=== PATIENT | female | born 1945 | race Caucasian/White ===

== ENCOUNTER → 2017-11-11 13:45 | Outpatient (CLI) | payer MEDICARE, BC, SELFPAY | PROVIDERS: PCP Emergency Medicine; Visit Provider Student in an Organized Health Care Education/Training Program | DX: M17.11 Unilateral primary osteoarthritis, right knee (principal); M06.861 Other specified rheumatoid arthritis, right knee | CPT/HCPCS: 99213 ==

== ENCOUNTER → 2017-12-16 09:42 | Outpatient (BNVA) | payer MEDICARE, BC, SELFPAY | PROVIDERS: PCP Emergency Medicine; Referring Provider Emergency Medicine; Visit Provider Student in an Organized Health Care Education/Training Program | DX: M17.11 Unilateral primary osteoarthritis, right knee (principal); M25.561 Pain in right knee | CPT/HCPCS: 20610; 99213; 99214; J1040 ==

== ENCOUNTER → 2018-06-23 08:56 | Outpatient (BNVA) | payer MEDICARE, BC, SELFPAY | PROVIDERS: PCP Emergency Medicine; Referring Provider Emergency Medicine; Visit Provider Student in an Organized Health Care Education/Training Program | DX: M17.11 Unilateral primary osteoarthritis, right knee (principal); M70.61 Trochanteric bursitis, right hip; M76.891 Other specified enthesopathies of right lower limb, excluding foot | CPT/HCPCS: 99213 ==

== ENCOUNTER 2018-07-28 09:49 | Outpatient (CLI) | payer MEDICARE, BC, SELFPAY ==
[2018-07-28 10:33] LABS: Abs Immature Grans 0.01 k/cumm (0.0-0.09); Absolute Basophil Count 0.05 k/cumm (0.0-0.2); Absolute Eosinophil Count 0.07 k/cumm (0.0-0.7); Absolute Lymphocyte Count 1.03 k/cumm (1.2-3.4); Absolute Monocyte Count 0.42 k/cumm (0.11-0.7); Absolute Neutrophil Count 4.66 k/cumm (1.2-6.7); Basophils % 0.8; Eosinophils % 1.1; HCT 39.4 % (36.0-46.0); HGB 13.1 g/dL (12.0-15.5); Immature Grans % 0.2; Lymphocytes % 16.5; Mean Corp. HGB Concentration 33.2 g/dL (32.0-36.0); Mean Corpuscular Hemoglobin 31.3 pg (27.0-33.0); Mean Platelet Volume 10.9 fL (8.0-11.0); Monocytes % 6.7; Neutrophils % 74.7; Platelet Count 191 x1000/uL (130-400); RBC 4.19 m/cumm (4.00-5.20); RBC Distribution Width 12.7 % (11.7-14.6); White Blood Cell Count 6.24 k/cumm (4.4-10.8)
[2018-07-28 11:10] LABS: ALT 22 U/L (12-78); AST 27 U/L (15-37); Albumin 3.9 g/dL (3.4-5.0); Alkaline Phosphatase 90 U/L (46-116); Anion Gap 9.8 mmol/L (3-11); BUN 17 mg/dL (7-18); Bilirubin, Total 0.4 mg/dL (0.2-1.0); C-Reactive Protein 0.12 mg/dL (0.0-0.3); CO2 27.2 mmol/L (21.0-32.0); CREATININE 0.67 mg/dL (0.55-1.02); Calcium 8.9 mg/dL (8.5-10.1); Chloride 101 mmol/L (98-107); Glucose 94 mg/dL (70-100); Potassium 4.1 mmol/L (3.5-5.1); Sodium 138 mmol/L (136-145); Total Protein 6.6 g/dL (6.4-8.2)
== END 2018-07-28 10:09 ==
PROVIDERS: PCP Emergency Medicine; Visit Provider Internal Medicine Rheumatology
DX: M06.4 Inflammatory polyarthropathy (principal)
CPT/HCPCS: 36415; 80053; 85025; 86140

== ENCOUNTER → 2019-01-21 08:49 | Outpatient (BNVA) | payer MEDICARE, BC, SELFPAY | PROVIDERS: PCP Emergency Medicine; Referring Provider Emergency Medicine; Visit Provider Orthopaedic Surgery | DX: M70.61 Trochanteric bursitis, right hip (principal) | CPT/HCPCS: 99213 ==

== ENCOUNTER → 2019-02-19 08:25 | Outpatient (BNVA) | payer MEDICARE, BC, SELFPAY | PROVIDERS: PCP Emergency Medicine; Referring Provider Emergency Medicine; Visit Provider Student in an Organized Health Care Education/Training Program | DX: M76.891 Other specified enthesopathies of right lower limb, excluding foot (principal); M70.61 Trochanteric bursitis, right hip | CPT/HCPCS: 99213 ==

== ENCOUNTER 2019-02-26 07:01 | Outpatient (CLI) | payer MEDICARE, BC, SELFPAY ==
--- NOTE | 2019-02-26 14:10 | DI.MRI_ITS ---
EXAM: MR LOWER JOINT RT WO CLINICAL HISTORY: R troch bursitis, ?abductor tendon tear M70.61 TROCHANTERIC BURSITIS, RT HI. TECHNIQUE: Multiplanar multisequence MRI was performed. COMPARISON: RT HIP COMPLETE AP PELVIS from 10/07/2015 FINDINGS: There is edema around the greater trochanters, right greater than left, consistent with trochanteri c bursitis. There is a small amount of fluid in the right hip joint. No abductor tendon tear is see n. The marrow signal appears normal. Diverticulosis is incidentally noted in the sigmoid colon. IMPRESSION: Bilateral trochanteric bursitis, right greater than left.
== END 2019-02-26 07:21 ==
PROVIDERS: PCP Emergency Medicine; Visit Provider Student in an Organized Health Care Education/Training Program
DX: M70.61 Trochanteric bursitis, right hip (principal); R60.0 Localized edema; M25.451 Effusion, right hip
CPT/HCPCS: 73721

== ENCOUNTER 2019-03-05 10:08 | Outpatient (CLI) | payer MEDICARE, BC, SELFPAY ==
--- NOTE | 2019-03-05 10:23 | DI.RAD_ITS ---
EXAM: XR CERVICAL SPINE COMP 4-5V CLINICAL HISTORY: eval L arm weakness TECHNIQUE: The study was performed according to the usual protocol. COMPARISON: CERV SP.WITH OBL OR FLEX/EXT from 06/08/2008 FINDINGS: Five views were obtained. There are very prominent hypertrophic changes of the vertebral endplates m ost marked at C4-5 and C5-6. Marked facet hypertrophic degenerative changes noted as well particular ly in the mid cervical spine. Neural foramina appear fairly well maintained as visualized. No fract ure identified. No gross erosive or destructive process seen. Multilevel disc space narrowing is seen consistent with disc degeneration. IMPRESSION: Severe degenerative changes of the cervical spine as described above.
--- NOTE | 2019-03-05 10:29 | DI.RAD_ITS ---
EXAM: XR LUMBAR SPINE AP, LAT CLINICAL HISTORY: RLE numbness and weakness TECHNIQUE: The study was performed according to the usual protocol. COMPARISON: No exams were available for comparison FINDINGS: Three views were obtained. There is a moderate right convex lumbar scoliosis. There is narrowing of intervertebral disc spaces throughout the lumbar region. No gross fracture identified. Severe hype rtrophic degenerative changes of the vertebral endplates and facet joints noted throughout. IMPRESSION: Severe DJD of the lumbar spine.
== END 2019-03-05 10:28 ==
PROVIDERS: PCP Emergency Medicine; Referring Provider Emergency Medicine; Visit Provider Student in an Organized Health Care Education/Training Program
DX: R29.898 Other symptoms and signs involving the musculoskeletal system (principal); R20.0 Anesthesia of skin; M50.321 Other cervical disc degeneration at C4-C5 level; M50.322 Other cervical disc degeneration at C5-C6 level; M51.36 Other intervertebral disc degeneration, lumbar region; M47.816 Spondylosis without myelopathy or radiculopathy, lumbar region; M70.61 Trochanteric bursitis, right hip; M54.16 Radiculopathy, lumbar region; M76.891 Other specified enthesopathies of right lower limb, excluding foot
CPT/HCPCS: 20610; 99214; 72050; 72100; J1040

== ENCOUNTER 2019-03-19 02:00 | Outpatient (CLI) | payer MEDICARE, BC, SELFPAY ==
--- NOTE | 2019-03-19 11:30 | DI.MRI_ITS ---
EXAM: MR LUMBAR SPINE WO CLINICAL HISTORY: PAIN M54.16 RADICULOPATHY, LUMBAR REGION. TECHNIQUE: Multiplanar multisequence MRI was performed. COMPARISON: No exams were available for comparison FINDINGS: MR examination lumbosacral spine was performed according to the usual protocol. There are peridiscal vertebral signal changes at L4-5 consistent with disc degeneration. There is marked loss disc heigh t throughout the lower thoracic and lumbar region sparing L5-S1. There is endplate hypertrophy throu ghout the lumbar region. Facet hypertrophic degenerative changes also noted throughout the lumbosacr al spine. At T11 there is mild bilateral neural foraminal cysts stenosis and there is a moderate disc bulge. N o focal disc herniation seen. The conus medullaris appears intact. At T12-L1 there are moderate hypertrophic facet changes and moderate disc bulge. No focal disc herni ation or central canal spinal stenosis. Neural foramina slightly narrowed bilaterally. At L1-2 there is a moderate disc bulge without disc herniation. There is narrowing of the lateral re cesses bilaterally secondary to facet and endplate hypertrophy. The neural foramina are grossly well maintained. At L2-3 there is mild bilateral facet hypertrophy and a slight disc bulge. No disc herniation. Slig ht bilateral neural foraminal narrowing. At L3-4 the neural foramina are fairly well maintained. There is a moderate size disc herniation whi ch is broad-based and appears to cause narrowing of the lateral recesses bilaterally. There is borde rline central canal spinal stenosis. At L4-5 there is severe disc degeneration and there are prominent hypertrophic changes of the facet j oints and vertebral endplate causing moderate central canal spinal stenosis. There is bilateral neur al foraminal stenosis right greater than left. There is a prominent disc bulge without significant f ocal disc herniation. At L5-S1 there is minimal hypertrophic change of the facet joints. The intervertebral disc appears i ntact and the neural foramina are well maintained. IMPRESSION: Multilevel findings as described above. The most prominent findings are moderate central canal spin al stenosis associated with facet hypertrophy, endplate hypertrophic changes and disc bulge at L4-5, and moderate sized broad-based disc herniation at L3-4.
== END 2019-03-19 02:20 ==
PROVIDERS: PCP Emergency Medicine; Visit Provider Student in an Organized Health Care Education/Training Program
DX: M54.16 Radiculopathy, lumbar region (principal); M54.5 Low back pain; M48.061 Spinal stenosis, lumbar region without neurogenic claudication; M47.26 Other spondylosis with radiculopathy, lumbar region; M51.16 Intervertebral disc disorders with radiculopathy, lumbar region
CPT/HCPCS: 72148

== ENCOUNTER → 2019-04-16 10:37 | Outpatient (BNVA) | payer MEDICARE, BC, SELFPAY | PROVIDERS: PCP Emergency Medicine; Referring Provider Emergency Medicine; Visit Provider Student in an Organized Health Care Education/Training Program | DX: M54.16 Radiculopathy, lumbar region (principal) | CPT/HCPCS: 99213 ==

== ENCOUNTER → 2019-04-21 09:09 | Outpatient (BNVA) | payer MEDICARE, BC, SELFPAY | PROVIDERS: PCP Emergency Medicine; Referring Provider Student in an Organized Health Care Education/Training Program; Visit Provider Psychiatry & Neurology Neurology | DX: G25.0 Essential tremor (principal); G20 Parkinson's disease; M54.16 Radiculopathy, lumbar region; M48.061 Spinal stenosis, lumbar region without neurogenic claudication | CPT/HCPCS: 99205; 99215 ==

== ENCOUNTER 2019-05-27 16:22 | Outpatient (CLI) | payer MEDICARE, BC, SELFPAY ==
[2019-05-27 16:56] LABS: Abs Immature Grans 0.01 k/cumm (0.0-0.09); Absolute Basophil Count 0.05 k/cumm (0.0-0.2); Absolute Eosinophil Count 0.15 k/cumm (0.0-0.7); Absolute Lymphocyte Count 1.42 k/cumm (1.2-3.4); Absolute Monocyte Count 0.59 k/cumm (0.11-0.7); Absolute Neutrophil Count 2.92 k/cumm (1.2-6.7); Eosinophils % 2.9; HCT 39.9 % (36.0-46.0); HGB 13.6 g/dL (12.0-15.5); Immature Grans % 0.2 %; Lymphocytes % 27.6; Mean Corp. HGB Concentration 34.1 g/dL (32.0-36.0); Mean Corpuscular Volume 93.9 fL (80-95); Mean Platelet Volume 10.3 fL (8.0-11.0); Monocytes % 11.5; Neutrophils % 56.8; Platelet Count 245 x1000/uL (130-400); RBC 4.25 m/cumm (4.00-5.20); RBC Distribution Width 12.7 % (11.7-14.6); White Blood Cell Count 5.14 k/cumm (4.4-10.8)
[2019-05-27 18:27] LABS: ALT 20 U/L (14-59); AST 26 U/L (15-37); Albumin 4.1 g/dL (3.4-5.0); Alkaline Phosphatase 95 U/L (46-116); Anion Gap 8.3 mmol/L (3-11); BUN 18 mg/dL (7-18); Bilirubin, Total 0.4 mg/dL (0.2-1.0); CO2 28.7 mmol/L (21.0-32.0); Calcium 8.8 mg/dL (8.5-10.1); Chloride 102 mmol/L (98-107); Glucose 85 mg/dL (74-106); Potassium 4.2 mmol/L (3.5-5.1); Sodium 139 mmol/L (136-145)
== END 2019-05-27 16:42 ==
PROVIDERS: PCP Emergency Medicine; Visit Provider Nurse Practitioner Family
DX: M48.061 Spinal stenosis, lumbar region without neurogenic claudication; M54.16 Radiculopathy, lumbar region; Z01.818 Encounter for other preprocedural examination
CPT/HCPCS: 36415; 80053; 85025

== ENCOUNTER → 2019-07-07 07:33 | Outpatient (BNVA) | payer MEDICARE, BC, SELFPAY | PROVIDERS: PCP Emergency Medicine; Referring Provider Emergency Medicine; Visit Provider Psychiatry & Neurology Neurology | DX: R69 Illness, unspecified (principal) ==

== ENCOUNTER 2019-08-24 09:13 | Outpatient (CLI) | payer MEDICARE, BC, SELFPAY ==
--- NOTE | 2019-08-24 08:45 | DI.RAD_ITS ---
EXAM: XR STANDING ALIGNMENT CLINICAL HISTORY: right knee DJD. TECHNIQUE: 2D digital imaging was performed. COMPARISON: CR RIGHT KNEE LIMITED 1 OR 2 VIEW from 09/21/2016 FINDINGS: In the right knee there is moderate narrowing of the femoral tibial joint. Periarticular spurring is seen involving all 3 joint compartments. In the left knee, there is chondrocalcinosis and periartic ular spurring present in the femoral tibial joint. Moderately severe degenerative changes are seen in the lower lumbosacral spine. The right lower extremity measures 83.5 cm. The left lower extremity measures 84.6 cm. IMPRESSION: Osteoarthritis of the knees bilaterally right greater than left. DATA REPOSITORY: RADIATION DOSE DELIVERED:
== END 2019-08-24 09:33 ==
PROVIDERS: PCP Emergency Medicine; Referring Provider Emergency Medicine; Visit Provider Student in an Organized Health Care Education/Training Program
DX: M17.0 Bilateral primary osteoarthritis of knee (principal); M25.562 Pain in left knee; M21.70 Unequal limb length (acquired), unspecified site; M17.11 Unilateral primary osteoarthritis, right knee
CPT/HCPCS: 99213; 73560; 77073

== ENCOUNTER → 2019-08-31 07:55 | Outpatient (BNVA) | payer MEDICARE, BC, SELFPAY | PROVIDERS: PCP Emergency Medicine; Referring Provider Emergency Medicine; Visit Provider Psychiatry & Neurology Neurology | DX: G25.0 Essential tremor (principal); G20 Parkinson's disease; M54.16 Radiculopathy, lumbar region | CPT/HCPCS: 99213; 99442 ==

== ENCOUNTER → 2019-09-07 10:41 | Outpatient (BNVA) | payer MEDICARE, BC, SELFPAY | PROVIDERS: PCP Emergency Medicine; Referring Provider Emergency Medicine; Visit Provider Student in an Organized Health Care Education/Training Program | DX: M25.551 Pain in right hip (principal); M76.891 Other specified enthesopathies of right lower limb, excluding foot; G20 Parkinson's disease | CPT/HCPCS: 20610; 99212; 99213; J1040 ==

== ENCOUNTER → 2019-10-15 14:26 | Outpatient (BNVA) | payer MEDICARE, BC, SELFPAY | PROVIDERS: PCP Emergency Medicine; Referring Provider Emergency Medicine; Visit Provider Student in an Organized Health Care Education/Training Program | DX: M25.562 Pain in left knee (principal); G20 Parkinson's disease | CPT/HCPCS: 20610; 99214; J1040 ==

== ENCOUNTER 2019-11-11 01:12 | Outpatient (CLI) | payer MEDICARE, BC, SELFPAY ==
--- NOTE | 2019-11-11 08:45 | DI.MRI_ITS ---
EXAM: MR CERVICAL SPINE WO CLINICAL HISTORY: weak left arm with neck pain,R29.898. TECHNIQUE: Multiplanar multisequence MRI was performed. COMPARISON: No exams were available for comparison FINDINGS: MR examination cervical spine was according to usual protocol. No significant bony signal abnormalit y seen. There is loss of height the intervertebral disc spaces C4-5 C5-6 and C6-7. Images obtained through the posterior fossa are unremarkable. Spinal cord shows normal signal throug hout. Spinal cord is of normal diameter. At C2-3 and C3-4, there is no evidence disc herniation, central canal spinal stenosis, or neural fora jeff stenosis. At C4-5, there is bilateral neural foraminal stenosis. There is prominence of the disc osteophyte co mplex most prominent right lateral, and there is question of a small superimposed central disc hernia tion at this level with minimal anterior cord deformity present. No central canal spinal stenosis. At C5-6, there is moderate prominence of the disc osteophyte complex with minimal anterior deformity of the spinal cord. No central canal spinal stenosis. Bilateral neural foraminal stenosis noted. At C6-7, there is prominence of the disc osteophyte complex left paracentral, no evidence of disc her niation, neural impingement, or neural foraminal or central canal stenosis. No significant findings at C7-T1. IMPRESSION: Multilevel prominence of disc osteophyte complex as described above. Bilateral neural foraminal narrowing at C4-5 and C5-6. Question minimal anterior cord impingement by disc osteophyte complex centrally at C4-5 and C5-6. Po ssible small central disc herniation superimposed on DOC prominence at C4-5. DATA REPOSITORY:
== END 2019-11-11 01:32 ==
PROVIDERS: PCP Emergency Medicine; Visit Provider Emergency Medicine
DX: M48.02 Spinal stenosis, cervical region (principal); M25.78 Osteophyte, vertebrae; R29.898 Other symptoms and signs involving the musculoskeletal system; M54.2 Cervicalgia
CPT/HCPCS: 72141

== ENCOUNTER 2019-11-13 03:20 | Outpatient (CLI) | payer MEDICARE, BC, SELFPAY ==
[2019-11-13 10:08] LABS: HCT 39.3 % (36.0-46.0); HGB 13.2 g/dL (11.2-15.7); MCH 31.8 pg (27.0-33.0); MCHC 33.6 % (32.0-36.0); MCV 94.7 fL (80-95); Platelet Count 230 10^3/uL (130-400); RBC 4.15 10^6/uL (3.93-5.22); RDW 12.5 % (11.7-14.6); RDW-SD 43.6 fL; WBC 5.27 10^3/uL (4.4-10.8)
[2019-11-13 11:06] LABS: Anion Gap 7.8 mmol/L (3-11); BUN 17 mg/dL (7-18); CO2 29.2 mmol/L (21.0-32.0); CREATININE 0.69 mg/dL (0.55-1.02); Calcium 8.8 mg/dL (8.5-10.1); Chloride 102 mmol/L (98-107); Glucose 89 mg/dL (74-106); Potassium 4.1 mmol/L (3.5-5.1); Sodium 139 mmol/L (136-145)
[2019-11-14 12:28] LABS: COVID-19 RT-PCR Result NEGATIVE (Negative)
== END 2019-11-13 03:40 ==
PROVIDERS: PCP Emergency Medicine; Visit Provider Student in an Organized Health Care Education/Training Program
DX: M25.561 Pain in right knee (principal); M17.11 Unilateral primary osteoarthritis, right knee; Z11.59 Encounter for screening for other viral diseases; Z01.818 Encounter for other preprocedural examination; Z01.812 Encounter for preprocedural laboratory examination
CPT/HCPCS: 36415; 80048; 85027; U0003

== ENCOUNTER 2019-11-17 08:53 | Observation (INO) | payer MEDICARE, BC, SELFPAY ==
[2019-11-17 09:03] VITALS: BP 141/91; PULSE 74; RESP 14; TEMP 36.1; O2SAT 100
[2019-11-17] MEDS: Acetaminophen 500 MG TAB 1000 MG PO ×2 (09:30→15:30)
[2019-11-17] MEDS: Celecoxib 200 MG CAP 400 MG PO (09:30)
[2019-11-17] MEDS: Gabapentin 300 MG CAP PO (09:31)
[2019-11-17] MEDS: Lactated Ringers 1,000 ML 80 ML IV ×2 (09:33→15:30)
[2019-11-17] MEDS: ceFAZolin 2 GM/50 ML BAG IVPB (12:40)
[2019-11-17] MEDS: Bupivacaine 0.25% Pres-Free 30 ML VIAL (13:38)
[2019-11-17] MEDS: Ketorolac 30 MG/ML VIAL (13:40)
[2019-11-17] MEDS: Normal Saline 20 ML VIAL (13:42)
[2019-11-17 14:19] VITALS: BP 92/51; PULSE 71; RESP 15; TEMP 36.4; O2SAT 98
[2019-11-17 14:24] VITALS: BP 98/55; PULSE 59; RESP 13; TEMP 36.4; O2SAT 98
[2019-11-17 14:29] VITALS: BP 92/62; PULSE 69; RESP 12; TEMP 36.4; O2SAT 98
[2019-11-17 14:44] VITALS: BP 102/65; PULSE 66; RESP 15; TEMP 36.4; O2SAT 96
--- NOTE | 2019-11-17 15:02 | DSE_ITS ---
Date of service: 11/17/19 Time of Service: 17:20 DS: Diagnosis Discharge Diagnosis (1) Arthritis of right knee: Status: Chronic Discharge Plan Disposition Patient Disposition: HOME Condition: Good Discharge Details Reason For Visit: R KNEE TOTAL Admit Date/Time: 11/17/19 08:53 Admit Provider: Samm Cash Attending Provider: Samm Cash Primary Care Provider: Fabricio Long Hospital Course Hospital Course: Patient was admitted to the medical/surgical floor following the procedure. The surgery was tolerated well without any notable medical, surgical, or anesthetic complications. Mobilization began postoperatively. She was voiding spontaneously. Vitals were stable. Physical therapy worked with the patient and was cleared for discharge home. No acute medical issues. Pain was controlled on oral regimen. Home Meds and New Rx's Prescriptions: New aspirin 81 mg tablet,delayed release (DR/EC) 81 mg PO BID Qty: 60 RF: 0 acetaminophen 500 mg tablet 1,000 mg PO Q8H PRN (Reason: pain) Qty: 90 RF: 3 pantoprazole 40 mg tablet,delayed release (DR/EC) 40 mg PO DAILY Qty: 30 RF: 0 docusate sodium [Colace] 100 mg capsule 100 mg PO BID PRNQty: 10 RF: 0 gabapentin 300 mg capsule 300 mg PO QHS Qty: 7 RF: 0 oxycodone 5 mg tablet 5 mg PO Q4H Qty: 18 RF: 0 Continued metoclopramide HCl 10 mg tablet 10 mg PO DAILY PRNRF: 0 amlodipine 5 mg tablet 5 mg PO DAILY Qty: 90 RF: 3 ascorbic acid (vitamin C) 500 MG tablet 2 tab PO daily prn RF: 0 cholecalciferol (vitamin D3) 1,000 UNIT capsule 2 cap PO daily prn RF: 0 propranolol 10 mg tablet 20 mg PO BID Qty: 120 RF: 5 hydroxychloroquine [Plaquenil] 200 mg tablet 400 mg PO DAILY RF: 0 Changed celecoxib 200 mg capsule 200 mg PO BID Qty: 60 RF: 3 Discharge Instructions Additional Instructions: Dr. Cash?s Total Knee Discharge Instructions Activity: The most important activity is to walk. You should try to take short walks a few times a day. It is important that when resting you work on keeping the knee straight. Avoid putting a pillow behind the knee as this will encourage flexion. Work on range of motion exercises as provided by Physical Therapy and the preoperative booklet. - Start outpatient physical therapy within 2 weeks. - You should wear the SOUTH hose on both legs for 2 weeks. Dressing: Keep the surgical dressing (Mepilex) in place for at least one week. If you went home on the surgical day, you should remove the CHIDI wrap on the second day and then apply the SOUTH hose. The dressing may get wet after 3 days but avoid soaking the dressing. If it gets wet, just lightly pat dry. Most patient prefer to cover with ClingWrap or Saran Wrap to keep the dressing dry. After the first week, the dressing may be removed and replaced with light gauze and tape or nothing. Medications: - You should take Tylenol and anti-inflammatory Celebrex as your primary pain control medications - You have been prescribed a stronger pain medication Oxycodone for breakthrough pain, take as needed as prescribed. - You have also been prescribed a stomach acid reduction agent Pantoprozole to help reduce stomach acid and reflux. - You will be taking Aspirin 81mg twice a day for DVT prevention unless instructed otherwise. - You have also been prescribed Gabapentin to take at night for nerve pain and restlessness. - If you have constipation you should take Colace or Miralax (both [id number]). It takes most people 3-4 days to have a bowel movement. Follow-up: 2 weeks. You should also call physical therapy to work on scheduling outpatient therapy sessions which can begin at 2 weeks. If you have any acute concerns or questions, please do not hesitate to contact the office at [phone]. You may contact Dr. Cash with any questions after hours through the hospital at [phone] or on his cell phone at [phone]. Referrals: Samm Cash MD [ [facility] STAFF PHYSICIAN] - Activity:: Activity as Tolerated Equipment/Supplies:: No Equipment Needed Diet:: As Tolerated Discharge Orders Discharge Orders: Discharge Order (Routine); Ordered 11/17/19 Ordered By: Samm Cash DS: Summary Status at Discharge Functional status at discharge: uses cane/walker Overall status at discharge: patient is progressing back to baseline Mental Status: mental status grossly normal Speech and Movement: speech and movement normal Mood: congruent mood Affect: normal affect Exam Psych Mental Status: mental status grossly normal Speech and Movement: speech and movement normal Mood: congruent mood Affect: normal affect DS: Data Vitals/I&O Vitals and I&O: Vital Signs Temperature 36.4 C L 11/17/19 14:44 Pulse 66 11/17/19 14:44 Pulse Rhythm Regular 11/17/19 09:03 Respiratory Rate 15 11/17/19 14:44 Respiratory Effort Non-Labored 11/17/19 09:03 Respiratory Depth Normal 11/17/19 09:03 Respiratory Pattern Normal 11/17/19 09:03 Blood Pressure 102/65 11/17/19 14:44 Pulse Oximetry 96 11/17/19 14:44 Respiratory End-tidal CO2 30 11/17/19 14:44 Oxygen Delivery Method Room Air 11/17/19 14:44 Oxygen Flow Rate 0 11/17/19 14:44 Pain Level 0 11/17/19 14:44 Intake & Output 11/16/19 11/17/19 11/17/19 23:59 11:59 23:59 Intake Total 890 / 890 Output Total 100 / 100 Balance 790 / 790 Weight 62.9 kg Intake: IV 840 / 840 Oral 50 / 50 Output: Estimated Blood Loss 100 / 100 Other: Urine Appearance Clear Emesis Description None [facility] Medical History Arthritis of right knee (Chronic) Basal cell carcinoma in situ of skin (Resolved) Face Diverticulosis (Chronic) Essential tremor (Chronic) Inflammatory polyarthritis (Chronic) [place] [facility] [facility] Left arm weakness (Acute) Left knee pain (Acute) Migraine (Chronic) Parkinson disease (Chronic) Right lumbar radiculopathy (Chronic) Surgical History History of back surgery (Acute) History of carpal tunnel surgery of right wrist (Acute) S/P cholecystectomy (Acute 11/02/14) S/P colonoscopy (Acute 10/22/11) S/P oophorectomy (Acute) S/P tonsillectomy and adenoidectomy (Acute) Family History Mother Diabetes Essential hypertension Heart disease Father Essential hypertension Heart disease Stroke Prostate cancer Sister Diabetes Essential hypertension Heart disease 3 Stents Myocardial infarction Brother Essential hypertension Maternal Grandfather Heart disease Maternal Grandmother Heart disease Paternal Grandfather No problems noted. Paternal Grandmother Diabetes Heart disease Essential hypertension Son No problems noted. Daughter No problems noted. Social History Smoking/Tobacco Use Status: Never Alcohol Intake: current Alcohol Intake frequency: holidays/special occasions only Alcohol type: wine Drug use: Never current occupation: Retired Current gender identity: female Duration: 45-60 minutes/day Frequency: 5-6 times per week Seatbelt use: always
[2019-11-17 15:21] VITALS: BP 106/65; PULSE 64; RESP 16; TEMP 36.5; O2SAT 95
--- NOTE | 2019-11-17 15:47 | PT.INIE ---
Date of service: 11/17/19 Time of Service: 15:47 PT Notes Visit Reasons: R KNEE TOTAL Physical Therapy Inpatient Initial Evaluation Date: 11/17/2019 Referring Doctor: Samm Cash MD PT Orders: PT CONSULT: Status post Ortho surgery Precautions: Fall. Standard. WBAT on right LE. Patient Profile/Admitting Diagnosis: Allie is a 74-year-old female with past medical history significant for Parkinson's Disease and inflammatory polyarthritis status post right total knee arthroplasty on postoperative day 0. PMHX: Medical History (Updated 11/04/19 @ 13:14 by Fabricio Long DO) Arthritis of right knee (Chronic) Basal cell carcinoma in situ of skin (Resolved) Face Diverticulosis (Chronic) Essential tremor (Chronic) Inflammatory polyarthritis (Chronic) [place] [facility] [place] Left arm weakness (Acute) Left knee pain (Acute) Migraine (Chronic) Parkinson disease (Chronic) Right lumbar radiculopathy (Chronic) Surgical History History of carpal tunnel surgery of right wrist (Acute) S/P cholecystectomy (Acute 11/02/14) S/P colonoscopy (Acute 10/22/11) S/P oophorectomy (Acute) S/P tonsillectomy and adenoidectomy (Acute) Social History/Home Situation: Lives with in a private home with 7 steps to enter and a rail on the right side going up. Has used bilateral axillary crutches lately for level surfaces due to persistent knee pain. Equipment Owned/DME: Bilateral axillary crutches Subjective: Keshia reports being a little foggy and required moderate verbal cueing for safe strategies for level surface ambulation and stair negotiation. She reported increased pain in the right knee with weight bearing to 4/10 that subsided with rest. Objective: General Observation: IV in the right UE. Cryo/Cuff in the right knee. Aristides wraps to right knee. TEDS on the left leg. Mental Status: Alert and oriented but required moderate verbal cueing for safe walking and standing association strategies Pain: 4/10 in the right knee with weightbearing ROM: Right Upper Extremity: Shoulder Flexion WFL. Shoulder abduction WFL. Elbow flexion WFL. Wrist flexion WFL. Opening and closing of hand WFL. Left Upper Extremity: Shoulder Flexion WFL. Shoulder abduction WFL. Elbow flexion WFL. Wrist flexion WFL. Opening and closing of hand WFL. Right Lower Extremity: Hip flexion WFL. Hip abduction WFL. Knee flexion 30 degrees to 110 degrees. Knee extension -30 degrees. Ankle dorsiflexion WFL. Ankle plantarflexion WFL. Left Lower Extremity: Hip flexion WFL. Hip abduction WFL. Knee flexion WFL. Ankle dorsiflexion WFL. Ankle plantarflexion WFL. Strength: Right Upper Extremity: Shoulder flexors 5/5. Shoulder abductors 5/5. Elbow flexors 5/5. Elbow extensors 5/5. Bearing Maker strong. Left Upper Extremity: Shoulder flexors 5/5. Shoulder abductors 5/5. Elbow flexors 5/5. Elbow extensors 5/5. Bearing Maker strong. Right Lower Extremity: Hip flexors 4/5. Hip abductors 4/5. Knee flexors 3-/5. Knee extensors 3-/5. Ankle dorsiflexors 5/5. Ankle plantarflexors 5/5. Left Lower Extremity:Hip flexors 5/5. Hip abductors 5/5. Knee flexors 5/5. Knee extensors 5/5. Ankle dorsiflexors 5/5. Ankle plantarflexors 5/5. Sensation: Intact as to pain and pressure on bilateral lower extremities. Bed Mobility/Transfers: Supine to sit standby assist Sit to supine standby assist Sit to stand contact-guard assist, requires use of front wheeled walker Stand to sit contact-guard assist, requires use of front wheeled walker Bed to chair contact-guard assist, requires use of front wheeled walker Chair to bed contact-guard assist, requires use of front wheeled walker Gait: 75 feet with front wheeled walker with contact-guard assist. Required moderate verbal cueing for correct technique and safe gait pattern. Right quad activation inadequate with decreased knee extension during mid stance in R with knee buckling x 3 but no LOB. Tolerated six 4-inch steps and four 6-inch steps holding onto bilateral rails with contact-guard assist and moderate verbal cueing for correct technique. Reported increase in pain to 4/10 in the right knee after activity. Balance: Static Sitting: Normal Dynamic Sitting: Normal Static Standing: Fair Dynamic Standing: Fair Special Tests: Mobility Limitations Standardized Measure [facility] 6 clicks Basic Mobility Inpatient Short Form: Raw Score: 18 CMS Score: 47% deficit Informed Consent/Education: Patient instructed in purpose of PT consult and plan of care. Assessment: Allie demonstrates functional mobility decline requiring minimal physical assistance and the use of front wheeled walker for all mobility ADL performance, weakness in right quadriceps, difficulty with walking, and increased risk for falling due to postoperative status. Allie is a 74-year-old female with past medical history significant for Parkinson's disease and inflammatory polyarthritis status post right total knee arthroplasty on postoperative day 0. Patient presents with clinical signs and symptoms consistent with current/admitting diagnoses that have resulted to mobility limitations, gait instability, generalized weakness, and impairment of motor control as demonstrated by the following impairment level findings: 1. Decreased strength to right knee major muscle groups 2. Impaired standing balance 3. Impaired activity tolerance 4. Limitation of joint range of motion in right knee Impairments are contributing to the following functional limitations: 1. Inability to safely ambulate without assistive device and physical assistance 2. Increase completion time for mobility ADL performance 3. Increased fall risk 4. Inability to negotiate steps alone safely Patient is assessed as a in 7162 moderate complexity based on the following: History: 74-year-old female with impairment level findings, functional limitations, and past medical history as indicated above Examination: Demonstrable impairment in strength, balance, and mobility level with underlying impairments and functional limitations as documented above Presentation:Evolving Decision Makin moderate complexity Goals: Goals X 2 more tretament sessions 1. Supine-Sit independent 2. Sit-Supine independent 3. Sit-Stand supervision 4. Stand-Sit supervision 5. Bed-Chair supervision 6. Chair-Bed supervision 7. Supervision gait on level surface with use of least restrictive device for at least 300 feet without report of pain nor dyspnea 8. Supervision stair negotiation while holding onto bilateral rails for at least 10 steps without report of pain nor dyspnea 9. Supervision with home exercise program 10. Good static and dynamic standing balance/tolerance Plan of Care/Treatment Plan: 1-2x/day, 1 more day. Plan of care has been reviewed with the [employer] providing the service under Physical Therapy direction. Initiate Physical Therapy intervention for strengthening, bed mobility, transfers, gait, stairs, balance training, use of assistive device. DISCHARGE RECOMMENDATIONS: Home when medically cleared by orthopedic surgeon. Outpatient PT services in order to achieve highest functional mobility level with the least restrictive device. TREATMENT CODE/TIME: 13042 x 25 minutes, 81331 x 30 minutes beginning at 15:47 PM. Thank you for the opportunity to participate in the care of this patient. Laura Garza PT, DPT, CLT [facility] [place], [place]
[2019-11-17] MEDS: ceFAZolin 1 GM/50 ML BAG IVPB (17:12)
[2019-11-17] MEDS: oxyCODONE 5 MG TAB PO (17:12)
--- NOTE | 2019-11-17 20:37 | W.PM.OP ---
Date of service: 11/17/19 Time of Service: 13:37 Operative Note Operative Note DATE OF PROCEDURE: 11/17/19 PRE-OP DIAGNOSIS: Right Knee Osteoarthritis POST-OP DIAGNOSIS: same PROCEDURE: Right Total Knee Replacement SURGEON: Samm Cash SUPERVISOR DISPLAY FABRICATION: Kassandra Francis ANESTHESIA: regional and spinal ESTIMATED BLOOD LOSS: 100 PATHOLOGY: none sent TOURNIQUET TIME: 26 COMPLICATIONS: None Patient was transported to: PACU Patient's condition: stable Implants: 1. Depuy Attune Cruciate Retaining Femoral Component, Size 6 narrow 2. Depuy Attune Rotating Platform Tibial Component, Size 4 3. Depuy Attune 6 x 8 mm CR,RP Poly 4. Depuy Attune Patellar Component, Size 35 mm Indications: I have seen Allie in clinic for symptoms of knee arthritis, confirmed with radiographic findings. She has exhausted nonoperative methods and was having significant limitations in daily function and desired better function and less pain. I discussed the technical details of a knee replacement. I explained the risks of the procedure to include, but not limited to, bleeding, infection, pain, stiffness, fracture, damage to nerves and vessels, damage to muscles and tendons, loosening, need for repeat procedure, blood clot and cardiopulmonary demise. Despite these risks, Allie elected to proceed. Findings: There was significant signs of arthritis throughout the knee involving all 3 compartments. Procedure Description: Allie was greeted in the preoperative holding area where the correct side was identified and marked. The consent was reviewed with the patient and signed. The history and physical was updated. All questions were answered. Preoperative mediacations were administered: Acetaminophen 1000mg, Celebrex 400mg, and Gabapentin 300mg. An adductor canal block was then administered by the anesthesia team in the PACU. She was taken back to the operating room. A spinal anesthestic was then administered. The patient was placed into the supine position on the operating room table. A nonsterile tourniquet was placed high onto the leg but only used for cementing. Posts were placed for positioning during the procedure. All bony prominences were well padded. Prophylactic antibiotics in the form of cefazolin were administered. 1g of Tranxemic Acid was given intravenously within 30 minutes of incision. The right leg was then prepped with Chloraprep and draped in a standard fashion with impervious stockinette and extremity drape. A second prep with Chloraprep was performed prior to placing Ioband. A timeout to confirm correct identity, side and site, procedure, allergies, anesthesia, and medical concerns was performed. With the knee in some flexion, a midline incision was made overlying the knee. Full thickness skin flaps were raised once the extensor mechanism was encountered. These were raised medially and laterally. Any bleeding was controlled with electrocautery. Once the extensor mechanism was fully exposed, a medial parapatellar arthrotomy was performed in a flexed position. All bleeding from the arthrotomy and the geniculate arteries was coagulated. A medial subperiosteal peel was performed with electrocautery to the midcoronal plane. The fat pad was removed while keeping the patellar tendon protected. The anterior distal femur synovium was removed for later visualization. The ACL and PCL were resected and the anterior horn of the lateral meniscus was transected. The knee was then flexed with the patella everted. Large osteophytes from the tibia were removed. Using a step drill, and based on preoperative templating, the femoral canal was entered. This was done with a step drill without any difficulty. The intramedullary distal femoral cut guide was inserted, set to a 5 degree valgus cut and 9mm cut thickness. There was some hypoplasia of the lateral femoral condyle and any remnant cartilage of the medial femoral condyle was removed for appropriate thickness. The distal femoral cut guide was then held in position and pinned. With the soft tissues protected, the distal cut was performed. This was passed over a few times to ensure a planar cut. I then turned attention to the tibia. The extramedullary guide was placed onto the leg. The distal aspect was slid medial to adjust for position of center of ankle and stay in line with shaft of the tibia. Approximately 3-5 degrees of posterior slope was kept in the proximal cutting guide. The center of the guide was aligned with the PCL. The stylus was used to assess cut thickness. The cut was set for 6 mm from the lateral side which corresponded to about 8 mm medially, based on preoperative templating. This was then held in position and pinned into place with 2 additional pins and a cross pin for stability. The medial and lateral collateral ligaments were protected and the cut was performed. With this completed, it was assessed and noted to be of appropriate dimensions. The guide was removed. A spacer block was inserted and the knee was brought into extension. The 8 mm spacer block provided full extension, without hyperextension and with stability of both the medial and lateral collateral ligaments was assessed. The pins from the femur and the tibia were then removed. The distal femur was then sized. The anterior stylus was placed onto the lateral ridge of the anterior femur. This indicated a size 6 narrow femur. The external rotation of the guide was adjusted to 3 degrees to match the epicondylar axis, perpendicular to Mohave?s line. The 4-in-1 cutting guide was the placed. The posterior medial femur cut was evaluated and appeared of good thickness. The spacer block was inserted underneath the cutting guide and stability was confirmed in 90 degrees of flexion. An nena wing was used to confirm appropriate position of the anterior cut to avoid notching. This cutting guide was ensured to be flush on the cut surface and then pinned into place with headed pins. While protecting the soft tissues, quad tendon, and collateral ligaments, the anterior and posterior cuts were performed with a saw. The central two pins were removed and the posterior and anterior chamfers were cut next. The notch-cutting guide was placed. This was pinned to lateralize the femoral component as much as possible while keeping it flush on the cut surface. This was then pinned into position. A reciprocating saw was used to make the small notch cut. A trial CR femoral component was then inserted, impacted down to the cut surfaces, and the lug holes were drilled. A provisional trial tibial component was placed and the knee was brought through range of motion. There was noted to be excellent extension and flexion. There was no significant instability. The patella was tracking without thumbs. The tibial cut surface was fully exposed. The medial and lateral menisci were removed. The tibia was then sized as a 4. The tibia had been previously marked during trialing to correspond to the center of the tibial component to help with rotation. The trial was aligned to this kassandra, approximately rotated to the medial 1/3rd of the tibial tubercle. The trial was pinned into place. The tibia was prepared with a reamer and a keel punch. The knee was then brought into extension and the patella was measured as 25 mm. Using the patellar clamp and cut guide, this was resected to a flat surface with at least 13mm of thickness remaining. The size 35 patella fit the best. This was oriented and then clamped into position. The lugs were drilled. The trial components were removed. The final components, except for the polyethylene were opened on the back table. The periosteal and capsular tissues, especially posteriorly, around the knee were then systematically injected with a periarticular cocktail consisting of 50cc 0.25% Marcaine, 30mg Ketorolac, 20cc of Exparal and 50cc of injectable saline. The tourniquet was then inflated to 275mmHg. The knee was thoroughly irrigated with a pulse lavage and dried. On the back table, with the implants opened, the cement was mixed. 2 batches of antibiotic laden cement were prepared with vacuum assistance. After the cement was ready it was placed on to the back side of the tibial component. A small amount was placed onto the posterior flange of the femur. Cement was manual pressurized and impregnated into the cut surface of the tibia. The tibial component was then inserted into the cut surface and impacted into position. Excess cement was removed and the component was reimpacted. Again, excess cement was removed and our attention was then turned to the femur. The femoral cut surface was once again dried and cement was manually impacted into the cut surface. The femoral component was lined with the lug holes and impacted. Excess cement was removed. It was ensured to be down against the cut surface. The trial polyethylene was then inserted and the leg was brought out into full extension for the duration of the cement curing process, approximately 15min. Cement was lastly manually impacted into the cut surface of the patella and the patellar button was clamped into position and held. During this process attention was turned to the gutters of the knee and for all interfaces for any excess cement. While the cement was hardening, the knee was irrigated with Irrisept chlorhexadine solution. It was allowed to sit in the knee for 3 minutes. After the cement had finally cured, approximately 15min, the clamp was removed from the patella and the knee was taken through range of motion. A size 8 mm polyethylene component provided the best range of motion and stability with less than 2mm gapping with medial and lateral stress and full extension without significant hyperextension. The patella was tracking with a no-thumbs technique. The trial poly was removed and once again the knee was checked for any loose, excess, or errant cement. The poly component was then inserted into position after cleaning and drying the tibial tray. The capsule was then reapproximated with a No. 1 Vicryl at multiple locations. The capsule was finally closed with a No. 2 Stratafix, barbed suture. The tourniquet was then released and the arthrotomy appeared watertight without significant bleeding. The second dosing of 1g TXA was started. Deep tissues were then reapproximated with 0 Vicryl and 2-0 Vicryl. The skin was closed with a running 3-0 Monocryl in a subcuticular fashion. This was reinforced with skin glue. A Mepilex silver dressing was applied along with a joag-ct-pdiry CHIDI wrap. A CryoCuff was applied. Allie was transferred to the hospital bed without difficulty an suffering no apparent complication. Allie has a good prognosis. Physical therapy will start today and without restrictions, weight-bearing as tolerated. Aspirin 81mg BID will be used for DVT prophylaxis.
--- NOTE | 2019-11-20 18:50 | PT.INDS ---
Date of service: 11/17/19 PT Notes Visit Reasons: R KNEE TOTAL Inpatient Physical Therapy Discharge Summary Dates: 11/20/2019 Dates of Service: 11/17/2019 only This is a clinical summary of care provided on the duration of dates listed above. No charge was made in the completion of this documentation. Referring Doctor: Samm Cash MD PT Orders: PT CONSULT: Status post Ortho surgery Precautions: Fall. Standard. WBAT on right LE. Patient Profile/Admitting Diagnosis: Allie is a 74-year-old female with past medical history significant for Parkinson's Disease and inflammatory polyarthritis status post right total knee arthroplasty on postoperative day 0. PMHX: Medical History (Updated 11/04/19 @ 13:14 by Fabricio Long DO) Arthritis of right knee (Chronic) Basal cell carcinoma in situ of skin (Resolved) Face Diverticulosis (Chronic) Essential tremor (Chronic) Inflammatory polyarthritis (Chronic) Followed by [facility] Rheumatology Left arm weakness (Acute) Left knee pain (Acute) Migraine (Chronic) Parkinson disease (Chronic) Right lumbar radiculopathy (Chronic) Surgical History History of carpal tunnel surgery of right wrist (Acute) S/P cholecystectomy (Acute 11/02/14) S/P colonoscopy (Acute 10/22/11) S/P oophorectomy (Acute) S/P tonsillectomy and adenoidectomy (Acute) Social History/Home Situation: Lives with in a private home with 7 steps to enter and a rail on the right side going up. Has used bilateral axillary crutches lately for level surfaces due to persistent knee pain. Equipment Owned/DME: Bilateral axillary crutches Subjective: Keshia reports being a little foggy and required moderate verbal cueing for safe strategies for level surface ambulation and stair negotiation. She reported increased pain in the right knee with weight bearing to 4/10 that subsided with rest. Objective: General Observation: IV in the right UE. Cryo/Cuff in the right knee. Aristides wraps to right knee. TEDS on the left leg. Mental Status: Alert and oriented but required moderate verbal cueing for safe walking and standing association strategies Pain: 4/10 in the right knee with weightbearing ROM: Right Upper Extremity: Shoulder Flexion WFL. Shoulder abduction WFL. Elbow flexion WFL. Wrist flexion WFL. Opening and closing of hand WFL. Left Upper Extremity: Shoulder Flexion WFL. Shoulder abduction WFL. Elbow flexion WFL. Wrist flexion WFL. Opening and closing of hand WFL. Right Lower Extremity: Hip flexion WFL. Hip abduction WFL. Knee flexion 30 degrees to 110 degrees. Knee extension -30 degrees. Ankle dorsiflexion WFL. Ankle plantarflexion WFL. Left Lower Extremity: Hip flexion WFL. Hip abduction WFL. Knee flexion WFL. Ankle dorsiflexion WFL. Ankle plantarflexion WFL. Strength: Right Upper Extremity: Shoulder flexors 5/5. Shoulder abductors 5/5. Elbow flexors 5/5. Elbow extensors 5/5. Powdered Sugar Pulverizer Operator strong. Left Upper Extremity: Shoulder flexors 5/5. Shoulder abductors 5/5. Elbow flexors 5/5. Elbow extensors 5/5. Powdered Sugar Pulverizer Operator strong. Right Lower Extremity: Hip flexors 4/5. Hip abductors 4/5. Knee flexors 3-/5. Knee extensors 3-/5. Ankle dorsiflexors 5/5. Ankle plantarflexors 5/5. Left Lower Extremity:Hip flexors 5/5. Hip abductors 5/5. Knee flexors 5/5. Knee extensors 5/5. Ankle dorsiflexors 5/5. Ankle plantarflexors 5/5. Sensation: Intact as to pain and pressure on bilateral lower extremities. Bed Mobility/Transfers: Supine to sit standby assist Sit to supine standby assist Sit to stand contact-guard assist, requires use of front wheeled walker Stand to sit contact-guard assist, requires use of front wheeled walker Bed to chair contact-guard assist, requires use of front wheeled walker Chair to bed contact-guard assist, requires use of front wheeled walker Gait: 75 feet with front wheeled walker with contact-guard assist. Required moderate verbal cueing for correct technique and safe gait pattern. Right quad activation inadequate with decreased knee extension during mid stance in R with knee buckling x 3 but no LOB. Tolerated six 4-inch steps and four 6-inch steps holding onto bilateral rails with contact-guard assist and moderate verbal cueing for correct technique. Reported increase in pain to 4/10 in the right knee after activity. Balance: Static Sitting: Normal Dynamic Sitting: Normal Static Standing: Fair Dynamic Standing: Fair Assessment: Allie demonstrates functional mobility decline requiring minimal physical assistance and the use of front wheeled walker for all mobility ADL performance, weakness in right quadriceps, difficulty with walking, and increased risk for falling due to postoperative status. Allie is a 74-year-old female with past medical history significant for Parkinson's disease and inflammatory polyarthritis status post right total knee arthroplasty on postoperative day 0. She hopes to go home today as soon as she is medically cleared. Patient presents with clinical signs and symptoms consistent with current/admitting diagnoses that have resulted to mobility limitations, gait instability, generalized weakness, and impairment of motor control as demonstrated by the following impairment level findings: 1. Decreased strength to right knee major muscle groups 2. Impaired standing balance 3. Impaired activity tolerance 4. Limitation of joint range of motion in right knee Impairments are contributing to the following functional limitations: 1. Inability to safely ambulate without assistive device and physical assistance 2. Increase completion time for mobility ADL performance 3. Increased fall risk 4. Inability to negotiate steps alone safely Goals: Goals X 2 more tretament sessions 1. Supine-Sit independent NOT MET 2. Sit-Supine independent NOT MET 3. Sit-Stand supervision NOT MET 4. Stand-Sit supervision NOT MET 5. Bed-Chair supervision NOT MET 6. Chair-Bed supervision NOT MET 7. Supervision gait on level surface with use of least restrictive device for at least 300 feet without report of pain nor dyspnea NOT MET 8. Supervision stair negotiation while holding onto bilateral rails for at least 10 steps without report of pain nor dyspnea NOT MET 9. Supervision with home exercise program NOT MET 10. Good static and dynamic standing balance/tolerance NOT MET DISCHARGE RECOMMENDATIONS: Home when medically cleared by orthopedic surgeon. Outpatient PT services in order to achieve highest functional mobility level with the least restrictive device. TREATMENT CODE/TIME: NC. Thank you for the opportunity to participate in the care of this patient. Laura Garza PT, DPT, CLT [facility] [place], [place]
== END 2019-11-17 18:50 | disposition home or self-care (01) ==
LOC: PDS 14:31 → MS 14:31
PROVIDERS: Admitting Provider Student in an Organized Health Care Education/Training Program; PCP Emergency Medicine; Visit Provider Student in an Organized Health Care Education/Training Program
PROC: 0SRC0J9 Replacement of Right Knee Joint with Synthetic Substitute, Cemented, Open Approach (ICD-10-PCS; CPT 27447; principal; 2019-11-17 13:00)
DX: M17.11 Unilateral primary osteoarthritis, right knee (principal); M25.561 Pain in right knee; Z96.641 Presence of right artificial hip joint; G20 Parkinson's disease
CPT/HCPCS: 27447; C1776; 76942; 97162; 97530; NC; G0378; J0690; J1885; J2250; J2405

== ENCOUNTER → 2019-12-03 09:24 | Outpatient (BNVA) | payer MEDICARE, BC, SELFPAY | PROVIDERS: PCP Emergency Medicine; Referring Provider Emergency Medicine; Visit Provider Psychiatry & Neurology Neurology | DX: G25.0 Essential tremor (principal); G20 Parkinson's disease; M79.602 Pain in left arm | CPT/HCPCS: 99214 ==

== ENCOUNTER 2019-12-04 11:51 | Outpatient (CLI) | payer MEDICARE, BC, SELFPAY ==
--- NOTE | 2019-12-04 11:30 | DI.RAD_ITS ---
EXAM: XR STANDING ALIGNMENT CLINICAL HISTORY: 1ST POST OP TECHNIQUE: COMPARISON: CR XR STANDING ALIGNMENT from 08/24/2019 CR XR KNEE RT 1V from 12/04/2019 FINDINGS: AP standing alignment views and lateral view of the right knee were obtained. There are mild degener ative changes both hips. There is a total knee joint replacement in position on the right. Components appear well seated. Mild degenerative changes joints of the left knee noted. IMPRESSION: DJD left knee, TKR right knee. RADIATION DOSE DELIVERED: Total DLP
== END 2019-12-04 12:11 ==
PROVIDERS: PCP Emergency Medicine; Referring Provider Emergency Medicine; Visit Provider Student in an Organized Health Care Education/Training Program
DX: Z96.651 Presence of right artificial knee joint (principal); M17.12 Unilateral primary osteoarthritis, left knee
CPT/HCPCS: 73560; 77073

== ENCOUNTER → 2019-12-09 13:53 | Outpatient (BNVA) | payer MEDICARE, BC, SELFPAY | PROVIDERS: PCP Emergency Medicine; Referring Provider Emergency Medicine; Visit Provider Student in an Organized Health Care Education/Training Program | DX: Z47.1 Aftercare following joint replacement surgery (principal); Z96.651 Presence of right artificial knee joint; M25.561 Pain in right knee ==

== ENCOUNTER → 2020-01-01 11:40 | Outpatient (BNVA) | payer MEDICARE, BC, SELFPAY | PROVIDERS: PCP Emergency Medicine; Referring Provider Emergency Medicine; Visit Provider Student in an Organized Health Care Education/Training Program | DX: Z96.651 Presence of right artificial knee joint (principal); Z47.1 Aftercare following joint replacement surgery ==

== ENCOUNTER 2020-01-20 01:19 | Outpatient (CLI) | payer MEDICARE, BC, SELFPAY ==
--- NOTE | 2020-01-20 | DI.MRI_ITS ---
EXAM: MR BRAIN WO CLINICAL HISTORY: DYSMETRIA,DISDIADOKINESIS ON EXAM,R27.8 TECHNIQUE: Multiplanar multisequence MRI of the brain was performed. COMPARISON: No exams were available for comparison FINDINGS: VENTRICLES AND EXTRA AXIAL SPACES: Normal in size and morphology for the patient's age. MIDLINE SHIFT: None. CEREBRAL PARENCHYMA: No focus of restricted diffusion to suggest acute infarct. No space-occupying le harley identified. There are several areas of hyperintense signal in the white matter on the T2 and FLA IR images most consistent with chronic microvascular ischemic change. HEMORRHAGE: None. BRAINSTEM/CEREBELLUM: Normal. CALVARIUM: Normal. VISUALIZED PARANASAL SINUSES/MASTOIDS:Clear. IONE OF HORNE: There is a question of a 0.5 cm aneurysm arising from the distal right internal car otid artery. PITUITARY GLAND: Unremarkable. OTHER FINDINGS: None. IMPRESSION: 1. Question of a right-sided 0.5 cm aneurysm arising from the distal right internal carotid artery. MRA of the [id number] should be considered for further evaluation. 2. No acute intracranial hemorrhage or infarct. 3. Age-appropriate cerebral atrophy and small vessel ischemic disease. DATA REPOSITORY:
== END 2020-01-20 01:39 ==
PROVIDERS: PCP Emergency Medicine; Visit Provider Neurological Surgery
DX: R27.8 Other lack of coordination (principal)
CPT/HCPCS: 70551

== ENCOUNTER 2020-02-04 02:55 | Outpatient (CLI) | payer MEDICARE, BC, SELFPAY ==
[2020-02-07 14:14] LABS: Patient Race White; SARS-CoV-2 RNA Undetected (Undetected); SARS-CoV-2 Specimen Source Nasal
== END 2020-02-04 03:15 ==
PROVIDERS: PCP Emergency Medicine; Visit Provider Emergency Medicine
DX: Z11.59 Encounter for screening for other viral diseases (principal)
CPT/HCPCS: U0003

== ENCOUNTER → 2020-02-15 10:24 | Outpatient (BNVA) | payer MEDICARE, BC, SELFPAY | PROVIDERS: PCP Emergency Medicine; Visit Provider Student in an Organized Health Care Education/Training Program | DX: Z96.651 Presence of right artificial knee joint (principal); Z47.1 Aftercare following joint replacement surgery ==

== ENCOUNTER 2020-02-17 01:26 | Outpatient (CLI) | payer MEDICARE, BC, SELFPAY ==
[2020-02-17 11:10] LABS: Abs Immature Grans 0.02 10^3/uL (0.0-0.06); Absolute Basophil Count 0.08 10^3/uL (0.0-0.2); Absolute Eosinophil Count 0.16 10^3/uL (0.0-0.7); Absolute Lymphocyte Count 1.49 10^3/uL (1.2-3.4); Absolute Monocyte Count 0.57 10^3/uL (0.1-0.8); Basophils % 1.2; Eosinophils % 2.5; HCT 39.5 % (36.0-46.0); Immature Grans % 0.3; Lymphocytes % 23.2; MCH 31.6 pg (27.0-33.0); MCHC 32.9 % (32.0-36.0); MCV 96.1 fL (80-95); MPV 10.3 fL (8.0-11.0); Monocytes % 8.9; Neutrophils % 63.9; Nucleated RBC 0 %; Platelet Count 215 10^3/uL (130-400); RBC 4.11 10^6/uL (3.93-5.22); RDW 12.1 % (11.7-14.6); RDW-SD 42.4 fL; WBC 6.42 10^3/uL (4.4-10.8)
[2020-02-17 11:21] LABS: ALT 16 U/L (14-59); AST 20 U/L (15-37); Alkaline Phosphatase 101 U/L (46-116); Anion Gap 5.1 mmol/L (3-11); BUN 26 mg/dL (7-18); Bilirubin, Total 0.3 mg/dL (0.2-1.0); C-Reactive Protein 0.05 mg/dL (0.0-0.3); CO2 28.9 mmol/L (21.0-32.0); CREATININE 0.66 mg/dL (0.55-1.02); Calcium 8.6 mg/dL (8.5-10.1); Chloride 105 mmol/L (98-107); Glucose 90 mg/dL (74-106); Potassium 4.1 mmol/L (3.5-5.1); Sodium 139 mmol/L (136-145); Total Protein 7.1 g/dL (6.4-8.2)
[2020-02-17] MEDS: Omnipaque 350 MG/ML 100 ML BTL IJ (11:35)
[2020-02-17] MEDS: Normal Saline - Diluent 50 ML VIAL IV (11:36)
--- NOTE | 2020-02-17 11:46 | DI.CT_ITS ---
EXAM: CT BRAIN CTA CLINICAL HISTORY: LIMB WEAKNESS,R29.898,F/U BRAIN MRI,? ANEURYSM TECHNIQUE: COMPARISON: No exams were available for comparison FINDINGS: CT angiography of the brain was performed with intravenous infusion of 85 cc of Omnipaque 350. Pre contrast scan shows unremarkable appearance of the ventricular system, there is no evidence of in tracranial hemorrhage, mass effect, or midline shift. There is mild generalized cerebral atrophy. The orbital and temporal bone structures appear intact. Pituitary is unremarkable in appearance. Following injection of contrast material, the intracranial circulation is well visualized. Vertebral arteries are unremarkable in appearance bilaterally with no evidence of stenosis, dissectio n, or aneurysm. Basilar artery appears intact. The posterior cerebral arteries and major branches appear intact with no evidence of aneurysm, stenos is, or dissection. Note is made that the left posterior cerebral artery is supplied mainly across th e posterior communicating artery. The cavernous internal carotid arteries appear normal bilaterally. At the proximal aspect of the sup raclinoid internal carotid artery on the right, there is a 5 millimeter in diameter saccular aneurysm projecting medially. No additional aneurysm identified involving the internal carotid arteries. No stenosis or dissection. Middle and anterior cerebral arteries are unremarkable in appearance bilaterally as are their major b ranches. No aneurysm, stenosis, or dissection. 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 No other significant findings. RADIATION DOSE DELIVERED: 926.75mGy.cm Total DLP
== END 2020-02-17 01:46 ==
PROVIDERS: PCP Emergency Medicine; Visit Provider Physician Assistant Medical
DX: I67.1 Cerebral aneurysm, nonruptured (principal); M06.4 Inflammatory polyarthropathy
CPT/HCPCS: 36415; 70496; 80053; 85025; 86140; J3490

== ENCOUNTER 2020-05-26 03:38 | Outpatient (CLI) | payer MEDICARE, BC, SELFPAY ==
[2020-05-26 11:19] LABS: HCT 36.2 % (36.0-46.0); HGB 12.7 g/dL (11.2-15.7); MCH 32.1 pg (27.0-33.0); MCHC 35.1 % (32.0-36.0); MCV 91.4 fL (80-95); MPV 9.6 fL (8.0-11.0); Platelet Count 255 10^3/uL (130-400); RBC 3.96 10^6/uL (3.93-5.22); WBC 4.88 10^3/uL (4.4-10.8)
[2020-05-26 11:33] LABS: Prothrombin Time 10.5 sec (9.3-11.0)
[2020-05-26 12:13] LABS: ALT 22 U/L (14-59); AST 22 U/L (15-37); Albumin 3.9 g/dL (3.4-5.0); Alkaline Phosphatase 100 U/L (46-116); Anion Gap 7.5 mmol/L (3-11); BUN 16 mg/dL (7-18); Bilirubin, Total 0.5 mg/dL (0.2-1.0); CO2 29.5 mmol/L (21.0-32.0); CREATININE 0.7 mg/dL (0.55-1.02); Calcium 8.8 mg/dL (8.5-10.1); Chloride 94 mmol/L (98-107); Glucose 94 mg/dL (74-106); Potassium 4.2 mmol/L (3.5-5.1); Sodium 131 mmol/L (136-145); Total Protein 6.9 g/dL (6.4-8.2)
== END 2020-05-26 03:39 | disposition home or self-care (01) ==
LOC: LBO 03:38
PROVIDERS: PCP Emergency Medicine; Visit Provider Emergency Medicine
DX: Z79.01 Long term (current) use of anticoagulants (principal); Z79.02 Long term (current) use of antithrombotics/antiplatelets; Z01.818 Encounter for other preprocedural examination; I67.1 Cerebral aneurysm, nonruptured
CPT/HCPCS: 36415; 80053; 85027; 85610

== ENCOUNTER → 2020-06-02 09:16 | Outpatient (BNVA) | payer MEDICARE, BC, SELFPAY | PROVIDERS: PCP Emergency Medicine; Referring Provider Emergency Medicine; Visit Provider Psychiatry & Neurology Neurology | DX: G25.0 Essential tremor (principal); G20 Parkinson's disease; I67.1 Cerebral aneurysm, nonruptured; Z79.899 Other long term (current) drug therapy | CPT/HCPCS: 99215 ==

== ENCOUNTER 2020-06-08 02:43 | Outpatient (CLI) | payer MEDICARE, BC, SELFPAY ==
--- NOTE | 2020-06-08 15:15 | DI.MAMMO_ITS ---
EXAM: MG MAMMO SCREENING CLINICAL HISTORY: screening,Z12.39. TECHNIQUE: Bilateral full field digital CC and MLO mammographic images were obtained with 3D tomosyn thesis and utilizing computer aided detection (CAD). COMPARISON: Prior mammograms dating back to 2010, the most recent being March 2016.. FINDINGS: The fibroglandular tissue is moderately dense, this decreasing the sensitivity mammogram for finding hidden underlying lesions. There are no new obvious spiculated masses nor malignant appearing microcalcification groups. There is no significant architectural distortion nor skin thickening-retraction. IMPRESSION: Dense bilateral fibroglandular tissue. No obvious radiographic evidence of malignancy nor significan t change compared to previous studies listed above. BI-RADS Category 1 - Negative Breast Density - Category C - Heterogeneously dense Breast density Category C or D implies that the patient has dense breast tissue. Dense breast tissue can make it harder to find cancer on a mammogram. Dense breast tissue is also associated with an incr eased risk of breast cancer. This information about the result of the mammogram report was provided to the patient to raise their awareness. Use this report when you speak with the patient about their risks for breast cancer, which includes their family history. At that time, you may recommend additional screening tests (Ultrasoun d or MRI) as these tests may add significant information. A negative radiographic report should not delay biopsy if a dominant or clinically suspicious mass is present. Up to ten percent of cancers are not identified on mammography. A negative report may reinforce clinical impression. Adenosis and dense breasts may obscure an underlying neoplasm. False positive reports average 6 to 10%. Patient will receive a letter notifying them of these results.
== END 2020-06-08 03:03 ==
PROVIDERS: PCP Emergency Medicine; Visit Provider Emergency Medicine
DX: Z12.31 Encounter for screening mammogram for malignant neoplasm of breast (principal)
CPT/HCPCS: 77063; 77067

== ENCOUNTER 2020-07-17 09:56 | Emergency (ER) | payer MEDICARE, BC, SELFPAY ==
[2020-07-17] VITALS (24 sets, daily range): BP systolic 111–133; BP diastolic 52–89; PULSE 75–86; RESP 12–25; TEMP 36.7; O2SAT 88–100
--- NOTE | 2020-07-17 10:00 | RT.EKG_ITS ---
APPROVED REPORT Exam: Resting ECG Patient Location: E HR:85 bpm ECG Measurements Heart Rate 85 AXIS NJ 161 P 56 QRSd 99 QRS -11 QT 368 T 35 QTc 439 Conclusion Sinus rhythm...normal P axis, V-rate 60- 99
--- NOTE | 2020-07-17 10:01 | ED.GENADUL_ITS ---
Discharge Plan Disposition Patient Disposition: HOME Condition: Stable Discharge Details Clinical Impression: Breath shortness Primary Care Provider: Fabricio Long ED Provider: Noni Rubin Home Meds and New Rx's Prescriptions: Continued metoclopramide HCl 10 mg tablet 10 mg PO DAILY PRNRF: 0 propranolol 20 mg tablet 20 mg PO BID Qty: 180 RF: 3 carbidopa-levodopa [Sinemet] 25-100 mg tablet 1 tab PO TID Qty: 90 RF: 5 amlodipine 10 mg tablet 10 mg PO DAILY Qty: 90 RF: 3 ascorbic acid (vitamin C) 500 MG tablet 2 tab PO daily prn RF: 0 cholecalciferol (vitamin D3) 1,000 UNIT capsule 2 cap PO daily prn RF: 0 hydroxychloroquine [Plaquenil] 200 mg tablet 400 mg PO DAILY RF: 0 hydrochlorothiazide 25 mg tablet 25 mg PO QAM Qty: 90 RF: 3 acetaminophen 500 mg tablet 1,000 mg PO Q8H PRN (Reason: pain) Qty: 90 RF: 3 celecoxib 200 mg capsule 200 mg PO BID Qty: 60 RF: 3 senna 8.6 mg Capsule 17.2 mg PO .QHS RF: 0 ticagrelor 90 mg Tablet 90 mg PO BID RF: 0 Discharge Instructions Instructions: Dyspnea (ED) Additional Instructions: Your labs and imaging are reassuring here today. Your potassium slightly low a nd has been replenished orally. Your shortness of breath may be associated with you needing further recovery from her surgery. Alternatively, this could be associated medications. However, I would like for you to try and rest today and discuss any persistent symptoms tomorrow with your surgeon tomorrow. Please keep taking your medications as you were recently prescribed. If you develop chest pain, fevers, or other new/worsening symptoms please seek care urgently once again. Otherwise, please keep your upcoming follow-up appointments. Referrals: Fabricio Long, [Primary Care Provider] - Discharge Data Discharge Date/Time-TO BE ENTERED AT DEPARTURE: 07/17/20 12:28 Medical Decision Making Patient is a pleasant 75-year-old female presenting today with chief complaint of exertional shortness of breath that began yesterday. Patient postop day 2 after cerebral aneurysm repair which was completed at [facility]. Patient reports she is otherwise feeling well. No change in vision, headache, vomiting. Denies any pain. No medications to the patient include acetaminophen, aspirin, docusate, hydrochlorothiazide, oxycodone, Prilosec, senna, ticagrelor, amlodipine. States that she is been taking his medications as prescribed has not had any missed doses. On exam, patient appears nontoxic. She is comfortable. Neurologically intact. No cardiac abnormalities noted on exam. Heart rate 86. Patient I did discuss with this is normal. However, she reports that her heart rate is now in the 70s and consistent quite distressing for her. EKG was reviewed by Dr. Nance. No acute ischemic changes noted. Patient is in a normal sinus rhythm with a rate of 85 Differential at this time include ACS, PE, medication related symptoms, pneumonia versus other. Patient I discussed my concerns at length. Given her recent surgery, relative tachycardia and exertional shortness of breath, plan to move forward with CT for PE protocol. Discussed this plan with patient who is in agreement. Labs reviewed. No leukocytosis. Stable H&H. Potassium slightly low at 3.3, will replenish orally. No other significant abnormalities. Troponin within normal limits. Patient how long symptoms have been going on, I do not feel that repeat troponin is warranted. FINDINGS: Pulmonary arteries: Normal. No pulmonary emboli. Aorta: There is calcification of the aorta. There is no evidence of aneurysm or obvious dissection. Lungs: There is subsegmental atelectasis in the lung bases. No pneumonia is seen. Pleural spaces: Unremarkable. No pneumothorax. No pleural effusion. Heart: Unremarkable. No cardiomegaly. No pericardial effusion. Lymph nodes: Unremarkable. No enlarged lymph nodes. Gallbladder and bile ducts: Cholecystectomy. Bones/joints: Chronic degenerative changes are present in the spine with joint space narrowing sclerosis and osteophytes. Soft tissues: Unremarkable. IMPRESSION: 1. No evidence of pulmonary embolus or aortic aneurysm/dissection. 2. Chronic degenerative changes in the spine. 3. No acute abnormalities are seen in the chest. Discussed the findings with the patient. She does CIEs with the work-up being normal here. When she is at rest, her heart rate did drop into the 70s to her baseline. I did advise that based on her recent surgery as well as the an esthetic use during the surgery, I would not expect her to be back to 100%. This did seem to reassure the patient. I encouraged her to continue with her medications as currently prescribed. She has an appointment in the next few days. Strict return precautions were discussed. All of her questions and concerns were addressed and she is agreement this plan. I also advised that she may contact her surgeon anytime to discuss this further. HPI General Mode of arrival: ambulatory . Date/Time Provider Initiated Documentation: 07/17/20 10:00 . Limitations to Documentation: no limitations . Information obtained by: patient and RN notes reviewed . HPI Narrative: Patient pleasant 75-year-old female presents today with chief complaint shortness of breath. Patient underwent cerebral aneurysm repair on Saturday. States that she has been returning to her typical activities and is concerned that her heart rates been elevated in the 80s to 90s. She states that typically she is in the 70s. Also describes some exertional shortness of breath is unusual for her. She denies any palpitations, chest pain. She denies any headache. She has been taking her medications as prescribed Related Data Home Medications Medication Instructions Recorded Confirmed ascorbic acid (vitamin C) 2 tab PO daily prn 08/12/12 07/17/20 cholecalciferol (vitamin D3) 2 cap PO daily prn 08/12/12 07/17/20 metoclopramide HCl 10 mg tablet 10 mg PO DAILY PRN tab-cap 11/26/18 07/17/20 hydroxychloroquine 200 mg tablet 400 mg PO DAILY tab 10/02/19 07/17/20 acetaminophen 1,000 mg PO Q8H PRN #90 tab 11/17/19 07/17/20 celecoxib 200 mg PO BID #60 cap 11/17/19 07/17/20 propranolol 20 mg tablet 20 mg PO BID #180 tab 12/03/19 07/17/20 amlodipine 10 mg tablet 10 mg PO DAILY #90 tab 03/02/20 07/17/20 carbidopa 25 mg-levodopa 100 mg 1 tab PO TID #90 tab 06/02/20 07/17/20 tablet hydrochlorothiazide 25 mg tablet 25 mg PO QAM #90 tab 06/17/20 07/17/20 senna 17.2 mg PO .QHS 07/17/20 07/17/20 ticagrelor 90 mg PO BID 07/17/20 07/17/20 Previous Rx's Medication Instructions Recorded acetaminophen 1,000 mg PO Q8H PRN #90 tab 11/17/19 celecoxib 200 mg PO BID #60 cap 11/17/19 propranolol 20 mg tablet 20 mg PO BID #180 tab 12/03/19 amlodipine 10 mg tablet 10 mg PO DAILY #90 tab 03/02/20 carbidopa 25 mg-levodopa 100 mg 1 tab PO TID #90 tab 06/02/20 tablet hydrochlorothiazide 25 mg tablet 25 mg PO QAM #90 tab 06/17/20 Allergies Allergy/AdvReac Type Severity Reaction Status Date / Time tramadol AdvReac Mild Nausea Unverified 07/17/20 10:07 Review of Systems Constitutional Constitutional: Reports as per HPI, Denies chills, Denies fever(s), Denies headache(s), Denies lethargy and Denies poor appetite Eyes Eyes: Denies change in vision ENT Ears, Nose, Mouth, and Throat: Denies dizziness and Denies headache(s) Cardiovascular Cardiovascular: Reports as per HPI, Denies chest pain at rest, Denies chest pain with activity, Reports rapid heart rate (compared to baseline), Denies irregular heart rhythm, Denies leg edema, Denies radiating jaw, neck or arm pain, Denies palpitations, Denies dyspnea and Reports dyspnea on exertion Respiratory Respiratory: Reports as per HPI, Denies chest congestion, Denies cough, Denies pain on inspiration, Denies pain with cough, Denies dyspnea, Reports dyspnea on exertion and Denies wheezing Gastrointestinal Gastrointestinal: Reports as per HPI, Denies abdominal pain, Denies diarrhea, Denies nausea and Denies vomiting Musculoskeletal Musculoskeletal: Reports as per HPI and Denies back pain Integumentary/Breasts Skin/Breast: Reports as per HPI and Denies rash Neurologic Neurologic: Reports as per HPI, Denies dizziness and Denies headache(s) Endocrine Endocrine: Denies palpitations Allergic/Immunologic Allergic/Immunologic: Denies wheezing [facility] Medical History (Updated 07/17/20 @ 12:26 by ROSENDA Monroe) Arthritis of right knee 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 Paternal Grandmother Diabetes Heart disease Essential hypertension Son No problems noted. Daughter No problems noted. Social History Smoking/Tobacco Use Status: Never Smoking risk assessment performed?: Yes Alcohol Intake: current Alcohol Intake frequency: holidays/special occasions only Alcohol type: wine Drug use: Never Caregiver/Support person: No Household members: spouse Housing: house Communication Needs: None and Corrective Lenses current occupation: Retired Pets and animals: No Sexually active: Yes Do you think of yourself as: straight/heterosexual Current gender identity: female What is your relationship status?: How often do you talk on the phone with friends or family?: once per week How often do you attend methodist or bahai services?: 4 or more times per year Do you belong to any clubs or organized social groups?: yes Panel score (0-1 are the most socially isolated patients): 3 What type of physical activity do you participate in: walking and swimming Duration: 15-30 minutes/day Frequency: 5-6 times per week Heaven/L[employer]-Day: Lutheran Seatbelt use: always Drive intox 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 Do you feel safe at home: No Do you feel safe in your relationship?: No Exam Const General: cooperative, healthy appearing, comfortable, no acute distress and well developed Nutritional Appearance: average body habitus and well nourished Orientation: alert, awake and oriented x3 HENMT Head: normal to inspection Ears: hearing grossly normal bilaterally Mouth: moist mucous membranes Eyes General: appearance normal, both eyes and all related structures Chest Chest: normal inspection of the chest, normal palpation of entire chest wall and no crepitus Resp Effort & Inspection: normal respiratory effort, able to speak in complete sentences and no respiratory distress Auscultation: clear to auscultation bilaterally, no rales, no rhonchi and no wheezes Cardio Rate: regular rate Rhythm: regular rhythm Heart Sounds: S1 normal and S2 normal GI Inspection: normal to inspection, no edema and non-distended Palpation: soft, no hepatosplenomegaly, not firm, no guarding, not rigid and nontender Auscultation: normal bowel sounds Skin General skin exam: no rashes or lesions noted Trauma: no lacerations or abrasions Neuro General: patient alert, patient awake and patient oriented x3 Cognition: normal cognition Speech: speech normal Gait: normal gait Extrem General: normal to inspection, capillary refill normal, no pedal edema, no calf tenderness and normal gait Psych Appearance: grossly normal and well kempt Mental Status: mental status grossly normal Speech and Movement: speech and movement normal
--- NOTE | 2020-07-17 10:30 | DI.CT_ITS ---
Exam(s) CT CHEST PE CTA EXAM: CT CHEST PE CTA CLINICAL HISTORY: exertional SOB POD 2. TECHNIQUE: Imaging Protocol: Axial CT angiography was performed with multi-slice acquisition and mu lti-planar and/or 3D reconstructions. CONTRAST MATERIAL: Intravenous: Omnipaque 350 Contrast volume:100 mL COMPARISON: CT ABD PELVIS WITH CONTRAST from 11/02/[address] BRAIN CTA from 02/17/2020 FINDINGS: Tracheobronchial tree: Patent where visualized. Pulmonary parenchyma: No consolidation or dominant measurable mass. No architectural distortion. Mild dependent atelectasis bilaterally. Pulmonary Arteries: No evidence of filling defect to suggest pulmonary emboli. Mediastinum and Nia: No dominant adenopathy or fluid collection. Visualized thyroid gland: Unremarkable. Pleura: No effusion or pneumothorax. Heart: The heart is not dilated. No coronary artery calcifications are seen. No pericardial effusion. Aorta: Thoracic aorta non-dilated. Atherosclerosis. No evidence of dissection. Upper abdomen: Status post cholecystectomy. Soft tissues: Unremarkable. Bones: Within normal limits for the patient's age. IMPRESSION: No evidence of pulmonary embolism, thoracic aortic dissection or aneurysm. RADIATION DOSE DELIVERED: 303.14mGy.cm Total DLP DATA REPOSITORY: All CT scans at this facility are submitted to the National Radiology Data Registry (NRDR) Dose Index Registry (DIR) with the [employer] (ACR). RADIATION OPTIMIZATION: All CT scans at this facility use at least one of these dose optimization te chniques: automated exposure control; mA and/or kV adjustment per patient size (includes targeted exa ms where dose is matched to clinical indication); or iterative reconstruction.
[2020-07-17 10:33] LABS: Abs Immature Grans 0.02 10^3/uL (0.0-0.06); Absolute Basophil Count 0.05 10^3/uL (0.0-0.2); Absolute Eosinophil Count 0.03 10^3/uL (0.0-0.7); Absolute Lymphocyte Count 0.66 10^3/uL (1.2-3.4); Absolute Monocyte Count 0.76 10^3/uL (0.1-0.8); Absolute Neutrophil Count 6.64 10^3/uL (1.2-6.7); Basophils % 0.6; Eosinophils % 0.4; HCT 35.5 % (36.0-46.0); HGB 12.1 g/dL (11.2-15.7); Immature Grans % 0.2; Lymphocytes % 8.1; MCH 32.4 pg (27.0-33.0); MCHC 34.1 % (32.0-36.0); MCV 94.9 fL (80-95); MPV 9.6 fL (8.0-11.0); Monocytes % 9.3; Neutrophils % 81.4; Nucleated RBC 0 %; Platelet Count 245 10^3/uL (130-400); RBC 3.74 10^6/uL (3.93-5.22); RDW 12.5 % (11.7-14.6); RDW-SD 43.7 fL; WBC 8.16 10^3/uL (4.4-10.8)
[2020-07-17] MEDS: Lactated Ringers 1,000 ML 500 ML IV (10:42)
[2020-07-17 10:46] LABS: ALT 23 U/L (14-59); AST 27 U/L (15-37); Albumin 4.3 g/dL (3.4-5.0); Alkaline Phosphatase 91 U/L (46-116); Anion Gap 10.9 mmol/L (3-11); BUN 10 mg/dL (7-18); Bilirubin, Total 0.5 mg/dL (0.2-1.0); CO2 29.1 mmol/L (21.0-32.0); CREATININE 0.7 mg/dL (0.55-1.02); Calcium 9.1 mg/dL (8.5-10.1); Chloride 102 mmol/L (98-107); Glucose 93 mg/dL (74-106); PTT Activated 22.5 sec (21.0-27.5); Potassium 3.3 mmol/L (3.5-5.1); Prothrombin Time 9.9 sec (9.3-11.0); Sodium 142 mmol/L (136-145); Total Protein 7.7 g/dL (6.4-8.2)
[2020-07-17 10:47] LABS: Troponin I < 0.05 ng/mL (<0.06)
[2020-07-17] MEDS: Omnipaque 350 MG/ML 100 ML BTL IJ (11:20)
[2020-07-17] MEDS: Normal Saline - Diluent 50 ML VIAL IV (11:20)
--- NOTE | 2020-07-17 11:54 | DI.VRAD_ITS ---
PROCEDURE INFORMATION: Exam: CTA Chest With Contrast Exam date and time: 07/17/2020 10:31 AM Age: 75 years old Clinical indication: Shortness of breath TECHNIQUE: Imaging protocol: Computed tomographic angiography of the chest with contrast. 3D rendering (Not supervised by radiologist): MIP and/or 3D reconstructed images were created by the technologist. Contrast material: OMNIPAQUE 350; Contrast volume: 100 ml; Contrast route: IV; COMPARISON: CR XR CHEST 2V PA LATERAL 09/23/2019 3:15 PM FINDINGS: Pulmonary arteries: Normal. No pulmonary emboli. Aorta: There is calcification of the aorta. There is no evidence of aneurysm or obvious dissection. Lungs: There is subsegmental atelectasis in the lung bases. No pneumonia is seen. Pleural spaces: Unremarkable. No pneumothorax. No pleural effusion. Heart: Unremarkable. No cardiomegaly. No pericardial effusion. Lymph nodes: Unremarkable. No enlarged lymph nodes. Gallbladder and bile ducts: Cholecystectomy. Bones/joints: Chronic degenerative changes are present in the spine with joint space narrowing sclerosis and osteophytes. Soft tissues: Unremarkable. IMPRESSION: 1. No evidence of pulmonary embolus or aortic aneurysm/dissection. 2. Chronic degenerative changes in the spine. 3. No acute abnormalities are seen in the chest. Dictated and Authenticated by: Aleksander Duncan MD. Ordering:SHANICE Cheney MD
== END 2020-07-17 12:28 | disposition home or self-care (01) ==
PROVIDERS: Emergency Provider Physician Assistant; PCP Emergency Medicine
DX: R06.02 Shortness of breath (principal); E87.6 Hypokalemia; Z98.890 Other specified postprocedural states
CPT/HCPCS: 71275; 80053; 93005; 99285; 83735; 84484; 85025; 85610; 85730; 93010; 99283; J3490

== ENCOUNTER → 2020-11-10 09:47 | Outpatient (BNVA) | payer MEDICARE, BC, SELFPAY | PROVIDERS: PCP Emergency Medicine; Referring Provider Emergency Medicine; Visit Provider Psychiatry & Neurology Neurology | DX: G20 Parkinson's disease (principal); I67.1 Cerebral aneurysm, nonruptured | CPT/HCPCS: 99214 ==

== ENCOUNTER 2020-11-24 10:52 | Outpatient (CLI) | payer MEDICARE, BC, SELFPAY ==
--- NOTE | 2020-11-24 10:00 | DI.RAD_ITS ---
Exam(s) XR KNEE RT 2V AP,LAT EXAM: XR KNEE RT 2V AP,LAT CLINICAL HISTORY: annual f/u R TKA. TECHNIQUE: 2D digital imaging was performed. COMPARISON: CR XR STANDING ALIGNMENT from 12/04/2019 CR XR STANDING ALIGNMENT from 12/04/2019 CR XR KNEE RT 1V from 12/04/2019 CR XR KNEE RT 1V from 12/04/2019 FINDINGS: AP and lateral views reveal stable position alignment of the components of the knee prosthesis. No f ractures evident. However, there is some linear lucency subjacent to the tibial component at the lev el of the medial tibial plateau. Correlation with any clinical signs of loosening recommended. IMPRESSION: DATA REPOSITORY: RADIATION DOSE DELIVERED:
== END 2020-11-24 10:53 | disposition home or self-care (01) ==
LOC: DIORS 10:52
PROVIDERS: PCP Emergency Medicine; Referring Provider Emergency Medicine; Visit Provider Student in an Organized Health Care Education/Training Program
DX: Z47.1 Aftercare following joint replacement surgery (principal); Z96.651 Presence of right artificial knee joint
CPT/HCPCS: 99212; 73560

== ENCOUNTER 2021-01-18 03:32 | Outpatient (CLI) | payer MEDICARE, BC, SELFPAY ==
[2021-01-18 09:01] LABS: Abs Immature Grans 0.03 10^3/uL (0.0-0.06); Absolute Basophil Count 0.06 10^3/uL (0.0-0.2); Absolute Eosinophil Count 0.24 10^3/uL (0.0-0.7); Absolute Lymphocyte Count 1.18 10^3/uL (1.2-3.4); Absolute Monocyte Count 0.75 10^3/uL (0.1-0.8); Absolute Neutrophil Count 3.44 10^3/uL (1.2-6.7); Basophils % 1.1; Eosinophils % 4.2; HCT 37.4 % (36.0-46.0); HGB 12.7 g/dL (11.2-15.7); Immature Grans % 0.5; Lymphocytes % 20.7; MCH 31.1 pg (27.0-33.0); MCV 91.7 fL (80-95); MPV 9.9 fL (8.0-11.0); Monocytes % 13.2; Neutrophils % 60.3; Nucleated RBC 0 %; Platelet Count 217 10^3/uL (130-400); RBC 4.08 10^6/uL (3.93-5.22); RDW 12.8 % (11.7-14.6)
[2021-01-18 10:09] LABS: ALT 12 U/L (14-59); AST 19 U/L (15-37); Albumin 3.9 g/dL (3.4-5.0); Alkaline Phosphatase 113 U/L (46-116); Anion Gap 5.4 mmol/L (3-11); BUN 13 mg/dL (7-18); Bilirubin, Total 0.3 mg/dL (0.2-1.0); C-Reactive Protein 1.06 mg/dL (0.0-0.3); CO2 31.6 mmol/L (21.0-32.0); CREATININE 0.7 mg/dL (0.55-1.02); Chloride 99 mmol/L (98-107); Glucose 71 mg/dL (74-106); Potassium 3.7 mmol/L (3.5-5.1); Sodium 136 mmol/L (136-145); Total Protein 6.8 g/dL (6.4-8.2)
== END 2021-01-18 03:33 | disposition home or self-care (01) ==
LOC: LBO 03:32
PROVIDERS: PCP Emergency Medicine; Visit Provider Internal Medicine Rheumatology
DX: M06.00 Rheumatoid arthritis without rheumatoid factor, unspecified site (principal)
CPT/HCPCS: 36415; 80053; 85025; 86140

== ENCOUNTER → 2021-05-17 08:28 | Outpatient (BNVA) | payer MEDICARE, BC, SELFPAY | PROVIDERS: PCP Family Medicine; Referring Provider Family Medicine; Visit Provider Psychiatry & Neurology Neurology | DX: I67.1 Cerebral aneurysm, nonruptured (principal); G20 Parkinson's disease; G25.0 Essential tremor | CPT/HCPCS: 99214 ==

== ENCOUNTER 2021-06-15 04:16 | Outpatient (CLI) | payer MEDICARE, BC, SELFPAY ==
[2021-06-15 14:06] LABS: HCT 38.2 % (36.0-46.0); HGB 12.8 g/dL (11.2-15.7); MCH 30.9 pg (27.0-33.0); MCHC 33.5 % (32.0-36.0); MCV 92.3 fL (80-95); Platelet Count 219 10^3/uL (130-400); RBC 4.14 10^6/uL (3.93-5.22); RDW 12.8 % (11.7-14.6); RDW-SD 43.6 fL; WBC 5.54 10^3/uL (4.4-10.8)
[2021-06-15 14:59] LABS: Prothrombin Time 10.4 sec (9.3-11.0)
[2021-06-15 15:17] LABS: BUN 14 mg/dL (7-18); CO2 29.6 mmol/L (21.0-32.0); CREATININE 0.8 mg/dL (0.55-1.02); Chloride 98 mmol/L (98-107); Glucose 96 mg/dL (74-106); Sodium 135 mmol/L (136-145)
== END 2021-06-15 04:17 | disposition home or self-care (01) ==
LOC: LBO 04:17
PROVIDERS: PCP Family Medicine
DX: Z79.02 Long term (current) use of antithrombotics/antiplatelets (principal); Z01.818 Encounter for other preprocedural examination; Z79.01 Long term (current) use of anticoagulants; I67.1 Cerebral aneurysm, nonruptured
CPT/HCPCS: 36415; 82947; 84520; 85027; 82374; 82435; 82565; 84132; 84295; 85610

== ENCOUNTER 2021-07-11 04:29 | Outpatient (CLI) | payer MEDICARE, BC, SELFPAY ==
--- NOTE | 2021-07-11 07:30 | DI.MAMMO_ITS ---
Exam(s) MAMMO SCREENING EXAM: MAMMO SCREENING CLINICAL HISTORY: screening,z12.39 TECHNIQUE: Bilateral full field digital CC and MLO mammographic images were obtained with 3D tomosyn thesis and utilizing computer aided detection (CAD). COMPARISON: Available for comparison. FINDINGS: Masses/Architectural Distortion: None seen. Microcalcifications: No suspicious pleomorphic-type are seen. Skin Thickening/Nipple Retraction: None. IMPRESSION: 1. No significant interval change with no specific features of malignancy noted. 2. Unless there is more urgent need, screening mammography is recommended, as per [employer] guidelines. BI-RADS Category 1 - Negative Breast Density - Category C - Heterogeneously dense Breast density category C or D implies that the patient has dense breast tissue. Dense breast tissue is very common and is not abnormal but dense breast tissue can make it harder to find cancer on a ma mmogram. Also, dense breast tissue may increase their breast cancer risk. This information about the result of the mammogram report was provided to the patient to raise their awareness. Use this report when you speak with the patient about their risks for breast cancer, which includes their family hist ory. At that time, you may recommend for more screening tests (Ultrasound or MRI) as they might be us eful based on their risk. A negative radiographic report should not delay biopsy if a dominant or clinically suspicious mass is present. Up to ten percent of cancers are not identified on mammography. A negative report may reinforce clinical impression. Adenosis and dense breasts may obscure an underlying neoplasm. False positive reports average 6 to 10%. Patient will receive a letter notifying them of these results.
== END 2021-07-11 04:49 ==
PROVIDERS: PCP Family Medicine; Visit Provider Family Medicine
DX: Z12.31 Encounter for screening mammogram for malignant neoplasm of breast (principal)
CPT/HCPCS: 77063; 77067

== ENCOUNTER → 2021-07-19 14:40 | Outpatient (BNVA) | payer MEDICARE, BC, SELFPAY | PROVIDERS: PCP Family Medicine; Visit Provider Psychiatry & Neurology Neurology | DX: I67.1 Cerebral aneurysm, nonruptured (principal); G20 Parkinson's disease; G25.0 Essential tremor | CPT/HCPCS: 99214 ==

== ENCOUNTER → 2021-12-20 01:49 | Outpatient (CLI) | payer MEDICARE, BC, SELFPAY ==
--- NOTE | 2021-12-20 07:30 | DI.MRI_ITS ---
Exam(s) MR ANGIO BRAIN WO CLINICAL HISTORY: recheck aneurysm,i67.1. TECHNIQUE: 3D [id number] study was performed without contrast. COMPARISON: None. FINDINGS: Internal carotid Arteries: Petrous: Normal. Cavernous: Normal. Cerebral: Slight artifact at the location of the previously noted aneurysm from the right supraclinoi d internal carotid artery. Middle Cerebral Arteries: Right: No aneurysm or significant stenosis. Left: No aneurysm or significant stenosis. Anterior Cerebral Arteries: Right: No aneurysm or significant stenosis. Left: No aneurysm or significant stenosis. Posterior cerebral arteries: Right: No aneurysm or significant stenosis Left: No aneurysm or significant stenosis Vertebral Arteries: Right: No aneurysm or significant stenosis. No dissection. Left: No aneurysm or significant stenosis. No dissection.. Basilar Artery: No aneurysm or significant stenosis. Small Vessels: No evidence of beading. 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 No evid ence of new aneurysm. DATA REPOSITORY:
--- NOTE | 2021-12-20 07:30 | DI.MRI_ITS ---
Exam(s) MR BRAIN WO/W EXAM: MR BRAIN WO/W CLINICAL HISTORY: aneurysm recheck,i67.1. TECHNIQUE: Multiplanar multisequence MRI of the brain was performed. CONTRAST MATERIAL: IV Contrast: 12 ML of Dotarem contrast administered. COMPARISON: MR MR BRAIN WO from 01/20/[address] BRAIN CTA from 02/17/2020 MR MR ANGIO BRAIN WO from 12/20/2021 FINDINGS: VENTRICLES AND EXTRA AXIAL SPACES: Normal in size and morphology for the patient's age. HEMORRHAGE: None. CEREBRAL PARENCHYMA: Stable scattered high signal foci consistent with microvascular changes. No foc us of restricted diffusion to suggest acute infarct. No space-occupying lesion identified. MIDLINE SHIFT: None. BRAINSTEM/CEREBELLUM: Normal. ENHANCEMENT: No suspicious enhancement identified. VISUALIZED PARANASAL SINUSES/MASTOIDS: Clear. OTHER FINDINGS: The previously noted flow-void corresponding to aneurysm projecting medially from the supraclinoid right ICA is no longer seen. The patient has undergone aneurysm coiling since the prev ious exam. IMPRESSION: No acute abnormality. white matter changes of small vessel disease. DATA REPOSITORY:
--- NOTE | 2021-12-20 07:30 | DI.MRI_ITS ---
Exam(s) MR ANGIO NECK WO EXAM: MR ANGIO NECK WO CLINICAL HISTORY: aneurysm recheck,i67.1. TECHNIQUE: 2D and 3D [id number] pulse sequence MRA of the Neck was performed. COMPARISON: MR MR BRAIN WO/W from 12/20/2021 FINDINGS: Common Carotid: Right: No dissection, occlusion or significant stenosis. Left: No dissection, occlusion or significant stenosis. External Carotid: Right: No evidence of occlusion or significant stenosis. Left: No evidence of occlusion or significant stenosis. Internal Carotid: Right: No dissection, occlusion or significant stenosis. Left: No dissection, occlusion or significant stenosis. Vertebral Artery: Right: No dissection, occlusion or significant stenosis. Left: No dissection, occlusion or significant stenosis. IMPRESSION: No evidence of dissection, occlusion or significant stenosis. DATA REPOSITORY:
[2021-12-20 12:41] LABS: CREATININE 0.7 mg/dL (0.55-1.02); Estimated GFR 89.58 (mL/min/1.73m2)
[2021-12-20] MEDS: Normal Saline Flush 10 ML SYR IVP (12:58)
== END ==
PROVIDERS: PCP Family Medicine; Visit Provider Family Medicine
DX: I10 Essential (primary) hypertension (principal); I67.1 Cerebral aneurysm, nonruptured; G93.89 Other specified disorders of brain
CPT/HCPCS: 70544; 70547; 70553; 82565

== ENCOUNTER → 2022-01-17 14:43 | Outpatient (BNVA) | payer MEDICARE, BC, SELFPAY | PROVIDERS: PCP Family Medicine; Referring Provider Family Medicine; Visit Provider Psychiatry & Neurology Neurology | DX: G25.0 Essential tremor (principal); G20 Parkinson's disease; I67.1 Cerebral aneurysm, nonruptured | CPT/HCPCS: 99214 ==

== ENCOUNTER 2022-01-25 04:40 | Outpatient (CLI) | payer MEDICARE, BC, SELFPAY ==
[2022-01-25 10:09] LABS: Abs Immature Grans 0.02 10^3/uL (0.0-0.06); Absolute Basophil Count 0.07 10^3/uL (0.0-0.2); Absolute Eosinophil Count 0.11 10^3/uL (0.0-0.7); Absolute Lymphocyte Count 1.32 10^3/uL (1.2-3.4); Absolute Monocyte Count 0.69 10^3/uL (0.1-0.8); Absolute Neutrophil Count 3.19 10^3/uL (1.2-6.7); Basophils % 1.3; HCT 38.1 % (36.0-46.0); HGB 13.2 g/dL (11.2-15.7); Immature Grans % 0.4; Lymphocytes % 24.4; MCHC 34.6 % (32.0-36.0); MCV 92 fL (80-95); MPV 9.8 fL (8.0-11.0); Monocytes % 12.8; Neutrophils % 59.1; Platelet Count 207 10^3/uL (130-400); RBC 4.13 10^6/uL (3.93-5.22); RDW 12.6 % (11.7-14.6)
[2022-01-25 10:54] LABS: ALT 20 U/L (14-59); AST 26 U/L (15-37); Albumin 3.8 g/dL (3.4-5.0); Alkaline Phosphatase 88 U/L (46-116); Anion Gap 5.9 mmol/L (3-11); BUN 16 mg/dL (7-18); Bilirubin, Total 0.5 mg/dL (0.2-1.0); CO2 32.1 mmol/L (21.0-32.0); CREATININE 0.7 mg/dL (0.55-1.02); Calcium 8.9 mg/dL (8.5-10.1); Chloride 98 mmol/L (98-107); Estimated GFR 89.58 (mL/min/1.73m2); Glucose 75 mg/dL (74-106); Potassium 3.7 mmol/L (3.5-5.1); Sodium 136 mmol/L (136-145); Total Protein 7.1 g/dL (6.4-8.2)
== END 2022-01-25 04:41 | disposition home or self-care (01) ==
PROVIDERS: PCP Family Medicine; Visit Provider Internal Medicine Rheumatology
DX: M06.09 Rheumatoid arthritis without rheumatoid factor, multiple sites (principal)
CPT/HCPCS: 36415; 80053; 85025

== ENCOUNTER 2022-03-28 03:07 | Outpatient (CLI) | payer MEDICARE, BC, SELFPAY ==
[2022-03-28 11:40] LABS: CREATININE 0.7 mg/dL (0.55-1.02); Estimated GFR 89.58 (mL/min/1.73m2)
== END 2022-03-28 03:08 | disposition home or self-care (01) ==
LOC: LBO 03:07
PROVIDERS: PCP Family Medicine; Visit Provider Family Medicine
DX: I10 Essential (primary) hypertension (principal)
CPT/HCPCS: 36415; 82565

== ENCOUNTER → 2022-07-18 14:47 | Outpatient (BNVA) | payer MEDICARE, BC, SELFPAY | PROVIDERS: PCP Family Medicine; Referring Provider Family Medicine; Visit Provider Psychiatry & Neurology Neurology | DX: I67.1 Cerebral aneurysm, nonruptured (principal); G20 Parkinson's disease; G25.0 Essential tremor | CPT/HCPCS: 99214 ==

== ENCOUNTER 2022-07-31 03:11 | Outpatient (CLI) | payer MEDICARE, BC, SELFPAY ==
[2022-07-31 15:20] LABS: Abs Immature Grans 0.01 10^3/uL (0.0-0.06); Absolute Basophil Count 0.06 10^3/uL (0.0-0.2); Absolute Eosinophil Count 0.11 10^3/uL (0.0-0.7); Absolute Lymphocyte Count 1.45 10^3/uL (1.2-3.4); Absolute Monocyte Count 0.63 10^3/uL (0.1-0.8); Absolute Neutrophil Count 3.03 10^3/uL (1.2-6.7); Basophils % 1.1; Eosinophils % 2.1; HCT 38.4 % (36.0-46.0); HGB 13.3 g/dL (11.2-15.7); Immature Grans % 0.2; Lymphocytes % 27.4; MCH 32.2 pg (27.0-33.0); MCHC 34.6 % (32.0-36.0); MCV 93 fL (80-95); MPV 10.2 fL (8.0-11.0); Monocytes % 11.9; Neutrophils % 57.3; Platelet Count 209 10^3/uL (130-400); RBC 4.13 10^6/uL (3.93-5.22); RDW 12.4 % (11.7-14.6); RDW-SD 42.9 fL; WBC 5.29 10^3/uL (4.4-10.8)
== END 2022-07-31 03:12 | disposition home or self-care (01) ==
PROVIDERS: PCP Family Medicine; Visit Provider Internal Medicine Rheumatology
DX: M06.09 Rheumatoid arthritis without rheumatoid factor, multiple sites (principal)
CPT/HCPCS: 36415; 85025

== ENCOUNTER → 2023-01-16 10:07 | Outpatient (BNVA) | payer MEDICARE, BC, SELFPAY | PROVIDERS: PCP Family Medicine; Referring Provider Family Medicine; Visit Provider Psychiatry & Neurology Neurology | DX: G25.0 Essential tremor (principal); G20.A1 Parkinson's disease without dyskinesia, without mention of fluctuations; I67.1 Cerebral aneurysm, nonruptured; R41.3 Other amnesia; I10 Essential (primary) hypertension | CPT/HCPCS: 99214 ==

== ENCOUNTER 2023-01-21 01:15 | Outpatient (CLI) | payer MEDICARE, BC, SELFPAY ==
[2023-01-21 12:43] LABS: Abs Immature Grans 0.01 10^3/uL (0.0-0.06); Absolute Basophil Count 0.08 10^3/uL (0.0-0.2); Absolute Eosinophil Count 0.11 10^3/uL (0.0-0.7); Absolute Lymphocyte Count 1.18 10^3/uL (1.2-3.4); Absolute Monocyte Count 0.63 10^3/uL (0.1-0.8); Absolute Neutrophil Count 3.71 10^3/uL (1.2-6.7); Basophils % 1.4; Eosinophils % 1.9; HCT 36.4 % (36.0-46.0); HGB 12.8 g/dL (11.2-15.7); Immature Grans % 0.2; Lymphocytes % 20.6; MCH 32.6 pg (27.0-33.0); MCHC 35.2 % (32.0-36.0); MCV 93 fL (80-95); MPV 9.8 fL (8.0-11.0); Neutrophils % 64.9; Platelet Count 228 10^3/uL (130-400); RBC 3.93 10^6/uL (3.93-5.22); RDW 12.5 % (11.7-14.6); RDW-SD 42.8 fL; WBC 5.72 10^3/uL (4.4-10.8)
[2023-01-21 13:34] LABS: ALT 8 U/L (14-59); AST 29 U/L (15-37); Albumin 3.8 g/dL (3.4-5.0); Alkaline Phosphatase 79 U/L (46-116); Anion Gap 7.1 mmol/L (3-11); BUN 13 mg/dL (7-18); Bilirubin, Total 0.4 mg/dL (0.2-1.0); CO2 27.9 mmol/L (21.0-32.0); CREATININE 0.7 mg/dL (0.55-1.02); Calcium 9.1 mg/dL (8.5-10.1); Chloride 96 mmol/L (98-107); Estimated GFR 89.02 (mL/min/1.73m2); Glucose 93 mg/dL (74-106); Potassium 3.6 mmol/L (3.5-5.1); Sodium 131 mmol/L (136-145)
[2023-01-21 13:35] LABS: C-Reactive Protein < 0.05 mg/dL (0.0-0.3)
== END 2023-01-21 01:16 | disposition home or self-care (01) ==
PROVIDERS: PCP Family Medicine; Visit Provider Internal Medicine Rheumatology
DX: M06.09 Rheumatoid arthritis without rheumatoid factor, multiple sites (principal)
CPT/HCPCS: 36415; 80053; 85025; 86140

== ENCOUNTER 2023-03-12 04:17 | Outpatient (CLI) | payer MEDICARE, BC, SELFPAY ==
[2023-03-12 09:48] LABS: HGB 12.8 g/dL (11.2-15.7); MCH 32.2 pg (27.0-33.0); MCHC 34.6 % (32.0-36.0); MCV 93 fL (80-95); MPV 9.9 fL (8.0-11.0); Platelet Count 214 10^3/uL (130-400); RBC 3.97 10^6/uL (3.93-5.22); RDW 12.5 % (11.7-14.6); RDW-SD 43.2 fL; WBC 7.38 10^3/uL (4.4-10.8)
[2023-03-12 09:59] LABS: INR 1.1 (0.9-1.1)
[2023-03-12 10:32] LABS: ALT 8 U/L (14-59); AST 26 U/L (15-37); Albumin 3.7 g/dL (3.4-5.0); Alkaline Phosphatase 84 U/L (46-116); Anion Gap 8.3 mmol/L (3-11); BUN 17 mg/dL (7-18); Bilirubin, Total 0.6 mg/dL (0.2-1.0); CO2 29.7 mmol/L (21.0-32.0); CREATININE 0.8 mg/dL (0.55-1.02); Calcium 8.9 mg/dL (8.5-10.1); Chloride 95 mmol/L (98-107); Estimated GFR 75.84 (mL/min/1.73m2); Glucose 91 mg/dL (74-106); Potassium 3.5 mmol/L (3.5-5.1); Sodium 133 mmol/L (136-145)
== END 2023-03-12 04:18 | disposition home or self-care (01) ==
LOC: LBO 04:17
PROVIDERS: PCP Family Medicine; Visit Provider Family Medicine
DX: I67.1 Cerebral aneurysm, nonruptured (principal)
CPT/HCPCS: 36415; 80053; 85027; 85610

== ENCOUNTER → 2023-06-12 17:45 | Outpatient (CLI) | payer MEDICARE, BC, SELFPAY ==
--- NOTE | 2023-06-12 09:15 | DI.RAD_ITS ---
Exam(s) XR HAND LT COMPLETE EXAM: XR HAND LT COMPLETE CLINICAL HISTORY: M79.642 left wring finger pain/swelling s/p injury;. TECHNIQUE: 2D digital imaging was performed. Three views. COMPARISON: No exams were available for comparison FINDINGS: BONES: No acute fracture is present. No bony destructive lesion is seen. JOINTS: No dislocation present. Degenerative changes greatest of the distal interphalangeal joints of the 2nd, 3rd and 5th fingers.. Degenerative changes also noted at radial ulnar joint. Mild negativ e ulnar variance. SOFT TISSUE: Swelling over dorsal aspect of metacarpal heads. Impression: Degenerative changes, greatest of the distal interphalangeal joints. DATA REPOSITORY: RADIATION DOSE DELIVERED:
== END ==
PROVIDERS: PCP Family Medicine; Visit Provider Family Medicine
DX: M79.645 Pain in left finger(s); M79.642 Pain in left hand; M25.542 Pain in joints of left hand; M19.042 Primary osteoarthritis, left hand
CPT/HCPCS: 73130

== ENCOUNTER → 2023-06-25 13:20 | Outpatient (BNVA) | payer MEDICARE, BC, SELFPAY | PROVIDERS: PCP Family Medicine; Referring Provider Family Medicine; Visit Provider Student in an Organized Health Care Education/Training Program | DX: S63.655A Sprain of metacarpophalangeal joint of left ring finger, initial encounter (principal); X58.XXXA Exposure to other specified factors, initial encounter | CPT/HCPCS: 99213 ==

== ENCOUNTER → 2023-06-28 20:24 | Outpatient (CLI) | payer MEDICARE, BC, SELFPAY ==
--- NOTE | 2023-06-28 15:30 | DI.RAD_ITS ---
Exam(s) XR CHEST 2V PA LATERAL EXAM: XR CHEST 2V PA LATERAL CLINICAL HISTORY: 5 weeks URI with clear lungs, today left lung abnl, lung sounds abnl,R09.89 TECHNIQUE: 2D digital imaging was performed of the chest. Two images were obtained. PA and lateral views were obtained. COMPARISON: CR XR CHEST 2V PA LATERAL from 09/23/2019 FINDINGS: MEDIASTINUM: Normal. HEART: Normal. PULMONARY VASCULATURE: Normal. LUNGS: There is a left lower lobe infiltrate. The right lung is clear. PLEURAL SPACE: No pleural effusion or pneumothorax. BONE:Within normal limits for the patient's age. OTHER FINDINGS:Normal. IMPRESSION: Left lower lobe infiltrate. DATA REPOSITORY: RADIATION DOSE DELIVERED:
== END ==
PROVIDERS: PCP Family Medicine; Visit Provider Nurse Practitioner Family
DX: R09.89 Other specified symptoms and signs involving the circulatory and respiratory systems (principal)
CPT/HCPCS: 71046

== ENCOUNTER → 2023-07-17 10:36 | Outpatient (BNVA) | payer MEDICARE, BC, SELFPAY | PROVIDERS: PCP Family Medicine; Referring Provider Family Medicine; Visit Provider Psychiatry & Neurology Neurology | DX: G25.0 Essential tremor (principal); I67.1 Cerebral aneurysm, nonruptured; G43.109 Migraine with aura, not intractable, without status migrainosus | CPT/HCPCS: 99214 ==

== ENCOUNTER 2024-01-17 01:56 | Outpatient (CLI) | payer MEDICARE, BC, SELFPAY ==
--- OUTSIDE RECORDS SUMMARY | 2024-01-17 01:58 | XMS_ITS | Encounter Summary ---
Author Organization [facility] Address [address] [place] [address] Care Team Providers Care Adult Parole Officer Name Role Phone Anshu Barriga MD Primary Care Provider [phone] Reason for Referral * Laboratory Services (Routine/Next Available) - New Request Specialty Diagnoses / Procedures Referred By [facility] Referred To Contact Diagnoses Seronegative rheumatoid arthritis of multiple sites ([facility]) Procedures COMPLETE BLOOD COUNT AND DIFFERENTIAL Edna Nava MD [address] [place], [place] [address]B [address] [address] Referral ID Status Reason Start Date Expiration Date V isits Requested Visits Authorized [id number] New Request 08/02/2022 1 1 Reason for Visit * Reason Comments Follow-up RA ,doing well and t he toes are bothering a little. Has pain in the lower back. Encounter Details Date Type Department Care Team (Latest Contact Info) Description 08/02/2022 9:30 EDT Office Visit [facility] Rheumatology [address] [place] [address] Edna Nava MD [address] [place] [address] [place] [address] Seronegative rheumatoid arthritis of multiple sites (HCC-CMS) (Primary Dx); Long-term use of Plaquenil; Dislocation of finger, interphalangeal joint, left, closed, initial encounter; Deformity, swan neck, finger, left; Hammer toe of right foot Social History Tobacco Use Types Packs/Day Years Used Date Smoking Tobacco: Former Cigarettes Q uit: 01/10/2015 Smokeless Tobacco: Never Tobacco Cessation:Counseling Given: Not Answered Alcohol Use Standard Drinks/Week Comments Yes 0 (1 standard drink = 0.6 oz pur e alcohol) AUDIT-C Answer Date Recorded Frequency of Alcohol Consumption 2-3 times a wee k 07/21/2019 Average Number of Drinks Not on file 020 Frequency of Binge Drinking Not on file 07/2019 Interpersonal Safety Answer Date Record ed Physically Hurt Never 10/18/2019 Verbally Threaten Not on file 10/18/2019 Sex and Gender Information Value Date Recorded Sex Assigned at Not on file Gender Identity Female 07/22/2019 10:29 EDT Sexual Orientation Not on file documented as of this encounter Last Filed Vital Signs Vital Sign Reading Time Taken Comments Blood Pressure 124/80 08/02/2022 0933 EDT Pulse 60 08/02/2022 0933 EDT Temperature 36.1 ??C (97 ??F) 08/02/2022 0933 EDT Respiratory Rate - - Oxygen Saturation - - Inhaled Oxygen Concentration - - Weight 60.8 kg (134 lb) 08/02/2022 0933 EDT Height 162.6 cm (5' 4) 08/02/2022 0933 EDT Body Mass Index 23 08/02/2022 0933 EDT documented in this encounter Functional Status Functional Status Response Date of Assess ment Because of a physical, menta l, or emotional condition, does this person have difficulty doing errands alone such as visiting a doctor's office or shopping? No 01/31/2022 Cognitive Status Response Date of Assessm ent Because of a physical, menta l, or emotional condition, does this person have serious difficulty concentrating, remembering, or making decisions? No 01/31/2022 documented as of this encounter Patient Instructions * Patient Instructions* Edna Nava MD - 08/02/2022 9:30 EDT Ring splint for left ring finger Toe spacer for hammer toe? Labs for next visit documented in this encounter Progress Notes * Edna Nava MD - 08/02/2022 9343 EDT [facility] Rheumatology Chief Complaint Patient presents with ??? Follow-up RA ,doing well and the toes are bothering a little. Has pain in the lower back. HPI: Seronegative RA. Off prednisone since 04/2010. Has been on Plaquenil since 07/2009. At visit in 09/2011, Plaquenil was reduced to 300 mg/day (and she was mostly taking 200 mg/day), and this was increased back to 400 mg/day due to right knee and hip pain. Allie stopped Plaquenil in 2015 and had increased knee discomfort and swelling at the ulnar styloid. Since resuming Plaquenil, these symptoms have resolved. Had right TKA in 11/2019. ? INTERVAL HISTORY: Allie returns for 6-month follow up. No changes were made at the last visit. Today, Allie says she is doing pretty well. Says low back bothers her, and she is learning to live with this. Also has bunions and new hammer toe right second toe. Says hands are doing ok except she did fall two weeks ago, injuring the left small finger, which is swollen. Says the finger was at a 90 degree angle and she was able to put it back into place. Outpatient Encounter Medications as of 08/02/2022 Medication Sig ??? amoxicillin (AMOXIL) 500 mg capsule TAKE FOUR CAPSULES (2,000MG) BY MOUTH 1 HOUR PRIOR TO DENTAL APPOINTMENT ??? [DISCONTINUED] aspirin 81 mg EC tablet Take 81 mg by mouth daily. (Patient not taking: Reportedon 08/02/2022) ??? carbidopa-levodopa (SINEMET) 25-100 mg per tablet 1 Tablet 3 times daily. ??? hydroCHLOROthiazide (HYDRODIURIL) 25 mg tablet TAKE ONE TABLET BY MOUTH EVERY MORNING ??? hydrOXYchloroQUINE (PLAQUENIL) 200 mg tablet Take 2 Tablets by mouth daily. ??? losartan (COZAAR) 25 mg tablet Take 25 mg by mouth daily. ??? PAIN RELIEF EXTRA STRENGTH 500 mg tablet TAKE TWO TABLETS BY MOUTH EVERY 8 HOURS NEEDED FOR PAIN ??? propRANolol (INDERAL) 20 mg tablet Take 20 mg by mouth 2 times daily. No facility-administered encounter medications on file as of 08/02/2022. Allergies include: Oxycodone and Tramadol Patient Active Problem List Diagnosis ??? Seronegative rheumatoid arthritis of multiple sites (HCC-CMS) ([facility]) ??? Chronic right-sided low back pain without sciatica ??? Other chronic pain ??? History of SCC (squamous cell carcinoma) of skin ??? Status post right knee replacement ??? Parkinson's disease (HCC-CMS) ([facility]) ??? Hypertension ??? Essential tremor ??? Cerebral aneurysm, nonruptured ??? Long-term use of Plaquenil Social History: Lives independently with spouse. Review of Systems: Review of Systems Constitutional: Negative for weight loss. Eye exam, 12/06/21, Dr Mejia, Plaquenil monitoring; no sign of toxicity. Allie has a dx of Parkinson's. She is on carbidopa-levodopa, with increase in dose since last here.Left hand tremor is unchanged. Is followed at [facility] for cerebral aneurysm -- Allie had follow up MR angiogram at [facility], with imaging sent to [facility]. Allie says aneurysm is smaller, and she will having another scan in . Says she was instructed to stop the aspirin. Physical Examination: BP 124/80 (BP Cuff Location: Right arm, BP Patient Position: Sitting, BP Cuff Sizes: Adult, regular) Pulse 60 Temp 36.1 ??C (97 ??F) Ht 162.6 cm (64) Wt 60.8 kg (134 lb) BMI 23.00 kg/m?? EYES: Conjunctivae not injected. NECK: No lymphadenopathy. LUNGS: Clear to auscultation bilaterally. CARDIOVASCULAR: Regular rate and rhythm. No murmur. No pedal edema. JOINT EXAM: No synovitis of the joints of the hands, wrists. Left small finger with diffuse swelling, flexion still nearly full (injury). Mild thickening of right and left long finger flexor tendons,without tenderness; triggering of left ring finger with swan neck deformity, chronic. Painless ROM of shoulders, elbows, wrists, hips, knees and ankles. Right knee is replaced. SKIN: No nail pitting. No dilated capillary loops in the nail beds. NEURO: Resting tremor left hand. Labs: Labs 06/15/21, [facility]: CBC wnl; creatinine 0.8, lytes wnl. Labs 01/25/22, [facility]: CBC w/diff wnl; CMP wnl. Labs 03/28/22, [facility]: creatinine 0.7. Labs 07/31/22, [facility]: CBC w/diff within normal limits. Assessment and Plan: 1. Seronegative rheumatoid arthritis of multiple sites ([facility]) ([facility]) RAPID3 SCORES AND INTERPRETATION 01/31/2022 08/02/2022 Functional Status 0.3 1 Pain Tolerance 4 4 Global Estimate 1 6 RAPID3 5.3 11 Interpretation Low Moderate Allie is doing well. Rheumatoid arthritis controlled on hydroxychloroquine monotherapy. 2. Long-term use of Plaquenil Allie is up-to-date on eye exam for hydroxychloroquine monitoring. 3. Dislocation of finger, interphalangeal joint, left, closed, initial encounter Allie fell and dislocated her left small finger. Sounds like she was able to reduce the finger, andit is maintaining good range of motion. 4. Deformity, swan neck, finger, left Recommended use of ring splint for left ring finger. 5. Hammer toe of right foot Recommend use of toe spacer. Check labs for next visit at [facility]. Follow-up in 6 months. Edna Nava MD 08/02/2022 9:49 documented in this encounter Plan of Treatment Upcoming Encounters Date Type Department Care Team (Late st Contact Info) Description 01/30/2024 10:30 EST Office Visit [facility] Rheumatology [address] [place] [address] Edna Nava MD [address] [facility] [address] [place] [id number] Scheduled Orders Name Type Priority Associated Diagnoses Orde r Schedule COMPLETE BLOOD COUNT AND DIFFERENTIAL Lab Routine Seronegative rheumatoid arthritis of multiple sites ([facility]) Expected: 02/02/2023 (Approximate) documented as of this encounter Visit Diagnoses Diagnosis Seronegative rheumatoid arthritis of multiple sites ([facility])- Primary Long-term use of Plaquenil Encounter for long-term (current) use of other medications Dislocation of finger, interphalangeal joint, left, closed, initial encounter Deformity, swan neck, finger, left Hammer toe of right foot documented in this encounter Discontinued Medications Medication Sig Discontinue Reason Start Date End Da te aspirin 81 mg EC tablet Take 81 mg by mouth daily. Therapy completed 07/16/2020 08/02/2022 documented as of this encounter Historical Medications * This list may reflect changes made after this encounter. Medication Sig Dispensed Refills Start Date End Date amoxicillin (AMOXIL) 500 mg capsule TAKE FOUR CAPSULES (2,000MG) BY MOUTH 1 HOUR PRIOR TO DENTAL APPOINTMENT 07/17/2022 losartan (COZAAR) 25 mg tablet Take 1 Tablet by mouth daily. 07/18/2022 added in this encounter Care Teams Adult Parole Officer Relationship Specialty Start Date End Date Anshu Barriga MD [address] [place] [address] [place] [address] PCP - General Family Medicine - Primary Care 01/31/22 documented as of this encounter
--- OUTSIDE RECORDS SUMMARY | 2024-01-17 01:58 | XMS_ITS | Encounter Summary ---
Author Organization [facility] Address [address] [place] [address] Care Team Providers Care China Decorator Name Role Phone Anshu Barriga MD Primary Care Provider [phone] [phone] Reason for Visit * Reason Comments Follow-up Seronegative rheumat oid arthritis of multiple sites Encounter Details Date Type Department Care Team (Late st Contact Info) Description 01/28/2023 10:30 EST Office Visit [facility] Rheumatology [address] [place] [address] Edna Nava MD [address] [facility] [address] [place] [address] Seronegative rheumatoid arthritis of multiple sites ([facility]) ([facility]) (Primary Dx); Burning sensation of eye; Long-term use of Plaquenil Social History Tobacco Use Types Packs/Day Years Used Date Smoking Tobacco: Former Cigarettes Q uit: 01/10/2015 Smokeless Tobacco: Never Alcohol Use Standard Drinks/Week Comments Yes 0 (1 standard drink = 0.6 oz pur e alcohol) rarely AUDIT-C Answer Date Recorded Frequency of Alcohol [...] Sign Reading Time Taken Comments Blood Pressure 125/75 01/28/2023 1015 EST Pulse 66 01/28/2023 1015 EST Temperature 36.2 ??C (97.2 ??F) 01/28/2023 1015 EST Respiratory Rate 20 01/28/2023 1015 EST Oxygen Saturation 98% 01/28/2023 1015 EST Inhaled Oxygen Concentration - - Weight 61.5 kg (135 lb 11.1 oz) 01/28/2023 1015 EST Height 162.6 cm (5' 4) 01/28/2023 1015 EST Body Mass Index 23.29 01/28/2023 1015 EST documented in this encounter Functional Status Functional [...] * Patient Instructions* Edna Nava MD - 01/28/2023 10:30 EST For your eyes -- Sytane, Refresh, TheraTears Continue hydroxychloroquine at current dose No labs prior to next visit documented in this encounter Progress Notes * Edna Nava MD - 01/28/2023 1030 EST [facility] [place] Chief Complaint Patient presents with ??? Follow-up Seronegative rheumatoid arthritis of multiple sites HPI: Seronegative RA. Off prednisone since 04/2010. [...] Allie says she is doing pretty well. Allie says she has days when low back and hips bother her, but overall doing ok. No reports of any joint pain. I've reviewed problem and medication lists. Review of Systems: Review of Systems Constitutional: Negative for weight loss. Eye exam, 12/06/21, Dr Mejia, Plaquenil monitoring; no sign of toxicity. Next eye exam is scheduled for Feb 04. Says eyes have been burning at times. Allie has a dx of Parkinson's. She is on carbidopa-levodopa. Left hand tremor is unchanged. Is followed at [facility] for cerebral aneurysm -- Allie had follow up MR angiogram at [facility], with imaging sent to [facility]. Allie says aneurysm is smaller, and she will having another scan in . Physical Examination: BP 125/75 Pulse 66 Temp 36.2 ??C (97.2 ??F) Resp 20 Ht 162.6 cm (64) Wt 61.5 kg (135 lb 11.1 oz) SpO2 98% BMI 23.29 kg/m?? EYES: Conjunctivae not injected. NECK: No lymphadenopathy. LUNGS: Clear to auscultation bilaterally. CARDIOVASCULAR: Regular rate and rhythm. No murmur. No pedal edema. JOINT EXAM: No synovitis of the joints of the hands, wrists. Mild thickening of right and left longfinger flexor tendons, without tenderness; mild triggering of left ring finger with swan neck deformity, chronic. Painless ROM of shoulders, elbows, wrists, hips, knees and ankles. Right knee is replaced. SKIN: No nail pitting. No dilated capillary loops in the nail beds. NEURO: Resting tremor left hand. Labs: [facility], 01/21/23: CBC w/diff wnl, CMP wnl except sodium 131, CRP<0.05 mg/dL. Assessment and Plan: 1. Seronegative rheumatoid arthritis of multiple sites ([facility]) ([facility]) 01/31/2022 8:38 08/02/2022 9:42 01/28/2023 6:21 RAPID3 SCORES AND INTERPRETATION Functional Status 0.3 1 2 Pain Tolerance 4 4 4.5 Global Estimate 1 6 0 - Very Well RAPID3 5.3 11 6.5 Interpretation Low Moderate Moderate Allie is doing well. Rheumatoid arthritis controlled on hydroxychloroquine monotherapy. Continue hydroxychloroquine 400 mg daily. Might consider trial of lower dose at the next visit. 2. Burning sensation of eye I suspect dry eye. Recommend trial of moisturizing drops -- Systane, etc. Also has upcoming eye exam. 3. Long-term use of Plaquenil Eye exam later this month for hydroxychloroquine monitoring. No labs needed for next visit. Follow-up in 6 months. Edna Nava MD 01/28/2023 10:33 * Diane Cook RN - 01/28/2023 1030 EST Last eye exam overdue has been rescheduled x 2 and is scheduled for 02/04/[address] Samson documented in this encounter Plan of Treatment Upcoming Encounters Date Type Department Care Team (Late st Contact Info) Description 01/30/2024 10:30 EST Office Visit [facility] Rheumatology [address] [place], [place] [address] Edna Nava MD [address] [facility] [address] [place] [address] documented as of this encounter Visit Diagnoses Diagnosis Seronegative rheumatoid arthritis of multiple sites ([facility]) ([facility])- Primary Burning sensation of eye Long-term use of Plaquenil Encounter for long-term (current) use of other medications documented in this encounter Historical Medications * This list may reflect changes made after this encounter. Medication Sig Dispensed Refills Start Date End Date aspirin 81 mg EC tablet Take 1 Tablet by mouth every 48 hours. 10/15/2022 added in this encounter Care Teams China Decorator Relationship Specialty Start Date End Date Anshu Barriga MD [address] [place], [place] [address] [place] [address] PCP - General Family Medicine - Primary Care 01/31/22 documented as of this encounter
--- OUTSIDE RECORDS SUMMARY | 2024-01-17 01:58 | XMS_ITS | Encounter Summary ---
Author Organization [facility] Address [address] [place] [address] Care Team Providers Care Cabinet Builder Name Role Phone Anshu Barriga MD Primary Care Provider [phone] [phone] Reason for Referral * Laboratory Services (Routine/Next Available) - New Request Specialty Diagnoses / Procedures Referred By Contac t Referred To Contact Diagnoses Seronegative rheumatoid arthritis of multiple sites ([facility]) Long-term use of Plaquenil Procedures COMPREHENSIVE METABOLIC PANEL (CMP) Edna Nava MD [address] [place] [address] [address] Referral ID Status Reason Start Date Expiration Date V isits Requested Visits Authorized [id number] New Request 07/29/2023 1 1 * Laboratory Services (Routine/Next Available) - New Request Specialty Diagnoses / Procedures Referred By Contac t Referred To Contact Diagnoses Seronegative rheumatoid arthritis of multiple sites ([facility]) Long-term use of Plaquenil Procedures COMPLETE BLOOD COUNT AND DIFFERENTIAL Edna Nava MD [address] [place], [place] [address] [address] [place] [address] Referral ID Status Reason Start Date Expiration Date V isits Requested Visits Authorized [id number] New Request 07/29/2023 1 1 * Laboratory Services (Routine/Next Available) - New Request Specialty Diagnoses / Procedures Referred By Warren chappell Referred To Contact Diagnoses Seronegative rheumatoid arthritis of multiple sites ([facility]) Procedures C REACTIVE PROTEIN Edna Nava MD [address] [place], [place] [address] [facility] [address] [place] [address] Referral ID Status Reason Start Date Expiration Date V isits Requested Visits Authorized [id number] New Request 07/29/2023 1 1 Reason for Visit * Reason Comments Follow-up Seronegative rheumat oid arthritis Encounter Details Date Type Department Care Team (Late st Contact Info) Description 07/29/2023 10:30 EDT Office Visit [facility] Rheumatology [address] [place] [address] Edna Nava MD [address] [place], [place] [address] [address] [place] [address] Seronegative rheumatoid arthritis of multiple sites ([facility]) ([facility]) (Primary Dx); Long-term use of Plaquenil Social History Tobacco [...] Sign Reading Time Taken Comments Blood Pressure 156/80 07/29/2023 1029 EDT Pulse 67 07/29/2023 1029 EDT Temperature 36.7 ??C (98.1 ??F) 07/29/2023 1029 EDT Respiratory Rate - - Oxygen Saturation 100% 07/29/2023 1029 EDT Inhaled Oxygen Concentration - - Weight 61.2 kg (135 lb) 07/29/2023 1029 EDT Height 162.6 cm (5' 4) 07/29/2023 1029 EDT Body Mass Index 23.17 07/29/2023 1029 EDT documented in this encounter Functional Status [...] serious difficulty concentrating, remembering, or making decisions? Yes 07/29/2023 documented as of this encounter Patient Instructions * Patient Instructions* Edna Nava MD - 07/29/2023 10:30 EDT Reduce hydroxychloroquine dosing to 2 tabs, alternating with 1 tab daily Labs with next visit documented in this encounter Ordered Prescriptions Prescription Sig Dispensed Refills Start Date End Da te hydroxychloroquine (PLAQUENIL) 200 mg tablet Take 2 tablets, alternating with 1 tab daily. 135 Tablet 1 07/29/2023 documented in this encounter Progress Notes * Edna Nava MD - 07/29/2023 1030 EDT [facility] Chief Complaint Patient presents with Follow-up Seronegative rheumatoid arthritis HPI: Seronegative RA. Off prednisone since 04/2010. [...] have resolved. Had right TKA in 11/2019. INTERVAL HISTORY: Allie returns for 6-month follow up. No changes were made at the last visit. Today, Allie says she is doing well except she had an accident in early May, involving her left hand, [place] an airport, [place] an escalator. The hand injury caused a drop finger (sagittal band rupture), left ring finger, and then had surgery 07/08/23 at (Dr Ojeda), and this is improving. Allie says the rest of her has been ok. I have reviewed the patient's problem list and have reconciled their medication list. Review of Systems: Review of Systems Constitutional: Negative for weight loss. Eye exam, 02/04/2023, [facility], Plaquenil monitoring; no sign of toxicity. Allie has a dx of Parkinson's. She is on carbidopa-levodopa. Left hand tremor is unchanged. 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 Is followed at [facility] for cerebral aneurysm -- Allie had follow up MR angiogram at [facility], with imaging sent to [facility]. Allie says aneurysm is smaller, and had another scan in Mar 2023, and was told to follow up in 5 years. Physical Examination: BP (!) 156/80 (BP Cuff Location: Right arm, BP Patient Position: Sitting, BP Cuff Sizes: Adult, regular) Pulse 67 Temp 36.7 ??C (98.1 ??F) Ht 162.6 cm (64) Wt 61.2 kg (135 lb) SpO2 100% BMI 23.17 kg/m?? EYES: Conjunctivae not injected. NECK: No lymphadenopathy. LUNGS: Clear to auscultation bilaterally. CARDIOVASCULAR: Regular rate and rhythm. No murmur. No pedal edema. JOINT EXAM: No synovitis of the joints of the hands, wrists. Left ring finger is supported with a brace; mild swelling of the finger and the MCP joint which has surgical scar over dorsal surface. Painless ROM of shoulders, elbows, wrists, hips, knees and ankles. Right knee is replaced. SKIN: No nail pitting. No dilated capillary loops in the nail beds. NEURO: Resting tremor left hand, unchanged. Labs: [facility], 01/21/23: CBC w/diff wnl, CMP wnl except sodium 131, CRP<0.05 mg/dL. Assessment and Plan: 1. Seronegative rheumatoid arthritis of multiple sites ([facility]) ([facility]) 01/31/2022 8:38 08/02/2022 9:42 01/28/2023 6:21 07/28/2023 22:15 RAPID3 SCORES AND INTERPRETATION Functional Status 0.3 1 2 1.7 Pain Tolerance 4 4 4.5 0.5 Global Estimate 1 6 0 - Very Well 0 - Very Well RAPID3 5.3 11 6.5 2.2 Interpretation Low Moderate Moderate Near Remission Rheumatoid arthritis controlled on hydroxychloroquine monotherapy. Will try a slight reduction in hydroxychloroquine dosing, to 400 mg daily, alternating with 200 mg daily . - C REACTIVE PROTEIN; Future - COMPLETE BLOOD COUNT AND DIFFERENTIAL; Future - COMPREHENSIVE METABOLIC PANEL (CMP); Future 2. Long-term use of Plaquenil Up-to-date on eye exam for hydroxychloroquine monitoring. - COMPLETE BLOOD COUNT AND DIFFERENTIAL; Future - COMPREHENSIVE METABOLIC PANEL (CMP); Future Check labs prior to next visit. Follow-up in 6 months. Edna Nava MD 07/29/2023 10:33 documented in this encounter Plan of Treatment Upcoming Encounters Date Type Department Care Team (Late st Contact Info) Description 01/30/2024 10:30 EST Office Visit [facility] Rheumatology [address] [place] [address] Edna Nava MD [address] [place] [address] [place] [phone] Scheduled Orders Name Type Priority Associated Diagnoses Orde r Schedule C REACTIVE PROTEIN Lab Routine Seronegative rheumatoid arthritis of multiple sites ([facility]) ([facility]) Expected: 01/29/2024 (Approximate), Expires: 07/28/2024 COMPLETE BLOOD COUNT AND DIFFERENTIAL Lab Routine Seronegative rheumatoid arthritis of multiple sites ([facility]) ([facility]) Long-term use of Plaquenil Expected: 01/29/2024 (Approximate) COMPREHENSIVE METABOLIC PANEL (CMP) Lab Routine Seronegative rheumatoid arthritis of multiple sites ([facility]) ([facility]) Long-term use of Plaquenil Expected: 01/29/2024 (Approximate), Expires: 07/28/2024 documented as of this encounter Visit Diagnoses Diagnosis Seronegative rheumatoid arthritis of multiple sites ([facility]) ([facility])- Primary Long-term use of Plaquenil Encounter for long-term (current) use of other medications documented in this encounter Discontinued Medications Medication Sig Discontinue Reason Start Date End Da te hydroxychloroquine (PLAQUENIL) 200 mg tablet TAKE TWO TABLETS BY MOUTH EVERY DAY Order modification 04/02/2023 07/29/2023 documented as of this encounter Historical Medications * This list may reflect changes made after this encounter. Medication Sig Dispensed Refills Start Date End Date calcium carbonate (CALCIUM 300 ORAL) Take by mouth. Take 1 tablet 2-3 times weekly Magnesium 200 mg tablet Take by mouth. Take 1 tablet 2-3 times weekly Cholecalciferol, Vitamin D3, 25 mcg (1,000 unit) capsule Take 1 take 3 times weekly 04/10/2022 cyanocobalamin (VITAMIN B-12) 1,000 mcg tablet Take 1 tablet 3 times weekly 04/10/2022 added in this encounter Care Teams Cabinet Builder Relationship Specialty Start Date End Date Anshu Barriga MD [address] [place] [address] PCP - General Family Medicine - Primary Care 01/31/22 documented as of this encounter
--- OUTSIDE RECORDS SUMMARY | 2024-01-17 01:58 | XMS_ITS | Clinical Summary ---
Author Organization [facility] Address [address] [place] [address] Care Team Providers Care Clipper Machine Name Role Phone Anshu Barriga MD Primary Care Provider [phone] [phone] Allergies Active Allergy Reactions Criticality Noted Date Comments Clopidogrel 07/04/2021 Oxycodone 08/04/2018 Other reaction(s): fuzzy head, ineffective Tramadol Other (See Comments) 07/18/2020 Nausea Nausea Medications Medication Sig Dispensed Refills Start Date End Date Status PAIN RELIEF EXTRA STRENGTH 500 mg tablet TAKE TWO TABLETS BY MOUTH EVERY 8 HOURS NEEDED FOR PAIN 06/07/2020 Active carbidopa-levodopa (SINEMET) 25-100 mg per tablet 1 Tablet 3 times daily. 07/05/2020 Active hydroCHLOROthiazid e (HYDRODIURIL) 25 mg tablet TAKE ONE TABLET BY MOUTH EVERY MORNING 06/18/2020 Active propRANolol (INDERAL) 20 mg tablet Take 1 Tablet by mouth 2 times daily. 05/07/2020 Active losartan (COZAAR) 25 mg tablet Take 1 Tablet by mouth daily. 07/18/2022 Active amoxicillin (AMOXIL) 500 mg capsule TAKE FOUR CAPSULES (2,000MG) BY MOUTH 1 HOUR PRIOR TO DENTAL APPOINTMENT 07/17/2022 Active aspirin 81 mg EC tablet Take 1 Tablet by mouth every 48 hours. 10/15/2022 Active cyanocobalamin (VITAMIN B-12) 1,000 mcg tablet Take 1 tablet 3 times weekly 04/10/2022 Active Cholecalciferol, Vitamin D3, 25 mcg (1,000 unit) capsule Take 1 take 3 times weekly 04/10/2022 Active Magnesium 200 mg tablet Take by mouth. Take 1 tablet 2-3 times weekly Active calcium carbonate (CALCIUM 300 ORAL) Take by mouth. Take 1 tablet 2-3 times weekly Active hydroxychloroquine (PLAQUENIL) 200 mg tablet Take 2 tablets, alternating with 1 tab daily. 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 ([facility]) 07/21/2019 Chronic right-sided low back pain without sciati ca 07/21/2019 Other chronic pain 07/21/2019 History of SCC (squamous cell carcinoma) of skin 02/20/2016 Immunizations Name Administration Dates Next Due Covid-19 mRNA Booster Vaccin e (MODERNA COVID-19 BOOSTER) PF 0.25 mL IM (18 yrs+) 07/04/2021 Covid-19 mRNA Vaccine (MODER NA COVID-19) PF 0.5 ml IM (12 yrs+) 01/16/2021,2020,05/13/2020 Covid-19 mRNA-LNP Bivalent V accine (PFIZER BIVALENT VACCINE) PF 0.3 mL IM (12 yrs+) 01/18/2022 Historical Hepatitis A Vaccine, Unspecified 08/16 Historical Pneumococcal Vacc ine, Unspecified 03/31/2014 Influenza Vaccine High Dose (FLUZONE HIGH DOSE) PF 0.7 ml IM (65 yrs+) 01/18/2022,02/03/2019 Pneumococcal Polysaccharide (PPSV23) Vaccine (PNEUMOVAX-23) =>2YO SQ/IM 03/31/2014,04/12/1999 Td (Adult) 5 Lf Vaccine (TEN IVAC) Preservative Free =>7yo IM 03/06/2011,08/17/1999 Typhoid Vaccine Oral 09/11/2007 Surgical History Surgery Date Site/Laterality Comments CARPAL TUNNEL RELEASE LUMBAR SPINE SURGERY 03/18/2019 - 03/17/2020 Right L4/5, L5/S1 Hemilaminectomies, medial facetectomies, lateral recess decompression JOINT REPLACEMENT 11/17/2019 Right BRAIN ANEURYSM SURGERY 07/15/2020 N/A [facility] Medical History Medical History Date Comments Cervical spine degeneration DDD (degenerative disc disease), lumbar Inflammatory arthritis Eye exam, routine Vitamin D deficiency Cervical spondylosis Low back pain 07/21/2019 Cerebral aneurysm Family History Medical History Relation Comments No Known Brother No Known Daughter Prostate Cancer Father Psoriasis Mother No Known Sister No Known Son Relation Status Comments Brother Alive Daughter Alive Father Mother Sister Alive Son Alive Social History Tobacco Use Types Packs/Day Years [...] 10:29 EDT Sexual Orientation Not on file Obstetrics History Last Filed Vital Signs Vital Sign Reading Time Taken Comments Blood Pressure 156/80 07/29/2023 1029 EDT Pulse 67 07/29/2023 1029 EDT Temperature 36.7 ??C (98.1 ??F) 07/29/2023 1029 EDT Respiratory Rate 20 01/28/2023 1015 EST Oxygen Saturation 100% 07/29/2023 1029 EDT Inhaled Oxygen Concentration - - Weight 61.2 kg (135 lb) 07/29/2023 1029 EDT Height 162.6 cm (5' 4) 07/29/2023 1029 EDT Body Mass Index 23.17 07/29/2023 1029 EDT Plan of Treatment Upcoming Encounters Date Type Department Care Team (Late st Contact Info) Description 01/30/2024 10:[address] [facility] [place] [address] [place] [address] Edna Nava MD [address] [facility] [address] [address] [place] [phone] Health Maintenance Due Date Last Done Comments Hepatitis C Screen 1945 RSV Immunization ( o r 60+ Years) (1 - 1-dose 60+ series) 2005 Fall Risk Screening 08/03/2023 08/02/2022, 07/31/2021, 01/23/2021 COVID-19 Vaccine ( - 2023-2 5 season) 2023 01/18/2022, 07/04/2021, 01/16/2021, Additional history exists Care Teams Clipper Machine Relationship Specialty Start Date End Date Anshu Barriga MD [address] [place] [address] [place] [address] PCP - General Family Medicine - Primary Care 01/31/22
--- OUTSIDE RECORDS SUMMARY | 2024-01-17 01:58 | XMS_ITS | Referral Summary ---
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 Yes 07/29/2023 Plan of Treatment Upcoming Encounters Date Type Department Care Team (Late st Contact Info) Description 01/30/2024 10:30 EST Office Visit [facility] Rheumatology [address] [place], [place] [address] Edna Nava MD [address] [facility] [address] [place] [phone] Care Teams Gum Sprayer Relationship Specialty Start Date End Date Anshu Barriga MD [address] [place] [id number] PCP - General Family Medicine - Primary Care 01/31/22
--- OUTSIDE RECORDS SUMMARY | 2024-01-17 01:58 | XMS_ITS | Encounter Summary ---
Author Organization [facility] Address [address] [place] [address] Care Team Providers Care Mapper Name Role Phone Anshu Barriga MD Primary Care Provider [phone] [phone] Reason for Visit * Reason Onset Date Comments Orders (Non Pre-visit) 08/02/2022 Encounter Details Date Type Department Care Team (Late st Contact Info) Description 08/02/2022 Telephone [facility] [place] [address] [place] [address] Edna Nava MD [address] [facility] [address] [place] [address] Orders (Non Pre-visit) Social History Tobacco Use Types Packs/Day Years [...] on file documented as of this encounter Functional Status Functional Status Response [...] No 01/31/2022 documented as of this encounter Miscellaneous Notes * Telephone Encounter - Marlene Aponte - 08/02/2022 1638 EDT Faxed Lab orders documented in this encounter Plan of Treatment Upcoming Encounters Date Type Department Care Team (Late st Contact Info) Description 01/30/2024 10:30 EST Office Visit [facility] Rheumatology [address] [place], [place] [address] Edna Nava MD [address] [facility] [address] [place] [phone] documented as of this encounter Visit Diagnoses Not on filedocumented in this encounter Care Teams Mapper Relationship Specialty Start Date End Date Anshu Barriga MD [address] [place], [place] [address] PCP - General Family Medicine - Primary Care 01/31/22 documented as of this encounter
--- OUTSIDE RECORDS SUMMARY | 2024-01-17 01:58 | XMS_ITS | Encounter Summary ---
Author Organization [facility] Address [address] [place] [address] Care Team Providers Care Swatch Paster Name Role Phone Anshu Barriga MD Primary Care Provider [phone] Reason for Visit * Reason Onset Date Comments Medications Refill 03/14/2022 Encounter Details Date Type Department Care Team (Late st Contact Info) Description 03/14/2022 Telephone [facility] [address] [place] [address] Edna Nava MD [address] [facility] [address] [place] [address] Medications Refill Social History Tobacco Use Types Packs/Day Years [...] No 01/31/2022 documented as of this encounter Ordered Prescriptions Prescription Sig Dispensed Refills Start Date End Da te hydrOXYchloroQUINE (PLAQUENIL) 200 mg tablet Take 2 Tablets by mouth daily. 180 Tablet 3 03/14/2022 04/02/2023 documented in this encounter Miscellaneous Notes * Telephone Encounter - Georgina Wade RN - 03/14/2022 09 EST Last visit note reviewed and follow up noted. Refill sent per protocol. * Telephone Encounter - Marlene Aponte - 03/14/2022 0908 EST Patient called in for refill of medication to be called into [facility] in [place] Hydroxychloroquine documented in this encounter Plan of Treatment Upcoming Encounters Date Type Department Care Team (Late st Contact Info) Description 01/30/2024 10:30 EST Office Visit [facility] Rheumatology [address] [place], [place] [id number] Edna Nava MD [address] [facility] [address] [place] [phone] documented as of this encounter Visit Diagnoses Not on filedocumented in this encounter Discontinued Medications Medication Sig Discontinue Reason Start Date End Da te hydrOXYchloroQUINE (PLAQUENIL) 200 mg tablet TAKE TWO TABLETS BY MOUTH EVERY DAY Reorder 03/20/2021 03/14/2022 documented as of this encounter Care Teams Swatch Paster Relationship Specialty Start Date End Date Anshu Barriga MD [address] [place] [address] PCP - General Family Medicine - Primary Care 01/31/22 documented as of this encounter
--- OUTSIDE RECORDS SUMMARY | 2024-01-17 01:58 | XMS_ITS | Encounter Summary ---
Author Organization [facility] Address [address] [place] [address] Care Team Providers Care Internet Network Specialist Name Role Phone Anshu Barriga MD Primary Care Provider [phone] [phone] Reason for Visit * Reason Comments Medications Refill Encounter Details Date Type Department Care Team (Late st Contact Info) Description 03/30/2023 Refill [facility] [address] [place], [place] [address] Edna [facility] MD [address] [facility] [address] [place] [phone] Medications Refill Social History Tobacco Use Types [...] TAKE TWO TABLETS BY MOUTH EVERY DAY 180 Tablet 3 04/02/2023 07/29/2023 documented in this encounter Miscellaneous Notes * Telephone Encounter - Key Hickman RN - 04/02/2023 3600 EST Medication(s) Requested: Hydroxychloraquine Preferred Pharmacy: [facility] [place] Are visits in compliance? Yes Last Refill Date: 03/14/2022 Last eye exam 12/06/2021 Recent Visits Date Type Provider Dept 01/28/23 Office Visit Edna Nava MD [facility] Rheumatology 08/02/22 Office Visit Edna Nava MD [facility] Rheumatology 01/31/22 Office Visit Edna Nava MD [facility] Rheumatology Showing recent visits within past 540 days with a meds authorizing provider and meeting all other requirements Future Appointments Date Type Provider Dept 07/29/23 App[address] N[address] [facility] Rheumatology Showing future appointments within next 150 days with a meds authorizing provider and meeting all other requirements KEY HICKMAN RN 04/02/2023 8:26 documented in this encounter Plan of Treatment Upcoming Encounters Date Type Department Care Team (Late st Contact Info) Description 01/30/2024 10:30 EST Office Visit [facility] [place] [address] [place], [place] [address] Edna Nava MD [address] [facility] [address] [place] [phone] documented as of this encounter Visit Diagnoses Not on filedocumented in this encounter Discontinued Medications Medication Sig Discontinue Reason Start Date End Da te hydrOXYchloroQUINE (PLAQUENIL) 200 mg tablet Take 2 Tablets by mouth daily. 03/14/2022 04/02/2023 documented as of this encounter Care Teams Internet Network Specialist Relationship Specialty Start Date End Date Anshu Barriga MD [address] [place] [address] PCP - General Family Medicine - Primary Care 01/31/22 documented as of this encounter
--- OUTSIDE RECORDS SUMMARY | 2024-01-17 01:59 | XMS_ITS | Encounter Summary ---
Author Organization [facility] Address [address] [place] [address] Care Team Providers Care Maintenance Electrician Name Role Phone Fabricio Long DO Primary Care Provider +1- [phone] Anshu Barriga MD Primary Care Provider +1 -[phone] Reason for Visit * Reason Comments Other Encounter Details Date Type Department Care Team (Late st Contact Info) Description 03/19/2020 Refill [facility] Rheumatology [address] [place] [address] Edna Nava MD [address] [facility] [address] [place] [phone] Other Social History Tobacco Use Types Packs/Day Years [...] on file documented as of this encounter Ordered Prescriptions Prescription Sig Dispensed Refills Start Date End Da te hydrOXYchloroQUINE (PLAQUENIL) 200 mg tablet TAKE TWO TABLETS BY MOUTH EVERY DAY 180 Tab 3 03/21/2020 03/20/2021 documented in this encounter Plan of Treatment Upcoming Encounters Date Type Department Care Team (Late st Contact Info) Description 01/30/2024 10:30 EST Office Visit [facility] Rheumatology [address] [place] [address] Edna Nava MD [address] [facility] [address] [place] [phone] documented as of this encounter Visit Diagnoses Not on filedocumented in this encounter Discontinued Medications Medication Sig Discontinue Reason Start Date End Da te hydroxychloroquine (PLAQUENIL) 200 mg tablet Take 2 Tabs by mouth daily. 04/08/2019 03/21/2020 documented as of this encounter Care Teams Maintenance Electrician Relationship Specialty Start Date End Date Fabricio Long DO [address] [place], [place] [address] PCP - General 11/10/14 01/30/22 Anshu Barriga MD [address] [place], [place] [address] PCP - General Family Medicine - Primary Care 01/31/22 documented as of this encounter
--- OUTSIDE RECORDS SUMMARY | 2024-01-17 01:59 | XMS_ITS | Encounter Summary ---
Author Organization [facility] Address [address] [place] [address] Care Team Providers Care Rotary Engraver Name Role Phone Anshu Barriga MD Primary Care Provider [phone] [phone] Reason for Visit * Reason Comments Follow-up The pt.states that jacinta oing pretty well and has problems with her right hip. Encounter Details Date Type Department Care Team (Late st Contact Info) Description 01/31/2022 8:30 EST Office Visit [facility] Rheumatology [address] [place], [place] [phone] Edna Nava MD [address] [facility] [address] [place] [phone] Seronegative rheumatoid arthritis of multiple sites (HCC-CMS) (Primary Dx); Chronic right-sided low back pain without sciatica; Long-term use of Plaquenil Social History Tobacco [...] Sign Reading Time Taken Comments Blood Pressure 146/87 01/31/2022 0834 EST Pulse 68 01/31/2022 0834 EST Temperature 35.4 ??C (95.7 ??F) 01/31/2022 0834 EST Respiratory Rate - - Oxygen Saturation - - Inhaled Oxygen Concentration - - Weight 60.8 kg (134 lb) 01/31/2022 0834 EST Height 162.6 cm (5' 4) 01/31/2022 0834 EST Body Mass Index 23 01/31/2022 0834 EST documented in this encounter Functional Status [...] * Patient Instructions* Edna Nava MD - 01/31/2022 8:30 EST No labs needed for next visit No medication changes Dry needling? Let me know if you need another referral documented in this encounter Progress Notes * Edna Nava MD - 01/31/2022 0830 EST [facility] Rheumatology Chief Complaint Patient presents with ??? Follow-up The pt.states that doing pretty well and has problems with her right hip. HPI: Seronegative RA. Off prednisone since 04/2010. [...] 11/2019. ? INTERVAL HISTORY: Allie returns for follow up. No changes were made at the last visit. Today, Allie says she is doing pretty well. Says she continues to have problems with her right hip/low back. Two visits ago, I had referred Allie to PT for chronic right low back pain due to piriformis vs hamstring tendinopathy. Allie had good relief with dry needling to piriformis. Allie says she is doing PT exercises each morning. Says there are some mornings when she can't do pelvic tilts until she does a few other exercises. Pain is currently at the right lateral thigh, over the greater trochanter, and she says the discomfort is deep. Allie says the right knee (replaced) is doing well, but she still has a leg length discrepancy. Shehas worked hard to stretch the left leg hamstrings. Allie uses a heel lift at times, depending on the shoe. Regarding her hands, says no issues currently. Outpatient Encounter Medications as of 01/31/2022 Medication Sig ??? aspirin 81 mg EC tablet Take 81 mg by mouth daily. ??? carbidopa-levodopa (SINEMET) 25-100 mg per tablet 1 Tablet 2 times daily. Taking 1 tablet in the morning and 1 tab in the launch ??? hydroCHLOROthiazide (HYDRODIURIL) 25 mg tablet TAKE ONE TABLET BY MOUTH EVERY MORNING ??? hydrOXYchloroQUINE (PLAQUENIL) 200 mg tablet TAKE TWO TABLETS BY MOUTH EVERY DAY ??? PAIN RELIEF EXTRA STRENGTH 500 mg tablet TAKE TWO TABLETS BY MOUTH EVERY 8 HOURS NEEDED FOR PAIN ??? propRANolol (INDERAL) 20 mg tablet Take 20 mg by mouth 2 times daily. No facility-administered encounter medications on file as of 01/31/2022. Allergies include: Oxycodone and Tramadol Patient Active Problem List Diagnosis ??? Seronegative rheumatoid arthritis of multiple sites (HCC-CMS) (HCC) ??? Chronic right-sided low back pain without sciatica ??? Other chronic pain ??? History of SCC (squamous cell carcinoma) of skin ??? Status post right knee replacement ??? Parkinson's disease ([facility]CC-[facility]) (HCC) ??? Hypertension ??? Essential tremor ??? Cerebral aneurysm, nonruptured ??? Long-term use of Plaquenil Family History Problem Relation Age of Onset ??? Psoriasis Mother ??? Prostate Cancer Father ??? No Known Sister ??? No Known Brother ??? No Known Son ??? No Known Daughter Social History: Lives independently with spouse. Review of Systems: Review of Systems Constitutional: Negative for weight loss. Eye exam, 12/06/21, Dr Mejia, Plaquenil monitoring; no sign of toxicity. Allie has a dx of Parkinson's. She is on carbidopa-levodopa, with no medication change since last here. Left hand tremor is unchanged. Is followed at [facility] for cerebral aneurysm -- Allie had follow up MR angiogram at [facility], with imaging sent to [facility]. Allie has not heard results yet. Allie had high dose flu vaccine and Covid booster earlier this month. Physical Examination: BP (!) 146/87 (BP Cuff Location: Right arm, BP Patient Position: Sitting, BP Cuff Sizes: Adult, regular) Pulse 68 Temp (!) 35.4 ??C (95.7 ??F) Ht 162.6 cm (64) Wt 60.8 kg (134 lb) BMI 23.00 kg/m?? EYES: Conjunctivae not injected. NECK: No lymphadenopathy. LUNGS: Clear to auscultation bilaterally. CARDIOVASCULAR: Regular rate and rhythm. No murmur. No pedal edema. JOINT EXAM: No synovitis of the joints of the hands, wrists. Mild thickening of right and left longfinger flexor tendons, without tenderness; no triggering today; mild swan-necking of left ring finger, chronic. Painless ROM of shoulders, elbows, wrists, hips, knees and ankles. No tenderness of right greater trochanter. Right knee is replaced. SKIN: No nail pitting. No dilated capillary loops in the nail beds. NEURO: Resting tremor left hand. Labs: Labs 06/15/21, [facility]: CBC wnl; creatinine 0.8, lytes wnl. Labs, 01/25/22, [facility]: CBC w/diff wnl; CMP wnl. Assessment and Plan: 1. Seronegative rheumatoid arthritis of multiple sites ([facility]) ([facility]) RAPID3 SCORES AND INTERPRETATION 01/31/2022 Functional Status 0.3 Pain Tolerance 4 Global Estimate 1 RAPID3 5.3 Interpretation Dale Kelley is overall doing well with respect to rheumatoid arthritis. Main issue is chronic right low back pain, causing radicular symptoms to the right lateral hip. She has had relief with PT/dry needling in the past, and I encouraged her to follow up with PT to see if this may be repeated. Happy to refer her if needed. Up-to-date with Covid booster and flu vaccine. 2. Chronic right-sided low back pain without sciatica As above. 3. Long-term use of Plaquenil Up-to-date with eye exams; labs without any concerns. No labs needed for next visit. Follow-up in 6 months. Edna Nava MD 01/31/2022 8:42 documented in this encounter Plan of Treatment Upcoming Encounters Date Type Department Care Team (Late st Contact Info) Description 01/30/2024 10:30 EST Office Visit [facility] Rheumatology [address] [place] [address] Edna Nava MD [address] [facility] [address] [place] [phone] documented as of this encounter Visit Diagnoses Diagnosis Seronegative rheumatoid arthritis of multiple sites ([facility])- Primary Chronic right-sided low back pain without sciatica Long-term use of Plaquenil Encounter for long-term (current) use of other medications documented in this encounter Care Teams Rotary Engraver Relationship Specialty Start Date End Date Anshu Barriga MD [address] [place] [id number] PCP - General Family Medicine - Primary Care 01/31/22 documented as of this encounter
--- OUTSIDE RECORDS SUMMARY | 2024-01-17 01:59 | XMS_ITS | Encounter Summary ---
Author Organization [facility] [place] [address] Care Team Providers Care Fitness Coach Name Role Phone Anshu Barriga MD Primary Care Provider [phone] [phone] Encounter Details Date Type Department Care Team (Latest Contact Info) Description 08/29/2023 Travel Social History Tobacco Use Types Packs/Day Years Used Date Smoking Tobacco: Never Smokeless Tobacco: Never Alcohol Use Standard Drinks/Week Comments Not Currently 0 (1 standard drink = 0.6 oz pur e alcohol) RARE DH IPV Inpatient Questions Answer Date Recorded Does Anyone Try to Keep You From Having Contact with Others or Doing Things Outside Your Home? no 07/08/2023 Feels Threatened by Someone no 06/17 Feels Unsafe at Home or Work/School no 07/08/2023 Physical Signs of Abuse Present no 07/08/2023 Sex and Gender Information Value Date Recorded Sex Assigned at Not on file Gender Identity Not on file Sexual Orientation Not on file documented as of this encounter Plan of Treatment Upcoming Encounters Date Type Department Care Team (Late st Contact Info) Description 07/14/2024 8:45 AM EDT Office Visit D[facility]ology at [place] [address] [facility] [place] [address] Kristian Wiggins MD [address] [facility] [place] [address] documented as of this encounter Visit Diagnoses Not on filedocumented in this encounter Care Teams Fitness Coach Relationship Specialty Start Date End Date Anshu Barriga MD [address] [place] [address] PCP - General Family Medicine 06/26/23 documented as of this encounter
--- OUTSIDE RECORDS SUMMARY | 2024-01-17 01:59 | XMS_ITS | Encounter Summary ---
Author Organization [facility] [place] [address] Care Team Providers Care Pure Culture Operator Name Role Phone Anshu Barriga MD Primary Care Provider [phone] [phone] Encounter Details Date Type Department Care Team (Latest Contact Info) Description 07/12/2023 Travel Social History Tobacco Use Types Packs/Day [...] 8:45 AM EDT Office Visit Dermatology at [place] [address] [facility] [place] [address] Kristian Wiggins MD [address] [facility] [address] [address] documented as of this encounter Visit Diagnoses Not on filedocumented in this encounter Care Teams Pure Culture Operator Relationship Specialty Start Date End Date Anshu Barriga MD [address] [place] [address] PCP - General Family Medicine 06/26/23 documented as of this encounter
--- OUTSIDE RECORDS SUMMARY | 2024-01-17 01:59 | XMS_ITS | Encounter Summary ---
Author Organization [facility] Address [address] [place] [address] Care Team Providers Care Fuel Truck Driver Name Role Phone Fabricio Long DO Primary Care Provider +1- [phone] Reason for Visit * Reason Comments Follow-up Seroneg RA Encounter Details Date Type Department Care Team (Late st Contact Info) Description 07/23/2019 10:30 EDT Telemedicine [facility] Rheumatology [address] [place] [address] Edna Nava MD [address] [facility] [address] [place] [address] Seronegative rheumatoid arthritis (HCC-CMS) (Primary Dx); Chronic right-sided low back pain with right-sided sciatica Social History Tobacco Use Types Packs/Day Years [...] of Binge Drinking Not on file 07/2019 Sex and Gender Information Value Date Recorded Sex Assigned at Not on file Gender Identity Female 07/22/2019 10:29 EDT Sexual Orientation Not on file documented as of this encounter Progress Notes * Edna Nava MD - 07/23/2019 1030 EDT [facility] Telephone Visit Verbal consent: The concept of ???Telemedicine?? has been described to the patient. Patient has been informed of the anticipated benefits and possible risks. Patient understands the information provided regarding telemedicine, has had the opportunity to ask questions about this information, and all questions havebeen answered to patient???s satisfaction. Patient consents for the use of telemedicine in his/her medical care and authorizes the transmission of any relevant medical information to providers and their staff involved in patient???s medical or mental health care. Verbal consent obtained by myself or auxiliary staff: yes. Subjective: Chief Complaint(s): Follow-up (Seroneg RA) HPI: Seronegative RA. Off prednisone since 04/2010. [...] resuming Plaquenil, these symptoms have resolved. Had a inflammatory knee effusion---etiology unclear---this has not recurred, but has had knee pain, relieved with cortisone injection. ? INTERVAL HISTORY: Allie did have surgery on low back, June 01, by Dr Hawk s/p Right L4/5, L5/S1 Hemilaminectomies, medial facetectomies, lateral recess decompression with good success. Says right sided leg pain is gone. Continues to have right sided greater trochanter pain. Right knee pain progressing, and expects to need knee replacement. Is having right shoulder intermittent pain -- for past couple of weeks -- pain is in the posterior shoulder, feeling like power line is down. Spoke with Dr Long, and thinking this is due pinchednerve. Not having pain today. Denies arthritis pain in the hands. I have reviewed patient's tobacco history: reports that she quit smoking about 4 years ago. She hasnever used smokeless tobacco. I have reviewed current problem list and current medications. ROS: Review of Systems Constitutional: Negative for fever and weight loss. Respiratory: Positive for cough. Negative for shortness of breath. Dry cough, usually happens in the spring Gastrointestinal: Negative for abdominal pain and heartburn. Neurological: Positive for tremors. Left hand, chronic Eye exam postponed due to Covid. Objective: Examination: Home Vitals: Pain 1/10 knee and low back There were no vitals taken for this visit. Pertinent exam findings: speaking in full sentences, no audible wheeze and mood and affect appropriate Data reviewed with patient: Reviewed and/or ordered active problem list, medication list, family history, social history, notes from last encounter, documents from [facility]. Assessment & Plan: 1. Seronegative rheumatoid arthritis (HCC-CMS) Doing well with respect to RA. Has chronic right greater trochanter pain and right knee arthritis. Expect right knee replacement in the future. --Check labs at [facility] prior to next visit (has lab slip). --Eye exam for HCQ monitoring when able. 2. Chronic right-sided low back pain with right-sided sciatica Resolved with surgery. Patient initiated phone contact with the office: yes. Patient is an established patient (parent, guardian) yes. E/M provided within previous 7 days for same medical assessment: no Anticipate E/M service within 24hrs or next available urgent appointment no. This visit was conducted by telephone. A total of 19 minutes was spent on this encounter on the dayof this encounter. documented in this encounter Plan of Treatment Upcoming Encounters Date Type Department Care Team (Late st Contact Info) Description 01/30/2024 10:30 EST Office Visit [facility] Rheumatology [address] [place], [place] [address] Edna Nava MD [address] [facility] [address] [place] [address] documented as of this encounter Visit Diagnoses Diagnosis Seronegative rheumatoid arthritis (HCC-CMS)- Primary Rheumatoid arthritis Chronic right-sided low back pain with right-sided sciatica documented in this encounter Discontinued Medications Medication Sig Discontinue Reason Start Date End Da te HYDROcodone-acetaminophen (NORCO) 5-325 mg tablet Therapy completed 06/02/2019 07/23/2019 documented as of this encounter Historical Medications * This list may reflect changes made after this encounter. Medication Sig Dispensed Refills Start Date End Date metoclopramide HCl (REGLAN) 10 mg tablet Take 10 mg by mouth 4 times daily as needed. 07/18/2020 added in this encounter Care Teams Fuel Truck Driver Relationship Specialty Start Date End Date Fabricio Long DO [address] [place] [address] PCP - General 11/10/14 01/30/22 documented as of this encounter
--- OUTSIDE RECORDS SUMMARY | 2024-01-17 01:59 | XMS_ITS | Encounter Summary ---
Author Organization [facility] Address [address] [place] [address] Care Team Providers Care Flying Teacher Name Role Phone Unavailable Primary Care Provider Unavailabl e Encounter Details Date Type Department Care Team (Late st Contact Info) Description 05/30/2007 Results Only [facility] conversion [address] [place] [address] Joesph Collazo, [address] [place], [place] [address] Social History Tobacco Use Types Packs/Day Years Used Date Smoking Tobacco: Never Assessed Sex and Gender Information Value Date Recorded Sex Assigned at Not on file Gender Identity Female 07/22/2019 10:29 EDT Sexual Orientation Not on file documented as of this encounter Plan of Treatment Upcoming Encounters Date Type Department Care Team (Late st Contact Info) Description 01/30/2024 10:30 EST Office Visit [facility] Rheumatology [address] [place], [place] [address] Edna Nava MD [address] [facility] [address] [place] [phone] documented as of this encounter Procedures Procedure Name Priority Date/Time Associated Diagnosis Comments CYTOPATHOLOGY Routine 05/30/2007 0:00 EDT documented in this encounter Results * CYTOPATHOLOGY (05/30/2007 0:00 EDT) Pathology Report: CYTOPATHOLOGY REPORT Reports generated via electronic interface contain original data; however they are lacking the format of the original report. Caution should be taken when reading/interpreti ng unformatted reports. Name: ? ALLIE BOLAÑOS ? Accession #: ? [id number] : ? 1945 (Age: 61) ??F ?Collect Date: ? 05/30/2007 Location: ? [facility] ? Receive Date: ? 06/03/2007 Provider: ?JOESPH COLLAZO PHOTO MASK INSPECTOR Copy to: ? Specimen/Source: ?ThinPrep Pap Test, Cervix/Endocervix, processed on [employer] ThinPrep Imaging System, with manual evaluation Last Menstrual Period: ? 1997 Menstrual/Pregnanc y Status: ? Post Menopausal Other: ? HPVA - HPV testing requested if ASC-US on the current ThinPrep Pap test. ? SPECIMEN ADEQUACY ? Satisfactory for Evaluation - assessment of transformation zone component not applicable ( e.g. atrophy, vaginal sample, hysterectomy) GENERAL CATEGORIZATION ? Negative for Intraepithelial Lesion or Malignancy ? Document reviewed and electronically signed by: ? WALTER Gilliam(ASCP) ? Report Date: ??06/06/2007 10:51 End of Report RUPESH COHEN 05/30/2007 06/03/2007 Joesph Collazo PHOTO MASK INSPECTOR PATHOLOGY ORDERA BALJEET Performing Organization Address City/State/[facility] Co de Phone Number RUPESH [facility] [address] [place] [address] documented in this encounter Visit Diagnoses Not on filedocumented in this encounter
--- OUTSIDE RECORDS SUMMARY | 2024-01-17 01:59 | XMS_ITS | Encounter Summary ---
Author Organization [facility] Address [address] [place] [address] Care Team Providers Care Bander And Cellophaner Machine Name Role Phone Fabricio Long DO Primary Care Provider +1- [phone] Reason for Visit * Reason Onset Date Comments Immunizations 01/23/2021 Encounter Details Date Type Department Care Team (Late st Contact Info) Description 01/23/2021 Telephone [facility] Rheumatology [address] [place] [address] Edna Nava MD [address] [facility] [address] [place] [address] Immunizations Social History Tobacco Use Types Packs/Day Years [...] on file documented as of this encounter Miscellaneous Notes * Telephone Encounter - Amy Fried RN - 01/23/2021 1408 EST Update in patient record. * Telephone Encounter - Licha Wesley MA - 01/23/2021 1333 EST Patient called and LVM stating she had her booster covid vaccine on 01/16/21 in [facility]. Just an FYI. Thanks. documented in this encounter Plan of Treatment Upcoming Encounters Date Type Department Care Team (Late st Contact Info) Description 01/30/2024 10:30 EST Office Visit [facility] Rheumatology [address] [place], [place] [phone] Edna Nava MD [address] [facility] [address] [place] [phone] documented as of this encounter Visit Diagnoses Not on filedocumented in this encounter Care Teams Bander And Cellophaner Machine Relationship Specialty Start Date End Date Fabricio Long DO [address] [place], [place] [address] PCP - General 11/10/14 01/30/22 documented as of this encounter
--- OUTSIDE RECORDS SUMMARY | 2024-01-17 01:59 | XMS_ITS | Encounter Summary ---
Author Organization [facility] Address [address] [place] [address] Care Team Providers Care Television Engineer Name Role Phone Fabricio Long DO Primary Care Provider +1- [phone] Reason for Visit * Reason Onset Date Comments Other 05/26/2019 Encounter Details Date Type Department Care Team (Late st Contact Info) Description 05/26/2019 Telephone [facility] Rheumatology [address] [place] [address] Edna Nava MD 130 [facility] [address] [place] [address] Other Social History Tobacco Use Types Packs/Day Years Used Date Smoking Tobacco: Never Assessed Sex and Gender Information Value Date Recorded Sex Assigned at Not on file Gender Identity Female 07/22/2019 10:29 EDT Sexual Orientation Not on file documented as of this encounter Miscellaneous Notes * Telephone Encounter - Georgina Wade RN - 05/27/2019 5382 EDT Encounter faxed to [facility] at [phone]. * Telephone Encounter - Edna Nava MD - 05/26/2019 0495 EDT Yes, that's fine. Thanks. * Telephone Encounter - Georgina Wade RN - 05/26/2019 1403 EDT You wrote on 05/21/19 in response to a telephone call that there is no need to stop plaquenil around spine surgery. Should I print and fax that encounter? * Telephone Encounter - Anupama Man - 05/26/2019 1343 EDT [facility] [place] needs in writing that it is okay to continue the plaquenil. Surgery is 06/11/2019 documented in this encounter Plan of Treatment Upcoming Encounters Date Type Department Care Team (Late st Contact Info) Description 01/30/2024 10:30 EST Office Visit [facility] Rheumatology [address], [place] [phone] Edna Nava MD [address] [facility] [address] [place] [address] documented as of this encounter Visit Diagnoses Not on filedocumented in this encounter Care Teams Television Engineer Relationship Specialty Start Date End Date Fabricio Long DO [address] [place], [place] [address] PCP - General 11/10/14 01/30/22 documented as of this encounter
--- OUTSIDE RECORDS SUMMARY | 2024-01-17 01:59 | XMS_ITS | Encounter Summary ---
[place] [address] Care Team Providers Care Associate Account Manager Name Role Phone Anshu Barriga MD Primary Care Provider +1 -[phone] Encounter Details Date Type Department Care Team (Latest Contact Info) Description 07/05/2023 Travel Social History Tobacco Use Types Packs/Day Years Used Date Smoking Tobacco: Never Smokeless Tobacco: Never Alcohol Use Standard Drinks/Week Comments Not Currently 0 (1 standard drink = 0.6 oz pur e alcohol) RARE Sex and Gender Information Value Date Recorded Sex Assigned at Not on file Gender Identity Not on file Sexual Orientation Not on file documented as of this encounter Plan of Treatment Upcoming Encounters Date Type Department Care Team (Late st Contact Info) Description 07/14/2024 8:45 AM EDT Office Visit Dermatology at [place] [address] [facility] [place] [phone] Kristian Wiggins MD 580 [facility], [facility] A DERMATOLOGY [place], [place] [phone] documented as of this encounter Visit Diagnoses Not on filedocumented in this encounter Care Teams Associate Account Manager Relationship Specialty Start Date End Date Anshu Barriga MD [address] [facility] 1 [place] [address] PCP - General Family Medicine 06/26/23 documented as of this encounter
--- OUTSIDE RECORDS SUMMARY | 2024-01-17 01:59 | XMS_ITS | Encounter Summary ---
Author Organization [facility] Address [address] [place] [address] Care Team Providers Care Film Loader Name Role Phone Unavailable Primary Care Provider Unavailabl e Encounter Details Date Type Department Care Team (Latest Contact Info) Description 07/06/2014 9:29 EDT - 07/06/2014 23:59 EDT Hospital Encounter [facility] [address] [place] [address] Unknown, Provider, Discharge Disposition: Home or Self Care Social History Tobacco Use Types Packs/Day Years Used Date Smoking Tobacco: Never Assessed Sex and Gender Information Value Date Recorded Sex Assigned at Not on file Gender Identity Female 07/22/2019 10:29 EDT Sexual Orientation Not on file documented as of this encounter Discharge Disposition Disposition Code Departure Means Destination Home or Self [facility] documented in this encounter Plan of Treatment Upcoming Encounters Date Type Department Care Team (Late st Contact Info) Description 01/30/2024 10:30 EST Office Visit [facility] Rheumatology [address] [place] [address] Edna Nava MD 130 [facility] [address] [place] [phone] documented as of this encounter Visit Diagnoses Not on filedocumented in this encounter
--- OUTSIDE RECORDS SUMMARY | 2024-01-17 01:59 | XMS_ITS | Encounter Summary ---
Author Organization [facility] Address [address] [place] [address] Care Team Providers Care Spanish Tutor Name Role Phone Fabricio Long DO Primary Care Provider +1- [phone] Reason for Visit * Reason Comments Follow-up RA Encounter Details Date Type Department Care Team (Late st Contact Info) Description 01/26/2020 8:30 EST Office Visit [facility] Rheumatology [address] [place] [address] Edna Nava MD 130 [facility] [address] [place] [address] Seronegative rheumatoid arthritis (HCC-CMS) (Primary Dx); Status post right knee replacement Social History Tobacco Use Types Packs/Day Years [...] Progress Notes * Edna Nava MD - 01/26/2020 0830 EST [facility] Rheumatology Due to computer system disruption, additional clinical information for this visit is Scanned Note. For patients, please refer to guidance in Ecommo on how to locate information. Generally this information will appear as a scanned documents saved in My Documents activity. documented in this encounter Plan of Treatment Upcoming Encounters Date Type Department Care Team (Late st Contact Info) Description 01/30/2024 10:30 EST Office Visit [facility] Rheumatology [address] [place] [phone] Edna Nava MD 130 [facility] [address] [place] [phone] documented as of this encounter Visit Diagnoses Diagnosis Seronegative rheumatoid arthritis ([facility])- Primary Rheumatoid arthritis Status post right knee replacement documented in this encounter Care Teams Spanish Tutor Relationship Specialty Start Date End Date Fabricio Long DO [address] [place], [place] [address] PCP - General 11/10/14 01/30/22 documented as of this encounter
--- OUTSIDE RECORDS SUMMARY | 2024-01-17 01:59 | XMS_ITS | Encounter Summary ---
Author Organization [place] [address] Care Team Providers Care Satellite Communications Engineer Name Role Phone Anshu Barriga MD Primary Care Provider +1 -[phone] Reason for Visit * Reason Comments Annual Exam Encounter Details Date Type Department Care Team (Late st Contact Info) Description 07/12/2023 8:45 AM EDT Office Visit Dermatology at [address] [phone] Kristian Wiggins MD 580 [facility], [facility] [place] [address] History of SCC (squamous cell carcinoma) of skin; AK (actinic keratosis) Social History Tobacco Use Types Packs/Day Years [...] as of this encounter Progress Notes * Kristian Wiggins MD - 07/12/2023 8:45 AM EDT Problem: 1. Annual skin checkup 2. History of actinic keratoses status post imiquimod cream therapy bilateral cheeks and central forehead June 2021 3. 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 Allie follows up for her annual skin checkup. Physical examination reveals a pleasant 78-year-old woman benign examination today of the head and the neck the chest the back hands. There is no evidence of recurrent SCCA on the left nasal bridge. She has numerous solar lentigos and benign seborrheic keratosis on the forearms Assessment plan: Benign skin examination 1. Patient reassured about her benign skin examination 2. No significant actinic damage noted today 3. Continue our once yearly skin checkups 4. Return to clinic in a year CC: Anshu Barriga MD documented in this encounter Plan of Treatment Upcoming Encounters Date Type Department Care Team (Late st Contact Info) Description 07/14/2024 8:45 AM EDT Office Visit Dermatology at [address] [phone] Kristian Wiggins MD 580 [facility], [place] [address] documented as of this encounter Visit Diagnoses Diagnosis History of SCC (squamous cell carcinoma) of skin Personal history of other malignant neoplasm of skin AK (actinic keratosis) Actinic keratosis documented in this encounter Care Teams Satellite Communications Engineer Relationship Specialty Start Date End Date Anshu Barriga MD [address] [address] PCP - General Family Medicine 06/26/23 documented as of this encounter
--- OUTSIDE RECORDS SUMMARY | 2024-01-17 01:59 | XMS_ITS | Encounter Summary ---
Author Organization [facility] Address [address] [place] [address] Care Team Providers Care Brass Reclaimer Name Role Phone Unknown, Provider Primary Care Provider Fabricio Gupta DO Primary Care Provider +1- [phone] Encounter Details Date Type Department Care Team (Late st Contact Info) Description 07/06/2014 Historical Results Only [facility] Radiology Results [address] [place] [address] Edna Nava MD [address] [place] [address] [phone] Social History Tobacco Use Types Packs/Day Years Used Date Smoking Tobacco: Never Assessed Sex and Gender Information Value Date Recorded Sex Assigned at Not on file Gender Identity Female 07/22/2019 10:29 EDT Sexual Orientation Not on file documented as of this encounter Plan of Treatment Upcoming Encounters Date Type Department Care Team (Late st Contact Info) Description 01/30/2024 10:30 EST Office Visit [facility] Rheumatology [address] [place], [place] [address] Edna Nava MD [address] [place] [address] [phone] documented as of this encounter Procedures Procedure Name Priority Date/Time Associated Diagnosis Comments XR SHOULDER RIGHT 2 OR MORE VIEWS 07/06/2014 14:41 EDT XR CERVICAL SPINE 4-5 VIEWS 07/06/2014 14:39 EDT documented in this encounter Results * XR SHOULDER RIGHT 2 OR MORE VIEWS (07/06/2014 14:41 EDT) Anatomical Region Laterality Modality Right Other 07/06/2014 14:4 1 EDT Narrative 07/06/2014 14:45 EDT ? EXAM: RADIOLOGY/SHOULDER-RIGHT ?EX. D/ (3163) ? CLINICAL INFORMATION: ? RIGHT SHOULDER PAIN W/ IMPINGEMENT SIGNS ? INDICATION: Right shoulder pain. ? TECHNIQUE: 3 views right shoulder. ? COMPARISON: None. ? FINDINGS:Hypertrophic changes noted at the a.c. joint. The right lung ? apex appears clear. Early glenohumeral marginal osteophytes are ? noted. The right shoulder as well aligned. The humeral head is seated ? in the glenoid fossa. No acute fractures seen. ? IMPRESSION: ? 1. No acute right shoulder osseous injury detected. ? 2. Early glenohumeral osteoid arthritis. ? 3. Hypertrophic a.c. arthropathy. ? REPORT SIGNED IN OTHER VENDOR SYSTEM 07/06/2014 ?Reported By: Rj Coyle MD ? CC: ? Transcribed Date/Time: 07/06/2014 (3730) ? Press Box Custodian: ? Printed Date/Time: 08/19/2018 (7397) ? PAGE 1 ? Signed Report ? Procedure Note Rj Coyle MD - 01/20/2019 EXAM: RADIOLOGY/SHOULDER-RIGHT EX. D/ (7709) CLINICAL INFORMATION: RIGHT SHOULDER PAIN W/ IMPINGEMENT SIGNS INDICATION: Right shoulder pain. TECHNIQUE: 3 views right shoulder. COMPARISON: None. FINDINGS:Hypertrophic changes noted at the a.c. joint. The rightlung apex appears clear. Early glenohumeral marginal osteophytes are noted. The right shoulder as well aligned. The humeral head isseated in the glenoid fossa. No acute fractures seen. IMPRESSION: 1. No acute right shoulder osseous injury detected. 2. Early glenohumeral osteoid arthritis. 3. Hypertrophic a.c. arthropathy. REPORT SIGNED IN OTHER VENDOR SYSTEM 07/06/2014 Reported By: Rj Coyle MD CC: Transcribed Date/Time: 07/06/2014 (4004) Press Box Custodian: Printed Date/Time: 08/19/2018 (3912) PAGE 1 Signed Report Edna Nava MD IMG DIAGNOSTIC IMAGI NG ORDERABLES * XR CERVICAL SPINE 4-5 VIEWS (07/06/2014 14:39 EDT) Anatomical Region Laterality Modality Left Other 07/06/2014 14:3 9 EDT Narrative 07/06/2014 14:44 EDT ? EXAM: RADIOLOGY/CERVICAL SPINE 4 OR 5 VIE EX. D/ (6671) ? CLINICAL INFORMATION: ? NECK PAIN W/ RIGHT SIDED C5/6 SYMPTOMS ? INDICATION: Cervical spine pain ? TECHNIQUE: 4 views cervical spine ? COMPARISON: None ? FINDINGS: There is advanced cervical spine disc space narrowing ? throughout the cervical spine. Large anterior osteophytes span the ? C4-C7 levels. There is degenerative straightening of the cervical ? spine. The prevertebral soft tissues demonstrated normal contour and ? thickness. Degenerative facet disease is noted, most advanced at ? C2/and C3/4. Alignment at the craniocervical junction is ? unremarkable. The lung apices are clear. The odontoid process appears ? intact. The osseous component of the neural foramen appear grossly ? patent. ? Impression: ? 1. Very advanced multilevel cervical spine degenerative disc and ? facet disease. The osseous component of the neural foramen appear ? grossly patent. ? REPORT SIGNED IN OTHER VENDOR SYSTEM 07/06/2014 ?Reported By: Rj Coyle MD ? CC: ? Transcribed Date/Time: 07/06/2014 (1444) ? Press Box Custodian: ? Printed Date/Time: 08/19/2018 (1034) ? PAGE 1 ? Signed Report ? Procedure Note Rj Coyle MD - 01/20/2019 EXAM: RADIOLOGY/CERVICAL SPINE 4 OR 5 VIE EX. D/ (1429) CLINICAL INFORMATION: NECK PAIN W/ RIGHT SIDED C5/6 SYMPTOMS INDICATION: Cervical spine pain TECHNIQUE: 4 views cervical spine COMPARISON: None FINDINGS: There is advanced cervical spine disc space narrowing throughout the cervical spine. Large anterior osteophytes span the C4-C7 levels. There is degenerative straightening of the cervical spine. The prevertebral soft tissues demonstrated normal contourand thickness. Degenerative facet disease is noted, most advanced at C2/and C3/4. Alignment at the craniocervical junction is unremarkable. The lung apices are clear. The odontoid processappears intact. The osseous component of the neural foramen appear grossly patent. Impression: 1. Very advanced multilevel cervical spine degenerative disc and facet disease. The osseous component of the neural foramen appear grossly patent. REPORT SIGNED IN OTHER VENDOR SYSTEM 07/06/2014 Reported By: Rj Coyle MD CC: Transcribed Date/Time: 07/06/2014 (1443) Press Box Custodian: Printed Date/Time: 08/19/2018 (6527) PAGE 1 Signed Report Edna Nava MD IMG DIAGNOSTIC IMAGI NG ORDERABLES documented in this encounter Visit Diagnoses Not on filedocumented in this encounter Care Teams Brass Reclaimer Relationship Specialty Start Date End Date Unknown, Provider, PCP - General 07/12/14 11/09/14 Fabricio Long DO [address] [place] [address] PCP - General 11/10/14 01/30/22 documented as of this encounter
--- OUTSIDE RECORDS SUMMARY | 2024-01-17 01:59 | XMS_ITS | Encounter Summary ---
Author Organization [facility] Address [address] [place] [address] Care Team Providers Care Christian Science Nurse Name Role Phone EthanFabricio molina Primary Care Provider +1- [phone] Encounter Details Date Type Department Care Team (Late st Contact Info) Description 07/21/2019 Abstract [facility] OBGYN [address] [place] [address] Ember Caldera MA Social History Tobacco Use Types Packs/Day Years [...] Info) Description 01/30/2024 10:30 EST Office Visit [facility] Rheumatology [address] [place] [address] Edna Nava MD 130 [facility] [address] [place] [address] documented as of this encounter Visit Diagnoses Not on filedocumented in this encounter Historical Medications * This list may reflect changes made after this encounter. Medication Sig Dispensed Refills Start Date End Date celecoxib (CELEBREX) 200 mg capsule Take by mouth daily. 06/08/2019 021 HYDROcodone-acetaminophen (NORCO) 5-325 mg tablet 06/02/2019 0509/2019 added in this encounter Care Teams Christian Science Nurse Relationship Specialty Start Date End Date Fabricio Long DO [address] [place] [address] PCP - General 11/10/14 01/30/22 documented as of this encounter
--- OUTSIDE RECORDS SUMMARY | 2024-01-17 01:59 | XMS_ITS | Encounter Summary ---
[place] [address] Care Team Providers Care Glass Vial Bending Conveyor Feeder Name Role Phone Anshu Barriga MD Primary Care Provider +1 -[phone] Encounter Details Date Type Department Care Team (Late st Contact Info) Description 07/24/2023 Telephone [place] [phone] Kimber Rolon Social History Tobacco Use Types Packs/Day Years Used Date Smoking Tobacco: Never Smokeless Tobacco: Never Alcohol Use Standard Drinks/Week Comments Not Currently 0 (1 standard drink = 0.6 oz pur e alcohol) RARE [facility] Inpatient Questions Answer Date Recorded Does Anyone [...] encounter Miscellaneous Notes * Telephone Encounter - Kimber Rolon - 07/24/2023 1:28 PM EDT CINTHYA for patient to schedule a 1 month FUV with Ojeda s/p sagittal band repair. documented in this encounter Plan of Treatment Upcoming Encounters Date Type Department Care Team (Late st Contact Info) Description 07/14/2024 8:45 AM EDT Office Visit Dermatology at [place] [address] [facility] [place] [address] Kristian Wiggins MD [address] [facility] [address], [place] [address] documented as of this encounter Visit Diagnoses Not on filedocumented in this encounter Care Teams Glass Vial Bending Conveyor Feeder Relationship Specialty Start Date End Date Anshu Barriga MD [address] [facility] 1 [place] [address] PCP - General Family Medicine 06/26/23 documented as of this encounter
--- OUTSIDE RECORDS SUMMARY | 2024-01-17 01:59 | XMS_ITS | Encounter Summary ---
Author Organization [facility] Address [address] [place] [address] Care Team Providers Care Package Crimper Name Role Phone Unavailable Primary Care Provider Unavailabl e Encounter Details Date Type Department Care Team (Late st Contact Info) Description 03/06/2011 Results Only [facility] Laboratory Services - [facility] ([facility] [address] [place] [address] Geraldine Ness PA Social History Tobacco Use Types Packs/Day Years Used Date Smoking Tobacco: Never Assessed Sex and Gender Information Value Date Recorded Sex Assigned at Not on file Gender Identity Female 07/22/2019 10:29 EDT Sexual Orientation Not on file documented as of this encounter Plan of Treatment Upcoming Encounters Date Type Department Care Team (Late st Contact Info) Description 01/30/2024 10:30 EST Office [facility] [place] [address] [place] [address] Edna Nava MD 130 [facility] [address] [place] [address] documented as of this encounter Procedures Procedure Name Priority Date/Time Associated Diagnosis Comments PAP TEST- RESULT ONLY Routine 03/06/2011 0:00 EST documented in this encounter Results * PAP TEST- RESULT ONLY (03/06/2011 0:00 EST) Pathology Report: CYTOPATHOLOGY REPORT Reports generated via electronic interface contain original data; however they are lacking the format of the original report. Caution should be taken when reading/interpreti ng unformatted reports. Name: ? ALLIE BOLAÑOS ? Accession #: ? [id number] ? : ? 1945 (Age: 65) ??F ?Collect Date: ? 03/06/2011 ? Location: ? [facility] ? Receive Date: ? 03/08/2011 ? Provider: GERALDINE HERZOG Copy to: ? Final Report SPECIMEN ADEQUACY ? Satisfactory for Evaluation - assessment of transformation zone component not applicable ( e.g. atrophy, vaginal sample, hysterectomy) - scant squamous epithelial component GENERAL CATEGORIZATION ? Negative for Intraepithelial Lesion or Malignancy ?? Menstural/Pregnanc y Status: ??Post Menopausal Other: Additional clinical information: Ovarian cyst Specimen/Source: ??Pap Test, Cervix/Endocervix, ThinPrep Imaging System with manual evaluation Document reviewed and electronically signed by: ? MATHEUS Rg(ASCP) ? Report ??Date: 03/14/2011 13:45 HPV with Pap Test ? Date Ordered: ? 03/14/2011 ? Status: ?? Signed Out ?Date Complete: ? 03/19/2011 ? By: ??System Interface ? Date Reported: ? 03/19/2011 ? Interpretation RESULT: Negative for HPV types 16, 18, 31, 33, 35, 39, 45, 51, 52, 56, 58, 59, and 68. Comments Document reviewed and electronically signed by: ? System Interface ? Report date: 03/19/2011 By the signature above, the attending physician certifies that he/she has personally conducted a gross and/or microscopic examination of the described specimens and rendered or confirmed the above diagnosis. End of Report RUPESH COHEN 03/06/2011 03/08/2011 Geraldine HERZOG PATHOLOGY ORDERABLES RUPESH COHEN [address] [place] [address] documented in this encounter Visit Diagnoses Not on filedocumented in this encounter
--- OUTSIDE RECORDS SUMMARY | 2024-01-17 01:59 | XMS_ITS | Encounter Summary ---
Author Organization [facility] [place] [address] Care Team Providers Care Accountant Manager Name Role Phone Unknown Primary Care Provider Unavailabl e Encounter Details Date Type Department Care Team (Latest Contact Info) Description 07/10/2022 Travel Social History Tobacco Use Types Packs/Day [...] 8:45 AM EDT Office Visit Dermatology at [place] [address] [facility] [place] [address] Kristian Wiggins MD 580 [facility], [facility] [address] documented as of this encounter Visit Diagnoses Not on filedocumented in this encounter Care Teams Accountant Manager Relationship Specialty Start Date End Date Unknown None PCP - General 01/23/22 06/25/23 documented as of this encounter
--- OUTSIDE RECORDS SUMMARY | 2024-01-17 01:59 | XMS_ITS | Encounter Summary ---
[place] [address] Care Team Providers Care Assistant Maintenance Manager Name Role Phone Anshu Barriga MD Primary Care Provider [phone] -[phone] Encounter Details Date Type Department Care Team (Latest Contact Info) Description 06/27/2023 Travel Social History Tobacco Use Types Packs/Day [...] 8:45 AM EDT Office Visit Dermatology at [place] 580 [facility] [place] [phone] Kristian Wiggins MD 580 [facility], [place] [address] documented as of this encounter Visit Diagnoses Not on filedocumented in this encounter Care Teams Assistant Maintenance Manager Relationship Specialty Start Date End Date Anshu Barriga MD [address] [facility] 1 [place] [address] PCP - General Family Medicine 06/26/23 documented as of this encounter
--- OUTSIDE RECORDS SUMMARY | 2024-01-17 01:59 | XMS_ITS | Encounter Summary ---
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, initial encounter rupture of sagital band Procedures PRO REALIGNMENT EXTENSOR TENDON HAND EACH TENDON REALIGNMENT EXTENSOR TENDON, HAND, EA TENDON (WRVU 5.99) Rj Ojeda MD [facility] [place] [place] [address] [facility] Referral ID Status Reason Start Date Expiration Date Visits Re quested Visits Authorized [id number] 1 1 Encounter Details Date Type Department Care Team (Late st Contact Info) Description 07/08/2023 8:23 AM EDT Anesthesia Event [place] [address] Samm Lombardo MD Anesthesia Record Procedure Summary Procedure Name Responsible Anesthesiologist Anesthesia Start Time Anesthesia Stop Time REALIGNMENT EXTENSOR TENDON, HAND, EA TENDON (WRVU 5.99) (Left) Samm Lombardo MD 07/08/23 0823 07/08/23 0921 Events Date Time Event Comment 07/08/2023 0823 Start 0825 AN Verify 0826 An Start Data 0828 An Induction 0830 An Intubation 0831 Anesthesia Ready 0840 Break/Relief In I assumed ca re for Break Relief before which we: 1. Identified the patient 2. Identified the responsible provider(s) 3. Reviewed the pertinent medical history 4. Discussed the surgical plan and course 5. Reviewed intra-op anesthesia management and issues during anesthesia 6. Set expectations for the relief (and/or post-procedure) period 7. Allowed opportunity for questions and acknowledgement of understanding Lou Giles CRNA [phone] Break/Relief Out 0857 An Tourn Deflated 18 minutes 0915 an stop data 0918 Recovery or ICU Handoff Milka ent care was transferred to the destination unit staff after review of the patient's medical history, current anesthetic/surgical status and plan, according to the Provider Handoff Checklist. 0921 Stop Meds Name Total fentaNYL 50 mcg IV Lidocaine 50 mg Propofol 50 mg Propofol INF 117.38 mg Dexmedetomidine 2 mcg Dexamethasone 6 mg Ondansetron 6 mg Ketorolac 15 mg PHENYLephrine 240 mcg ePHEDrine 10 mg ceFAZolin (Ancef) (100 mg/mL) injection solution 2 g 2 g lactated ringers infusion 900 mL * Agents Name O2 * Blood No blood administrations on file. Lines, Drains, and Airways Type Details Placement Removal Incision 07/08/23; 0843; Left , posterior; fourth finger 07/08/23 0843 by Olvin Davison RN PIV 07/08/23; 0736; [id number]-[id number] catheter system; 20 gauge; metacarpal vein (top of hand), right; Anatomical Landmarks; DEANDRE Zelaya; distraction, topical anesthetic spray applied; 0; no longer indicated; 07/08/23; 1015 07/08/23 0736 by Andreia Sanchez RN 07/08/23 1015 by Victoria Sanchez RN Supraglottic Mask Ventilation: No t Attempted (0); LMA Type: iGel; LMA Size: 3; Inserted by: Jacky LANDIS; Removal Date: 07/08/23; Removal Time: 92107/08/23 08 by Ly Rico CRNA 07/08/23 0922 by Victoria Sanchez RN documented in this encounter Social History Tobacco Use Types Packs/Day Years [...] on file documented as of this encounter OR Notes * Anesthesia Postprocedure Evaluation - aSmm Lombardo MD - 07/08/2023 11:33 AM EDT Department of Anesthesiology Post-procedure Note Patient: Allie Bolaños Procedure Summary Date: 07/08/23 Room / Location: [address] Anesthesia Start: 822 Anesthesia Stop: 920 Procedure: REALIGNMENT EXTENSOR TENDON, HAND, EA TENDON (WRVU 5.99) (Left) Diagnosis: 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 Patient Location: PACU[facility] Level of Consciousness: Awake and Alert Pain Management: Satisfactory Analgesia PONV: None Cardiovascular Status: At Baseline Respiratory Status: At Baseline Postoperative Fluid Status: Possible Anesthetic Complications: NONE apparent at time of evaluation Final Primary Anesthesia Type: General (The anesthetic type performed was the same as planned.) Comments: * Anesthesia Preprocedure Evaluation - Samm Lombardo MD - 07/08/2023 6:43 AM EDT Pre-Anesthesia Evaluation for: Allie Bolaños a 78 y.o. female. Procedure(s): REALIGNMENT EXTENSOR TENDON, HAND, EA TENDON (WRVU 5.99) Patient Active Problem List Diagnosis Date Noted ??? Arm pain 06/28/2023 ??? Limb pain 06/28/2023 ??? Limb weakness 06/28/2023 ??? Neck pain 06/28/2023 ??? Shoulder pain 06/28/2023 ??? Cough 06/28/2023 ??? Hand numbness 06/28/2023 ??? Backache 06/28/2023 ??? Hip pain 06/28/2023 ??? Pain in joint 06/28/2023 ??? History of migraine headaches 06/28/2023 ??? Long-term use of Plaquenil 07/31/2021 ??? Parkinson's disease 02/21/2021 ??? Cerebral aneurysm, nonruptured 11/10/2020 ??? Essential tremor 11/10/2020 ??? Hypertension 07/18/2020 ??? Status post right knee replacement 02/14/2020 ??? Chronic right-sided low back pain without sciatica 07/21/2019 ??? Other chronic pain 07/21/2019 ??? Seronegative rheumatoid arthritis of multiple sites 07/21/2019 ??? AK (actinic keratosis) 04/27/2016 ??? History of SCC (squamous cell carcinoma) of skin 02/20/2016 ??? Actinic keratosis 08/21/2012 Past Medical History: Diagnosis Date ??? Cancer SCCA OF SKIN ??? Hypertension 07/18/2020 ??? Mental health problem ANXIETY ??? Migraine ??? Other chronic pain 07/21/2019 Past Surgical History: Procedure Laterality Date ??? CARPAL TUNNEL RELEASE Right ~2010 ??? CHOLECYSTECTOMY ?2016 ??? COLONOSCOPY ??? CYST REMOVAL Bilateral BEHIND EAR ??? CYST REMOVAL GANGLION CYST EXCISION ??? OVARIAN CYST SURGERY 1972 ? ? PRO GUERRA FACETECTOMY&FORAMOT 1 VRT SGM EA ADDL SGM N/A 06/02/2019 ADD'L INTERSPACES CX., THORACIC, LUMBAR (WRVU 3.47) performed by Rick Hawk MD at [facility] MAIN OR ??? PRO LAMINEC/FACETECT/FORAMIN, LUMBAR 1 SEG N/A 06/02/2019 LAMINECTOMY, FACETECTOMY & FORAMINOTOMY,LUMBAR, ONE LEVEL (WRVU 15.37) performed by Rick Hawk MD at [facility] MAIN OR ??? TONSILLECTOMY Social History Tobacco Use ??? Smoking status: Never ??? Smokeless tobacco: Never Substance Use Topics ??? Alcohol use: Not Currently Comment: RARE Social History Substance and Sexual Activity Drug Use Never Allergies Allergen Reactions ??? Clopidogrel ??? Oxycodone Other reaction(s): fuzzy head, ineffective ??? Tramadol Nausea Medications: MAR and/or home medications have been reviewed. Physical Exam: Preprocedure Vitals Current as of 07/08/23 0643 No BP, pulse, respiration, SpO2, or temperature recorded. Height: Weight: BMI: IBW: Airway Assessment: Mallampati: II Cardiovascular Assessment: Rhythm: regular Rate: normal system normal Pulmonary Assessment: breath sounds clear to auscultation pulmonary exam normal Dental Assessment: - normal exam Misc Assessment: IV access: Peripheral line Last Filed Perioperative Cognitive Screening None Anesthesia Plan: ASA 3 general, with a(n) intravenous induction 78 yo with history of cerebral aneurysm repaired at , Parkinson, htn and RA. GA w/ LMA Region - Other Informed Consent: Anesthetic plan and risks discussed with patient. Anesthesia Screening documented in this encounter Plan of Treatment Upcoming Encounters Date Type Department Care Team (Late st Contact Info) Description 07/14/2024 8:45 AM EDT Office Visit Dermatology at [place] [address] [place] [phone] Kristian Wiggins MD [address], [place] [address] documented as of this encounter Visit Diagnoses Not on filedocumented in this encounter Administered Medications Inactive Administered Medications - up to 3 most recent administrations Medication Order MAR Action Action Date Dose Rate Site ceFAZolin (Ancef) (100 mg/mL) injection solution 2 g 2 g, Intravenous, ONCE, 1 dose, On Sat07/08/23 at 0815, To be prepared by and administered by Anesthesia. Reconstitute each ceFAZolin 1 gram vial with 10 mL of NS or SWFI = 100 mg/mL May inject IV without further dilution over 3 to 5 minutes., Indication for (Active or Suspected): Prophylaxis Given 07/08/2023 8:31 AM EDT 2 g dexAMETHasone (Decadron) injection Intravenous, PRN, Starting on Sat07/08/23 at 0833, Until Sat07/08/23 at 0941, Anesthesia Intra-op, Routine Given 07/08/2023 8:33 AM EDT 6 mg dexmedeTOMIDine (Precedex) (4 mcg/mL) bolus injection (Anesthsia) Intravenous, PRN, Starting on Sat07/08/23 at 0827, Until Sat07/08/23 at 0941, Anesthesia Intra-op, Routine Given 07/08/2023 8:27 AM EDT 2 mcg ePHEDrine sulfate (5 mg/mL) multi-dose injection Intravenous, PRN, Starting on Sat07/08/23 at 0835, Until Sat07/08/23 at 0941, Anesthesia Intra-op, Routine Given 07/08/2023 9:10 AM EDT 5 mg Given 07/08/2023 8:35 AM EDT 5 mg fentaNYL (pf) (50 mcg/mL) multi-dose injection Intravenous, PRN, Starting on Sat07/08/23 at 0828, Until Sat07/08/23 at 0941, Anesthesia Intra-op, Routine Given 07/08/2023 8:42 AM EDT 25 mcg Given 07/08/2023 8:28 AM EDT 25 mcg ketorolac (Toradol) (30 mg/mL) injection Intravenous, PRN, Starting on Sat07/08/23 at 0902, Until Sat07/08/23 at 0941, Anesthesia Intra-op, Routine Given 07/08/2023 9:02 AM EDT 15 mg lactated ringers infusion 1,000 mL, at 100 mL/hr, Intravenous, CONTINUOUS, Starting on Sat07/08/23 at 0730, Until Sat07/08/23 at 1016, Day of Surgery (Day of Procedure) Restarted 07/08/2023 8:23 AM EDT New Bag 07/08/2023 7:38 AM EDT 1,000 mLs 100 mL/hr lidocaine (pf) (Xylocaine) (20 mg/mL) 2% injection syringe Intravenous, PRN, Starting on Sat07/08/23 at 0829, Until Sat07/08/23 at 0941, Anesthesia Intra-op, Routine Given 07/08/2023 8:29 AM EDT 50 mg ondansetron (pf) (Zofran) (2 mg/mL) injection Intravenous, PRN, Starting on Sat07/08/23 at 0902, Until Sat07/08/23 at 0941, Anesthesia Intra-op, Routine Given 07/08/2023 9:02 AM EDT 6 mg PHENYLephrine in NS (PF) (ANTONIETA-SYNEPHRINE) 0.8 mg/10 mL (80 mcg/mL) multi-dose injection Syringe Intravenous, PRN, Starting on Sat07/08/23 at 0835, Until Sat07/08/23 at 0941, Anesthesia Intra-op, Routine Given 07/08/2023 9:06 AM EDT 80 mcg Given 07/08/2023 9:02 AM EDT 80 mcg Given 07/08/2023 8:35 AM EDT 80 mcg propofoL (Diprivan) (10 mg/mL) infusion Intravenous, CONTINUOUS PRN, Starting on Sat07/08/23 at 0828, Until Sat07/08/23 at 0941, Anesthesia Intra-op, Routine New Bag 07/08/2023 8:28 AM EDT 50 mcg/kg/min 18.36 mL/hr Rate/Dose Change 07/08/2023 8:27 AM EDT 2 mcg/kg/min 0.734 mL/hr New Bag 07/08/2023 8:23 AM EDT 4 mcg/kg/min 1.469 mL/hr propofoL (Diprivan) 10 mg/mL bolus injection (Anesthesia) Intravenous, PRN, Starting on Sat07/08/23 at 0829, Until Sat07/08/23 at 0941, Anesthesia Intra-op Given 07/08/2023 8:29 AM EDT 50 mg documented in this encounter Care Teams Plant Control Aide Relationship Specialty Start Date End Date Anshu Barriga MD [address] [facility] [address] [place] [address] PCP - General Family Medicine 06/26/23 documented as of this encounter
--- OUTSIDE RECORDS SUMMARY | 2024-01-17 01:59 | XMS_ITS | Encounter Summary ---
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, initial encounter Rj Ojeda MD [facility] [place] [address] [facility] [address] [place] [address] Referral ID Status Reason Start Date Expiration Date Visits Requested Visits Authorized [id number] Authorized Evaluate and Treat 07/01/2023 06/30/2024 100 100 Encounter Details Date Type Department Care Team (Late st Contact Info) Description 07/24/2023 1:15 PM EDT Office Visit Occupational Therapy at [facility] [address] [place] [address] Mariluz Taveras OT Finger injury, left, initial encounter Social History Tobacco Use Types Packs/Day [...] as of this encounter Miscellaneous Notes * Initial Evaluation - Mariluz Taveras OT - 07/24/2023 1:15 PM EDT OCCUPATIONAL THERAPY ORTHOTIC EVALUATION Referral Source: Dr. Rj Landeros MD Follow-up: saw Agnieszka Snell APRN today 07/24/23; will see Dr. Ojeda in 4 weeks, not yet scheduled Total Treatment time: 40 Minutes Timed Code Treatment Time: 0 minutes OCCUPATIONAL PROFILE: Allie Bolaños is a 78 y.o. year old Right hand dominant female who [place], approximately 1.5 months later she underwent left RF sagittal band repair on 07/08/23. Allie Bolaños is referred to Occupational Therapy for evaluation and treatment to include fabrication of a custom orthosis. Patient presents today accompanied by . Date of onset of symptoms: approximately 05/17/23, continued to have inability to move the RF so had follow up at which point she underwent surgery Date of surgery: 07/08/23 Pertinent History and/or Co-morbidities: 1. Finger injury, left, initial encounter Vocational status: retired Avocational Activities: walk every day; some swimming; gardening; reading; take care of grand kids OCCUPATIONAL PERFORMANCE DEFICITS: Allie Bolaños is limited with current performance due to pain, swelling, stiffness, edema, limitedmobility/range of motion, and limited strength. Global Mental Function: With gross screening of patient???s global mental functions, patient demonstrates orientation to person, place, time, and situation. Patient???s affect/behavior is appropriateand cooperative today. Disabilities of the Arm, Shoulder, and Hand (DASH): 07/23/2023 2:34 PM THE DISABILITIES OF THE ARM,SHOULDER AND HAND SCORE (DASH) 1. Open a tight or new jar Severe Difficulty 2. Write Moderate difficulty 3. Turn a scott Moderate difficulty 4. Prepare a meal Moderate difficulty 5. Push open a heavy door Moderate difficulty 6. Place an object on a shelf above your head Moderate difficulty 7. Do heavy informatics nurse specialist (eg wash levin, wash floors) Severe difficulty 8. Garden or do yard work Severe difficulty 9. Make a bed Severe difficulty 10. Carry a shopping bag or briefcase Moderate difficulty 11. Carry a heavy object (over 10 lbs) Moderate difficulty 12. Change a lightbulb overhead Severe difficulty 13. Wash or blow dry your hair Moderate difficulty 14. Wash your back Moderate difficulty 15. Put on a pullover sweater Severe difficulty 16. Use a knife to cut food Severe difficulty 17. Recreational activities which require little effort (eg cardplaying, knitting, etc) Unable 18. Recreational activities in which you take some force or impact through your arm, shoulder or hand (eg golf, hammering, tennis, etc) Unable 19. Recreational activities in which you move your arm freely (eg playing frisbee, badRam [place], etc) Moderate difficulty 20. Manage transportation needs (getting from one place to another) Severe difficulty 21. Sexual activities Moderate difficulty 22. During the past week, to what extent has your arm, shoulder or hand problem interfered with your normal social activities with family, friends, neighbours or groups? Moderately 23. During the past week, were you limited in your work or other regular daily activities as a result of your arm, shoulder or hand problem? Very limited 24. Arm, shoulder or hand pain Mild 25. Arm, shoulder or hand pain when you performed any specific activity Mild 26. Tingling (pins and needles) in your arm, shoulder or hand Mild 27. Weakness in your arm, shoulder or hand Moderate 28. Stiffness in your arm, shoulder or hand Moderate 29. During the past week, how much difficulty have you had sleeping because of the pain in your arm, shoulder or hand? Mild difficulty 30. I feel less capable, less confident or less useful because of my arm, shoulder or hand problem Strongly agree Sports/Performing Arts No DASH Score 59.17 Standardized measurement of functional limitation related to an upper extremity disability, using 0-100 scale indicating percent of perceived functional impairment. Pain: (Assessed using the Visual Analog Pain Scale) At Rest: 0/10 With Activity: minimal Treatment Today: Orthosis - Hand Finger Orthotic, W/O Jts, Custom, Fit & Adj (L3913) Educated patient in etiology and biomechanics as related to patient's symptoms Fabricated left hand based relative motion extension yoke orthosis supporting RF in relative extension to adjacent digits to protect sagittal band repair. Instructed in orthosis wear and care- to be worn at all times, 24-7 including sleeping Range of Motion Exercises: active tendon gliding 10 reps 5x/day while wearing the orthosis. No gripping or weightbearing with left hand. CLINICAL DECISION MAKING: Allie Bolaños has a well fitting orthosis post therapy. Allie Bolaños is able to independently verbalize and demonstrate the recommended home program following instructions today. Allie Bolaños has good potential for gains with therapy/home program use. Patient knows tocall with any questions or concerns. Short Term Goals (to be met by end of the visit today): Date Goal Met: Today 1. Allie Bolaños will demonstrate independence with donning and doffing of her orthosis and verbalization of purpose. Goal Status: Meets. Today 2. Allie Bolaños will be independent with home exercises as evident with demonstration in therapy. Goal Status: Meets PLAN: Orthosis to provide support and protection to the joint - she is instructed that if she has any orthosis adjustment needs she is to call the rehab dept and/or send [facility] message, and to wear a pencil to support the RF in extension in the meantime. She will be seen coordinated with plastics in 4 weeks. (X) Allie Bolaños participated in the evaluation, collaborated on treatment goals, and agrees to the treatment plan. documented in this encounter Plan of Treatment Upcoming Encounters Date Type Department Care Team (Late st Contact Info) Description 07/14/2024 8:45 AM EDT Office Visit Dermatology at [place] [address] [place] [phone] Kristian Wiggins MD [address] [facility] [address] documented as of this encounter Procedures Procedure Name Priority Date/Time Associated Diagnosis Comments OT PLAN OF CARE CERT/RE-CERT Routine 07/24/2023 1:58 PM EDT Finger injury, left, initial encounter documented in this encounter Visit Diagnoses Diagnosis Finger injury, left, initial encounter documented in this encounter Care Teams Drier Attendant Relationship Specialty Start Date End Date Anshu Barriga MD [address] [place] [address] PCP - General Family Medicine 06/26/23 documented as of this encounter
--- OUTSIDE RECORDS SUMMARY | 2024-01-17 01:59 | XMS_ITS | Encounter Summary ---
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 Reason for visit: follow up visit Date of surgery: 07/08/23 Procedure(s): repair of sagittal band rupture left ring finger Complications: None reported HPI: Allie Bolaños is here in follow up. She reports being well.. She has been performing her OT exercises and is doing well with this. Examination: Patient is alert, conversant, comfortable, ambulating Left ring finger: Incision intact No sign of infection Has some spitting sutures Extensor tendon is centralized on dorsum of ring finger Full ROM Normal sensation Has been wearing a splint to hyperextend the MP joint Impression: Allie Bolaños is a 78 y.o. female who was seen today for follow up. Healing appropriately. Explained that she has remaining sutures that have not resolved just yet but should in time. Plan: Follow up PRN. Discontinue use of splint. IKimber am acting as scribe for Rj Ojeda MD. All work documented was performed by Rj Ojeda MD. 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
--- OUTSIDE RECORDS SUMMARY | 2024-01-17 01:59 | XMS_ITS | Encounter Summary ---
Author Organization [facility] Address [address] [place] [address] Care Team Providers Care Community Health Nurse Supervisor Name Role Phone Fabricio Long DO Primary Care Provider [phone]- [phone] Reason for Visit * Reason Onset Date Comments Medication Questions 06/12/2021 Encounter Details Date Type Department Care Team (Late st Contact Info) Description 06/12/2021 Telephone [facility] Rheumatology [address] [place] [address] Edna Nava MD [address] [facility] [address] [place] [address] Medication Questions Social History Tobacco Use Types Packs/Day Years [...] Miscellaneous Notes * Telephone Encounter - Amy Fried, RN - 06/12/2021 1158 EDT Spoke with patient's who offered to take a message. Advised per Dr. Nava, but encouraged josselyn Kelley call us back with further questions or if she finds that it turns out that there is a different medication that she has questions on. * Telephone Encounter - Edna Nava MD - 06/12/2021 1152 EDT No benefit. That's odd -- never heard of acyclovir for arthritis (I wonder if it's something else). * Telephone Encounter - Veronica Barun - 06/12/2021 1040 EDT Pt states a friend of her is using Acyclovir for arthritis, she is asking if this would be an option for her. documented in this encounter Plan of Treatment Upcoming Encounters Date Type Department Care Team (Late st Contact Info) Description 01/30/2024 10:30 EST Office Visit [facility] Rheumatology [address] [place] [id number] Edna Nava MD [address] [place] [address] [place] [phone] documented as of this encounter Visit Diagnoses Not on filedocumented in this encounter Care Teams Community Health Nurse Supervisor Relationship Specialty Start Date End Date Fabricio Long DO [address] [place], [place] [address] PCP - General 11/10/14 01/30/22 documented as of this encounter
--- OUTSIDE RECORDS SUMMARY | 2024-01-17 01:59 | XMS_ITS | Encounter Summary ---
Author Organization [facility] Address [address] [place] [address] Care Team Providers Care Clinical Data Coordinator Name Role Phone Fabricio Long DO Primary Care Provider +1- [phone] Anshu Barriga MD Primary Care Provider [phone] -[phone] Encounter Details Date Type Department Care Team (Late st Contact Info) Description 11/13/2019 Lab Requisition [facility]ology [facility] Laboratory Medicine - [facility] [address] [place], [place] [id number] Outr Resulting Lab, Provider Social History Tobacco Use Types Packs/Day Years [...] Info) Description 01/30/2024 10:30 EST Office Visit [facility] Rheumatology [address] [place] [address] Edna Nava MD [address] [facility] [address] [place] [id number] documented as of this encounter Procedures Procedure Name Priority Date/Time Associated Diagnosis Comments DO NOT ORDER STANDALONE - BROAD COVID TEST Today 11/13/2019 10:08 EDT COVID-19 TESTING Routine 11/13/2019 10:0 8 EDT documented in this encounter Results * DO NOT ORDER STANDALONE - BROAD COVID TEST (11/13/2019 10:08 EDT) COVID-19 rt-PCR Result NEGATIVE Negative 11/14/2019 11:09 EDT [facility] Comment: 2019-novel Coronavirus (2019-nCoV) not detected by the qRT-PCR assay. Consider testing for other respiratory viruses or re-collecting for 2019-nCoV testing. Note: Optimum timing for peak viral levels during infections caused by 2019-nCoV have not been determined. Collection of multiple specimens from the same patient may be necessary to detect the virus. Limitations Positive results are indicative of active infection with SARS-CoV-2 but do not rule out bacterial infection or co-infection with other viruses. The agent detected may not be the definite cause of disease. In addition, detection of viral RNA may not indicate the presence of infectious virus or that SARS-CoV-2 is the causative agent for clinical symptoms. Negative results do not preclude SARS-CoV-2 infection and should not be used as the sole basis for patient management decisions. Negative results must be combined with clinical observations, patient history, and epidemiological information. False negative results may also occur if amplification inhibitors are present in the specimen or if inadequate numbers of organisms are present in the specimen. Optimum specimen types and timing for peak viral levels during infections caused by SARS-CoV-2 have not been fully determined. Collection of multiple specimens (types and time points) from the same patient may be necessary to detect the virus. The test was validated for use with upper respiratory specimens obtained via nasopharyngeal or oropharyngeal swabs in VTM, UTM, M4, M5, M6, saline, and MTM media. The performance of this test has not been established for other specimens. Specimens collected using other FDA recommended Specimen Collection Materials listed in the FDA COVID-19 [employer] communication (June 11, 2019) are processed with the caveat that they were not all validated for use with this test and the result must be interpreted in this context. Furthermore, a false negative results may occur if a specimen is improperly collected, transported or handled. If the virus mutates in the RT-PCR target region, SARS-CoV-2 may not be detected or may be detected less predictably. Inhibitors or other types of interference may produce a false negative result. An interference study evaluating the effect of common cold medications was not performed. This test is not FDA-cleared but its performance characteristics were established by our CLIA-certified, CAP-accredited, high complexity laboratory in accordance with CLIA regulations, [employer] (CAP) guidelines (Jun 04, 2019), and FDA guidance (May 16, 2019). This test is only for use under the Food and Drug Administration's Emergency Use Authorization. Swab ENTIRE NASOPHARYNX / Unknown 11/13/2019 10:08 EDT 11/13/2019 16:17 EDT Provider Outr Resulting Lab MICROBIOLOGY - GENERAL ORDERABLES [facility] [place], [place] * COVID-19 TESTING (11/13/2019 10:08 EDT) COVID-19 rt-PCR Result NEGATIVE Negative 11/14/2019 12:23 EDT [facility] Comment: 2019-novel Coronavirus (2019-nCoV) not detected by the qRT-PCR assay. Consider testing for other respiratory viruses or re-collecting for 2019-nCoV testing. Note: Optimum timing for peak viral levels during infections caused by 2019-nCoV have not been determined. Collection of multiple specimens from the same patient may be necessary to detect the virus. Limitations Positive results are indicative of active infection with SARS-CoV-2 but do not rule out bacterial infection or co-infection with other viruses. The agent detected may not be the definite cause of disease. In addition, detection of viral RNA may not indicate the presence of infectious virus or that SARS-CoV-2 is the causative agent for clinical symptoms. Negative results do not preclude SARS-CoV-2 infection and should not be used as the sole basis for patient management decisions. Negative results must be combined with clinical observations, patient history, and epidemiological information. False negative results may also occur if amplification inhibitors are present in the specimen or if inadequate numbers of organisms are present in the specimen. Optimum specimen types and timing for peak viral levels during infections caused by SARS-CoV-2 have not been fully determined. Collection of multiple specimens (types and time points) from the same patient may be necessary to detect the virus. The test was validated for use with upper respiratory specimens obtained via nasopharyngeal or oropharyngeal swabs in VTM, UTM, M4, M5, M6, saline, and MTM media. The performance of this test has not been established for other specimens. Specimens collected using other FDA recommended Specimen Collection Materials listed in the FDA COVID-19 [employer] communication (June 11, 2019) are processed with the caveat that they were not all validated for use with this test and the result must be interpreted in this context. Furthermore, a false negative results may occur if a specimen is improperly collected, transported or handled. If the virus mutates in the RT-PCR target region, SARS-CoV-2 may not be detected or may be detected less predictably. Inhibitors or other types of interference may produce a false negative result. An interference study evaluating the effect of common cold medications was not performed. This test is not FDA-cleared but its performance characteristics were established by our CLIA-certified, CAP-accredited, high complexity laboratory in accordance with CLIA regulations, [employer] (CAP) guidelines (Jun 04, 2019), and FDA guidance (May 16, 2019). This test is only for use under the Food and Drug Administration's Emergency Use Authorization. Performing Lab The agreement24 [email or web address] 11/14/2019 12:23 EDT [facility] Swab 11/13/2019 10:0 8 EDT 11/13/2019 16:17 EDT Provider Outr Resulting Lab MICROBIOLOGY - GENERAL ORDERABLES [facility] [address] [place] [address] [facility] [place], [place] documented in this encounter Visit Diagnoses Not on filedocumented in this encounter Care Teams Clinical Data Coordinator Relationship Specialty Start Date End Date Fabricio Long DO [address] [place], [place] [id number] PCP - General 11/10/14 01/30/22 Anshu Barriga MD [facility] [address] [place], [place] [id number] PCP - General Family Medicine - Primary Care 01/31/22 documented as of this encounter
--- OUTSIDE RECORDS SUMMARY | 2024-01-17 01:59 | XMS_ITS | Encounter Summary ---
Author Organization [facility] Address [address] [place] [address] Care Team Providers Care Medical Coding Manager Name Role Phone EthanFabricio DO Primary Care Provider +1- [phone] Reason for Visit * Reason Onset Date Comments Other 07/27/2019 Need new lab sli p Encounter Details Date Type Department Care Team (Late st Contact Info) Description 07/27/[address] [facility] [address] [place] [address] Edna Nava MD [address] [facility] [place] [address] Other (Need new lab slip) Social History Tobacco Use Types Packs/Day Years [...] Telephone Encounter - Georgina Wade RN - 07/27/2019 1016 EDT Standing order faxed to [facility]. * Telephone Encounter - Edna Nava MD - 07/27/2019 1004 EDT See eCW for standing order sent to [facility] for July 2019. Thanks. * Telephone Encounter - Georgina Wade RN - 07/27/2019 0927 EDT Last note says that patient has a lab slip for her labs. I called Allie and she says that she can'tfind the lab slip. What labs would you like ordered? Thank you. * Telephone Encounter - Licha Wesley - 07/27/2019 0855 EDT Patient called stating she needs a new lab order slip for lab orders she is supposed to be getting done at [facility] before her next follow up appointment with Dr. Nava. She says the best number to reach her with any questions is [phone]. Thanks. documented in this encounter Plan of Treatment Upcoming Encounters Date Type Department Care Team (Late st Contact Info) Description 01/30/2024 10:30 EST Office Visit [facility] Rheumatology [address] [place], [place] [phone] Edna Nava MD [address] [facility] [place] [address] documented as of this encounter Visit Diagnoses Not on filedocumented in this encounter Care Teams Medical Coding Manager Relationship Specialty Start Date End Date Fabricio Long DO [address] [place] [address] PCP - General 11/10/14 01/30/22 documented as of this encounter
--- OUTSIDE RECORDS SUMMARY | 2024-01-17 01:59 | XMS_ITS | Encounter Summary ---
Author Organization [facility] Address [address] [place] [address] Care Team Providers Care Projection Technician Name Role Phone Unknown, Provider Primary Care Provider Unava ilable Encounter Details Date Type Department Care Team (Latest Contact Info) Description 11/05/2014 15:45 EDT - 11/05/2014 23:59 EDT Hospital Encounter [facility] - [address] [address] Unknown, ProviderMD Discharge Disposition: Home or Self Care Social History Tobacco Use Types Packs/Day Years Used Date Smoking Tobacco: Never Assessed Sex and Gender Information Value Date Recorded Sex Assigned at Not on file Gender Identity Female 07/22/2019 10:29 EDT Sexual Orientation Not on file documented as of this encounter Discharge Disposition Disposition Code Departure Means Destination Home or Self Intermediate documented in this encounter Plan of Treatment Upcoming Encounters Date Type Department Care Team (Late st Contact Info) Description 01/30/2024 10:30 EST Office Visit [facility] [address] [place], [place] [address] Edna Nava MD [address] [place] [address] [place] [phone] documented as of this encounter Visit Diagnoses Not on filedocumented in this encounter Care Teams Projection Technician Relationship Specialty Start Date End Date Unknown, ProviderMD PCP - General 07/12/14 11/09/14 documented as of this encounter
--- OUTSIDE RECORDS SUMMARY | 2024-01-17 01:59 | XMS_ITS | Encounter Summary ---
Author Organization [facility] Address [address] [place] [address] Care Team Providers Care Biogeographer Name Role Phone Fabricio Long DO Primary Care Provider +1- [phone] Reason for Visit * Reason Onset Date Comments Medications Refill 04/08/2019 Encounter Details Date Type Department Care Team (Late st Contact Info) Description 04/08/2019 Telephone [facility] [address] [place] [address] Edna Nava MD [address] [facility] [address] [place] [address] Medications Refill Social History Tobacco [...] tablet Take 2 Tabs by mouth daily. 180 Tab 3 04/08/2019 03/21/2020 documented in this encounter Miscellaneous Notes * Telephone Encounter - Georgina Wade RN - 04/08/2019 1624 EST Last visit note reviewed and follow up noted 07/23/19. Refill sent as noted. * Telephone Encounter - Lila Jones - 04/08/2019 4773 EST LVM patient needs a refill on HYDROXYCHLOROQUINE SULFATE. documented in this encounter Plan of Treatment Upcoming Encounters Date Type Department Care Team (Late st Contact Info) Description 01/30/2024 10:30 EST Office Visit [facility] Rheumatology [address] [place], [place] [address] Edna Nava MD [address] [facility] [place] [address] documented as of this encounter Visit Diagnoses Not on filedocumented in this encounter Discontinued Medications Medication Sig Discontinue Reason Start Date End Da te hydroxychloroquine (PLAQUENIL) 200 mg tablet Take 400 mg by mouth daily. Reorder 01/19/2019 04/08/2019 documented as of this encounter Historical Medications * This list may reflect changes made after this encounter. Medication Sig Dispensed Refills Start Date End Date hydroxychloroquine (PLAQUENIL) 200 mg tablet Take 400 mg by mouth daily. 01/19/2019 04/08/2019 added in this encounter Care Teams Biogeographer Relationship Specialty Start Date End Date Fabricio Long DO [address] [place] [address] PCP - General 11/10/14 01/30/22 documented as of this encounter
--- OUTSIDE RECORDS SUMMARY | 2024-01-17 01:59 | XMS_ITS | Encounter Summary ---
[facility] [address] Care Team Providers Care Fast Food Crew Lead Name Role Phone Anshu Barriga MD Primary Care Provider +1 -[phone] Encounter Details Date Type Department Care Team (Latest Contact Info) Description 07/23/2023 Travel Social History Tobacco Use Types Packs/Day [...] 8:45 AM EDT Office Visit [facility] [place] [address] [facility] [place] [address] Kristian Wiggins MD [address] [facility] [place] [address] documented as of this encounter Visit Diagnoses Not on filedocumented in this encounter Care Teams Fast Food Crew Lead Relationship Specialty Start Date End Date Anshu Barriga MD [address] [place] [address] PCP - General Family Medicine 06/26/23 documented as of this encounter
--- OUTSIDE RECORDS SUMMARY | 2024-01-17 01:59 | XMS_ITS | Encounter Summary ---
[place] [address] Care Team Providers Care Guest Service Agent Name Role Phone Asnhu Barriga MD Primary Care Provider [phone] Reason for Visit * Auth/Cert (Routine) Specialty Diagnoses / Procedures Referred By Contac t Referred To Contact Diagnoses Sagittal band rupture at metacarpophalangeal joint, initial encounter rupture of sagital band Procedures PRO REALIGNMENT EXTENSOR TENDON HAND EACH TENDON REALIGNMENT EXTENSOR TENDON, HAND, EA TENDON (WRVU 5.99) Rj Fajardo MD [facility] [place] [address] [facility] Referral ID Status Reason Start Date Expiration Date Visits Re quested Visits Authorized [id number] 1 1 Encounter Details Date Type Department Care Team (Late st Contact Info) Description 07/08/2023 8:20 AM EDT - 07/08/2023 9:40 AM EDT Surgery [place] [address] Rj Fajardo MD [facility] [place] [address] REALIGNMENT EXTENSOR TENDON, HAND, EA TENDON (WRVU 5.99) Social History Tobacco Use Types Packs/Day Years [...] Sign Reading Time Taken Comments Blood Pressure 129/64 07/08/2023 9:30 AM EDT Pulse 82 07/08/2023 9:40 AM EDT Temperature 36.2 ??C (97.2 ??F) 07/08/2023 9:20 AM ED T Respiratory Rate 16 07/08/2023 9:20 AM EDT Oxygen Saturation 98% 07/08/2023 9:40 AM EDT Inhaled Oxygen Concentration - - Weight 61.2 kg (135 lb) 07/08/2023 7:14 AM EDT Height 162.6 cm (5' 4) 07/08/2023 7:14 AM EDT Body Mass Index 23.17 07/08/2023 7:14 AM EDT documented in this encounter Discharge Instructions * Discharge Instructions* Andreia Sanchez RN - 07/08/2023 7:05 AM EDT General Anesthesia Discharge Instructions Go home and rest. You may be sleepy for several hours. Take it easy as sudden position changes may cause nausea and/or dizziness. Use caution on stairs. Do not smoke if you are alone. Follow a light to regular diet as tolerated today. If nausea occurs, start with clear liquids, and progress slowly to a regular diet. Do not drive, operate machinery, drink alcoholic beverages or make any legal decisions after havinggeneral anesthesia. The medications given change your reaction time and alter your judgement. IV site -- slight redness is normal, you can use warm compresses. If tenderness and redness increases or foul drainage occurs, please contact your M.D. Patients who have had endotracheal tubes/LMA (tubes used by the anesthesia staff to ensure a safe airway during your operation) may have a sore throat. This is normal and cold liquids or soothing lozenges will help ease this discomfort. Narcotic pain medications can cause constipation, please ask the surgeons office what they recommend for prevention of this. Some non-pharmaceutical means of constipation prevention include increasing intake of fluids, eating more fruits and vegetables as well as fruit juices. If you are uncomfortable and/or unable to urinate within 8 hours of discharge and it is before 5 pm, call your physician. If it is after 5pm go to the closest emergency room or call the hospital wheel mill operator at [phone] and ask for physician survey operations director covering for your physician. Questions or problems after 5pm or on a weekend: Call the [facility] wheel mill operator at and ask for the physician survey operations director covering for your doctor. At 7:25 am you received 975 mg of acetaminophen- Your next dose should not be taken before 8 hours have passed or as advised by your provider. Next dose not before- 3:25 pm. You should not take more than a total of 3000 mg of acetaminophen in a 24 hour period. * Patient Instructions* Araceli Aaron MD - 07/08/2023 9:17 AM EDT Hand Discharge Instructions Keep splint on and dry at all times until your follow-up appointment. For fingers not included in the splint: OK to move your fingers. Do not use your fingers. Keep hand elevated at all times until your follow-up appointment. Take Ibuprofen or Aleve around the clock for pain relief. Take narcotic pain medication as needed for breakthrough pain. Call our office if: Fingers in splint are white, numb or cold. You have signs of infection A temperature over 100.4 F. Redness of the incision lines that is beginning to spread away from the incision. Yellow pus-like or foul smelling drainage from the incision or drain site. Increase pain/discomfort that is not relieved by your pain medication. To make an appointment or for questions about scheduling, please contact our administrative officesat [phone] For clinical questions, please call our nurses at [phone] Both offices are open Saturday thru Saturday 8a - 5p. With emergencies after hours, call the hospital wheel mill operator at [phone] and ask for the Plastic Surgery Resident survey operations director. documented in this encounter Medications at Time of Discharge Medication Sig Dispensed Refills Start Date End Date cyanocobalamin, Vitamin B-12, 1,000 mcg/mL Solution Inject as directed. [facility] USE DIRECTED WITH INHALER 06/26/2023 losartan (Cozaar) 25 mg tablet Take 25 mg by mouth daily. 06/20/2022 benzonatate (Tessalon) 100 mg Capsule TAKE ONE CAPSULE BY MOUTH THREE TIMES A DAY 05/19/2021 propranoloL (Inderal) 20 mg Tablet Take 20 mg by mouth 2 times daily. carbidopa-levodopa (Sinemet) 25-100 mg Tablet Take 1 tablet by mouth 2 times daily. hydroCHLOROthiazide (Hydrodiuril) 25 mg Tablet Take 25 mg by mouth daily. aspirin 325 mg Tablet Take 325 mg by mouth daily. ascorbic acid, Vitamin C, (Vitamin C) 500 mg Tablet Take 1,000 mg by mouth daily as needed. hydroxychloroquine (PLAQUENIL) 200 mg Tablet Take 400 mg by mouth daily. 04/26/2016 oxyCODONE (Roxicodone) 5 mg tablet Take 1 tablet by mouth every 4 hours as needed for Pain. 5 tablet 07/08/2023 07/24/2023 albuteroL 90 mcg/actuation inhaler (HFA) INHALE TWO PUFFS BY MOUTH EVERY 6 HOURS NEEDED FOR SHORTNESS OF BREATH OR WHEEZING 06/27/2023 07/12/2023 imiquimod (ALDARA) 5 % Cream in Packet Apply once daily on Mondays, Wednesdays and Fridays in the evenings ONLY, 3 times a week for four weeks then Discontinue 12 each 05/04/2021 07/12/2023 documented as of this encounter Progress Notes * Victoria Sanchez RN - 07/08/2023 9:54 AM EDT 0917: Arrived to PACU. RN received handoff report. Patient sitting upright in bed eating crackers and drinking juice, denying nausea. Patient endorsing surgical pain- see MAR. HEATON elevated on pillows with ice pack in place, neurovascular checks intact. Discharge instructions and medications reviewed with patient and her partner, Joshua. All questions answered and written copy sent home with patient. IV removed, site benign. Patient ambulated to car for discharge accompanied by [facility] staff member. Victoria Sanchez RN documented in this encounter H&P Notes * Araceli Aaron MD - 07/08/2023 7:57 AM EDT Plastic Surgery Preoperative H&P: Patient Name: Allie Bolaños Patient : 1945 Today's Date: 07/08/2023 Allie Bolaños is a 78 y.o. female with No chief complaint on file. who presents today for Procedure(s): REALIGNMENT EXTENSOR TENDON, HAND, EA TENDON (WRVU 5.99). No changes since last seen. Exam: General: NAD Resp: Breathing comfortably on room air CV: normal rate A/P: Allie Bolaños is a 78 y.o. female with No chief complaint on file. who presents for Procedure(s): REALIGNMENT EXTENSOR TENDON, HAND, EA TENDON (WRVU 5.99) Proceed to OR The risks, benefits and indications were reviewed with the patient and there remains an indication for surgery. Consent signed and scanned in chart. Pre-operative antibiotics ordered Please page if any questions Araceli Aaron MD/S Plastic Surgery Resident, Pager: [phone] Plastic Surgery Team Pager: [phone] documented in this encounter Miscellaneous Notes * Brief Op Note - Araceli Aaron MD - 07/08/2023 9:16 AM EDT Brief Operative Note Patient Name: Allie Bolaños : [id number] MR#: [id number] Case Date: 07/08/2023 Surgeon: Surgeon(s) and Role: * Rj Fajardo MD - Primary * Araceli Aaron MD - Resident - Assisting Preoperative diagnosis: rupture of sagital band Postoperative diagnosis: rupture of sagital band Procedure(s) (LRB): REALIGNMENT EXTENSOR TENDON, HAND, EA TENDON (WRVU 5.99) (Left) Anesthesia: General anesthesia Findings: L ring finger sagittal band recon, TT 18min Complications: none Estimated Blood Loss: 2 mL* No values recorded between 07/08/2023 8:39 AM and 07/08/2023 9:13 AM * Specimens removed during surgery: * No orders in the log * Fluids: Intraprocedure Crystalloid Total Intake lactated ringers infusion 900.00 mL Total Intake 900 mL Output Blood Loss 2 mL Total Output 2 mL Net Net Volume 898 mL PRBCs: none (See Anesthesia Record/Report for Other Blood Products) Urine Output: (no urine output recorded) Drains: none Disposition: awakened from anesthesia, extubated and taken to the recovery room in a stable condition, having suffered no apparent untoward event. Condition: doing well without problems (Please see the Surgical Encounter Summary for any Implant and Specimen details pertinent to this patient.) Surgical Infection Prevention Bundle Used? N/A Post-Op Plan: - Follow up in: 10-14 days - Wound Check - Suture removal: 14 days - Dressings: remove splint and replace - X-rays: no - OT coordinating appointments needed: splint/eval Future Appointments Date Time Provider Department Center 07/12/2023 8:45 AM Kristian Wiggins MD [facility] Derm [facility] 07/22/2023 9:15 AM Mariluz Taveras OT [facility] 07/22/2023 10:00 AM Agnieszka Snell APRN [facility] PLAS 4M [facility] * Op Note - Araceli Aaron MD - 07/08/2023 8:39 AM EDT [facility] Operative Note Patient Name: Allie Bolaños : [id number] MR#: [id number] Case Date: 07/08/2023 Surgeon: Surgeon(s) and Role: * Rj Fajardo MD - Primary * Araceli Aaron MD - Resident - Assisting Preoperative diagnosis: rupture of sagital band Postoperative diagnosis: rupture of sagital band Procedure(s) (LRB): REALIGNMENT EXTENSOR TENDON, HAND, EA TENDON (WRVU 5.99) (Left) Findings: left ring finger sagittal band rupture Anesthesia: General Estimated Blood Loss: 2 mL Specimens removed during surgery: * No orders in the log * Drains: none Surgical Closure: Primary Closure - skin incision is completely closed without any wires, osmin, drains or other devices Disposition: awakened from anesthesia, extubated and taken to the recovery room in a stable condition, having suffered no apparent untoward event. 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 Procedure Description: The patient was identified and marked in the preoperative holding area. We reviewed the surgical plan, risks, and complications, and she wished to proceed. The patient was brought to the operating room and positioned supine on the operating table with theleft arm out. Anesthetic monitors and SCDs were applied. General anesthesia was induced and a time-out was performed. A tourniquet was placed on the upper arm and the hand and forearm were prepped and draped in the usual sterile fashion. Pre-operative antibiotics were administered. A dorsal linear incision was marked over the dorsum of the ring finger. Esmarch was then used to exsanguinate the arm. A tourniquet was turned on to 250 mmHg. An incision was made with a scalpel as previously marked. Tenotomy scissors were used to sharply divide the overlying tissues. The extensor tendon was freed from adhesions and transposed over the MCP joint. There was no identifiable sagittal band left over. There was an additional tendon/junctura on the ulnar side which was cut distally and wrapped around the tendon, secured with 3-0 fiberwire. Then this was wrapped aroundthe RCL ligament and secured with 3-0 fiberwire. The finger was extended with no subluxation. The tourniquet was deflated and total tourniquet time was about 18min. Hemostasis was achieved withbipolar electrocautery. The incisions were closed with a deep layer of 4-0 vicryl and skin with 4-0 nylon. The patient was placed in volar extension splint. Sponge and needle counts were all correct at the end of the case. There were no intraoperative complications. The patient was awakened from anesthesia without any difficulties. Surgical Infection Prevention Bundle Used? N/A Associated attestation - Rj Fajardo MD - 07/11/2023 12:58 PM EDT Attestation: Case Date: 07/08/2023 I was present and I participated during the entire procedure (does not need to include opening and closing). RJ FAJARDO MD 07/11/2023 documented in this encounter Plan of Treatment Upcoming Encounters Date Type Department Care Team (Late st Contact Info) Description 07/14/2024 8:45 AM EDT Office Visit Dermatology at [facility] [place] [facility] [address] [facility] [place] [address] Kristian Wiggins MD [address] [facility] [place] [address] documented as of this encounter Procedures Procedure Name Priority Date/Time Associated Diagnosis Comments Realignment Extensor Tendon Hand Each Tendon (52156) Yes 07/08/2023 8:24 AM EDT Sagittal band rupture at metacarpophalangeal joint, initial encounter REALIGNMENT EXTENSOR TENDON, HAND, EA TENDON Routine 07/08/2023 7:04 AM EDT Sagittal band rupture at metacarpophalangeal joint, initial encounter documented in this encounter Visit Diagnoses Diagnosis Sagittal band rupture at metacarpophalangeal joint, initial encounter Sagittal band rupture at metacarpophalangeal joint, initial encounter documented in this encounter Administered Medications Inactive Administered Medications - up to 3 most recent administrations Medication Order MAR Action Action Date Dose Rate Site acetaminophen (Tylenol) tablet 975 mg 975 mg (rounded from 1,000 mg), Oral, ONCE, 1 dose, On 07/08/23 at 0730, Maximum dose of acetaminophen is 4,000 mg from all sources in 24 hours. When ordered for pain, acetaminophen should be given even when other ordered pain medications are indicated. , Day of Surgery (Day of Procedure), Routine Given 07/08/2023 7:25 AM EDT 975 mg lactated ringers infusion 1,000 mL, at 100 mL/hr, Intravenous, CONTINUOUS, Starting on Sat07/08/23 at 0730, Until Sat07/08/23 at 1016, Day of Surgery (Day of Procedure) Restarted 07/08/2023 8:23 AM EDT New Bag 07/08/2023 7:38 AM EDT 1,000 mLs 100 mL/hr oxyCODONE (Roxicodone) tablet 5 mg 5 mg, Oral, ONCE, 1 dose, On Sat07/08/23 at 1000, Routine Given 07/08/2023 9:43 AM EDT 5 mg documented in this encounter Active and Recently Administered Medications Times are shown in EDT. Scheduled Medication Order 07/06/2023 07/07/2023 07/08/2023 acetaminophen (Tylenol) tablet 975 mg (COMPLETED) 975 mg (rounded from 1,000 mg), Oral, ONCE, 1 dose, On Sat07/08/23 at 0730, Maximum dose of acetaminophen is 4,000 mg from all sources in 24 hours. When ordered for pain, acetaminophen should be given even when other ordered pain medications are indicated. , Day of Surgery (Day of Procedure), Routine 0725 (Given - Provid er: Andreia Sanchez RN) ceFAZolin (Ancef) (100 mg/mL) injection solution 2 g (COMPLETED) 2 g, Intravenous, ONCE, 1 dose, On Sat07/08/23 at 0815, To be prepared by and administered by Anesthesia. Reconstitute each ceFAZolin 1 gram vial with 10 mL of NS or SWFI = 100 mg/mL May inject IV without further dilution over 3 to 5 minutes., Indication for (Active or Suspected): Prophylaxis 0831 (Given - Provid er: Ly Rico CRNA) oxyCODONE (Roxicodone) tablet 5 mg (COMPLETED) 5 mg, Oral, ONCE, 1 dose, On Sat07/08/23 at 1000, Routine 0943 (Given - Provid er: Victoria Sanchez RN) Continuous Medication Order 07/06/2023 07/07/2023 07/08/2023 lactated ringers infusion (CANCELED) 1,000 mL, at 100 mL/hr, Intravenous, CONTINUOUS, Starting on Sat07/08/23 at 0730, Until Sat07/08/23 at 1016, Day of Surgery (Day of Procedure) 0738 (New Bag - Prov ider: Andreia Sanhcez RN)0822 (Paused - Provider: Ly Rico CRNA - Comment: Switch to gravity)0823 (Restarted - Provider: Ly Rico CRNA)0913 (Anesthesia Volume Adjustment - Provider: Ly Rico CRNA) documented in this encounter Care Teams Guest Service Agent Relationship Specialty Start Date End Date Anshu Barriga MD [address] [place] [address] PCP - General Family Medicine 06/26/23 documented as of this encounter
--- OUTSIDE RECORDS SUMMARY | 2024-01-17 01:59 | XMS_ITS | Encounter Summary ---
Author Organization [facility] Address [address] [place] [address] Care Team Providers Care Pasteurizer Helper Name Role Phone EthanFabricio molina Primary Care Provider [phone]- [phone] Reason for Visit * Reason Comments Rheumatoid Arthritis Changes - hammer to es, 1 finger sticks sometimes. Encounter Details Date Type Department Care Team (Late st Contact Info) Description 01/23/2021 9:[address] [facility] Rheumatology [address] [place] [address] Edna Nava MD [address] [facility] [address] [place] [address] Seronegative rheumatoid arthritis (HCC-CMS) ([facility]) (Primary Dx); Status post right knee replacement; Chronic right-sided low back pain without sciatica; At high risk for falls Social History Tobacco Use Types Packs/Day Years [...] Frequency of Binge Drinking Not on file 0507/2019 Interpersonal Safety Answer Date Record ed Physically Hurt Never 10/18/2019 Verbally Threaten Not on file 10/18/2019 Sex and Gender Information Value Date Recorded Sex Assigned at Not on file Gender Identity Female 07/22/2019 10:29 EDT Sexual Orientation Not on file documented as of this encounter Last Filed Vital Signs Vital Sign Reading Time Taken Comments Blood Pressure 140/100 01/23/2021 0904 EST Pulse 68 01/23/2021 0904 EST Temperature 36.1 ??C (97 ??F) 01/23/2021 0904 EST Respiratory Rate - - Oxygen Saturation - - Inhaled Oxygen Concentration - - Weight 61.1 kg (134 lb 12.8 oz) 01/23/2021 0904 EST Height - - Body Mass Index 23.14 07/18/2020 0938 EDT documented in this encounter Patient Instructions * Patient Instructions* Edna Nava MD - 01/23/2021 9:00 EST Referral for PT --call us with PT location No labs needed prior to next visit documented in this encounter Progress Notes * Edna Nava MD - 01/23/2021 0900 EST [facility] Rheumatology Chief Complaint Patient presents with ??? Rheumatoid Arthritis Changes - hammer toes, 1 finger sticks sometimes. HPI: Seronegative RA. Off prednisone since 04/2010. [...] changes were made at the last visit. Allie says she is having difficulty with her right knee replacement. Says the right leg is now longer than the left, and she is needing to use a lift in her left shoe. Says this helps some, but has ongoing discomfort in her posterior right buttocks and thigh. Is trying to do exercises for this, butthey hurt. Also notes right long finger trigger finger -- denies pain; says finger gets stuck at times. Also notes hammer toes developing, a couple of toes on right foot. Current Outpatient Medications Medication ??? aspirin 325 mg tablet ??? carbidopa-levodopa (SINEMET) 25-100 mg per tablet ??? hydroCHLOROthiazide (HYDRODIURIL) 25 mg tablet ??? hydrOXYchloroQUINE (PLAQUENIL) 200 mg tablet ??? PAIN RELIEF EXTRA STRENGTH 500 mg tablet ??? propRANolol (INDERAL) 20 mg tablet No current facility-administered medications for this visit. Allergies include: Oxycodone and Tramadol Patient Active Problem List Diagnosis ??? Seronegative rheumatoid arthritis (HCC-CMS) ([facility]) ??? Other chronic pain ??? History of SCC (squamous cell carcinoma) of skin ??? Status post right knee replacement ??? Parkinson's disease (HCC-CMS) ([facility]) ??? Hypertension Family History Problem Relation Age of Onset ??? Psoriasis Mother ??? Prostate Cancer Father ??? No Known Sister ??? No Known Brother ??? No Known Son ??? No Known Daughter Social History: Lives independently with spouse. Review of Systems: Review of Systems Constitutional: Negative for weight loss. Eye exam, 12/05/20, [facility], Plaquenil monitoring, no toxicity noted. Allie has a new dx of Parkinson's. Says she started carbidopa-levodopa, and this is causing some nausea, so taking a lower dose. Allie hasn't noticed much of a change in left arm weakness and tremor. Had Covid booster a couple of weeks ago. Physical Examination: BP (!) 140/100 (BP Cuff Location: Left arm, BP Patient Position: Sitting, BP Cuff Sizes: Adult, regular) Pulse 68 Temp 36.1 ??C (97 ??F) (Tympanic) Wt 61.1 kg (134 lb 12.8 oz) BMI 23.14 kg/m?? EYES: Conjunctivae not injected. NECK: No lymphadenopathy. LUNGS: Clear to auscultation bilaterally. CARDIOVASCULAR: Regular rate and rhythm. No murmur. No pedal edema. JOINT EXAM: No synovitis of the joints of the hands, wrists. Tenderness and thickening of right long finger flexor tendon; no triggering today. Painless ROM of shoulders (left arm mildly weak, lags ROM compared with right arm), elbows, wrists, hips, knees and ankles. Non-tender over right greater trochanter. Right knee is replaced. SKIN: No rash on arms, legs. No nail pitting. No dilated capillary loops in the nail beds. Labs: Labs 01/18/21, [facility]: CBC w/diff wnl; CRP 1.06 mg/dL; CMP wnl. Assessment and Plan: 1. Seronegative rheumatoid arthritis (HCC-CMS) ([facility]) No sign of RA activity. Mild right hand trigger finger. Not in need of injection today as Allie says it's not painful and not interfering with activities. No labs needed for next visit. 2. Status post right knee replacement Some issues with leg length discrepancy. Might be contributing to pain in right buttocks and thigh. 3. Chronic right-sided low back pain without sciatica Possible piriformis vs hamstring tendinopathy. Does not have sign of greater trochanter bursitis orhip pathology. - AMB CONS/FOLLOW UP PHYSICAL THERAPY - OUTSIDE OF NETWORK; Future 4. At high risk for falls Will be going to PT. Follow-up in 6 months. Edna Nava MD 01/23/2021 9:20 documented in this encounter Plan of Treatment Upcoming Encounters Date Type Department Care Team (Late st Contact Info) Description 01/30/2024 10:[address] [facility] Rheumatology [address] [place] [address] Edna Nava MD [address] [facility] [address] [place] [address] documented as of this encounter Visit Diagnoses Diagnosis Seronegative rheumatoid arthritis (HCC-CMS)- Primary Rheumatoid arthritis Status post right knee replacement Chronic right-sided low back pain without sciatica At high risk for falls Personal history of fall documented in this encounter Discontinued Medications Medication Sig Discontinue Reason Start Date End Da te amLODIPine (NORVASC) 10 mg tablet Take 10 mg by mouth daily. Alternate therapy 06/04/2020 01/23/2021 BRILINTA 90 mg tablet Take 90 mg by mouth 2 times daily. Therapy completed 07/16/2020 01/23/2021 docusate sodium (COLACE) 100 mg capsule Take 100 mg by mouth 2 times daily. Therapy completed 01/23/2021 oxyCODONE (ROXICODONE) 5 mg immediate release tablet every 6 hours as needed. Therapy completed 07/16/2020 01/23/2021 senna (SENOKOT) 8.6 mg tablet Take 2 Tabs by mouth daily. Therapy completed 01/23/2021 documented as of this encounter Care Teams Pasteurizer Helper Relationship Specialty Start Date End Date Fabricio Long DO [address] [place] [address] PCP - General 11/10/14 01/30/22 documented as of this encounter
--- OUTSIDE RECORDS SUMMARY | 2024-01-17 01:59 | XMS_ITS | Encounter Summary ---
[place] [address] Care Team Providers Care Director Of Volunteer Services Name Role Phone Anshu Barriga MD Primary Care Provider [phone] [phone] Encounter Details Date Type Department Care Team (Latest Contact Info) Description 07/01/2023 Travel Social History Tobacco Use Types Packs/Day [...] 8:45 AM EDT Office Visit Dermatology at [place] [address] [facility] [place] [id number] Kristian Wiggins MD [address] [facility], [place] [address] documented as of this encounter Visit Diagnoses Not on filedocumented in this encounter Care Teams Director Of Volunteer Services Relationship Specialty Start Date End Date Anshu Barriga MD [address] [facility] [address] [place] [address] PCP - General Family Medicine 06/26/23 documented as of this encounter
--- OUTSIDE RECORDS SUMMARY | 2024-01-17 01:59 | XMS_ITS | Encounter Summary ---
Author Organization [facility] [place] [address] Care Team Providers Care Control Engineer Name Role Phone Anshu Barriga MD Primary Care Provider [phone] [phone] Encounter Details Date Type Department Care Team (Latest Contact Info) Description 08/22/2023 Travel Social History Tobacco Use Types Packs/Day [...] 8:45 AM EDT Office Visit Dermatology at [place] [address] [facility] [place] [address] Kristian Wiggins MD [address] [facility], [place] [address] documented as of this encounter Visit Diagnoses Not on filedocumented in this encounter Care Teams Control Engineer Relationship Specialty Start Date End Date Anshu Barriga MD [address] [place] [address] PCP - General Family Medicine 06/26/23 documented as of this encounter
--- OUTSIDE RECORDS SUMMARY | 2024-01-17 01:59 | XMS_ITS | Encounter Summary ---
Author Organization [facility] Address [address] [place] [address] Care Team Providers Care On Air Personality Name Role Phone Unknown, Provider Primary Care Provider Unava ilable Encounter Details Date Type Department Care Team (Late st Contact Info) Description 11/05/2014 Results Only [facility] [phone] Olesya Michel, DO [address] [place] [address] Social History Tobacco Use Types Packs/Day Years Used Date Smoking Tobacco: Never Assessed Sex and Gender Information Value Date Recorded Sex Assigned at Not on file Gender Identity Female 07/22/2019 10:29 EDT Sexual Orientation Not on file documented as of this encounter Plan of Treatment Upcoming Encounters Date Type Department Care Team (Late st Contact Info) Description 01/30/2024 10:[address] [facility] Rheumatology [address] [place] [address] Edna Nava MD [address] [facility] [address] [place] [address] documented as of this encounter Procedures Procedure Name Priority Date/Time Associated Diagnosis Comments SURGICAL PATHOLOGY Routine 11/05/2014 9:22 EDT documented in this encounter Results * SURGICAL PATHOLOGY (11/05/2014 9:22 EDT) Pathology Report: SURGICAL PATHOLOGY REPORT Reports generated via electronic interface contain original data; however they are lacking the format of the original report. Caution should be taken when reading/interpret ing unformatted reports. Name: ? ALLIE BOLAÑOS ? Accession #: ? [id number] ? : ? 1945 (Age: 69) ??F ? Collect Date: ? 11/05/2014 ? Location: ? [facility] ? Receive Date: ? 11/06/2014 ? Provider: OLESYA MICHEL DO Copy to: LILLIANA WILLOUGHBY DO ? Final Pathologic Diagnosis: GALLBLADDER, CHOLECYSTECTOMY: - ??Acute and chronic cholecystitis. ?? - ??Two reactive lymph nodes. Document reviewed and electronically signed by: NIGHAT HURLEY MD Report ??Date: 11/12/2014 18:24 By the signature above, the attending physician certifies that he/she has personally conducted a gross and/or microscopic examination of the described specimens and rendered or confirmed the above diagnosis. Specimen(s) Received: Gallbladder Clinical History: Gallstones, pancreatitis Gross Description: ? Received in formalin labelled with proper patient identification (initials W, M) and gallbladder is an intact gallbladder (8.3 x 3.5 x 2.0 cm) with an attached segment of cystic duct (0.8 in length x 0.4 in diameter). Two cystic duct lymph nodes (0.4 x 0.4 x 0.3 and 1.3 x 0.6 x 0.4 cm) are present. ? The serosa is pink and glistening. The mucosa is green, smooth to velvety and the wall averages 0.2 cm in thickness. The cystic duct lumen is not grossly patent. The cystic duct margin is inked blue. No choleliths are present. ? Two outside industrial sales representative sections and the inked en face cystic duct margin and the smaller cystic duct node are submitted in 1, and the larger cystic duct node is bisected and submitted as 2. Ranjana Ac 11/08/2014 3:38 PM End of Report [facility] 11/05/2014 9:22 EDT 11/06/2014 9:22 EDT Olesya Michel DO PATHOLOGY ORDERABLES [facility] [address] [place] [address] documented in this encounter Visit Diagnoses Not on filedocumented in this encounter Care Teams On Air Personality Relationship Specialty Start Date End Date Unknown, Provider, PCP - General 07/12/14 11/09/14 documented as of this encounter
--- OUTSIDE RECORDS SUMMARY | 2024-01-17 01:59 | XMS_ITS | Encounter Summary ---
Author Organization [facility] Address [address] [place] [address] Care Team Providers Care Filler Shredding Machine Loader Name Role Phone Fabricio Long DO Primary Care Provider [phone]- [phone] Encounter Details Date Type Department Care Team (Late st Contact Info) Description 01/12/2021 Orders Only [facility] Rheumatology [address] [place] [address] Amy Fried RN Seronegative rheumatoid arthritis ([facility]) ([facility]) (Primary Dx) Social History Tobacco Use Types Packs/Day Years [...] Frequency of Binge Drinking Not on file 0 07/2019 Interpersonal Safety Answer Date Record ed Physically Hurt Never 10/18/2019 Verbally Threaten Not on file 10/18/2019 Sex and Gender Information Value Date Recorded Sex Assigned at Not on file Gender Identity Female 07/22/2019 10:29 EDT Sexual Orientation Not on file documented as of this encounter Progress Notes * Amy Fried RN - 01/12/2021 0907 EDT Lab ordered per previous visit note. documented in this encounter Plan of Treatment Upcoming Encounters Date Type Department Care Team (Late st Contact Info) Description 01/30/2024 10:30 EST Office Visit [facility] Rheumatology [address] [place], [place] [id number] Edna Nava MD [address] [facility] [place] [address] documented as of this encounter Visit Diagnoses Diagnosis Seronegative rheumatoid arthritis ([facility])- Primary Rheumatoid arthritis documented in this encounter Care Teams Filler Shredding Machine Loader Relationship Specialty Start Date End Date Fabricio Long DO [address] [place] [address] PCP - General 11/10/14 01/30/22 documented as of this encounter
--- OUTSIDE RECORDS SUMMARY | 2024-01-17 01:59 | XMS_ITS | Encounter Summary ---
Author Organization [facility] Address [address] [place] [address] Care Team Providers Care Scrap Metal Burner Name Role Phone EthanFabricio molina DO Primary Care Provider [phone]- [phone] Reason for Visit * Reason Comments Follow-up Pt.states she wants to report the cerebral aneurysm with provider. she has a new bump in her left knee. she feels dizziness and nausea due to the medications she takes. Encounter Details Date Type Department Care Team (Late st Contact Info) Description 07/31/2021 8:00 EDT Office Visit [facility] Rheumatology [address] [place], [place] [address] Edna Nava MD [address] [place] [address] [place] [address] Seronegative rheumatoid arthritis of multiple sites (HCC-CMS) (HCC) (Primary Dx); Chronic right-sided low back pain without sciatica; Chronic pain of left knee; Long-term use of Plaquenil Social History Tobacco Use Types Packs/Day Years Used Date Smoking Tobacco: Former Cigarettes Q uit: 01/10/2015 Smokeless Tobacco: Never Alcohol Use Standard Drinks/Week Comments Yes 0 (1 standard drink = 0.6 oz pur e alcohol) AUDIT-C Answer Date Recorded Frequency of Alcohol Consumption 2-3 times a jeronimo perez 07/21/2019 Average Number of Drinks Not on file 020 Frequency of Binge Drinking Not on file 050 07/2019 Interpersonal Safety Answer Date Record ed Physically Hurt Never 10/18/2019 Verbally Threaten Not on file 10/18/2019 Sex and Gender Information Value Date Recorded Sex Assigned at Not on file Gender Identity Female 07/22/2019 10:29 EDT Sexual Orientation Not on file documented as of this encounter Last Filed Vital Signs Vital Sign Reading Time Taken Comments Blood Pressure 130/82 07/31/2021 0807 EDT Pulse 52 07/31/2021 0807 EDT Temperature 36.2 ??C (97.2 ??F) 07/31/2021 0807 EDT Respiratory Rate - - Oxygen Saturation - - Inhaled Oxygen Concentration - - Weight 60.8 kg (134 lb) 07/31/2021 08 EDT Height 162.6 cm (5' 4) 07/31/2021 08 EDT Body Mass Index 23 07/31/2021 0807 EDT documented in this encounter Patient Instructions * Patient Instructions* Edna Nava MD - 07/31/2021 8:00 EDT Eye exam this fall for hydroxychloroquine monitoring Labs pending what was done by other providers. documented in this encounter Progress Notes * Edna Nava MD - 07/31/2021 0800 EDT [facility] Rheumatology Chief Complaint Patient presents with ??? Follow-up Pt.states she wants to report the cerebral aneurysm with provider. she has a new bump in her left knee. she feels dizziness and nausea due to the medications she takes. HPI: Seronegative RA. Off prednisone since 04/2010. [...] changes were made at the last visit. I referred Allie to PT for chronic right low back pain due to piriformis vs hamstring tendinopathy. Today, Allie says the PT helped a lot. Also says she had dry needling 4 times, and this seemed to help significantly. Allie says the right knee (replaced) is doing well, but she still has a leg length discrepancy. Shehas worked hard to stretch the left leg hamstrings. Allie has noticed an intermittently tender lump on her left medial knee; has noticed this for the past couple of months. Regarding her hands, says right long finger and left ring finger trigger occasionally or get stuck at times. Denies any issues lately. Current Outpatient Medications Medication ??? aspirin 81 mg EC tablet ??? carbidopa-levodopa (SINEMET) 25-100 mg per tablet ??? hydroCHLOROthiazide (HYDRODIURIL) 25 mg tablet ??? hydrOXYchloroQUINE (PLAQUENIL) 200 mg tablet ??? PAIN RELIEF EXTRA STRENGTH 500 mg tablet ??? propRANolol (INDERAL) 20 mg tablet No current facility-administered medications for this visit. Allergies include: Oxycodone and Tramadol Patient Active Problem List Diagnosis ??? Seronegative rheumatoid arthritis of multiple sites ([facility]) ([facility]) ??? Chronic right-sided low back pain without sciatica ??? Other chronic pain ??? History of SCC (squamous cell carcinoma) of skin ??? Status post right knee replacement ??? Parkinson's disease (HCC-CMS) ([facility]) ??? Hypertension ??? Essential tremor ??? Cerebral [...] Negative for weight loss. Eye exam, 12/05/20, [facility], Plaquenil monitoring, no toxicity noted. Allie has a dx of Parkinson's. She is on carbidopa-levodopa, with a change in dosing due to nausea/dizziness. Is followed at [facility] for cerebral aneurysm -- aspirin dose was reduced to 81 mg/day, and Allie will have follow up MRI. Physical Examination: BP 130/82 (BP Cuff Location: Right arm, BP Cuff Sizes: Adult, regular) Pulse 52 Temp 36.2 ??C (97.2 ??F) Ht 162.6 cm (64) Wt 60.8 kg (134 lb) BMI 23.00 kg/m?? EYES: Conjunctivae not injected. NECK: No lymphadenopathy. LUNGS: Clear to auscultation bilaterally. CARDIOVASCULAR: Regular rate and rhythm. No murmur. No pedal edema. JOINT EXAM: No synovitis of the joints of the hands, wrists. Mild thickening of right long finger flexor tendon, without tenderness; no triggering today; mild swan-necking of left ring finger. Painless ROM of shoulders (left arm mildly weak, lags ROM compared with right arm), elbows, wrists, hips, knees and ankles. Right knee is replaced. SKIN: Extensive bruising on left lateral leg and thigh and medial left knee. No rash on arms, legs.No nail pitting. No dilated capillary loops in the nail beds. Labs: Labs 06/15/21, [facility]: CBC wnl; creatinine 0.8, lytes wnl. Assessment and Plan: 1. Seronegative rheumatoid arthritis of multiple sites (HCC-CMS) (HCC) Low to no RA disease activity based on joint exam and history. Labs pending what was done by other providers prior to next visit. 2. Chronic right-sided low back pain without sciatica Much improved/resolved since PT therapy. Continue PT exercises. 3. Chronic pain of left knee The area Allie pointed to with the lump was the medial superior edge of the patella. There is bruising at the medial knee, and this is the area of tenderness. Otherwise, I see no mechanical issue with the left knee. 4. Long-term use of Plaquenil Eye exam due in the fall. Follow-up in 6 months. Edna Nava MD 07/31/2021 8:24 documented in this encounter Plan of Treatment Upcoming Encounters Date Type Department Care Team (Late st Contact Info) Description 01/30/2024 10:30 EST Office Visit [facility] Rheumatology [address] [place], [place] [id number] Edna Nava MD [address] [facility] [address] [place] [address] documented as of this encounter Visit Diagnoses Diagnosis Seronegative rheumatoid arthritis of multiple sites ([facility])- Primary Chronic right-sided low back pain without sciatica Chronic pain of left knee Pain in joint, lower leg Long-term use of Plaquenil Encounter for long-term (current) use of other medications documented in this encounter Care Teams Scrap Metal Burner Relationship Specialty Start Date End Date Fabricio Long DO [address] [place] [address] PCP - General 11/10/14 01/30/22 documented as of this encounter
--- OUTSIDE RECORDS SUMMARY | 2024-01-17 01:59 | XMS_ITS | Encounter Summary ---
Author Organization [facility] Address [address] [place] [address] Care Team Providers Care V Groove Cutter Name Role Phone Fabricio Long DO Primary Care Provider +1- [phone] Encounter Details Date Type Department Care Team (Late st Contact Info) Description 01/18/2022 Orders Only [facility] Rheumatology [address] [place] [address] Amy Fried, DEANDRE Seronegative rheumatoid arthritis of multiple sites ([facility]) (Primary Dx) Social History Tobacco Use Types [...] of this encounter Progress Notes * Amy Fried, DEANDRE - 01/18/2022 1515 EDT CMP and CBC ordered per Dr. Nava. documented in this encounter Plan of Treatment Upcoming Encounters Date Type Department Care Team (Late st Contact Info) Description 01/30/2024 10:30 EST Office Visit [facility] Rheumatology [address] [place] [address] Edna Nava MD [address] [facility] [address] [place] [address] documented as of this encounter Visit Diagnoses Diagnosis Seronegative rheumatoid arthritis of multiple sites (HCC-CMS)- Primary documented in this encounter Care Teams V Groove Cutter Relationship Specialty Start Date End Date Fabricio Long DO [address] [place] [address] PCP - General 11/10/14 01/30/22 documented as of this encounter
--- OUTSIDE RECORDS SUMMARY | 2024-01-17 01:59 | XMS_ITS | Clinical Summary ---
Author Organization [facility] Address [facility] [place] [address] Care Team Providers Care Enrollment Services Dean Name Role Phone Anshu Barriga MD Primary Care Provider +1 -[phone] Allergies Active Allergy Reactions Criticality Noted Date Comments Tramadol 07/18/2020 Nausea Medications Medication Sig Dispensed Refills Start Date End Date Status hydroxychloroquine (PLAQUENIL) 200 mg Tablet Take 400 mg by mouth daily. 04/26/2016 Active ascorbic acid, Vitamin C, (Vitamin C) 500 mg Tablet Take 1,000 mg by mouth daily as needed. Active propranoloL (Inderal) 20 mg Tablet Take 20 mg by mouth 2 times daily. Active carbidopa-levodopa (Sinemet) 25-100 mg Tablet Take 1 tablet by mouth 2 times daily. Active hydroCHLOROthiazide (Hydrodiuril) 25 mg Tablet Take 25 mg by mouth daily. Active aspirin 325 mg Tablet Take 325 mg by mouth daily. Active benzonatate (Tessalon) 100 mg Capsule TAKE ONE CAPSULE BY MOUTH THREE TIMES A DAY 05/19/2021 Active losartan (Cozaar) 25 mg tablet Take 25 mg by mouth daily. 06/20/2022 Active cyanocobalamin, Vitamin B-12, 1,000 mcg/mL Solution Inject as directed. Active Noreen Spivey [facility] Spacer USE DIRECTED WITH INHALER 06/26/2023 Active Active Problems Problem Noted Date Diagnosed Date Finger injury, left, initial encounter Arm pain 06/28/2023 Limb pain 06/28/2023 Limb weakness 06/28/2023 Neck pain 06/28/2023 Shoulder pain 06/28/2023 Cough 06/28/2023 Hand numbness 06/28/2023 Backache 06/28/2023 Hip pain 06/28/2023 Pain in joint 06/28/2023 History of migraine headaches 06/28/2023 Long-term use of Plaquenil 07/31/2021 Parkinson's disease 02/21/2021 Overview (02/21/2021): Movement Disorder Society Classification ?? [place] I: (syndromic) : ?? Age at onset: 60s? ?? First motor symptom: Left hand resting tremor ?? Other symptoms: gradual slowing down ?? [place] II : Parkinson's disease, idiopathic Data and imaging ?? Kalee: not yet done but to consider ?? MRI: done ?? CT: ?? PET: Interventions ?? Levodopa trial ongoing Assessment & Plan (02/21/2021 12:07 PM EST): [place] [employer] Parkinson's Disease Measurement Set Update (2015) ? ? Annual Parkinson's Disease Diagnosis Review ? ? Dopamine Blocking Medications: [x] Reviewed ? ? Psychiatric symptoms Assessment: [x] Reviewed [] depression [] anxiety [] apathy [] delusions/hallucinations ? ? Cognitive Assessment: [x] Reviewed [] impairment ? ? Autonomic Dysfunction: [x] Reviewed [] orthostatic symptoms [] genitorurinary symptoms [] gastrointestinal ? ? Sleep Disturbance: [x] Reviewed [] EDS [] RBD [] RLS ? ? Fall Rate: [x] Reviewed: Number of falls in the last 6 months: ? ? Rehabilitative Therapy Options: [x] Reviewed [x] PT [] OT [] ST [] Community based ? ? Regular Exercise Regimen: [x] counseling given: at least 150 min per week ? ? Motor complications: [x] Reviewed [] Wearing off [] Dyskinesia [] Freezing ? ? Advanced Care Planning [x] Reviewed [] Referral made to Home Health [] Palliative Medicine Labs/Studies Diagnostic [] Kalee [] MRI [] Ceruloplasmin [] Serum Copper [] Metabolic PET Monitoring [x] Vitamin B12 [] MMA [] EKG [x] Vitamin D [] Dexa Clinical Trials [] Enterin: constipation phase 2 [] Yohimbine: Consider in patient it PD (Stage II H&Y) (Add pt to NA in PD) Check CMP and CBC within 6 months (E-mail Elder if patient is on the list) [] Auditory Anyone without hearing impairment requiring hearing aids. Email surgical coordinator ([email or web address]) [] ProSEEK [] Bitces9X Other Subspecialty referrals [x] None [] ENT [] Neurosurgery [] Neuropsychology [] Psychiatry [] Dermatology [] Referral to [facility]ah [facility]y at the [facility]: http://[email or web address] [] Falls prevention program: Http://www.Tencent.Vadio/wordpress/?page_id=175 [] Referral to Home Health [] Referral to Care Management Cerebral aneurysm, nonruptured 11/10/2020 Essential tremor 11/10/2020 Hypertension 07/18/2020 Status post right knee replacement 02/14/2020 Chronic right-sided low back pain without sciati ca 07/21/2019 Other chronic pain 07/21/2019 Seronegative rheumatoid arthritis of multiple si dexter 07/21/2019 AK (actinic keratosis) 04/27/2016 History of SCC (squamous cell carcinoma) of skin 02/20/2016 Actinic keratosis 08/21/2012 Immunizations Name Administration Dates Next Due Hepatitis A, Unspecified Formulation 08/27/2002 Td Adult (not absorbed) 08/27/2002 Typhoid Live, Oral 09/11/2007 Social History Tobacco Use Types [...] on file Sexual Orientation Not on file Last Filed Vital Signs Vital Sign Reading Time Taken Comments Blood Pressure 137/82 07/08/2023 10:05 AM EDT Pulse 81 07/08/2023 10:10 AM EDT Temperature 36.2 ??C (97.2 ??F) 07/08/2023 9:20 AM ED T Respiratory Rate 18 07/08/2023 10:00 AM EDT Oxygen Saturation 99% 07/08/2023 10:05 AM EDT Inhaled Oxygen Concentration - - Weight 61.2 kg (135 lb) 07/08/2023 7:14 AM EDT Height 162.6 cm (5' 4) 07/08/2023 7:14 AM EDT Body Mass Index 23.17 07/08/2023 7:14 AM EDT Plan of Treatment Upcoming Encounters Date Type Department Care Team (Late st Contact Info) Description 07/14/2024 8:45 AM EDT Office Visit Dermatology at [place] [address] [facility] [place] [id number] Kristian Wiggins MD [address] [place] [address] Health Maintenance Due Date Last Done Comments Hepatitis C Screening 06/11/1963 Zoster vaccine (1 of 2) 06/11/1995 Advance Directive 2000 Tetanus/Diphtheria/Pertussis Vaccines (1 - Tdap) 08/2808/27/2002 Bone Density Scan 2010 Pneumoccocal Vaccine: 65+ (1 of 1 - PCV) 2010 Covid-19 Vaccine (1 - season) 2023 Influenza (Flu) vaccine (1 o f 1 - Influenza standard series) 11/17/2023 Care Teams Enrollment Services Dean Relationship Specialty Start Date End Date Anshu Barriga MD [address] [place], [place] [id number] PCP - General Family Medicine 06/26/23
--- OUTSIDE RECORDS SUMMARY | 2024-01-17 01:59 | XMS_ITS | Encounter Summary ---
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, initial encounter rupture of sagital band Procedures PRO REALIGNMENT EXTENSOR TENDON HAND EACH TENDON REALIGNMENT EXTENSOR TENDON, HAND, EA TENDON (WRVU 5.99) Rj Fajardo MD [facility] [place] [address] [facility] Referral ID Status Reason Start Date Expiration Date Visits Re quested Visits Authorized [id number] 1 1 Encounter Details Date Type Department Care Team (Latest Contact Info) Description 07/08/2023 6:56 AM EDT - 07/08/2023 10:17 AM EDT Hospital Encounter [place] [address] Rj Fajardo MD [facility] [address] 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 Questions or problems after 5pm or on a weekend: Call the [facility] spreader operator at and ask for the physician publications designer covering for your doctor. At 7:25 am [...] about scheduling, please contact our administrative officesat [phone] For clinical questions, please call our nurses at [phone] Both offices are open Saturday thru Saturday 8a - 5p. With emergencies after hours, call the hospital spreader operator at [phone] and ask for the Plastic Surgery Resident publications designer. documented in this encounter Medications at Time of Discharge Medication Sig Dispensed Refills Start Date End Date cyanocobalamin, Vitamin B-12, 1,000 mcg/mL Solution Inject as directed. [facility] Spacer USE DIRECTED WITH INHALER 06/26/2023 losartan [...] Araceli Aaron MD/S Plastic Surgery Resident, Pager: [phone] Plastic Surgery Team Pager: [phone] documented in this encounter Miscellaneous Notes * Brief Op Note - Araceli Aaron MD - 07/08/2023 9:16 AM EDT Brief Operative Note Patient Name: Allie Bolaños : [id number] MR#: [id number] Case Date: 07/08/2023 Surgeon: Surgeon(s) and Role: [...] Center 07/12/2023 8:45 AM Kristian Wiggins MD [facility] Derm [facility] 07/22/2023 9:15 AM Mariluz Taveras OT [facility] Rehab [facility] 07/22/2023 10:00 AM Agnieszka Snell APRN [facility] [place] Op Note - Araceli Aaron MD - 07/08/2023 8:39 AM EDT [facility] [place] Patient Name: Allie Bolaños : [id number] MR#: [id number] Case Date: 07/08/2023 Surgeon: Surgeon(s) and Role: [...] 8:45 AM EDT Office Visit Dermatology at [place] [address] [facility] [place] [address] Kristian Wiggins MD [address] [facility], [address] [address] documented as of this encounter Procedures Procedure Name Priority Date/Time Associated Diagnosis Comments Realignment Extensor Tendon Hand Each Tendon (89833) Yes 07/08/2023 8:24 AM EDT Sagittal band [...] 0738 (New Bag - Prov ider: Andreia Sanchez RN)0822 (Paused - Provider: Ly Rico CRNA - Comment: Switch to gravity)0823 (Restarted - Provider: Ly Rico CRNA)0913 (Anesthesia Volume Adjustment - Provider: Ly Rico CRNA) documented in this encounter Care Teams Junior Systems Administrator Relationship Specialty Start Date End Date Anshu Barriga MD [address] [place] [address] [address] PCP - General Family Medicine 06/26/23 documented as of this encounter
--- OUTSIDE RECORDS SUMMARY | 2024-01-17 01:59 | XMS_ITS | Encounter Summary ---
Author Organization [facility] Address [address] [place] [address] Care Team Providers Care Line Mover Name Role Phone Fabricio Long DO Primary Care Provider [phone]- [phone] Anshu Barriga MD Primary Care Provider [phone] Encounter Details Date Type Department Care Team (Late st Contact Info) Description 09/23/2019 Lab Requisition [facility] Pathology & Laboratory Medicine - [address] [id number] Outr Resulting Lab, Provider Social History Tobacco [...] Info) Description 01/30/2024 10:30 EST Office Visit [facility] Rheumatology [address] [place] [address] Edna Nava MD [address] [facility] [address] [place] [address] documented as of this encounter Procedures Procedure Name Priority Date/Time Associated Diagnosis Comments LYME AB Routine 09/23/2019 15:10 EDT documented in this encounter Results * LYME AB (09/23/2019 15:10 EDT) Lyme Ab Negative Negative 09/24/2019 11:17 EDT [facility] Comment: New 3rd generation assay in use 08/26/2019 Blood VENOUS BLOOD / Unknown 09/23/2019 15:10 EDT 09/23/2019 21:13 EDT Provider Outr Resulting Lab IMMUNOLOGY A ND SEROLOGY ORDERABLES Performing Organization Address City/State/[facility] Co de Phone Number [facility] [address] [place] [address] documented in this encounter Visit Diagnoses Not on filedocumented in this encounter Care Teams Line Mover Relationship Specialty Start Date End Date Fabricio Long DO [address] [place], [place] [address] PCP - General 11/10/14 01/30/22 Anshu Barriga MD [address] [place] [address] [address] [place], [place] [id number] PCP - General Family Medicine - Primary Care 01/31/22 documented as of this encounter
--- OUTSIDE RECORDS SUMMARY | 2024-01-17 01:59 | XMS_ITS | Encounter Summary ---
[place] [address] Care Team Providers Care Pest Control Supervisor Name Role Phone Anshu Barriga MD Primary Care Provider [phone] Reason for Visit * Reason Comments Follow Up Surgery Encounter Details Date Type Department Care Team (Late st Contact Info) Description 07/24/2023 11:20 AM EDT Office [place] [address] Agnieszka Snell [facility] [place] [address] Follow-up examination following surgery Social History Tobacco Use Types Packs/Day Years [...] on file documented as of this encounter Patient Instructions * Patient Instructions* Katherine Parker PA - 07/24/2023 11:20 AM EDT Dressing: relative motion extension yoke orthosis to be worn full-time for 6 weeks, doing active range of motion within the orthosis as instructed by OT. Follow up: 4 weeks documented in this encounter Progress Notes * Agineszka Snell APRN - 07/24/2023 11:20 AM EDT Plastic Surgery Post Op Note Provider: Agnieszka Snell APRN Reason for visit: F/U status post procedure; suture removal Date of surgery: 07/08/23 Procedure(s): repair of sagittal band rupture left ring finger (Ojeda) Complications: None reported HPI: Pt reports doing well. Has been wearing her splint time signal wirer. She denies any complaints at this time. She is scheduled with OT today. Examination: Patient is alert, conversant, comfortable, ambulating Incision: CDI, healing well. No collection, no erythema, no evidence of cellulitis. Left hand: Inspection: edema/ecchymosis over the dorsal hand Palpation: No pain along fingers/palm/wrist except for mild TTIP along the left 4th digit. Vascular: Good cap refill Sensation: Median/Radial/Ulnar nerves intact Motor: active ROM of left 4th digit limited by edema Sutures removed Impression: Allie Bolaños is a 78 y.o. female who was seen today for follow-up after the above procedure. Please see the operative note for details. She is doing well without complaints. Plan: OT splint- relative motion extension yoke orthosis to be worn full-time for 6 weeks, doing AROM within the orthosis. Follow up: 4 weeks documented in this encounter Plan of Treatment Upcoming Encounters Date Type Department Care Team (Late st Contact Info) Description 07/14/2024 8:45 AM EDT Office Visit Dermatology at [address] [place] [address] Kristian Wiggins MD [address] [address] documented as of this encounter Visit Diagnoses Diagnosis Follow-up examination following surgery Follow-up examination, following unspecified surgery documented in this encounter Care Teams Pest Control Supervisor Relationship Specialty Start Date End Date Anshu Barriga MD [address] [place] [address] PCP - General Family Medicine 06/26/23 documented as of this encounter
--- OUTSIDE RECORDS SUMMARY | 2024-01-17 01:59 | XMS_ITS | Encounter Summary ---
Author Organization [place] [address] Care Team Providers Care Funds Development Director Name Role Phone Anshu Barriga MD Primary Care Provider [phone] Reason for Referral * Occupational Therapy (GARRETT) - Authorized Specialty Diagnoses / Procedures Referred By Contact Referred To Contact Occupational Therapy Diagnoses Sagittal band rupture at metacarpophalangeal joint, initial encounter Rj Ojeda MD [facility] [place] [address] [facility] [address] [place] [address] Referral ID Status Reason Start Date Expiration Date Visits Requested Visits Authorized [id number] Authorized Evaluate and Treat 07/01/2023 06/30/2024 100 100 Reason for Visit * Reason Comments Advice Only * Consultation (Urgent) - Closed Specialty Diagnoses / Procedures Referred By Contac t Referred To Contact Plastic Surgery Diagnoses Injury of left ring finger, initial encounter Tim Pereira MD [address] [place] [address] [facility] [address] [place] [address] Referral ID Status Reason Start Date Expiration Date V isits Requested Visits Authorized [id number] Closed Consult, Test & Treat PCP Updated and/or Approved 06/25/2023 12/25/2023 6 6 Encounter Details Date Type Department Care Team (Latest Contact Info) Description 07/01/2023 9:45 AM EDT Office [place] [address] Rj Ojeda MD [facility] [place] [address] Sagittal band rupture at metacarpophalangeal joint, initial [...] this encounter Patient Instructions * Patient Instructions* Karina Nelson RN - 07/01/2023 9:45 AM EDT Preoperative Instructions You have been scheduled to have plastic surgery. The instructions below are specific to your procedure. Marijuana and Surgery Did you know that marijuana use can impact your surgery and post-surgery success? Marijuana affects many parts of the body. These effects can impact your surgery through the following ways: Respiration: Marijuana affects the airways making it harder to place a breathing tube for anesthesia. Marijuana also affects the lungs and can cause wheezing, coughing, and chronic bronchitis. Cardiac effects: Marijuana affects heart rate and blood pressure and has the potential to increase risks of a heart attack and/or stroke. Pain management: Marijuana may interfere with pain control and the amount of pain medication neededto provide relief following an operation. You should discuss with your surgical team if you are using any form of marijuana or cannabis products. It can affect the outcome of your surgery. It is recommended to stop using marijuana products 72 hours before surgery. Can marijuana affect pain control after surgery? Patients with previous injuries who used marijuana before surgery reported higher amounts of pain. Higher dosages of opioids were used for a longer time after surgery to control pain, when compared to those who did not use marijuana. 7 Chronic marijuana use was associated with higher opioid use forpain relief compared with occasional marijuana users.7 CBD gel patches applied to the skin can reduce pain and itching in patients with peripheral neuropathy (pain at the nerve site).8 Gels containing CBD and a combination of CBD and THC had mixed results in decreasing pain in patients with cancer. Patients with cancer reported decreased neuropathic (nerve) pain after using cannabis compared withpatients who did not use marijuana.9 When should I stop using marijuana before surgery? The effects of marijuana peak at approximately 1 hour and can last 2-4 hours.10 Marijuana: Increases stress on the heart, and the chance for heart attacks and strokes in young, chronic users. It can cause lung complications such as airway obstruction and the need for higher doses of anesthesia. If you are having surgery, you should not use cannabis products within 72 hours of general anesthesia.10 Let your surgeon know if you are having difficulty stopping marijuana. You may be irritable, angry,nervous, and sleep deprived. You may have less appetite, feel depressed or fink, and have tremors,sweating, fever, chills, and headache. If you feel you are addicted to marijuana: Work with your surgical team to meet with an addiction counselor. Call the Substance Abuse and Mental Health Services Administration ([facility]) National Addiction Hotline for help at 2-561-881-QYXT (0583). The call is free, confidential, and someone is available 24 hours per day. If you are a smoker, we ask that you stop at least 2 months prior to your surgical date and remain nicotine free for at least a month after surgery. Smoking can impair healing and increase your chance of infection. Due to a strong risk for delayed healing, we will preform a CO2 test on the day of your surgery to test for byproducts of smoking.If the test is positive your surgery will be cancelled. Two Weeks prior to Surgery Do not take any Aspirin or aspirin containing products for the 2 weeks leading up to surgery. You may resume taking 48 hours after surgery. Do not take medications containing Ibuprofen. Do not take any anti-steroidal's such as Advil, Aleve, Celebrex, Daypro, Indocin, Midol, Motrin, Naproxen, Nuprinand Toradol. These medications increase your risk of bleeding. You may resume taking any of these medications 48 hours after surgery. Stop Vitamin E, Garlic supplements, Ginseng, Fish Oil tablets, Ginkgo and Cole's Wort and any other herbals. You may resume taking 48 hours after surgery. If you need medication for pain, you may take Tylenol or extra strength Tylenol during this two week period. Medication Specific Instructions None One Week prior to Surgery Please call if you feel ill, have cold or fever, have a rash or breaks in the skin near your surgical site. Stay hydrated. Avoid alcohol and recreational drugs Three Days before Surgery Do not shave near your surgical site One Day before Surgery Hand Surgery - Scrub your hand with an antibacterial soap for several minutes the night before and morning of surgery. Trim your fingernails and scrub them with a nail brush. DO NOT wear any rings, nail maori or artifical nails. The Same Day Surgery Team will call you the business day before your surgery to give you instructions specific to your procedure and your surgical time. Generally, you will be asked not to eat any solids after midnight. You are allowed clear liquids (water, yimi edvin, apple juice, black coffee andplain tea) until 2 hours prior to your surgery. Day of Surgery A electric screw driver operator is required at time of discharge. If you are a Same Day procedure and do not have a driveryour surgery will be canceled. DO NOT wear any jewelry, makeup or artificial nails the day of surgery. DO NOT apply any lotions, powders or deodorants on or near the surgical site the day of surgery. Do wear comfortable, loose fitting clothes. Anesthesia will meet with you the morning of surgery. They will perform an assessment and review your history with you. Contact Information: During regular office hours (Saturday- Saturday, non-holiday 8:00 am- 5:00 pm) For an appointment or insurance questions For questions pertaining to your surgical date [phone] For nursing related questions [phone] On weekends, holidays or after office hours: Call and ask the concrete crusher loader operator to page the Plastic Surgery Resident macroeconomics professor. Plastic surgery Clinic fax number: [phone] documented in this encounter Progress Notes * Kimber Rolon T - 07/01/2023 9:45 AM EDT Plastic Surgery Hand Consultation Note Rj Ojeda MD. I have been asked to see the patient by Tim Pereira MD. CC: left ring finger injury Date of Injury: ~06/11/23 Mechanism of Injury and HPI: Allie Bolaños is a 78 y.o. female who sustained an injury of the lefthand with a possible sagittal band rupture that occurred ~3 weeks ago. She was seen at [facility] where she had imaging done. She notes having persistence swelling. She notes having some triggering of her left long finger prior to the injury. She reports that this is affecting her day to day life, such as cooking is the worst, holding items for cutting, typing on a computer, etc. She admits to a history of HTN, cerebral aneurysm (non ruptured), RA. She denies having diabetes, use of tobacco/vape products, or taking any blood thinning medications. Past Medical History: Diagnosis Date Cancer SCCA OF SKIN Mental health problem ANXIETY Migraine Past Surgical History: Procedure Laterality Date CARPAL TUNNEL RELEASE Right ~2009 CHOLECYSTECTOMY ?2016 COLONOSCOPY CYST REMOVAL Bilateral BEHIND EAR CYST REMOVAL GANGLION CYST EXCISION OVARIAN CYST SURGERY 1971 PRO GUERRA FACETECTOMY&FORAMOT 1 VRT SGM EA ADDL SGM N/A 06/02/2019 ADD'L INTERSPACES CX., THORACIC, LUMBAR (WRVU 3.47) performed by Rick Hawk MD at [facility] MAIN OR PRO LAMINEC/FACETECT/FORAMIN, LUMBAR 1 SEG N/A 06/02/2019 LAMINECTOMY, FACETECTOMY & FORAMINOTOMY,LUMBAR, ONE LEVEL (WRVU 15.37) performed by Rick Hawk MD at [facility] MAIN OR TONSILLECTOMY Social History Socioeconomic History Marital status: Spouse name: Not on file Number of children: Not on file Years of education: Not on file Highest education level: Not on file Occupational History Not on file Tobacco Use Smoking status: Never Smokeless tobacco: Never Substance and Sexual Activity Alcohol use: Yes Comment: RARE Drug use: Never Sexual activity: Not on file Other Topics Concern Not on file Social History Narrative Born in [place] After high school. She studied history in college in [place]. 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 Social Determinants of Health Financial Resource Strain: Not on file Food Insecurity: Not on file Transportation Needs: Not on file Physical Activity: Not on file Intimate Partner Violence: Not on file Housing Stability: Not on file Allergies Allergen Reactions Clopidogrel Oxycodone Other reaction(s): fuzzy head, ineffective Tramadol Nausea Current Outpatient Medications on File Prior to Visit Medication Sig Dispense Refill albuteroL 90 mcg/actuation inhaler (HFA) INHALE TWO PUFFS BY MOUTH EVERY 6 HOURS NEEDED FOR SHORTNESS OF BREATH OR WHEEZING doxycycline (Lymepak) 100 mg tablet Take 1 tablet by mouth 2 times daily. cyanocobalamin, Vitamin B-12, 1,000 mcg/mL Solution Inject as directed. losartan (Cozaar) 25 mg tablet Take 25 mg by mouth daily. propranoloL (Inderal) 20 mg Tablet Take 20 mg by mouth 2 times daily. carbidopa-levodopa (Sinemet) 25-100 mg Tablet Take 1 tablet by mouth 2 times daily. hydroCHLOROthiazide (Hydrodiuril) 25 mg Tablet Take 25 mg by mouth daily. hydroxychloroquine (PLAQUENIL) 200 mg Tablet Take 400 mg by mouth daily. amoxicillin (Amoxil) 500 mg capsule Take 1,000 mg by mouth 3 times daily. benzonatate (Tessalon) 100 mg Capsule TAKE ONE CAPSULE BY MOUTH THREE TIMES A DAY imiquimod (ALDARA) 5 % Cream in Packet Apply once daily on Mondays, Wednesdays and Fridays in the evenings ONLY, 3 times a week for four weeks then Discontinue (Patient not taking: Reported on 07/01/2023) 12 each 0 aspirin 325 mg Tablet Take 325 mg by mouth daily. ascorbic acid, Vitamin C, (Vitamin C) 500 mg Tablet Take 1,000 mg by mouth daily as needed. No current facility-administered medications on file prior to visit. Examination: Alert, oriented, conversant, and ambulating In no acute distress Left hand: Able to maintain extension at MCP joint at ring finger Flexes EDC tendon Has hard time actively extending finger at MCP joint Impression: Allie Bolaños is a 78 y.o. female patient with a radial sagittal band rupture. Will plan to fix this in the operating room. She will need to keep her hand quiet for four to six weeks following surgery. We discussed potential risks and complications which include but are not limited to: Pain, bleeding, infection, scarring, asymmetry, hematoma, seroma, poor cosmetic outcome, failure of procedure, possible need for revision, damage to adjacent structures. Plan: Schedule surgery. Surgical Grid Duration: 1 hour Timeframe: within 1-2 weeks Coordinated with: N/A Procedure: repair of sagittal band rupture left ring finger CPT: 03997 Surgical site: ring finger Side: left Anesthesia: General Follow up: 14 Days PAT: H+P DOS OT needed at post op visit: yes. Splint- forearm based, wrist in extension, fingers in flexion Kimber Kirkpatrick am acting as scribe for Rj Ojeda MD. All work documented was performed by Rj Ojeda MD. I, Rj Ojeda MD, performed the services which were documented by the scribe, and I agree with the accuracy of the documentation in this encounter. documented in this encounter Plan of Treatment Upcoming Encounters Date Type Department Care Team (Late st Contact Info) Description 07/14/2024 8:45 AM EDT Office Visit Dermatology at [place] [address] [place] [address] Kristian Wiggins MD [address] [facility] [place] [address] Scheduled Referrals Name Type Priority Associated Diagnoses Orde r Schedule Referral to Occupational Therapy Outpatient Referral Routine Sagittal band rupture at metacarpophalangeal joint, initial encounter Ordered: 07/01/2023 documented as of this encounter Visit Diagnoses Diagnosis Sagittal band rupture at metacarpophalangeal joint, initial encounter documented in this encounter Care Teams Funds Development Director Relationship Specialty Start Date End Date Anshu Barriga MD [address] [facility] [address] [place] [address] PCP - General Family Medicine 06/26/23 documented as of this encounter
--- OUTSIDE RECORDS SUMMARY | 2024-01-17 01:59 | XMS_ITS | Encounter Summary ---
Author Organization [facility] Address [address] [place] [address] Care Team Providers Care It Risk And Assurance Manager Name Role Phone Fabricio Long DO Primary Care Provider [phone]- [phone] Reason for Visit * Reason Onset Date Comments Medication Management 05/21/2019 Encounter Details Date Type Department Care Team (Late st Contact Info) Description 05/21/2019 Telephone [facility] [place] [address], [place] [id number] Edna Nava MD [address] [facility] [address] [place] [address] Medication Management Social History Tobacco Use Types Packs/Day Years Used Date Smoking Tobacco: Never Assessed Sex and Gender Information Value Date Recorded Sex Assigned at Not on file Gender Identity Female 07/22/2019 10:29 EDT Sexual Orientation Not on file documented as of this encounter Miscellaneous Notes * Telephone Encounter - Georgina Wade RN - 05/22/2019 1036 EST Notified Allie of Dr. Nava's reply with appreciation expressed. * Telephone Encounter - Edna Nava MD - 05/21/2019 1717 EST No need to stop the HCQ for surgery--I think she's having spine surgery? I'm happy to discuss with the surgeon as well. * Telephone Encounter - Georgina Wade, RN - 05/21/2019 1637 EST Does HCQ need to be stopped around surgery? * Telephone Encounter - Lila Jones - 05/21/2019 1628 EST LVM patient having surgery with [facility] Neuro would like a call back to discuss how to stop HYDROXYCHLOROQUINE SULFATE. documented in this encounter Plan of Treatment Upcoming Encounters Date Type Department Care Team (Late st Contact Info) Description 01/30/2024 10:30 EST Office Visit [facility] Rheumatology [address], [place] [address] Edna Nava MD 130 [facility] [address] [place] [address] documented as of this encounter Visit Diagnoses Not on filedocumented in this encounter Care Teams It Risk And Assurance Manager Relationship Specialty Start Date End Date Fabricio Long DO [address] [place], [place] [address] PCP - General 11/10/14 01/30/22 documented as of this encounter
--- OUTSIDE RECORDS SUMMARY | 2024-01-17 01:59 | XMS_ITS | Encounter Summary ---
Author Organization [facility] Address [address] [place] [address] Care Team Providers Care Label Drier Name Role Phone EthanFabricio Kristen Primary Care Provider +1- [phone] Reason for Visit * Reason Onset Date Comments Medication Management 2019 Encounter Details Date Type Department Care Team (Late st Contact Info) Description 2019 Telephone [facility] Rheumatology [address] [place] [id number] Chel Cast, poultry farmer egg Management Social History Tobacco Use Types Packs/Day Years Used Date Smoking Tobacco: Never Assessed Sex and Gender Information Value Date Recorded Sex Assigned at Not on file Gender Identity Female 07/22/2019 10:29 EDT Sexual Orientation Not on file documented as of this encounter Miscellaneous Notes * Telephone Encounter - Chel Cast RN - 2019 0924 EDT Pt LM message on refill line to make sure she has refill of HCQ.Last refill was sent 04/08/2019 for 90 with 3 refills covering 12 months total.No refills needed. documented in this encounter Plan of Treatment Upcoming Encounters Date Type Department Care Team (Late st Contact Info) Description 01/30/2024 10:30 EST Office Visit [facility] Rheumatology [address] [place] [address] [place] [address] Edna Nava MD 130 [facility] [address] [place] [address] documented as of this encounter Visit Diagnoses Not on filedocumented in this encounter Care Teams Label Drier Relationship Specialty Start Date End Date Fabricio Long DO [address] [place] [address] PCP - General 11/10/14 01/30/22 documented as of this encounter
--- OUTSIDE RECORDS SUMMARY | 2024-01-17 01:59 | XMS_ITS | Encounter Summary ---
Author Organization [facility] Address [address] [place] [address] Care Team Providers Care Iso Coordinator Name Role Phone Fabricio Long DO Primary Care Provider +1- [phone] Reason for Visit * Reason Comments Other Encounter Details Date Type Department Care Team (Late st Contact Info) Description 03/19/2021 Refill [facility] Rheumatology [address] [place], [place] [phone] Edna Nava MD [address] [facility] [address] [place] [address] Other Social History Tobacco Use [...] BY MOUTH EVERY DAY 180 Tablet 3 03/20/2021 03/14/2022 documented in this encounter Miscellaneous Notes * Telephone Encounter - Amy Fried, RN - 03/20/2021 1205 EST Last visit note reviewed and follow up scheduled for 07/25/21. Last eye exam 12/07/20. Refill sent asnoted. documented in this encounter Plan of Treatment Upcoming Encounters Date Type Department Care Team (Late st Contact Info) Description 01/30/2024 10:30 EST Office Visit [facility] Rheumatology [address] [place] [phone] Edna Nava MD [address] [facility] [address] [place] [phone] documented as of this encounter Visit Diagnoses Not on filedocumented in this encounter Discontinued Medications Medication Sig Discontinue Reason Start Date End Da te hydrOXYchloroQUINE (PLAQUENIL) 200 mg tablet TAKE TWO TABLETS BY MOUTH EVERY DAY 03/21/2020 03/20/2021 documented as of this encounter Care Teams Iso Coordinator Relationship Specialty Start Date End Date Fabricio Long DO [address] [place] [address] PCP - General 11/10/14 01/30/22 documented as of this encounter
--- OUTSIDE RECORDS SUMMARY | 2024-01-17 01:59 | XMS_ITS | Encounter Summary ---
[place] [address] Care Team Providers Care Voltmeter Operator Name Role Phone Anshu Barriga MD Primary Care Provider +1 -[phone] Reason for Referral * Consultation (Urgent) - Closed Specialty Diagnoses / Procedures Referred By Contac t Referred To Contact Plastic Surgery Diagnoses Injury of left ring finger, initial encounter Tim Pereira MD [address] [place] [address] [facility] [address] [place] [id number] Referral ID Status Reason Start Date Expiration Date V isits Requested Visits Authorized [id number] Closed Consult, Test & Treat PCP Updated and/or Approved 06/25/2023 12/25/2023 6 6 Encounter Details Date Type Department Care Team (Latest Contact Info) Description 06/26/2023 Transcribe Orders eDH Incoming Referrals [phone] Tim Pereira MD [address] [place] [address] Injury of left ring finger, initial encounter Social History Tobacco Use Types [...] 8:45 AM EDT Office Visit [facility] at [place] [address] [place] [address] Kristian Wiggins MD [address] [address] Scheduled Referrals Name Type Priority Associated Diagnoses Order Schedule Referral to Orthopaedics Outpatient Referral Urgent Injury of left ring finger, initial encounter Ordered: 06/26/2023 documented as of this encounter Visit Diagnoses Diagnosis Injury of left ring finger, initial encounter documented in this encounter Care Teams Voltmeter Operator Relationship Specialty Start Date End Date Anshu Barriga MD [address] [place] [address] PCP - General Family Medicine 06/26/23 documented as of this encounter
--- OUTSIDE RECORDS SUMMARY | 2024-01-17 01:59 | XMS_ITS | Encounter Summary ---
Author Organization [facility] Address [address] [place] [address] Care Team Providers Care Grinder Lap Name Role Phone Fabricio Long DO Primary Care Provider +1- [phone] Reason for Visit * Reason Comments Follow-up SNRA - pt states she had what she thinks might was a flare and everything hurt. She had stiffness as that time as well. Had a flow diverter done Saturday at [facility]. Encounter Details Date Type Department Care Team (Late st Contact Info) Description 07/18/2020 9:30 EDT Office Visit [facility] Rheumatology [address] [place] [phone] Edna Nava MD 130 [facility] [address] [place] [address] Seronegative rheumatoid arthritis (HCC-CMS) (Primary [...] Sign Reading Time Taken Comments Blood Pressure 95/59 07/18/2020937 EDT Pulse 75 07/18/2020937 EDT Temperature 36.7 ??C (98 ??F) 07/18/2020937 EDT Respiratory Rate - - Oxygen Saturation - - Inhaled Oxygen Concentration - - Weight 61.2 kg (135 lb) 07/18/2020937 EDT Height 162.6 cm (5' 4) 07/18/2020937 EDT Body Mass Index 23.17 07/18/2020937 EDT documented in this encounter Patient Instructions * Patient Instructions* Edna Nava MD - 07/18/2020 9:30 EDT Eye exam for Plaquenil monitoring Labs for next visit (will check to see what you've had prior to visit) documented in this encounter Progress Notes * Edna Nava MD - 07/18/2020929 EDT [facility] Rheumatology Chief Complaint Patient presents with ??? Follow-up SNRA - pt states she had what she thinks might was a flare and everything hurt. She had stiffness as that time as well. Had a flow diverter done Saturday at [facility]. HPI: Seronegative RA. Off prednisone since 04/2010. [...] were made at the last visit. Allie thought she was having aflare up -- says everything hurt. Says she felt sore and achy all over, and was very tired. Says she just wanted to lay down. Couldn't think why -- hadn't done anything out of the ordinary. Says itlasted a few days, and then resolved and has not recurred. I received a note of Dr Long, 06/07/20 -- Allie had coiling of cerebral aneurysm in [place] (July 15), also has a new dx of Parkinson's. Allie says she hasn't started carbidopa-levodopa yet sincegetting over the procedure last week for brain aneurysm. Allie denies any joint pain currently. Current Outpatient Medications Medication ??? amLODIPine (NORVASC) 10 mg tablet ??? aspirin 81 mg EC tablet ??? BRILINTA 90 mg tablet ??? carbidopa-levodopa (SINEMET) 25-100 mg per tablet ??? hydroCHLOROthiazide (HYDRODIURIL) 25 mg tablet ??? hydrOXYchloroQUINE (PLAQUENIL) 200 mg tablet ??? oxyCODONE (ROXICODONE) 5 mg immediate release tablet ??? PAIN RELIEF EXTRA STRENGTH 500 mg tablet ??? propRANolol (INDERAL) 20 mg tablet No current facility-administered medications for this visit. Allergies include: Oxycodone and Tramadol Patient Active Problem List Diagnosis ??? Seronegative rheumatoid arthritis (HCC-CMS) ??? Other chronic pain ??? History of SCC (squamous cell carcinoma) of skin ??? Status post right knee replacement Family History Problem Relation Age of Onset ??? Psoriasis Mother ??? Prostate Cancer Father ??? No Known Sister ??? No Known Brother ??? No Known Son ??? No Known Daughter Social History: Lives independently with spouse. Review of Systems: Review of Systems Constitutional: Negative for weight loss. Cardiovascular: BP has been running low since on new medications for the aneurysm repair. Eye exam, 07/27/19, Dr Mejia, no sign of HCQ toxicity Had two doses of Covid vaccine. Was seen in ED yesterday, [facility], for tachycardia. Had CT chest to r/o PE, EKG, etc, and was told allwas fine. Physical Examination: BP 95/59 (BP Cuff Location: Left arm, BP Cuff Sizes: Adult, regular) Pulse 75 Temp 36.7 ??C (98??F) Ht 162.6 cm (64) Wt 61.2 kg (135 lb) BMI 23.17 kg/m?? EYES: Conjunctivae not injected. NECK: No lymphadenopathy. LUNGS: Clear to auscultation bilaterally. CARDIOVASCULAR: Regular rate and rhythm. No murmur. No pedal edema. JOINT EXAM: No synovitis of the joints of the hands, wrists. Full painless ROM of shoulders, elbows, wrists, hips, knees and ankles. Right knee is replaced. SKIN: No rash on arms, legs. No nail pitting. No dilated capillary loops in the nail beds. Labs: No recent relevant labs. Assessment and Plan: 1. Seronegative rheumatoid arthritis (HCC-CMS) No joint complaints today. No synovitis noted on exam. Eye exam for Plaquenil monitoring is due. Regarding labs, Allie might have some labs done by another provider prior to her next visit, and wewill see if that is the case. Otherwise, I will want to order a CBC, CRP, and CMP. 2. Status post right knee replacement Doing very well. Follow-up in 6 months. Edna Nava MD 07/18/2020 9:55 documented in this encounter Plan of Treatment Upcoming Encounters Date Type Department Care Team (Late st Contact Info) Description 01/30/2024 10:30 EST Office Visit [facility] Rheumatology [address] [place], [place] [phone] Edna Nava MD 130 [facility] [address] [place] [address] documented as of this encounter Visit Diagnoses Diagnosis Seronegative rheumatoid arthritis (HCC-CMS)- Primary Rheumatoid arthritis Status post right knee replacement documented in this encounter Discontinued Medications Medication Sig Discontinue Reason Start Date End Da te celecoxib (CELEBREX) 200 mg capsule Take by mouth daily. Therapy completed 06/08/2019 07/18/2020 metoclopramide HCl (REGLAN) 10 mg tablet Take 10 mg by mouth 4 times daily as needed. Therapy completed 07/18/2020 documented as of this encounter Historical Medications * This list may reflect changes made after this encounter. Medication Sig Dispensed Refills Start Date End Date propRANolol (INDERAL) 20 mg tablet Take 1 Tablet by mouth 2 times daily. 05/07/2020 hydroCHLOROthiazide (HYDRODIURIL) 25 mg tablet TAKE ONE TABLET BY MOUTH EVERY MORNING 06/18/2020 carbidopa-levodopa (SINEMET) 25-100 mg per tablet 1 Tablet 3 times daily. 07/05/2020 PAIN RELIEF EXTRA STRENGTH 500 mg tablet TAKE TWO TABLETS BY MOUTH EVERY 8 HOURS NEEDED FOR PAIN 06/07/2020 docusate sodium (COLACE) 100 mg capsule Take 100 mg by mouth 2 times daily. 01/23/2021 senna (SENOKOT) 8.6 mg tablet Take 2 Tabs by mouth daily. 01/23/2021 BRILINTA 90 mg tablet Take 90 mg by mouth 2 times daily. 07/16/2020 01/23/2021 oxyCODONE (ROXICODONE) 5 mg immediate release tablet every 6 hours as needed. 07/16/2020 01/23/2021 aspirin 81 mg EC tablet Take 81 mg by mouth daily. 07/16/2020 08/02/2022 amLODIPine (NORVASC) 10 mg tablet Take 10 mg by mouth daily. 06/04/2020 01/23/2021 added in this encounter Care Teams Grinder Lap Relationship Specialty Start Date End Date Fabricio Long DO [address] [place] [address] PCP - General 11/10/14 01/30/22 documented as of this encounter
--- OUTSIDE RECORDS SUMMARY | 2024-01-17 01:59 | XMS_ITS | Encounter Summary ---
Author Organization [facility] [place] [address] Care Team Providers Care Drapery Hand Name Role Phone Unknown Primary Care Provider Unavailabl e Encounter Details Date Type Department Care Team (Late st Contact Info) Description 06/12/2023 Ancillary Procedure Radiology Library at [facility] [place] [address] Gary Burks MD [facility] [place] [address] Social History Tobacco Use Types Packs/Day Years [...] EDT Office Visit D[facility] at [place] [address] [facility] [place] [address] Kristian Wiggins MD [address] [facility] [place] [address] documented as of this encounter Procedures Procedure Name Priority Date/Time Associated Diagnosis Comments FILM LIBRARY STORAGE ONLY DX HAND Routine 06/12/2023 12:00 AM EDT documented in this encounter Results * Film Library- Storage Only DX Hand (06/12/2023 12:00 AM EDT) Narrative NILE - 06/25/2023 10:10 PM EDT This exam is auto-finalizing. It's purpose is for storage only. Gary Burks MD [employer] FILM LIBRARY ORD ERABLES Performing Organization Address City/State/[facility] Co de Phone Number NILE [place], [place] documented in this encounter Visit Diagnoses Not on filedocumented in this encounter Care Teams Drapery Hand Relationship Specialty Start Date End Date Unknown None PCP - General 01/23/22 06/25/23 documented as of this encounter
--- OUTSIDE RECORDS SUMMARY | 2024-01-17 01:59 | XMS_ITS | Encounter Summary ---
Author Organization [facility] [place] [address] Care Team Providers Care Cloth Bleaching Supervisor Name Role Phone Anshu Barriga MD Primary Care Provider [phone] Reason for Visit * Occupational Therapy ([facility]) - Authorized Specialty Diagnoses / Procedures Referred By Contact Referred To Contact Occupational Therapy Diagnoses Sagittal band rupture at metacarpophalangeal joint, initial encounter Rj Ojeda MD [facility] [place] [address] [facility] [address] [place] [address] Referral ID Status Reason Start Date Expiration Date Visits Requested Visits Authorized [id number] Authorized Evaluate and Treat 07/01/2023 06/30/2024 100 100 Encounter Details Date Type Department Care Team (Late st Contact Info) Description 08/29/2023 4:00 PM EDT Office Visit Occupational Therapy at [facility] [address] [place] [address] Mariluz Taveras OT Finger injury, [...] Initial Evaluation - Mariluz Taveras OT - 08/29/2023 4:00 PM EDT OCCUPATIONAL THERAPY INITIAL UPPER EXTREMITY EVALUATION Certification Period: 08/29/23 - 11/29/23 Referral Source: Dr. Rj Landeros MD Follow-up: saw Dr. Ojeda today 08/29/23, now PRN Total Treatment time: 40 Minutes Timed Code Treatment Time: 20 minutes History of Current Condition: Allie Bolaños is a 78 y.o. year old Right hand dominant person who [place] RF [place], approximately 1.5 months later she underwent left RF sagittal band repair on 07/08/23. Allie is referred to Occupational Therapy for evaluation and treatment. Patient presents today accompanied by . Pertinent History and/or Co-morbidities: 1. Finger injury, left, initial encounter Date of onset of symptoms: approximately 05/17/23, continued to have inability to move the RF so had follow up at which point she underwent surgery Date of surgery: 07/08/23 Protocol/precautions: Date: Restrictions 08/29/23 7 weeks s/p- discharge orthosis per MD; avoid tight gripping for one more week, then activity as tolerated. OCCUPATIONAL PROFILE: Vocational status: retired Avocational Activities: walk every day; some swimming; gardening; reading; take care of grand kids Disabilities of the Arm, Shoulder, and Hand (DASH): 08/22/2023 2:55 PM THE DISABILITIES OF THE ARM,SHOULDER AND HAND SCORE (DASH) 1. Open a tight or new jar Mild Difficulty 2. Write Mild difficulty 3. Turn a scott No difficulty 4. Prepare a meal No difficulty 5. Push open a heavy door Mild difficulty 6. Place an object on a shelf above your head Mild difficulty 7. Do heavy nursing service director (eg wash levin, wash floors) Mild difficulty 8. Garden or do yard work No difficulty 9. Make a bed No difficulty 10. Carry a shopping bag or briefcase No diffuculty 11. Carry a heavy object (over 10 lbs) Mild difficulty 12. Change a lightbulb overhead No dffficulty 13. Wash or blow dry your hair No difficulty 14. Wash your back No difficulty 15. Put on a pullover sweater Mild difficulty 16. Use a knife to cut food Mild difficulty 17. Recreational activities which require little effort (eg cardplaying, knitting, etc) Moderate difficulty 18. Recreational activities in which you take some force or impact through your arm, shoulder or hand (eg golf, hammering, tennis, etc) No difficulty 19. Recreational activities in which you move your arm freely (eg playing friTalking [place], [place], etc) Moderate difficulty 20. Manage transportation needs (getting from one place to another) No difficulty 21. Sexual activities Mild difficulty 22. During the past week, to what extent has your arm, shoulder or hand problem interfered with your normal social activities with family, friends, neighbours or groups? Not at all 23. During the past week, were you limited in your work or other regular daily activities as a result of your arm, shoulder or hand problem? Slightly limited 24. Arm, shoulder or hand pain Mild 25. Arm, shoulder or hand pain when you performed any specific activity Mild 26. Tingling (pins and needles) in your arm, shoulder or hand None 27. Weakness in your arm, shoulder or hand None 28. Stiffness in your arm, shoulder or hand Mild 29. During the past week, how much difficulty have you had sleeping because of the pain in your arm, shoulder or hand? No difficulty 30. I feel less capable, less confident or less useful because of my arm, shoulder or hand problem Strongly disagree 1. Work Technique Mild Difficulty 2. Usual Work Mild Difficulty 3. Work As Well Mild Difficulty 4. Spending your usual amount of time doing your work No Difficulty Sports/Performing Arts No DASH Score 14.17 DASH - Work Score 18.75 Standardized measurement of functional limitation related to an upper extremity disability, using 0-100 scale indicating percent of perceived functional impairment. Pain: (Assessed using the visual analog pain scale) At Rest: reports no particular discomfort in left RF, mild tension with light gripping Special Testing Completed: Sensation intact Edema mild around left RF sagittal band scar Scar healing well, mild density Wrist and digits AROM WNL Strength: NT on eval 08/29/23 at 7 weeks s/p d/t surgical precautions Treatment Today: Evaluation LOW Complexity (17599) Therex: Strength/Endurance/ROM (49306) 20 min Educated patient in etiology and biomechanics as related to the patient's symptoms Paraffin bath (61386) treatment applied x 10 minutes for soft tissue and joint heating prior to treatment activities followed by scar massage. Provided with home exercise program to include: 3x/day: -Heat first -Scar massage 1x/day: -Active tendon gliding -Gentle gripping with supersoft cat theraputty Sleeping: -Silicone gell pad on scar under size small full finger compression glove See scanned documents Instructed in home modalities to include: Moist heat and Compression garment use ASSESSMENT: Allie has mild scar density and mild weakness after left RF sagittal band repair causing functional deficits in ADL/IADL performance. Please see above, PSFS and DASH for specific functional deficits. Allie Bolaños is able to demonstrate home exercises with written instructions provided. Allei has identified needs for skilled therapy to address deficits noted during evaluation to maximize functional performance. Allie Bolaños has good potential for gains with home program and will reach out if she has any questions. Global Mental Function: With gross screening of patient's global mental functions, patient demonstrates orientation to person, place, time, and situation. Patient's affect/behavior is appropriate andcooperative today. Short Term Goals (to be met by end of visit): Date Goal Met: Allie Bolaños will be independent with home exercise program with written instructions. Goal Status: Meets PLAN: No further OT needed at this time; Allie Bolaños has good potential for gains with home program and will reach out if she has any questions. HEP Updated. [] Below image(s) imported into Chart Review - Media tab. Home Exercises were given to patient via [employer]: [x] Printed [] Emailed to patient's email: [email or web address] [] Emailed to other email: [] Texted to patient's mobile ph. No scans are attached to the encounter. (X) Allie Harkins Miky participated in the evaluation, collaborated on treatment goals, and agrees to the treatment plan. documented in this encounter Plan of Treatment Upcoming Encounters Date Type Department Care Team (Late st Contact Info) Description 07/14/2024 8:45 AM EDT Office Visit Dermatology at [place] [address] [facility] [place] [address] Kristian Wiggins MD [address], [address] [address] documented as of this encounter Procedures Procedure Name Priority Date/Time Associated Diagnosis Comments OT PLAN OF CARE CERT/RE-CERT Routine 08/29/2023 4:46 PM EDT Finger injury, left, initial encounter documented in this encounter Visit Diagnoses Diagnosis Finger injury, left, initial encounter documented in this encounter Care Teams Cloth Bleaching Supervisor Relationship Specialty Start Date End Date Anshu Barriga MD [address] [place] [address] PCP - General Family Medicine 06/26/23 documented as of this encounter
--- OUTSIDE RECORDS SUMMARY | 2024-01-17 02:00 | XMS_ITS | Continuity of Care Document ---
Author Organization [facility] Address [address] [place] [address] Care Team Providers Care Recruiting Associate Name Role Phone Ford Barriga Primary Care Physician Encounter [facility] Date(s): 05/29/23 - 05/29/[address] [phone] Discharge Disposition: Home or Self Care Attending Physician: Trevin Mohr MD Admitting Physician: Trevin Mohr MD Referring Physician: Trevin Mohr MD Allergies, Adverse Reactions, Alerts Substance Reaction Severity Status traMADol Nausea Moderate Active Assessment and Plan Extracted from: Title:H & P Author:Trevin Mohr Date:05/29/23 Ordered: Dextrose 5% in Lactated Ringers Injection 500 mL, Total Volume (mL): 500, 500 mL, Soln-IV, IV, 30 mL/hr, Start Date: 05/29/23 7:05:00 EDT, Populate Charting Weight From Order Valium, 2.5 mg = 0.5 mL, IV Push, Soln, every 2 min for 10 times, PRN sedation, First Dose: 05/29/23 7:10:00 EDT, Stop Date: Limited # of times, Physician Stop, Routine Valium, 5 mg = 1 mL, IV Push, Soln, every 2 min for 10 times, PRN sedation, First Dose: 05/29/23 7:10:00 EDT, Stop Date: Limited # of times, Physician Stop, Routine Valium, 7.5 mg = 1.5 mL, IV Push, Soln, every 2 min for 10 times, PRN sedation, First Dose: 05/29/23 7:10:00 EDT, Stop Date: Limited # of times, Physician Stop, Routine Valium, 10 mg = 2 mL, IV Push, Soln, every 2 min for 10 times, PRN sedation, First Dose: 05/29/23 7:10:00 EDT, Stop Date: Limited # of times, Physician Stop, Routine fentaNYL, 25 mcg = 0.5 mL, IV Push, Soln, every 2 min for 12 times, PRN sedation, First Dose: 05/29/23 7:10:00 EDT, Stop Date: Limited # of times, Physician Stop, Routine fentaNYL, 50 mcg = 1 mL, IV Push, Soln, every 2 min for 12 times, PRN sedation, First Dose: 05/29/23 7:10:00 EDT, Stop Date: Limited # of times, Physician Stop, Routine fentaNYL, 75 mcg = 1.5 mL, IV Push, Soln, every 2 min for 12 times, PRN sedation, First Dose: 05/29/23 7:10:00 EDT, Stop Date: Limited # of times, Physician Stop, Routine fentaNYL, 100 mcg = 2 mL, IV Push, Soln, every 2 min for 12 times, PRN sedation, First Dose: 05/29/23 7:10:00 EDT, Stop Date: Limited # of times, Physician Stop, Routine flumazenil, 0.2 mg = 2 mL, IV Push, Soln, As Directed for 10 times, PRN sedation, Administer over: 15 seconds, First Dose: 05/29/23 7:10:00 EDT, Stop Date: Limited # of times, Physician Stop, Routine lidocaine 1% injectable solution, 1 mg 0.1 mL, Intradermal, Soln, As Directed, PRN other (see comment), First Dose: 05/29/23 7:05:00 EDT, Routine Versed, 1 mg = 1 mL, IV Push, Soln, every 2 min for 10 times, PRN sedation, First Dose: 05/29/23 7:10:00 EDT, Stop Date: Limited # of times, Physician Stop, Routine Versed, 2 mg = 2 mL, IV Push, Soln, every 2 min for 10 times, PRN sedation, First Dose: 05/29/23 7:10:00 EDT, Stop Date: Limited # of times, Physician Stop, Routine Versed, 3 mg = 3 mL, IV Push, Soln, every 2 min for 10 times, PRN sedation, First Dose: 05/29/23 7:10:00 EDT, Stop Date: Limited # of times, Physician Stop, Routine Versed, 4 mg = 4 mL, IV Push, Soln, every 2 min for 10 times, PRN sedation, First Dose: 05/29/23 7:10:00 EDT, Stop Date: Limited # of times, Physician Stop, Routine naloxone, 0.08 mg = 0.2 mL, IV Push, Soln, every 2 min for 10 times, PRN sedation, First Dose: 05/29/23 7:10:00 EDT, Stop Date: Limited # of times, Physician Stop, Routine NPO, 05/29/23 7:05:00 EDT, Constant Indicator Obtain Surgical Consent, 05/29/23 7:05:00 EDT, Colonoscopy Peripheral IV Insertion, 05/29/23 7:05:00 EDT Proceed with??screening colonoscopy.?? Procedure, indications and risks discussed. ??Consent signed and on the chart. Functional Status 05/29/23 ADLs Independent Recent Travel History No recent travel Other exposure to Infectious Disease Non e 05/22/23 Living Situation Home independently Medications acetaminophen 500 mg oral tablet 0 Refill(s) Start Date: 03/05/23 Status: Ordered carbidopa-levodopa 25 mg-100 mg oral tablet 0 Refill(s) Start Date: 03/05/23 Status: Ordered cholecalciferol 0 Refill(s) Start Date: 03/05/23 Status: Ordered cyanocobalamin 0 Refill(s) Start Date: 03/05/23 Status: Ordered hydroCHLOROthiazide 25 mg oral tablet 0 Refill(s) Start Date: 03/05/23 Status: Ordered hydroxychloroquine 0 Refill(s) Start Date: 03/05/23 Status: Ordered losartan 25 mg oral tablet 0 Refill(s) Start Date: 03/05/23 Status: Ordered propranolol 20 mg oral tablet 0 Refill(s) Start Date: 03/05/23 Status: Ordered Problem List Condition Confirmation Course Effective Dates Status H ealth Status Informant Gait disturbance Confirmed Active Essential hypertension Confirmed Active Essential tremor Confirmed Active Fatigue Confirmed Active Inflammatory polyarthritis Confirmed Active Cerebral aneurysm Confirmed Active Right lumbar radiculopathy Confirmed Active Chronic migraine without aura Confirmed Active Parkinson's disease Confirmed Active Procedures Procedure Date Related Diagnosis Body Site Status Cholecystectomy 11/01/14 Completed Colonoscopy 10/21/11 Completed Back 1 Completed Carpal tunnel Completed History of right total knee replacement 2 Completed Oophorectomy Completed Tonsillectomy and adenoidectomy Completed 1H/O 64935 Vital Signs Most recent to oldest [Reference Range]: 1 2 3 Temperature Temporal Artery [36-38 Deg C] 35.9 Deg C *LOW* (05/29/23 8:57 AM) 36.0 Deg C (05/29/23 8:23 AM) 36.6 Deg C (05/29/23 7:05 AM) Temperature Temporal Artery (DegF) [97.3-100 Deg F] 96.62 Deg F *LOW* (05/29/23 8:57 AM) Peripheral Pulse Rate [60-100 bpm] 79 bpm (05/29/23 8:57 AM) 77 bpm (05/29/23 8:45 AM) 74 bpm (05/29/23 8:35 AM) Heart Rate Monitored [60-100 bpm] 83 bpm (05/29/23 8:57 AM) 78 bpm (05/29/23 8:45 AM) 74 bpm (05/29/23 8:35 AM) Respiratory Rate [12-24 br/min] 16 br/min (05/29/23 8:57 AM) 14 br/min (05/29/23 8:45 AM) 15 br/min (05/29/23 8:35 AM) Blood Pressure [90-140/60-90 mmHg] 115/75mmHg (05/29/23 8:57 AM) 103/70mmHg (05/29/23 8:45 AM) 101/72mmHg (05/29/23 8:35 AM) Mean Arterial Pressure, Cuff [65-140 mmHg] 88 mmHg (05/29/23 8:57 AM) 81 mmHg (05/29/23 8:45 AM) 82 mmHg (05/29/23 8:35 AM) Mean Arterial Pressure Cuff 108 mmHg (05/29/23 7:05 AM) Blood Pressure Location Right arm (05/29/23 7:05 AM) Weight 63.3 kg (05/29/23 7:05 AM) Weight Dosing 63.300 kg (05/29/23 7:05 AM) Height 163 cm (05/29/23 7:05 AM) Body Mass Index 23.82 kg/m2 (05/29/23 7:05 AM) Social History Social History Type Response Tobacco Never tobacco user T obacco Use:. Sex Female Hospital Discharge Instructions Patient Education 05/29/2023 07:34:07 ss colonoscopy discharge instructions (CUSTOM) COLONOSCOPY / SIGMOIDOSCOPY Following day: Return to full activity, including work. Diet: Eat and drink normally, unless instructed otherwise. Treatment for common after affects: Mild abdominal pain, bloating, or excessive gas: Rest, eat lightly and use a heating pad. Symptoms to watch for and report to your physician: SEVERE abdominal pain or bloating. Fever within 24 hours after procedure. A large amount of rectal bleeding. (A small amount of blood from the rectum is not serious, especially if hemorrhoids are present.) If a polyp has been removed- for the next seven days: Do not take aspirin. If you did NOT stop taking aspirin before your procedure, continue taking it even if you???ve had a polyp removed. If bright red rectal bleeding occurs, call your physician. If you have had a Colonoscopy: Do not attempt to drive a vehicle or operate power equipment of any kind for at least 24 hours after discharge from the hospital. Do not consume alcoholic beverages or other mood-altering drugs on the day of surgery. Mild irritation at needle site: Apply warm, moist pack to area for 20 minutes four times a day for 2-3 days. Call physician if persistent redness and/or drainage at needle site. In the event of any problems after surgery, do not hesitate to contact your doctor, [facility] , or the Emergency Room at [phone]. Diagnosis: Diverticulosis Doctor: Shelia Follow Up Appointment: There were no polyps seen today. Only some diverticuli. The patient does notneed a regularly scheduled follow-up colonoscopy. Discharge instructions * Jenna Ramírez: PERFORM Event Display: Discharge Instructions Authored Date: [id number] LEAH VASQUEZ :1945 Age:77 years Sex:Female Visit Date:05/29/2023 Primary Care Physician: Ford Barriga MD Hospital Discharge Instructions We would like to thank you for allowing us to assist you with your healthcare needs. The following includes patient education materials and information regarding your injury/illness. Your Next Steps Discharge Orders Discharge Patient Instructions, Rest today. Resume diet and activities as tolerated. Medications What When Instructions Next Dose Unchanged acetaminophen (acetaminophen 500 mg oral tablet) Unchanged carbidopa-levodopa (carbidopa-levodopa 25 mg-100 mg oral tablet) Unchanged cholecalciferol Unchanged cyanocobalamin Unchanged hydroCHLOROthiazide (hydroCHLOROthiazide 25 mg oral tablet) Unchanged hydroxychloroquine Unchanged losartan (losartan 25 mg oral tablet) Unchanged propranolol (propranolol 20 mg oral tablet) Your Summary Your Care Team Admitting Physician - Trevin Mohr MD Attending Physician - Trevin Mohr MD Primary Care Physician - Ford Barriga MD Referring Physician - Shelia GORDILLO, Trevin Hoang MD Education Materials COLONOSCOPY / SIGMOIDOSCOPY ? Following day: Return to full activity, including work. Diet: Eat and drink normally, unless instructed otherwise. ? Treatment for common after affects: Mild abdominal pain, bloating, or excessive gas: Rest, eat lightly and use a heating pad. ? Symptoms to watch for and report to your physician: SEVERE abdominal pain or bloating. ? Fever within 24 hours after procedure. ? A large amount of rectal bleeding. (A small amount of blood from the rectum is not serious, especially if hemorrhoids are present.) ? If a polyp has been removed- for the next seven days: Do not take aspirin. If you did NOT stop taking aspirin before your procedure, continue taking it even if you???ve had a polyp removed. ? If bright red rectal bleeding occurs, call your physician. ? If you have had a Colonoscopy: Do not attempt to drive a vehicle or operate power equipment of any kind for at least 24 hours after discharge from the hospital. ? Do not consume alcoholic beverages or other mood-altering drugs on the day of surgery. ? Mild irritation at needle site: Apply warm, moist pack to area for 20 minutes four times a day for 2-3 days. ? Call physician if persistent redness and/or drainage at needle site. ? In the event of any problems after surgery, do not hesitate to contact your doctor, [facility] , or the Emergency Room at [phone]. Diagnosis: Diverticulosis Doctor: Shelia Follow Up Appointment: There were no polyps seen today. Only some diverticuli. The patient does notneed a regularly scheduled follow-up colonoscopy. Patient/Tool Mechanic Signature Patient Name:LEAH VASQUEZ I have received this information and my questions have been answered. Patient/Tool Mechanic Name: Patient/Tool Mechanic Signature: Relationship to Patient: Witness Name/Signature: Date: Electronically Signed on: 05/29/2023 08:34 EDTSigned by:AMD History and physical note * Shelia GORDILLO, Trevin Hoang MD: PERFORM Event Display: History and Physical Authored Date: [id number] CHRISTINALEAH WILDE :1945 Age:77 years Sex:Female Visit Date:05/29/2023 Primary Care Physician: Ford Barriga MD History of Present Illness 77-year-old female seen for??follow-up colonoscopy.?? She has had??polyps before, her last scope was 12 years ago. ??Family history is negative.?? She is asymptomatic. Review of Systems No history of chest pain, pressure, previous MS.?? No current cough or sputum production. ??No abdominal pain or rectal bleeding. Physical Exam Vitals & Measurements T:??36.6?C ??(Temporal Artery)?? HR:??83??(Peripheral)?? RR:??17?? SpO2:??100%?? HT:??163??cm??WT:??63.3??kg?? BMI:??23.82?? O2 Therapy:??Room air?? Skin is warm and dry, neck is supple without cervical adenopathy.?? Lungs clear, heart regular without murmurs. ??Abdomen soft. Assessment/Plan Ordered: Dextrose 5% in Lactated Ringers Injection 500 mL, Total Volume (mL): 500, 500 mL, Soln-IV, IV, 30 mL/hr, Start Date: 05/29/23 7:05:00 EDT, Populate Charting Weight From Order Valium, 2.5 mg = 0.5 mL, IV Push, Soln, every 2 min for 10 times, PRN sedation, First Dose: 05/29/23 7:10:00 EDT, Stop Date: Limited # of times, Physician Stop, Routine Valium, 5 mg = 1 mL, IV Push, Soln, every 2 min for 10 times, PRN sedation, First Dose: 05/29/23 7:10:00 EDT, Stop Date: Limited # of times, Physician Stop, Routine Valium, 7.5 mg = 1.5 mL, IV Push, Soln, every 2 min for 10 times, PRN sedation, First Dose: 05/29/23 7:10:00 EDT, Stop Date: Limited # of times, Physician Stop, Routine Valium, 10 mg = 2 mL, IV Push, Soln, every 2 min for 10 times, PRN sedation, First Dose: 05/29/23 7:10:00 EDT, Stop Date: Limited # of times, Physician Stop, Routine fentaNYL, 25 mcg = 0.5 mL, IV Push, Soln, every 2 min for 12 times, PRN sedation, First Dose: 05/29/23 7:10:00 EDT, Stop Date: Limited # of times, Physician Stop, Routine fentaNYL, 50 mcg = 1 mL, IV Push, Soln, every 2 min for 12 times, PRN sedation, First Dose: 05/29/23 7:10:00 EDT, Stop Date: Limited # of times, Physician Stop, Routine fentaNYL, 75 mcg = 1.5 mL, IV Push, Soln, every 2 min for 12 times, PRN sedation, First Dose: 05/29/23 7:10:00 EDT, Stop Date: Limited # of times, Physician Stop, Routine fentaNYL, 100 mcg = 2 mL, IV Push, Soln, every 2 min for 12 times, PRN sedation, First Dose: 05/29/23 7:10:00 EDT, Stop Date: Limited # of times, Physician Stop, Routine flumazenil, 0.2 mg = 2 mL, IV Push, Soln, As Directed for 10 times, PRN sedation, Administer over: 15 seconds, First Dose: 05/29/23 7:10:00 EDT, Stop Date: Limited # of times, Physician Stop, Routine lidocaine 1% injectable solution, 1 mg 0.1 mL, Intradermal, Soln, As Directed, PRN other (see comment), First Dose: 05/29/23 7:05:00 EDT, Routine Versed, 1 mg = 1 mL, IV Push, Soln, every 2 min for 10 times, PRN sedation, First Dose: 05/29/23 7:10:00 EDT, Stop Date: Limited # of times, Physician Stop, Routine Versed, 2 mg = 2 mL, IV Push, Soln, every 2 min for 10 times, PRN sedation, First Dose: 05/29/23 7:10:00 EDT, Stop Date: Limited # of times, Physician Stop, Routine Versed, 3 mg = 3 mL, IV Push, Soln, every 2 min for 10 times, PRN sedation, First Dose: 05/29/23 7:10:00 EDT, Stop Date: Limited # of times, Physician Stop, Routine Versed, 4 mg = 4 mL, IV Push, Soln, every 2 min for 10 times, PRN sedation, First Dose: 05/29/23 7:10:00 EDT, Stop Date: Limited # of times, Physician Stop, Routine naloxone, 0.08 mg = 0.2 mL, IV Push, Soln, every 2 min for 10 times, PRN sedation, First Dose: 05/29/23 7:10:00 EDT, Stop Date: Limited # of times, Physician Stop, Routine NPO, 05/29/23 7:05:00 EDT, Constant Indicator Obtain Surgical Consent, 05/29/23 7:05:00 EDT, Colonoscopy Peripheral IV Insertion, 05/29/23 7:05:00 EDT Proceed with??screening colonoscopy.?? Procedure, indications and risks discussed. ??Consent signedand on the chart. Problem List/Past Medical History Ongoing Cerebral aneurysm Chronic migraine without aura Essential hypertension Essential tremor Fatigue Gait disturbance Inflammatory polyarthritis Parkinson's disease Right lumbar radiculopathy Historical No qualifying data Procedure/Surgical History ???Cholecystectomy (11/02/2014)???Colonoscopy (10/22/2011)???Back???Carpal tunnel???History of right total knee replacement???Oophorectomy???Tonsillectomy and adenoidectomy Medications Inpatient Dextrose 5% in Lactated Ringers Injection 500 mL, 500 mL, IV fentaNYL, 25 mcg= 0.5 mL, IV Push, every 2 min, PRN fentaNYL, 50 mcg= 1 mL, IV Push, every 2 min, PRN fentaNYL, 75 mcg= 1.5 mL, IV Push, every 2 min, PRN fentaNYL, 100 mcg= 2 mL, IV Push, every 2 min, PRN flumazenil, 0.2 mg= 2 mL, IV Push, As Directed, PRN lidocaine 1% injectable solution, 1 mg= 0.1 mL, Intradermal, As Directed, PRN naloxone, 0.08 mg= 0.2 mL, IV Push, every 2 min, PRN Valium, 2.5 mg= 0.5 mL, IV Push, every 2 min, PRN Valium, 5 mg= 1 mL, IV Push, every 2 min, PRN Valium, 7.5 mg= 1.5 mL, IV Push, every 2 min, PRN Valium, 10 mg= 2 mL, IV Push, every 2 min, PRN Versed, 1 mg= 1 mL, IV Push, every 2 min, PRN Versed, 2 mg= 2 mL, IV Push, every 2 min, PRN Versed, 3 mg= 3 mL, IV Push, every 2 min, PRN Versed, 4 mg= 4 mL, IV Push, every 2 min, PRN Home acetaminophen 500 mg oral tablet carbidopa-levodopa 25 mg-100 mg oral tablet cholecalciferol cyanocobalamin hydroCHLOROthiazide 25 mg oral tablet hydroxychloroquine losartan 25 mg oral tablet propranolol 20 mg oral tablet Allergies traMADol??(Nausea) Social History Alcohol Current, Wine, 1-2 times per month Electronic Cigarette/Vaping Electronic Cigarette Use: Never. Substance Use Never Tobacco Never tobacco user Tobacco Use:. Family History Cancer: Sister. Hypertension: Mother. Stroke: Father. Electronically Signed on 05/29/23 07:52 AM [facility] Patient Care team information Care Team Personnel Name: Ford Barriga MD Position: No Access Member Role: Informed Provider Address: Address: [address] [place] [id number] Name: Anshu Barriga MD Position: No Access Member Role: Family Medicine Address: Address: [id number] [place] [address] Care Team Related Persons Name: NIMA VASQUEZ
--- OUTSIDE RECORDS SUMMARY | 2024-01-17 02:00 | XMS_ITS | Encounter Summary ---
[place] [address] Care Team Providers Care Estimator Name Role Phone Kyle Rodriguez MD Primary Care Provider [phone] Reason for Visit * Reason Comments Follow-up Encounter Details Date Type Department Care Team (Late st Contact Info) Description 07/04/2021 3:30 PM EDT Office Visit Dermatology at [address] [id number] Kristian Wiggins MD [address] [facility], [facility] [place] [address] History of SCC (squamous cell carcinoma) of [...] Progress Notes * Kristian Wiggins MD - 07/04/2021 3:30 PM EDT Problem: 1. ??Follow-up actinic keratoses status post imiquimod cream therapy bilateral cheeks and central forehead 2. 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 Allie follows up and completed a course of imiquimod therapy for her bilateral upper cheeks, medially, and upper forehead. Her last application was just before her last visit on May 30 of this year. Physical examination reveals some mild residual erythema at the treatment sites but excellent resolution of the actinic keratoses that were present there previously her face is now clear. Assessment and plan: Actinic keratosis, now resolved following 3 weeks of imiquimod cream therapy 1. Patient congratulated on good results 2. No further treatment necessary 3. Return to clinic in 1 year for repeat check. CC: Kyle Rodriguez MD ?? documented in this encounter Plan of Treatment Upcoming Encounters Date Type Department Care Team (Late st Contact Info) Description 07/14/2024 8:45 AM EDT Office Visit Dermatology at [address] [phone] Kristian Wiggins MD [address] [facility], [place] [address] documented as of this encounter Visit Diagnoses Diagnosis History of SCC (squamous cell carcinoma) of skin Personal history of other malignant neoplasm of skin [place] (actinic keratosis) Actinic keratosis documented in this encounter Care Teams Estimator Relationship Specialty Start Date End Date Kyle Rodriguez MD PCP - General Family Medicine 07/04/21 01/22/22 documented as of this encounter
--- OUTSIDE RECORDS SUMMARY | 2024-01-17 02:00 | XMS_ITS | Encounter Summary ---
Author Organization [facility] Address [facility] [address] Care Team Providers Care Charging Plug Placer Name Role Phone Fabricio Long DO Primary Care Provider [phone] Reason for Visit * Auth/Cert Specialty Diagnoses / Procedures Referred By Warren t Referred To Contact Diagnoses SPONDYLOSIS, STENOSIS Procedures PRO LAMINEC/FACETECT/FORAMIN, LUMBAR 1 SEG PRO LAMINEC/FACETECT/FORAMIN, EACH ADDNL LAMINECTOMY, FACETECTOMY & FORAMINOTOMY,LUMBAR, ONE LEVEL (WRVU 15.37) ADD'L INTERSPACES CX., THORACIC, LUMBAR (WRVU 3.47) Referral ID Status Reason Start Date Expiration Date Visits Re quested Visits Authorized [id number] 1 1 Encounter Details Date Type Department Care Team (Late st Contact Info) Description 06/02/2019 7:29 AM EDT Anesthesia [place] [phone] Samm Medel, UNDERCOVER COP [address] [place] [address] Anesthesia Record Procedure Summary Procedure Name Responsible Anesthesiologist Anesthesia Start Time Anesthesia Stop Time LAMINECTOMY, FACETECTOMY & FORAMINOTOMY,LUMBAR, ONE LEVEL (WRVU 15.37) (Spine Lumbar) Smam Medel, UNDERCOVER COP 06/02/19 0729 06/02/19 0905 Events Date Time Event Comment 06/02/2019 0725 0729 AN Verify 0729 Start 0729 An Start Data 0733 An Induction 0734 An Intubation 0734 Anesthesia Ready 0754 Procedure Start 0901 Extubation/LMA Out 0901 an stop data 0901 Recovery or ICU Handoff Milka ent care was transferred to the destination unit staff after review of the patient's medical history, current anesthetic/surgical status and plan, according to the Provider Handoff Checklist. 0905 Stop Meds Name Total Midazolam 2 mg fentaNYL 200 mcg IV Lidocaine 50 mg Propofol 150 mg Rocuronium 25 mg Ondansetron 4 mg Dexamethasone 10 mg ePHEDrine 10 mg ceFAZolin (Ancef) 2g in dextrose 5% 100 mL 2 g lactated ringers infusion 0 mL * Agents Name O2 Air N2O Sevoflurane (et) * Blood No blood administrations on file. Lines, Drains, and Airways Type Details Placement Removal (RETIRED) Peripheral IV Line - Single Lumen 06/02/19; 0640; cephalic vein (lateral side of arm), right; [id number] catheter system; 20 gauge; distraction; 06/02/19; 1100 06/02/19 0640 by Jessica Baca RN 06/02/19 1100 by Nisa Loredo RN ETT Mask Ventilation: Ea sy (1); ETT Type: Cuffed, Oral; ETT Size: 7.5 mm; Mac Blade: 4; Notes: Asleep, Pre-O2; Attempts: 1; Laryngoscopy Grade: 1; ETT Placement Verified By: Auscultation, Capnometry, Visual; Secured at Teeth: 23 cm; Removal Date: 06/02/19; Removal Time: 0906/02/19 0734 by Samm Medel UNDERCOVER COP 06/02/19 09 by Samm Medel, UNDERCOVER COP Incision 06/02/19; 0750; lumb ar spine; 11/13/21 (LDA cleanup utility RA#[id number]); 1715 (LDA cleanup utility RA#[id number]) 06/02/19 0750 by Edwin Patel RN 11/13/21 1715 by Boyce, Dierdre L documented in this encounter Social History Tobacco [...] OR Notes * Anesthesia Postprocedure Evaluation - Samm Medel CRNA - 06/02/2019 9:05 AM EDT Department of Anesthesiology Post-procedure Note Patient: Allie Bolaños Procedure Summary Date: 06/02/19 Room / Location: [facility] OR MAIN OR Anesthesia Start: 728 Anesthesia Stop: 904 Procedures: LAMINECTOMY, FACETECTOMY & FORAMINOTOMY,LUMBAR, ONE LEVEL (WRVU 15.37) (N/A Spine Lumbar) ADD'L INTERSPACES CX., THORACIC, LUMBAR (WRVU 3.47) (N/A Spine Lumbar) Diagnosis: (SPONDYLOSIS, STENOSIS) Surgeon: Rick Hawk MD Responsible Provider: Samm Medel CRNA Anesthesia Type: general ASA Status: 2 All Anesthesia Providers: BOBY Independent: Samm Medel CRNA Vitals Value Taken Time BP Temp Pulse Resp SpO2 Pain Level Patient Location: PACU Level of Consciousness: Conscious but Sleepy Pain Management: Satisfactory Analgesia PONV: None Cardiovascular Status: At Baseline Respiratory Status: Supplemental O2 (NC or FM) Postoperative Fluid Status: Intravascular EUvolemia Possible Anesthetic Complications: NONE apparent at time of evaluation Final Primary Anesthesia Type: General (The anesthetic type performed was the same as planned.) Comments: VSS report and care to RN * Anesthesia Preprocedure Evaluation - Samm Medel CRNA - 06/02/2019 7:16 AM EDT Images from the original note were not included. Pre-Anesthesia Evaluation for: Allie Bolaños a 73 y.o. female. Procedure(s): LAMINECTOMY, FACETECTOMY & FORAMINOTOMY,LUMBAR, ONE LEVEL (WRVU 15.37) ADD'L INTERSPACES CX., THORACIC, LUMBAR (WRVU 3.47) Patient Active Problem List Diagnosis ??? AK (actinic keratosis) ??? History of SCC (squamous cell carcinoma) of skin ??? Actinic keratosis Past Medical History: Diagnosis Date ??? Cancer SCCA OF SKIN ??? Mental health problem ANXIETY ??? Migraine Past Surgical History: Procedure Laterality Date ??? CARPAL TUNNEL RELEASE Right ~2010 ??? CHOLECYSTECTOMY ?2016 ??? COLONOSCOPY ??? CYST REMOVAL Bilateral BEHIND EAR ??? CYST REMOVAL GANGLION CYST EXCISION ??? OVARIAN CYST SURGERY 1972 ??? TONSILLECTOMY Social History Tobacco Use ??? Smoking status: Never Smoker ??? Smokeless tobacco: Never Used Substance Use Topics ??? Alcohol use: Yes Comment: RARE Social History Substance and Sexual Activity Drug Use Never No Known Allergies Medications: MAR and/or home medications have been reviewed. Physical Exam: Most Recent Vitals: 06/02/19 0632 BP: 162/80 Pulse: 84 Resp: 18 Temp: 36.2 ??C (97.2 ??F) SpO2: 99% Body mass index is 24.8 kg/m??. Height: 160 cm (5' 3) Weight: 63.5 kg (140 lb) Airway Assessment: Mallampati: II TM distance: >3 FB Neck ROM: full Cardiovascular Assessment: Rhythm: regular Rate: normal Pulmonary Assessment: breath sounds clear to auscultation Dental Assessment: Misc Assessment: Patient is wearing No contact(s). Anesthesia Plan: ASA 2 general, with a(n) intravenous induction Informed Consent: Anesthetic plan and risks discussed with patient. Use of blood products discussed with patient who consented to blood products. PAT Clinic Note documented in this encounter Plan of Treatment Upcoming Encounters Date Type Department Care Team (Late st Contact Info) Description 07/14/2024 8:45 AM EDT Office Visit Dermatology at [place] [address] [facility] [place] [phone] Kristian Wiggins MD [address] [facility], [place] [address] documented as of this encounter Visit Diagnoses Not on filedocumented in this encounter Administered Medications Inactive Administered Medications - up to 3 most recent administrations Medication Order MAR Action Action Date Dose Rate Site ceFAZolin (Ancef) 2g in dextrose 5% 100 mL 2 g, Intravenous, ONCE, 1 dose, On Sat06/02/19 at 0645, Administer over 30 Minutes, To be administered upon arrival to the OR within one hour prior to incision., Day of Surgery (Day of Procedure), Indication for (Active or Suspected): Prophylaxis Given 06/02/2019 7:34 AM EDT 2 g dexamethasone (DECADRON) injection PRN, Starting on Sat06/02/19 at 0741, Until Sat06/02/19 at 0905, Anesthesia Intra-op, Routine Given 06/02/2019 7:41 AM EDT 10 mg ePHEDrine injection PRN, Starting on Sat06/02/19 at 0756, Until Sat06/02/19 at 0905, Anesthesia Intra-op, Routine Given 06/02/2019 7:56 AM EDT 10 mg fentaNYL 50 mcg/mL multi-dose injection PRN, Starting on Sat06/02/19 at 0733, Until Sat06/02/19 at 0905, Anesthesia Intra-op, Routine Given 06/02/2019 8:43 AM EDT 100 mcg Given 06/02/2019 7:33 AM EDT 100 mcg lactated ringers infusion 1,000 mL, at 50 mL/hr, Intravenous, CONTINUOUS, Starting on Sat06/02/19 at 0730, Until Sat06/02/19 at 1113, Day of Surgery (Day of Procedure) New Bag 06/02/2019 9:50 AM EDT 1,000 mLs 50 mL/hr New Bag 06/02/2019 7:29 AM EDT lidocaine (PF) (XYLOCAINE) 100 mg/5 mL (2 %) injection PRN, Starting on Sat06/02/19 at 0733, Until Sat06/02/19 at 0905, Anesthesia Intra-op, Routine Given 06/02/2019 7:33 AM EDT 50 mg midazolam (PF) (VERSED) multi-dose injection PRN, Starting on Sat06/02/19 at 0729, Until Sat06/02/19 at 0905, Anesthesia Intra-op, Routine Given 06/02/2019 7:29 AM EDT 2 mg ondansetron (ZOFRAN) injection PRN, Starting on Sat06/02/19 at 0741, Until Sat06/02/19 at 0905, Anesthesia Intra-op, Routine Given 06/02/2019 7:41 AM EDT 4 mg propofol (DIPRIVAN) 10 mg/mL bolus injection (Anesthesia) PRN, Starting on Sat06/02/19 at 0733, Until Sat06/02/19 at 0905, Anesthesia Intra-op Given 06/02/2019 7:33 AM EDT 150 mg rocuronium (Zemuron) 10 mg/mL injection PRN, Starting on Sat06/02/19 at 0733, Until Sat06/02/19 at 0905, Anesthesia Intra-op, Routine Given 06/02/2019 7:33 AM EDT 25 mg documented in this encounter Care Teams Charging Plug Placer Relationship Specialty Start Date End Date Fabricio Long DO [address] [place] [address] PCP - General 02/07/10 07/03/21 documented as of this encounter
--- OUTSIDE RECORDS SUMMARY | 2024-01-17 02:00 | XMS_ITS | Encounter Summary ---
[place] [address] Care Team Providers Care Dependency Program Director Name Role Phone Fabricio Long DO Primary Care Provider [phone] Reason for Visit * Reason Comments Follow-up Encounter Details Date Type Department Care Team (Late st Contact Info) Description 05/30/2021 2:30 PM EDT Office Visit Dermatology at [address] [phone] Kristian Wiggins MD [address] [facility] [place] [address] AK (actinic keratosis); History of SCC (squamous cell carcinoma) of skin Social History Tobacco Use Types Packs/Day Years [...] Progress Notes * Kristian Wiggins MD - 05/30/2021 2:30 PM EDT Problem: 1. ??Follow-up actinic keratoses undergoing imiquimod cream therapy bilateral cheeks and central forehead 2. 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 Allie follows up and has been utilizing the imiquimod cream once a day Wednesdays and Fridays for the last 3 weeks. She has had a very brisk reaction. She follows up today earlier than her scheduled return so that I might evaluate this. Physical examination reveals a pleasant 75-year-old woman who has violaceous erythema at the sites of the imiquimod cream applications on the bilateral upper cheeks. The actinics have largely desquamated already from the left side but 1 is still in the process of coming off on the right. She has a localized actinic on the upper central forehead. Assessment and plan: Actinic keratosis facial status post 3 weeks of imiquimod cream 5% therapy 1. Discontinue imiquimod cream 2. Return to clinic in another month for repeat check 3. LN 2 x 2 was applied to site on forehead which had not reacted to imiquimod and was still present. CC: Fabricio Long DO documented in this encounter Plan of Treatment Upcoming Encounters Date Type Department Care Team (Late st Contact Info) Description 07/14/2024 8:45 AM EDT Office Visit Dermatology at [address] [phone] Kristian Wiggins MD [address] [facility], [facility] [address] documented as of this encounter Visit Diagnoses Diagnosis AK (actinic keratosis) Actinic keratosis History of SCC (squamous cell carcinoma) of skin Personal history of other malignant neoplasm of skin documented in this encounter Care Teams Dependency Program Director Relationship Specialty Start Date End Date Fabricio Long DO [address] [facility] [place] [address] PCP - General 02/07/10 07/03/21 documented as of this encounter
--- OUTSIDE RECORDS SUMMARY | 2024-01-17 02:00 | XMS_ITS | Encounter Summary ---
[place] [address] Care Team Providers Care Tool Machine Setup Operator Name Role Phone Ethan Fabricio DODD Primary Care Provider [phone] Encounter Details Date Type Department Care Team (Late st Contact Info) Description 02/17/2020 Ancillary Procedure Radiology at [facility] [address] [place] [phone] Rick Hawk MD [address] [place] [address] Social History Tobacco Use Types Packs/Day Years [...] 8:45 AM EDT Office Visit Dermatology at [place] [address] [facility] [place] [address] Kristian Wiggins MD [address] [facility], [place] [address] documented as of this encounter Procedures Procedure Name Priority Date/Time Associated Diagnosis Comments FILM LIBRARY STORAGE ONLY CT HEAD Routine 02/17/2020 12:00 AM EST documented in this encounter Results * Film Library- Storage Only CT Head (02/17/2020 12:00 AM EST) Narrative NILE - 02/24/2020 4:50 PM EST This exam is auto-finalizing. It's purpose is for storage only. Rick Hawk MD IMG FILM LIBRARY ORD ERABLES [place], [place] documented in this encounter Visit Diagnoses Not on filedocumented in this encounter Care Teams Tool Machine Setup Operator Relationship Specialty Start Date End Date Fabricio Long DO [address] [place] [address] PCP - General 02/07/10 07/03/21 documented as of this encounter
--- OUTSIDE RECORDS SUMMARY | 2024-01-17 02:00 | XMS_ITS | Encounter Summary ---
[place] [address] Care Team Providers Care Emergency Medicine Name Role Phone Fabricio Long DO Primary Care Provider [phone] Reason for Visit * Reason Comments Skin Check Encounter Details Date Type Department Care Team (Late st Contact Info) Description 04/27/2016 3:15 PM EST Office Visit Dermatology at [address] [phone] Kristian Wiggins MD [address] [facility], [facility] [place] [address] History of SCC (squamous cell carcinoma) of skin; AK (actinic keratosis) Social History Tobacco Use Types Packs/Day Years Used Date Smoking Tobacco: Never Sex and Gender Information Value Date Recorded Sex Assigned at Not on file Gender Identity Not on file Sexual Orientation Not on file documented as of this encounter Progress Notes * Kristian Wiggins MD - 04/27/2016 3:15 PM EST PROBLEMS: 1. New skin lesion of concern, left medial cheek and right lateral cheek. 2. 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 Allie follows up and is concerned about 2 new lesions. She is quite pleased with the healing of the biopsy site from her last visit on the left nasal bridge. Physical examination reveals a pleasant 70-year-old woman who has a slightly atrophic scar on the left nasal bridge, where the SCCA was removed with a shave C and D, however, there is no evidence of recurrence. There is no induration. There is no crust or scab. She does have 2 small actinic keratoses, one on the left medial cheek and one on the right far lateral cheek of her face. ASSESSMENT/PLAN: 1. History of SCCA. a. No evidence of recurrence. b. Patient reassured. 2. Actinic keratoses, 2 sites, facial. a. LN2 x2 applied to 2 sites. b. Reassured about the remainder of sun-exposed skin examination. c. Recommend I see her again on a p.r.n. basis for new lesions/concerns. She can call at any time and make her own appointment or I will be happy to see her back at the request of Dr. Long, who will be seeing her in July. CC: Fabricio Long DO documented in this encounter Plan of Treatment Upcoming Encounters Date Type Department Care Team (Late st Contact Info) Description 07/14/2024 8:45 AM EDT Office Visit Dermatology at [address] [phone] Kristian Wiggins MD [address] [facility], [place] [address] documented as of this encounter Visit Diagnoses Diagnosis History of SCC (squamous cell carcinoma) of skin Personal history of other malignant neoplasm of skin AK (actinic keratosis) Actinic keratosis documented in this encounter Care Teams Emergency Medicine Relationship Specialty Start Date End Date Fabricio Long DO [address] [facility] 1 [place] [address] PCP - General 02/07/10 07/03/21 documented as of this encounter
--- OUTSIDE RECORDS SUMMARY | 2024-01-17 02:00 | XMS_ITS | Encounter Summary ---
[place] [address] Care Team Providers Care Radial Drill Operator Name Role Phone Unknown Primary Care Provider Unavailabl e Reason for Visit * Reason Comments Annual Exam Encounter Details Date Type Department Care Team (Late st Contact Info) Description 07/10/2022 8:45 AM EDT Office Visit Dermatology at [address] [phone] Kristian Wiggins MD [address] [facility], [facility] [place] [address] History of SCC (squamous cell carcinoma) of [...] Progress Notes * Kristian Wiggins MD - 07/10/2022 8:45 AM EDT Problem: 1. ??Follow-up actinic keratoses status post imiquimod cream therapy bilateral cheeks and central forehead 2. 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 ?? Allie follows up for her yearly skin checkup. She has been doing well. She has noted some new lesions of concern. Physical examination reveals a pleasant 77-year-old woman who has no evidence of recurrent SCC on the left nasal bridge. She has solar lentigos and benign seborrheic keratoses present on the forearmsand the upper V of her chest. Patient examination is benign. Assessment plan: Benign skin examination 1. Patient should have benign skin examination 2. No significant actinic damage noted today 3. Continue our yearly skin checkups. 4. Return in another year for recheck. CC: Anshu Barriga MD documented in this encounter Plan of Treatment Upcoming Encounters Date Type Department Care Team (Late st Contact Info) Description 07/14/2024 8:45 AM EDT Office Visit Dermatology at [place] [address] [facility] [place] [phone] Kristian Wiggins MD [address] [facility] [facility] [address], [place] [address] documented as of this encounter Visit Diagnoses Diagnosis History of SCC (squamous cell carcinoma) of skin Personal history of other malignant neoplasm of skin AK (actinic keratosis) Actinic keratosis documented in this encounter Care Teams Radial Drill Operator Relationship Specialty Start Date End Date Unknown None PCP - General 01/23/22 06/25/23 documented as of this encounter
--- OUTSIDE RECORDS SUMMARY | 2024-01-17 02:00 | XMS_ITS | Encounter Summary ---
[place] [address] Care Team Providers Care Industrial Controls Technician Name Role Phone Fabricio Long DO Primary Care Provider Encounter Details Date Type Department Care Team (Latest Contact Info) Description 09/30/2014 1:15 PM EDT - 09/30/2014 11:59 PM EDT Hospital [place] [address] CLINIC, Edna Yu MD [address] [place] [address] [phone] Discharge Disposition: Home Social History Tobacco Use Types Packs/Day Years Used Date Smoking Tobacco: Never Assessed Sex and Gender Information Value Date Recorded Sex Assigned at Not on file Gender Identity Not on file Sexual Orientation Not on file documented as of this encounter Medications at Time of Discharge Medication Sig Dispensed Refills Start Date End Date hydroxychloroquine (PLAQUENIL) 200 mg tablet Take 200 mg by mouth daily. 02/20/2016 ibuprofen (ADVIL;MOTRIN) 800 mg tablet 12/21/2008 02/20/2016 PREDNISONE ORAL 12/21/2008 02/20/2016 documented as of this encounter Plan of Treatment Upcoming Encounters Date Type Department Care Team (Late st Contact Info) Description 07/14/2024 8:45 AM EDT Office Visit D[facility] at [facility] [place] [address] [place] [phone] Kristian Wiggins MD [address], [place] [address] documented as of this encounter Procedures Procedure Name Priority Date/Time Associated Diagnosis Comments MRI CERVICAL SPINE WO CONTRAST Routine 09/30/2014 2:28 PM EDT documented in this encounter Results * MRI cervical spine WO contrast (09/30/2014 2:28 PM EDT) Anatomical Region Laterality Modality C-spine Magnetic Resonan ce 09/30/2014 2:28 PM EDT Impressions 09/30/2014 3:26 PM EDT IMPRESSION: Changes of cervical spondylosis greatest at C4-5, C5-6 and C6-7 described in detail at individual levels the body the report. Asymmetric foraminal narrowing greater on the right C2-3 through C5-6 and greater on the left at C6-7 and C7-T1.. Narrative 09/30/2014 3:26 PM EDT EXAMINATION: MR Isadoraine WO Matthieu CLINICAL HISTORY: neck and right shoulder pain, radicular symptoms greater than 6 months. Assess for nerve root impingement, right C4-C5/C6 TECHNIQUE: MRI cervical spine noncontrast COMPARISON: None FINDINGS: There are changes of cervical spondylosis with disc space narrowing and endplate proliferative changes greatest at C4-5, C5-6 and C6-7. There is mild anterolisthesis of C2 on C3 and mild retrolisthesis of C4 on C5 and C5 on C6. There is reversal of the normal lordosis in the upper and mid cervical spine. Vertebral bodies are maintained in height. No aggressive marrow lesions. Prevertebral soft tissues are within normal limits. The craniocervical junction is normal. Cord signal and morphology is normal. Findings at specific levels: C2-3: Facet arthropathy right greater than left. No disc protrusion or central stenosis. Severe right foraminal narrowing. C3-4: There is minimal anterolisthesis of C3 on C4. There is mild effacement of the ventral thecal sac. Severe right and mild left foraminal narrowing secondary to asymmetric facet arthropathy and uncovertebral joint change. C4-5: Mild overall canal stenosis secondary to a posterior disc osteophyte complex with a posterior bony ridge. There is moderate right and mild to moderate left foraminal narrowing secondary to asymmetric uncovertebral joint hypertrophic change and facet arthropathy. C5-6: Posterior disc osteophyte complex with posterior bony ridge and mild overall canal stenosis. There is asymmetric uncovertebral joint and facet arthropathy right greater than left with severe right and moderate left foraminal narrowing. C6-7: Asymmetric uncovertebral joint hypertrophic change and facet arthropathy left greater than right. Mild overall canal narrowing. There is mild right and severe left foraminal narrowing. C7-T1: No disc protrusion or central stenosis. Mild bilateral foraminal narrowing left greater than right due to facet arthropathy. Procedure Note Jono Vega MD - 09/30/2014 EXAMINATION: MR Virginia Sommers CLINICAL HISTORY: neck and right shoulder pain, radicular symptoms greaterthan 6 months. Assess for nerve root impingement, right C4-C5/C6 TECHNIQUE: MRI cervical spine noncontrast COMPARISON: None FINDINGS: There are changes of cervical spondylosis with disc space narrowing andendplate proliferative changes greatest at C4-5, C5-6 and C6-7. There is mild anterolisthesis of C2 on C3 and mild retrolisthesis of C4 on C5 and C5 onC6. There is reversal of the normal lordosis in the upper and mid cervicalspine. Vertebral bodies are maintained in height. No aggressive marrow lesions. Prevertebral soft tissues are within normal limits. The craniocervicaljunction is normal. Cord signal and morphology is normal. Findings at specific levels: C2-3: Facet arthropathy right greater thanleft. No disc protrusion or central stenosis. Severe right foraminal narrowing. C3-4: There is minimal anterolisthesis of C3 on C4. There is mildeffacement of the ventral thecal sac. Severe right and mild left foraminal narrowingsecondary to asymmetric facet arthropathy and uncovertebral joint change. C4-5: Mild overall canal stenosis secondary to a posterior discosteophyte complex with a posterior bony ridge. There is moderate right and mild to moderate left foraminal narrowing secondary to asymmetric uncovertebraljoint hypertrophic change and facet arthropathy. C5-6: Posterior disc osteophyte complex with posterior bony ridge andmild overall canal stenosis. There is asymmetric uncovertebral joint andfacet arthropathy right greater than left with severe right and moderate left foraminal narrowing. C6-7: Asymmetric uncovertebral joint hypertrophic change and facetarthropathy left greater than right. Mild overall canal narrowing. There is mild rightand severe left foraminal narrowing. C7-T1: No disc protrusion or central stenosis. Mild bilateral foraminal narrowing left greater than right due to facet arthropathy. IMPRESSION IMPRESSION: Changes of cervical spondylosis greatest at C4-5, C5-6 and C6-7 describedin detail at individual levels the body the report. Asymmetric foraminal narrowing greater on the right C2-3 through C5-6and greater on the left at C6-7 and C7-T1.. Edna Nava MD IMG MRI ORDERABLES documented in this encounter Visit Diagnoses Not on filedocumented in this encounter Care Teams Industrial Controls Technician Relationship Specialty Start Date End Date Fabricio Long DO [address] [place] [address] PCP - General 02/07/10 07/03/21 documented as of this encounter
--- OUTSIDE RECORDS SUMMARY | 2024-01-17 02:00 | XMS_ITS | Encounter Summary ---
Author Organization [facility] [place] [address] Care Team Providers Care Chimney Sweeper Name Role Phone Fabricio Long DO Primary Care Provider [phone] Reason for Visit * Auth/Cert Specialty Diagnoses / Procedures Referred By Contac t Referred To Contact Diagnoses SPONDYLOSIS, STENOSIS Procedures PRO LAMINEC/FACETECT/FORAMIN, LUMBAR 1 SEG PRO LAMINEC/FACETECT/FORAMIN, EACH ADDNL LAMINECTOMY, FACETECTOMY & FORAMINOTOMY,LUMBAR, ONE LEVEL (WRVU 15.37) ADD'L INTERSPACES CX., THORACIC, LUMBAR (WRVU 3.47) Referral ID Status Reason Start Date Expiration Date Visits Re quested Visits Authorized [id number] 1 1 Encounter Details Date Type Department Care Team (Late st Contact Info) Description 06/02/2019 7:30 AM EDT - 06/02/2019 9:58 AM EDT Surgery Operating Room [facility] [address] [place] [id number] [place] [address] LAMINECTOMY, FACETECTOMY & FORAMINOTOMY,LUMBAR, ONE LEVEL (WRVU 15.37) Social History Tobacco Use Types Packs/Day Years [...] Sign Reading Time Taken Comments Blood Pressure 138/70 06/02/2019 9:50 AM EDT Pulse 81 06/02/2019 9:50 AM EDT Temperature 37.2 ??C (99 ??F) 06/02/2019 9:03 AM EDT Respiratory Rate 16 06/02/2019 9:50 AM EDT Oxygen Saturation 97% 06/02/2019 9:50 AM EDT Inhaled Oxygen Concentration - - Weight 63.5 kg (140 lb) 06/02/2019 6:32 AM EDT Height 160 cm (5' 3) 06/02/2019 6:32 AM EDT Body Mass Index 24.8 06/02/2019 6:32 AM EDT documented in this encounter Discharge Instructions * Patient Instructions* Tara Pacheco PA - 06/02/2019 9:08 AM EDT Full recovery will depend on your having a strong, positive attitude, setting small goals for improvement and working steadily to accomplish each goal. FOLLOW UP APPOINTMENTS: You will be scheduled for a follow-up appointment four to six weeks after surgery with a Physician???s Human Service Specialist at the surgeon???s office. You will have a follow up appointment with the neurosurgeonin three months. If you have sutures that need to be removed, a suture removal appointment will be made for 10-14 days after surgery. MEDICATIONS: ??? Take your medicine at the time your doctor ordered. ??? Keep a list of your medicines, vitamins, and herbal supplement you take. Keep this list with you at all times. Show it to your caregiver at every visit. Keep the list up-to-date. ??? Ask your caregiver or pharmacist to write an explanation of each medicine you are taking. This should include: why you are taking it, possible side effects, best time of day to take it, what foods to take the medication with or foods to avoid, and when to stop taking it. ??? Only take [id number] or prescription medicine for pain, discomfort or fever as directed by your caregiver. ??? Consult your doctor or pharmacist with any questions. NEW MEDICATIONS AT DISCHARGE: []None []Given prescriptions in office preoperatively OR: Medication Dose/Route/ Frequency Prescription given? Reason for medication Medscape monograph discussed []Yes []No []Yes []No []Yes []No []Yes []No []Yes []No []Yes []No PAIN: ??? It is normal to have pain after your surgery; especially in the lower back. ??? This does not mean that the procedure was unsuccessful or that your recovery will be delayed. ??? Leg aching is also not uncommon. o This is primarily caused by inflammation of the previously compressed nerve. o The discomfort will gradually decrease as the nerve continues to heal. ??? You may also experience muscle spasms across your back and into your legs. ??? Medications will be given to control pain and decrease spasm intensity. ??? Moist heat and/or ice and frequent repositioning may also be helpful. DIET: ??? You may adjust your diet back to normal as your appetite returns. ??? Be sure to drink plenty of fluids, particularly water, and eat whole grain cereals, fruits and fruit juices to combat constipation that is sometimes caused by pain medications. ??? If constipation does occur, an over the counter laxative is acceptable. ??? Call your surgeon if you experience persistent nausea and vomiting. ACTIVITY: ??? Increase your activity slowly. Daily walking is the best exercise. Try to increase your distance a little each day. Go at a pace that doesn???t make you too tired or cause too much pain. ??? It is normal to tire easily for the first week or so after you return home. ??? Swimming after ten to fourteen days is encouraged, if feasible. ??? DO NOT sit for prolonged periods of time for six weeks following your surgery. o Brief periods of time, not to exceed thirty minutes are acceptable (meals or using the bathroom). o Change positions frequently to help eliminate muscle spasm and aching. o When sitting, choose a firm chair that will provide plenty of support. ??? DO NOT lift anything over five pounds. Keep in mind a gallon of milk weighs eight pounds. Do not lift anything that you cannot easily lift with one hand. ??? If you drop something on the floor, pick it up by bending at the knees to lower yourself. DO NOT bend at the waist. ACTIVITY (continued): ??? Sexual relations may be resumed during the recovery period, but positions that strain the back or cause pain should be avoided. ??? Consult your surgeon in regards to your driving status. There are no set time restrictions. Usecommon sense and do not attempt to resume driving until you feel completely comfortable to drive inan uninhibited manner. ??? It is recommended that you do not drive for the first 1-2 weeks or while taking narcotic pain relievers. ??? You may resume other physical activities including work only after consulting with your treating physician. POST ANESTHESIA/SEDATION: ??? You have received medication for sedation and comfort during your procedure. Because these havenot completely left your system, please observe the following precautions: o Plan to relax for the next several hours. o DO NOT drive or operate machinery until the day after your procedure, longer as recommended by your surgeon. o Avoid alcohol for the next 24 hours. o Do not make any important personal or business decisions today. BANDAGE/SHOWERING: ??? You will have Dermabond over the incision (typically a purple glue like substance), with inner sutures that do not need to be removed. The Dermabond will gradually fall off. ??? You may have sutures that require removal. If these are used you will be scheduled for a sutureremoval appointment within 10 to 14 days of the procedure. ??? You may shower after three to five days. ??? Do NOT scrub the incision. ??? Pat the area dry with a towel after showering. ??? Avoid soaking (baths, hot tubs, swimming, etc) until approximately two weeks after your surgery, when your wound is all the way healed. SEEK IMMEDIATE MEDICAL CARE/CALL YOUR SURGEON IF: ??? There is redness, swelling or increasing pain at the wound. SEEK IMMEDIATE MEDICAL CARE/CALL YOUR SURGEON IF (continued): ??? You notice purulent (colored, pus-like) drainage coming from the wound. ??? You notice a foul smell coming from the wound or bandage. ??? You experience urinary problems. ??? You experience any NEW weakness or numbness in your arms or legs. ??? You develop an oral temperature above 101 degrees F. ??? There is a breaking open of the wound. The edges do not stay together after the sutures or tapehas been removed. ??? There is persistent bleeding from an incision. If you have any questions, please call [facility] at [phone], during business hours of Saturday through Saturday from 8:00 a.m. until 4:00 p.m. In case of emergency during non-business hours, please call the same main number and follow the prompts to page the neurosurgeon airline operations agent. SMOKING CESSATION INFORMATION: ??? [place] QUITLINE: ??? [place] QUITLINE: ??? [email or web address] If you smoke, stop now! Smoking may impede healing. MAKE SURE YOU: ??? Understand these instructions. ??? Will seek medical care if you are feeling poor, or get worse. ??? Will call the surgeon???s office with any questions or concerns at : [phone] The above information has been presented or demonstrated. I/we have had the opportunity to ask questions. I/we fully understand the instructions given. I/we have received a copy of this form. documented in this encounter Medications at Time of Discharge Medication Sig Dispensed Refills Start Date End Date ascorbic acid, Vitamin C, (Vitamin C) 500 mg Tablet Take 1,000 mg by mouth daily as needed. hydroxychloroquine (PLAQUENIL) 200 mg Tablet Take 400 mg by mouth daily. 04/26/2016 HYDROcodone-acetaminop hen ([place]) 5-325 mg Tablet Take 1-2 tablets by mouth every 6 hours as needed for Pain. 15 tablet 06/02/2019 02/16/2021 metoclopramide (Reglan) 10 mg Tablet Take 10 mg by mouth 4 times daily as needed. PRN MIGRIANES 05/04/2021 documented as of this encounter Progress Notes * Nisa Loredo RN - 06/02/2019 10:20 AM EDT Discharge instructions gone over with pt and pt's . Both expressed understanding. All questions answered. Paper copy given. documented in this encounter H&P Notes * Tara Pacheco PA - 06/02/2019 7:09 AM EDT Patient Name: Allie Bolaños Patient Age: 73 y.o. Birthdate: 1945 Admit date: 06/02/2019 Attending Physician: Rick Hawk MD The patient's history and physical exam have been reviewed and completed. There has been no interval change from that of the pre-operative history and physical exam done within the last 30 days except for a frontal headache with photophobia this morning. Patient reports that she can have frontal headaches when she doesn't use caffeine. She is afebrile and vitals are stable. documented in this encounter Miscellaneous Notes * Op Note - Rick Hawk MD - 06/02/2019 9:32 AM EDT [facility] Operative Note [place] [id number] Patient Name: Allie Bolaños : [id number] MR#: [id number] Case Date: 06/02/2019 Case Scheduled Time: 729 Surgeon: Surgeon(s) and Role: * Rick Hawk MD - Primary * Tara Pacheco PA - Physician Human Service Specialist Preoperative diagnosis: SPONDYLOSIS, STENOSIS Postoperative diagnosis: SPONDYLOSIS, STENOSIS, synovial cyst L4/5 right Procedure: Right L4/5, L5/S1 Hemilaminectomies, medial facetectomies, lateral recess decompression.Use of the high powered operative microscope for mobilization of the thecal sac and nerve roots. Intraoperative fluoroscopy. Anesthesia: General Estimated Blood Loss: * No values recorded between 06/02/2019 7:50 AM and 06/02/2019 8:57 AM * Specimens removed during surgery: None Drains: * No LDAs found * Surgical Closure: Primary Closure - skin incision is completely closed without any wires, osmin, drains or other devices Disposition: awakened from anesthesia, extubated and taken to the recovery room in a stable condition, having suffered no apparent untoward event. Condition: doing well without problems Complications: none. (Please see the Surgical Encounter Summary for any Implant and Specimen details pertinent to this patient.) Findings: Significant stenosis was identified and decompressed at both levels. At the L4-5 level there was a synovial cyst which was not adherent to the dura and easily removed. It was however compressive of the L5 nerve root in the lateral recess. At both levels there were large osteophytes anteriorly. Our posterior decompression was sufficient to remove any compressive element upon the passing nerve roots. There were no complications or problems. There is no CSF seen at any time during the case. There were no motor discharges. There was no unusual bleeding. Our level was confirmed multiple points throughout the surgery using intraoperative fluoroscopy. We acknowledged the patient's transit ional anatomy. The high-powered operative microscope was critical for micro dissection around the thecal sac and nerve root at each level as well as resection of the synovial cyst. Sponge and needle counts were correct. Surgical Indications: Allie Bolaños is a 73 y.o. year old female who is suffering from lateral recess compromise on the right at L4-5 and L5-S1. We acknowledge that she has transitional anatomy and have defined the preserved appearing disc space as S1-2 and a transitional S1 vertebra. Please referto my office notes for details of presentation, findings on exam, and medical decision making. she has requested that we consider surgical treatment of this condition. Pros and cons, rationale and risks, options and alternatives have been thoroughly reviewed. The patient acknowledges the extensive list of risk of this surgery as explained in no uncertain terms. The patient acknowledges that I cannot provide a guarantee regarding the success of the procedure, the avoidance of complication, or the durability of the result. There has been ample opportunity for the patient to ask and have answered any and all questions, seek any additional information needed to make an informed decision, or seek additional professional opinion if desired. Understanding all of this, she requests that we proceed with operation. Procedure Description: Allie Bolaños was brought into the operating room. she underwent induction of a general endotracheal anesthetic, positioned prone and padded appropriately. The back was then prepped and draped in usual sterile fashion. We paused to confirm the patient's name and identifying information, site and type of surgery to be performed, presence of films if needed, availability of all anticipated necessary equipment and implants, administration of antibiotics and discussion of all other data relevant and required by the preoperative check-list. Once this had all been confirmed,we proceeded to localize the operative level fluoroscopically. Incision was made in the midline to allow access to the operative level. Dissection of the subcutaneous tissues was carried out using the monopolar electrocautery. A self retaining retractor was inserted. We opened the lumbar fascia in the midline, preserving the interspinous ligament. We then elevated the paraspinal musculature on the right side at the L 4 5 and S1 levesl. This was done in the subpereosteal plane. A Viveros retractor was utilized to maintain our exposure. We confirmed our level again with the fluoroscope. We brought in the high-powered operative microscope. Hemilaminectomy was performed along with a medial facetectomy at the L4-5 level. We open the ligamentum flavum and removed it in piecemeal fashion. We are able to widely decompress the thecal sac from well above the disc space to well below the disc space using this technique. We had sufficient lateral exposure that we could develop a plane anteriorto the thecal sac from a lateral perspective. 1 impediment here was the scar tissue and synovium inthe lateral recess. This was able to be resected and we could then mobilized the shoulder of the P2vcukx root. In doing so we could palpate the posterior margin of the disc space which was solid. There was no disc herniation palpable. The thecal sac was soft and pulsatile. We turned our attention to the L5-S1 level where essentially the same procedure was performed using same instrumentation. The findings were a little different and that there was no synovial cyst here. Otherwise the facet andligamentous hypertrophy and lateral recess stenosis was fairly similar. Please see the Findings section for additional detail. We inspected thoroughly to ensure complete hemostasis. The dura was soft and pulsatile. There was no CSF seen. The retractors were released. The soft tissues were inspected to ensure complete hemostasis. We then infiltrated the paraspinal musculature, subcutaneous and subcuticular tissues with a mixture of exparel and 0.5% bupivacaine. The wound was flushed thoroughlywith antibiotic irrigant. The effluent was crystal clear. Fentanyl epidural anesthetic was instilled. The lumbar fascia was reapproximated with interrupted 2-0 Vicryl sutures. The subcutaneous tissues were closed with inverted 2-0 Vicryl sutures. The subcuticular layer was closed with inverted 3-0 Vicryl sutures. The skin edges were approximated with Dermabond, Benzoin and paper tape. The patientwas then allowed to awaken from anesthetic and transferred to the post-anesthesia care unit in stable condition. Infection Bundle used? N/A Tara Pacheco PA-C worked under my direction for the duration of the operative session. The drilling assistant adequately prepped the operative site and maintained the best possible exposure of anatomy incident to the procedure. Rick Hawk MD 06/02/2019 documented in this encounter Plan of Treatment Upcoming Encounters Date Type Department Care Team (Late st Contact Info) Description 07/14/2024 8:45 AM EDT Office Visit Dermatology at [place] [address] [place] [id number] Kristian Wiggins MD [address], [facility] A [facility]OLOGY [place], [place] [id number] documented as of this encounter Procedures Procedure Name Priority Date/Time Associated Diagnosis Comments XR FLUORO NO RAD <1HR - OR USE Routine 06/02/2019 8:46 AM EDT [place] Facetectomy&Foramot 1 Vrt Sgm Ea Addl Sgm ([id number]) 06/02/2019 7:29 AM EDT SPONDYLOSIS, STENOSIS Laminec/Facetect/Fo nancy, Lumbar 1 Seg ([id number]) 06/02/2019 7:29 AM EDT SPONDYLOSIS, STENOSIS documented in this encounter Results * XR Fluoro No Rad <1Hr - OR Use (06/02/2019 8:46 AM EDT) Narrative DH RAD - 06/02/2019 8:47 AM EDT This exam is auto-finalizing. No interpretation was done. Rick Hawk MD IMG FLUORO ORDERABLE S [facility] RAD [place], [place] documented in this encounter Visit Diagnoses Not on filedocumented in this encounter Administered Medications Inactive Administered Medications - up to 3 most recent administrations Medication Order MAR Action Action Date Dose Rate Site bacitracin injection ONCE PRN, Starting on Sat06/02/19 at 0803, Until Sat06/02/19 at 1107, Intra-Operative (Intra-Procedure), Routine Given 06/02/2019 8:03 AM EDT 50,000 Units 19- Surgical Site BUpivacaine (PF) (MARCAINE) 0.5 % (5 mg/mL) injection ONCE PRN, Starting on Sat06/02/19 at 0804, Until Sat06/02/19 at 1107, Intra-Operative (Intra-Procedure), Routine Given 06/02/2019 8:04 AM EDT 15 mLs 19- Surgical Site BUpivacaine liposome (PF) (EXPAREL) 1.3 % (13.3 mg/mL) injection for infiltration ONCE PRN, Starting on Sat06/02/19 at 0803, Until Sat06/02/19 at 1107, Intra-Operative (Intra-Procedure) Given 06/02/2019 8:03 AM EDT 15 mLs 19- Surgical Site HYDROcodone-acetamin ophen ([place]) 5-325 mg per tablet 2 tablet 2 tablet, Oral, EVERY 4 HOURS PRN, Starting on Sat06/02/19 at 0854, Until Sat06/02/19 at 1113, Pain, For moderate to severe pain (4-10) Initial dose 5mg. If pain control not adequate in 60 minutes, give an additional 5 mg., PACU Recovery, Routine Given 06/02/2019 10:26 AM EDT 1 tablet lactated ringers infusion 1,000 mL, at 50 mL/hr, Intravenous, CONTINUOUS, Starting on Sat06/02/19 at 0730, Until Sat06/02/19 at 1113, Day of Surgery (Day of Procedure) New Bag 06/02/2019 9:50 AM EDT 1,000 mLs 50 mL/hr New Bag 06/02/2019 7:29 AM EDT documented in this encounter Active and Recently Administered Medications Times are shown in EDT. Scheduled Medication Order 05/31/2019 06/01/2019 06/02/2019 ceFAZolin (Ancef) 2g in dextrose 5% 100 mL (COMPLETED) 2 g, Intravenous, ONCE, 1 dose, On Sat06/02/19 at 0645, Administer over 30 Minutes, To be administered upon arrival to the OR within one hour prior to incision., Day of Surgery (Day of Procedure), Indication for (Active or Suspected): Prophylaxis 0734 (Given - Provid er: Smam Medel CRNA) Continuous Medication Order 05/31/2019 06/01/2019 06/02/2019 lactated ringers infusion (CANCELED) 1,000 mL, at 50 mL/hr, Intravenous, CONTINUOUS, Starting on Sat06/02/19 at 0730, Until Sat06/02/19 at 1113, Day of Surgery (Day of Procedure) 0729 (New Bag - Prov ider: Samm Medel CRNA)0950 (New Bag - Provider: Nisa Loredo RN) PRN Medication Order 05/31/2019 06/01/2019 06/02/2019 bacitracin injection (CANCELED) ONCE PRN, Starting on Sat06/02/19 at 0803, Until Sat06/02/19 at 1107, Intra-Operative (Intra-Procedure), Routine 0803 (Given - Provid er: Rick Hawk MD) BUpivacaine (PF) (MARCAINE) 0.5 % (5 mg/mL) injection (CANCELED) ONCE PRN, Starting on Sat06/02/19 at 0804, Until Sat06/02/19 at 1107, Intra-Operative (Intra-Procedure), Routine 08 (Given - Provid er: Rick Hawk MD) BUpivacaine liposome (PF) (EXPAREL) 1.3 % (13.3 mg/mL) injection for infiltration (CANCELED) ONCE PRN, Starting on Sat06/02/19 at 0803, Until Sat06/02/19 at 1107, Intra-Operative (Intra-Procedure) 0803 (Given - Provid er: Rick Hawk MD) HYDROcodone-acetaminophen ([place]) 5-325 mg per tablet 2 tablet (CANCELED) 2 tablet, Oral, EVERY 4 HOURS PRN, Starting on Sat06/02/19 at 0854, Until 06/02/19 at 1113, Pain, For moderate to severe pain (4-10) Initial dose 5mg. If pain control not adequate in 60 minutes, give an additional 5 mg., PACU Recovery, Routine 1026 (Given - Provid er: Nisa Loredo RN - Comment: lower back pain) documented in this encounter Care Teams Chimney Sweeper Relationship Specialty Start Date End Date Fabricio Long DO [address] [place] [address] [address] [facility] [address] [place] [address] PCP - General 02/07/10 07/03/21 documented as of this encounter
--- OUTSIDE RECORDS SUMMARY | 2024-01-17 02:00 | XMS_ITS | Encounter Summary ---
Author Organization [facility] [place] [address] Care Team Providers Care Filler Spreader Name Role Phone Unknown Primary Care Provider Unavailabl e Encounter Details Date Type Department Care Team (Latest Contact Info) Description 07/09/2022 Travel Social History Tobacco Use Types Packs/Day [...] 8:45 AM EDT Office Visit Dermatology at [place] [address] [facility] [place] [phone] Kristian Wiggins MD [address] [facility], [place] [address] documented as of this encounter Visit Diagnoses Not on filedocumented in this encounter Care Teams Filler Spreader Relationship Specialty Start Date End Date Unknown None PCP - General 01/23/22 06/25/23 documented as of this encounter
--- OUTSIDE RECORDS SUMMARY | 2024-01-17 02:00 | XMS_ITS | Encounter Summary ---
[place] [address] Care Team Providers Care Client Technical Professional Name Role Phone Ethan, Fabricio DODD Primary Care Provider Encounter Details Date Type Department Care Team (Late st Contact Info) Description 03/05/2019 Ancillary Procedure Radiology at [facility] [address] [place] [phone] Rick Hawk MD [address] [place] [address] Social History Tobacco Use Types Packs/Day Years Used Date Smoking Tobacco: Never Sex and Gender Information Value Date Recorded Sex Assigned at Not on file Gender Identity Not on file Sexual Orientation Not on file documented as of this encounter Plan of Treatment Upcoming Encounters Date Type Department Care Team (Late st Contact Info) Description 07/14/2024 8:45 AM EDT Office Visit Dermatology at [facility] [address] [place] [phone] Kristian Wiggins MD [address] [facility], [place] [address] documented as of this encounter Procedures Procedure Name Priority Date/Time Associated Diagnosis Comments FILM LIBRARY STORAGE ONLY DX SPINE Routine 03/05/2019 12:00 AM EST documented in this encounter Results * Film Library- Storage Only DX Spine (03/05/2019 12:00 AM EST) Narrative RAD - 04/24/2019 5:19 PM EST This exam is auto-finalizing. It's purpose is for storage only. Rick Hawk MD IMG FILM LIBRARY ORD ERABLES [place], [place] documented in this encounter Visit Diagnoses Not on filedocumented in this encounter Care Teams Client Technical Professional Relationship Specialty Start Date End Date Fabricio Long DO [address] [place] [address] PCP - General 02/07/10 07/03/21 documented as of this encounter
--- OUTSIDE RECORDS SUMMARY | 2024-01-17 02:00 | XMS_ITS | Encounter Summary ---
Author Organization [facility] [place] [address] Care Team Providers Care Shell Sorter Name Role Phone Fabricio Long DO Primary Care Provider Encounter Details Date Type Department Care Team (Late st Contact Info) Description 02/24/2016 Telephone Dermatology at [address] [phone] Mary Fernandez LPN Social History Tobacco Use Types Packs/Day Years Used Date Smoking Tobacco: Never Sex and Gender Information Value Date Recorded Sex Assigned at Not on file Gender Identity Not on file Sexual Orientation Not on file documented as of this encounter Miscellaneous Notes * Telephone Encounter - Mary Newton LPN - 02/24/2016 11:25 AM EST Reviewed biopsy results with patient; SCCA, no further treatment necessary. Return to clinic, PRN. Patient voiced understanding. documented in this encounter Plan of Treatment Upcoming Encounters Date Type Department Care Team (Late st Contact Info) Description 07/14/2024 8:45 AM EDT Office Visit Dermatology at [address] [phone] Kristian Wiggins MD [address], [place] [address] documented as of this encounter Visit Diagnoses Not on filedocumented in this encounter Care Teams Shell Sorter Relationship Specialty Start Date End Date Fabricio Long DO [address] [place] [address] PCP - General 02/07/10 07/03/21 documented as of this encounter
--- OUTSIDE RECORDS SUMMARY | 2024-01-17 02:00 | XMS_ITS | Encounter Summary ---
[place] [address] Care Team Providers Care Slag Wheeler Name Role Phone Fabricio Long DO Primary Care Provider [phone] Reason for Visit * Reason Comments Skin Check Encounter Details Date Type Department Care Team (Late st Contact Info) Description 02/20/2016 9:00 AM EST Office Visit Dermatology at [address] [phone] Kristian Wiggins MD [address] [facility], [facility] [place] [address] History of SCC (squamous cell carcinoma) of skin Social History Tobacco Use Types Packs/Day Years Used Date Smoking Tobacco: Never Sex and Gender Information Value Date Recorded Sex Assigned at Not on file Gender Identity Not on file Sexual Orientation Not on file documented as of this encounter Progress Notes * Kristian Wiggins MD - 02/20/2016 9:00 AM EST PROBLEM: 1. Left nasal bridge lesion x4 months. 2. History of actinic keratoses. Allie is a 70-year-old woman who is referred today by Dr. Long for evaluation and treatment of a nonhealing hyperkeratotic papule on the left nasal sidewall of 4 months duration. I last saw the patient in August of 2012 for her actinic keratoses. Physical examination reveals indeed a 4 mm hyperkeratotic papule on a nonindurated base. It appears consistent with possible SCCA versus hyperkeratotic actinic keratosis. A/P: Rule out nonmelanoma cutaneous malignancy, left nasal sidewall, versus verruca vulgaris. a. Today site was anesthetized and removed with shave C and D. After curettage, the left nasal sidewall site measured 5 mm in diameter. b. Triple antibiotic ointment and Band-Aid placed. c. Wound care instructions, supplies given. d. Return to clinic p.r.n. for new lesions of concern. CC: Austin Long DO documented in this encounter Plan of Treatment Upcoming Encounters Date Type Department Care Team (Late st Contact Info) Description 07/14/2024 8:45 AM EDT Office Visit Dermatology at [place] [address] [place] [address] Kristian Wiggins MD [address] [facility], [place] [address] documented as of this encounter Visit Diagnoses Diagnosis History of SCC (squamous cell carcinoma) of skin Personal history of other malignant neoplasm of skin documented in this encounter Care Teams Slag Wheeler Relationship Specialty Start Date End Date Fabricio Long DO [address] [place] [address] [address] [place] [address] PCP - General 02/07/10 07/03/21 documented as of this encounter
--- OUTSIDE RECORDS SUMMARY | 2024-01-17 02:00 | XMS_ITS | Encounter Summary ---
Author Organization [place] [address] Care Team Providers Care Rehab Services Aide Name Role Phone Fabricio Long DO Primary Care Provider Reason for Visit * Reason Comments Establish Care Face lesion Encounter Details Date Type Department Care Team (Late st Contact Info) Description 08/21/2012 8:45 AM EDT Office Visit Dermatology [address] [facility] [address] [place], [place] [phone] Kristian Wiggins MD [address] [facility], [place] [address] Actinic keratosis (Primary Dx) Social History Tobacco Use Types Packs/Day Years Used Date Smoking Tobacco: Never Assessed Sex and Gender Information Value Date Recorded Sex Assigned at Not on file Gender Identity Not on file Sexual Orientation Not on file documented as of this encounter Progress Notes * Kristian Wiggins MD - 08/21/2012 9:21 AM EDT Problem: Facial lesions of concern. Allie is a 67-year-old woman who is referred today by Dr. Long for evaluation of bilateral malar cheek lesions. These have been present for a number of years. She has been seen by different providers for them. LN2 was tried earliest on them without lasting benefit. She was seen by Dr. Alexis who was not too concerned about them; however, the patient is very concerned about them. Physical examination reveals erythematous, hyperkeratotic, flat-top papules. The larger of the two is 1 cm in diameter on the right cheek, and a smaller 4-mm lesion on the left cheek on the malar prominence. The patient is fair skinned with blue eyes and fair hair. Assessment and Plan: Actinic keratoses, cheeks. a. Discussed the premalignant, nonmalignant nature of these. b. Agree that a more aggressive approach is indicated. I recommended today a light C and D removal of these, and the patient agrees. The patient tolerated it well, and no pathologic specimen was generated. c. Post curettage wound care instructions given. I recommended one week's worth of wound care, and then return to the clinic here p.r.n. COPY: Fabricio Long D.O. documented in this encounter Plan of Treatment Upcoming Encounters Date Type Department Care Team (Late st Contact Info) Description 07/14/2024 8:45 AM EDT Office Visit Dermatology at [place] [address] [facility] [place] [address] Kristian Wiggins MD [address] [facility], [place] [address] documented as of this encounter Visit Diagnoses Diagnosis Actinic keratosis- Primary documented in this encounter Care Teams Rehab Services Aide Relationship Specialty Start Date End Date Fabricio Long DO [address] [place] [address] PCP - General 02/07/10 07/03/21 documented as of this encounter
--- OUTSIDE RECORDS SUMMARY | 2024-01-17 02:00 | XMS_ITS | Encounter Summary ---
[place] [address] Care Team Providers Care Manager Trust Name Role Phone Fabricio Long DO Primary Care Provider Reason for Visit * Consultation (Routine) - Closed Specialty Diagnoses / Procedures Referred By Warren chappell Referred To Contact Neurology Diagnoses Parkinson's disease Essential tremor Shima Nix MD [facility] [address] [place] [id number] [facility] [address] [place] [phone] Referral ID Status Reason Start Date Expiration Date V isits Requested Visits Authorized [id number] Closed Consult, Test & Treat Connection [facility] PCP Updated and/or Approved 11/10/2020 11/10/2021 6 6 Encounter Details Date Type Department Care Team (Latest Contact Info) Description 02/21/2021 11:00 AM EST TH Visit (TeleHealth) [place] [address] Willie Fournier MD [facility] [place] [address] Parkinson's disease Social History Tobacco Use Types Packs/Day Years [...] this encounter Patient Instructions * Patient Instructions* Willie Fournier MD - 02/21/2021 11:00 AM EST Parkinson's disease [employer] Parkinson's Disease Measurement Set Update (2015) ??? Annual Parkinson's Disease Diagnosis Review ??? Dopamine Blocking Medications: [x] Reviewed ??? Psychiatric symptoms Assessment: [x] Reviewed [] depression [] anxiety [] apathy [] delusions/hallucinations ??? Cognitive Assessment: [x] Reviewed [] impairment ??? Autonomic Dysfunction: [x] Reviewed [] orthostatic symptoms [] genitorurinary symptoms [] gastrointestinal ??? Sleep Disturbance: [x] Reviewed [] EDS [] RBD [] RLS ??? Fall Rate: [x] Reviewed: Number of falls in the last 6 months: ??? Rehabilitative Therapy Options: [x] Reviewed [x] PT [] OT [] ST [] Community based ??? Regular Exercise Regimen: [x] counseling given: at least 150 min per week ??? Motor complications: [x] Reviewed [] Wearing off [] Dyskinesia [] Freezing ??? Advanced Care Planning [x] Reviewed [] Referral [...] PD) Check CMP and CBC within 6 months(E-mail Elder if patient is on the list) [] Auditory Anyone without hearing impairment requiring hearing aids. Email digital asset coordinator ([email or web address]) [] ProSEEK [] [email or web address] Other Subspecialty referrals [x] None [] ENT [] Neurosurgery [] Neuropsychology [] Psychiatry [] Dermatology [] Referral to Aleah Lowery at the [facility]: http://www.[facility].org/agingcenter [] Falls prevention program: Http://www.[employer]/wordpress/?page_id=175 [] Referral to Home Health [] Referral to Care Management documented in this encounter Progress Notes * Willie Fournier MD - 02/21/2021 11:00 AM EST Images from the original note were not included. 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 Actinic keratosis L57.0 ??? History of SCC (squamous cell carcinoma) of skin Z85.828 ??? AK (actinic keratosis) L57.0 ??? Parkinson's disease G20 History of Present Illness She had PT and there was a limp with a weakness of the piriformis, gluteus medius. She walked like she had Parkinson's. Tremor of the left hand had been long lasting. She noted a left hand tremor. It seems to be in the family. She is on C/L and that seems to make no difference. She was seeing Dr. Nix for the weakness and she noted signs of possible Parkinson's diseasein her gait. . She reaaly hasn't had any handrwriting problems affecting her work as a calligrapher. Regarding other nonmotor symptoms, she has not noted a change in her sense of smell. However, she is aware of losing some sense of taste. . She hasn't really slowed down except for the surgeries. Cerebral anuerysm surgery, knee surgery andGall bladder surgery. She has not noticed a change in her voice. Her also doesn't think so. Father and her sister have a rest tremor. She has a hard time with tremor at that time. She is on levodopa, and had to delay that until she was 4 months out of surgery. She is now taking tiwice a day and has had nausea from it. Review of Systems Review of Systems - Negative except as noted above. Past Medical History Past Medical History: Diagnosis Date ??? Cancer SCCA OF SKIN ??? Mental health problem ANXIETY ??? Migraine Past Surgical History Past Surgical History: Procedure Laterality Date ??? CARPAL TUNNEL RELEASE Right ~2010 ??? CHOLECYSTECTOMY ?2016 ??? COLONOSCOPY ??? CYST REMOVAL Bilateral BEHIND EAR ??? CYST REMOVAL GANGLION CYST EXCISION ??? OVARIAN CYST SURGERY 1971 ??? PRO LAMINEC/FACETECT/FORAMIN, EACH ADDNL N/A 06/02/2019 ADD'L INTERSPACES CX., THORACIC, LUMBAR (WRVU 3.47) performed by Rick Hawk [facility] at [facility] ??? PRO LAMINEC/FACETECT/FORAMIN, LUMBAR 1 SEG N/A 06/02/2019 LAMINECTOMY, FACETECTOMY & FORAMINOTOMY,LUMBAR, ONE LEVEL (WRVU 15.37) performed by Rick Hawk MD at [facility] ??? TONSILLECTOMY Social History Social History Socioeconomic History ??? Marital status: Spouse name: None ??? Number of children: None ??? Years of education: None ??? Highest education level: None Occupational History ??? None Tobacco Use ??? Smoking status: Never Smoker ??? Smokeless tobacco: Never Used Substance and Sexual Activity ??? Alcohol use: Yes Comment: RARE ??? Drug use: Never ??? Sexual activity: None Other Topics Concern ??? None Social History Narrative Born in [place] After high school. She studied history in college in [place]. 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 Social Determinants of Health Financial Resource Strain: Not on file Food Insecurity: Not on file Transportation Needs: Not on file Physical Activity: Not on file Housing Stability: Not on file Family History History reviewed. No pertinent family history. No family status information on file. Allergies No Known Allergies Current Medications Current Outpatient Medications Medication Sig Dispense Refill ??? propranoloL (Inderal) 20 mg Tablet Take 20 mg by mouth 2 times daily. ??? carbidopa-levodopa (Sinemet) 25-100 mg Tablet Take 1 tablet by mouth 2 times daily. ??? hydroCHLOROthiazide (Hydrodiuril) 25 mg Tablet Take 25 mg by mouth daily. ??? aspirin 325 mg Tablet Take 325 mg by mouth daily. ??? ascorbic acid, Vitamin C, (Vitamin C) 500 mg Tablet Take 1,000 mg by mouth daily as needed. ??? metoclopramide (Reglan) 10 mg Tablet Take 10 mg by mouth 4 times daily as needed. PRN MIGRIANES ??? hydroxychloroquine (PLAQUENIL) 200 mg Tablet Take 400 mg by mouth daily. No current facility-administered medications for this visit. Objective: There were no vitals filed for this visit. General: healthy appearing and pleasant. Neurological Exam ?? Mental Status: Intelligent and conversant. ?? Cranial Nerves: ?? CN I: Not tested. ?? CN III,IV,: Extraocular movements:appear intact. ?? CN VII: Facial motor strength: normal ?? Facial expression: mildly decreased ?? CN XI: Shoulder elevation: symmetric ?? Motor: ?? Strength: appears intact ?? Tone: maybe slightly increased ?? Sensory: ?? Not assessed. ?? Reflexes: not assessed. ?? Coordination: ?? Finger to nose: intact ?? Gait: ?? Armswing: decreased ?? Romberg: negative ?? Data/Imaging Reviewed: none Assessment and Plan: Parkinson's disease [employer] Parkinson's Disease Measurement Set Update (2015) ??? Annual Parkinson's Disease Diagnosis Review ??? Dopamine Blocking Medications: [x] Reviewed ??? Psychiatric symptoms Assessment: [x] Reviewed [] depression [] anxiety [] apathy [] delusions/hallucinations ??? Cognitive Assessment: [x] Reviewed [] impairment ??? Autonomic Dysfunction: [x] Reviewed [] orthostatic symptoms [] genitorurinary symptoms [] gastrointestinal ??? Sleep Disturbance: [x] Reviewed [] EDS [] RBD [] RLS ??? Fall Rate: [x] Reviewed: Number of falls in the last 6 months: ??? Rehabilitative Therapy Options: [x] Reviewed [x] PT [] OT [] ST [] Community based ??? Regular Exercise Regimen: [x] counseling given: at least 150 min per week ??? Motor complications: [x] Reviewed [] Wearing off [] Dyskinesia [] Freezing ??? Advanced Care Planning [x] Reviewed [] Referral [...] PD) Check CMP and CBC within 6 months(E-mail Elder if patient is on the list) [] Auditory Anyone without hearing impairment requiring hearing aids. Email digital asset coordinator ([email or web address]) [] ProSEEK [] [email or web address] Other Subspecialty referrals [x] None [] ENT [] Neurosurgery [] Neuropsychology [] Psychiatry [] Dermatology [] Referral to Aleah Lowery at the [facility]: http://www.d-.org/agingcenter [] Falls prevention program: Http://www.[facility].org/wordpress/?page_id=175 [] Referral to Home Health [] Referral to Care Management Patient Instructions Parkinson's disease [employer] [employer] Parkinson's Disease Measurement Set Update (2015) ??? Annual Parkinson's Disease Diagnosis Review ??? Dopamine Blocking Medications: [x] Reviewed ??? Psychiatric symptoms Assessment: [x] Reviewed [] depression [] anxiety [] apathy [] delusions/hallucinations ??? Cognitive Assessment: [x] Reviewed [] impairment ??? Autonomic Dysfunction: [x] Reviewed [] orthostatic symptoms [] genitorurinary symptoms [] gastrointestinal ??? Sleep Disturbance: [x] Reviewed [] EDS [] RBD [] RLS ??? Fall Rate: [x] Reviewed: Number of falls in the last 6 months: ??? Rehabilitative Therapy Options: [x] Reviewed [x] PT [] OT [] ST [] Community based ??? Regular Exercise Regimen: [x] counseling given: at least 150 min per week ??? Motor complications: [x] Reviewed [] Wearing off [] Dyskinesia [] Freezing ??? Advanced Care Planning [x] Reviewed [] Referral [...] PD) Check CMP and CBC within 6 months(E-mail Elder if patient is on the list) [] Auditory Anyone without hearing impairment requiring hearing aids. Email digital asset coordinator ([email or web address]) [] ProSEEK [] [email or web address] Other Subspecialty referrals [x] None [] ENT [] Neurosurgery [] Neuropsychology [] Psychiatry [] Dermatology [] Referral to Aleah Lowery at the [facility]: http://www.[facility].org/agingcenter [] Falls prevention program: Http://www.[employer].org/wordpress/?page_id=175 [] Referral to Home Health [] Referral to Care Management No orders of the defined types were placed in this encounter. Willie Fournier MD PhD [facility] Neurology diagnosed a year ago documented in this encounter Miscellaneous Notes * Assessment & Plan Note - Willie Fournier MD - 02/21/2021 11:56 AM EST Associated Problem(s): Parkinson's disease [employer] Parkinson's Disease Measurement Set Update (2015) ??? Annual Parkinson's Disease Diagnosis Review ??? Dopamine Blocking Medications: [x] Reviewed ??? Psychiatric symptoms Assessment: [x] Reviewed [] depression [] anxiety [] apathy [] delusions/hallucinations ??? Cognitive Assessment: [x] Reviewed [] impairment ??? Autonomic Dysfunction: [x] Reviewed [] orthostatic symptoms [] genitorurinary symptoms [] gastrointestinal ??? Sleep Disturbance: [x] Reviewed [] EDS [] RBD [] RLS ??? Fall Rate: [x] Reviewed: Number of falls in the last 6 months: ??? Rehabilitative Therapy Options: [x] Reviewed [x] PT [] OT [] ST [] Community based ??? Regular Exercise Regimen: [x] counseling given: at least 150 min per week ??? Motor complications: [x] Reviewed [] Wearing off [] Dyskinesia [] Freezing ??? Advanced Care Planning [x] Reviewed [] Referral [...] PD) Check CMP and CBC within 6 months(E-mail Elder if patient is on the list) [] Auditory Anyone without hearing impairment requiring hearing aids. Email digital asset coordinator ([email or web address]) [] ProSEEK [] [email or web address] Other Subspecialty referrals [x] None [] ENT [] Neurosurgery [] Neuropsychology [] Psychiatry [] Dermatology [] Referral to Aleah Lowery at the [facility]: http://www.d-h.org/agingcenter [] Falls prevention program: Http://www.[facility].org/wordpress/?page_id=175 [] Referral to Home Health [] Referral to Care Management documented in this encounter Plan of Treatment Upcoming Encounters Date Type Department Care Team (Late st Contact Info) Description 07/14/2024 8:45 AM EDT Office Visit Dermatology at [place] [address] [place] [phone] Kristian Wiggins MD [address], [place] [address] documented as of this encounter Visit Diagnoses Diagnosis Parkinson's disease Paralysis agitans documented in this encounter Care Teams Manager Trust Relationship Specialty Start Date End Date Fabricio Long DO [address] [place] [address] PCP - General 02/07/10 07/03/21 documented as of this encounter
--- OUTSIDE RECORDS SUMMARY | 2024-01-17 02:00 | XMS_ITS | Encounter Summary ---
Author Organization [facility] [place] [address] Care Team Providers Care Telephone Worker Name Role Phone Fabricio Long DO Primary Care Provider [phone] Encounter Details Date Type Department Care Team (Late st Contact Info) Description 05/04/2021 Refill Dermatology at [address] [phone] Mary Fernandez, PIPO Social History Tobacco Use Types Packs/Day Years [...] 8:45 AM EDT Office Visit Dermatology at [address] [phone] Kristian iWggins MD [address] [facility], [address] DERMATOLOGY [place], [place] [phone] documented as of this encounter Visit Diagnoses Not on filedocumented in this encounter Care Teams Telephone Worker Relationship Specialty Start Date End Date Fabricio Long DO [address] [place] [address] PCP - General 02/07/10 07/03/21 documented as of this encounter
--- OUTSIDE RECORDS SUMMARY | 2024-01-17 02:00 | XMS_ITS | Encounter Summary ---
Author Organization [facility] [place] [address] Care Team Providers Care Orthotics Assistant Name Role Phone Fabricio Long DO Primary Care Provider [phone] Reason for Visit * Auth/Cert Specialty Diagnoses / Procedures Referred By Contac t Referred To Contact Diagnoses SPONDYLOSIS, STENOSIS Procedures PRO LAMINEC/FACETECT/FORAMIN, LUMBAR 1 SEG PRO LAMINEC/FACETECT/FORAMIN, EACH ADDNL LAMINECTOMY, FACETECTOMY & FORAMINOTOMY,LUMBAR, ONE LEVEL (WRVU 15.37) ADD'L INTERSPACES CX., THORACIC, LUMBAR (WRVU 3.47) Referral ID Status Reason Start Date Expiration Date Visits Re quested Visits Authorized [id number] 1 1 Encounter Details Date Type Department Care Team (Latest Contact Info) Description 06/02/2019 6:07 AM EDT - 06/02/2019 11:00 AM EDT Hospital Encounter Post Acute Care Unit at [address] [place] [phone] Rick Hawk MD [address] [place] [address] Lumbosacral spondylosis without myelopathy Discharge Disposition: Home Social History Tobacco Use [...] Sign Reading Time Taken Comments Blood Pressure 141/76 06/02/2019 10:30 AM EDT Pulse 80 06/02/2019 10:30 AM EDT Temperature 36.8 ??C (98.2 ??F) 06/02/2019 10:15 AM E DT Respiratory Rate 16 06/02/2019 10:30 AM EDT Oxygen Saturation 99% 06/02/2019 10:30 AM EDT Inhaled Oxygen Concentration - - [...] six weeks after surgery with a Physician???s Boiler House Mechanic at the surgeon???s office. You will have [...] to stop taking it. ??? Only take ftzg-[id number]-raeginq or prescription medicine for pain, discomfort or [...] If you have any questions, please call [facility] Neurology and Neurosurgery at [phone], during business hours of Saturday through Saturday from 8:00 a.m. until 4:00 p.m. In case of emergency during non-business hours, please call the same main number and follow the prompts to page the neurosurgeon computational scientist. SMOKING CESSATION INFORMATION: ??? [place] QUITLINE: ??? [place] QUITLINE: ??? [email or web address] If you smoke, stop now! Smoking may impede healing. MAKE SURE YOU: ??? Understand these instructions. ??? Will seek medical care if you are feeling poor, or get worse. ??? Will call the surgeon???s office with any questions or concerns at : [phone] The above information has been presented or [...] mg by mouth daily. 04/26/2016 HYDROcodone-acetaminop hen ([place]) 5-325 mg Tablet Take 1-2 tablets by [...] Hawk MD - 06/02/2019 9:32 AM EDT [facility] [place] [address] Patient Name: Allie Bolaños : [id number] MR#: [id number] Case Date: 06/02/2019 Case Scheduled Time: 729 Surgeon: Surgeon(s) and Role: * Rick Hawk MD - Primary * Tara Pacheco PA - Physician Boiler House Mechanic Preoperative diagnosis: SPONDYLOSIS, STENOSIS Postoperative diagnosis: SPONDYLOSIS, [...] could then mobilized the shoulder of the M4uagsl root. In doing so we could palpate [...] the duration of the operative session. The assistant community manager adequately prepped the operative site and maintained the best possible exposure of anatomy incident to the procedure. Rick Hawk MD 06/02/2019 documented in this encounter Plan of Treatment Upcoming Encounters Date Type Department Care Team (Late st Contact Info) Description 07/14/2024 8:45 AM EDT Office Visit Dermatology at [place] [address] [facility] [place] [address] Kristian Wiggins MD [address] [facility], [address] A DERMATOLOGY [place], [place] [id number] documented as of this encounter Procedures Procedure Name Priority Date/Time Associated Diagnosis Comments XR FLUORO NO RAD <1HR - OR USE Routine 06/02/2019 8:46 AM EDT [place] Facetectomy&Foramot 1 Vrt Sgm Ea Addl Sgm (89321) 06/02/2019 7:29 AM EDT SPONDYLOSIS, STENOSIS Laminec/Facetect/Fo nancy, Lumbar 1 Seg ([id number]) 06/02/2019 7:29 AM EDT SPONDYLOSIS, STENOSIS documented in this encounter Results * XR Fluoro No Rad <1Hr - OR Use (06/02/2019 8:46 AM EDT) Narrative DH RAD - 06/02/2019 8:47 AM EDT This exam is auto-finalizing. No interpretation was done. Rick Hawk MD IMG FLUORO ORDERABLE S DH [place], [place] documented in this encounter Visit Diagnoses Diagnosis Lumbosacral spondylosis without myelopathy documented in this encounter Administered Medications Inactive Administered Medications - up to 3 most recent administrations Medication Order MAR Action Action Date Dose Rate Site HYDROcodone-acetaminophen ([place]) 5-325 mg per tablet 2 tablet 2 [...] Suspected): Prophylaxis 0734 (Given - Provid er: Samm Medel CRNA) Continuous Medication Order 05/31/2019 06/01/2019 [...] Until Sat06/02/19 at 1107, Intra-Operative (Intra-Procedure), Routine 0804 (Given - Provid er: Rick Hawk MD) BUpivacaine liposome (PF) ([place]PAR[place]) 1.3 % (13.3 mg/mL) injection for infiltration (CANCELED) ONCE PRN, Starting on Sat06/02/19 at 0803, Until Sat06/02/19 at 1107, Intra-Operative (Intra-Procedure) 0803 (Given - Provid er: Rick Hawk MD) HYDROcodone-acetaminophen ([place]) 5-325 mg per tablet 2 tablet (CANCELED) [...] pain) documented in this encounter Care Teams Orthotics Assistant Relationship Specialty Start Date End Date Fabricio Long DO [address] [place] [address] [address] [place] [address] PCP - General 02/07/10 07/03/21 documented as of this encounter
--- OUTSIDE RECORDS SUMMARY | 2024-01-17 02:00 | XMS_ITS | Encounter Summary ---
Author Organization [facility] Address [facility] [place] [address] Care Team Providers Care Inspector Floor Name Role Phone Fabricio Long DO Primary Care Provider [phone] Reason for Visit * Auth/Cert Specialty Diagnoses / Procedures Referred By [place] t Referred To Contact Diagnoses SPONDYLOSIS, STENOSIS Procedures PRO LAMINEC/FACETECT/FORAMIN, LUMBAR 1 SEG PRO LAMINEC/FACETECT/FORAMIN, EACH ADDNL LAMINECTOMY, FACETECTOMY & FORAMINOTOMY,LUMBAR, ONE LEVEL (WRVU 15.37) ADD'L INTERSPACES CX., THORACIC, LUMBAR (WRVU 3.47) Referral ID Status Reason Start Date Expiration Date Visits Re quested Visits Authorized [id number] 1 1 Encounter Details Date Type Department Care Team (Late st Contact Info) Description 06/02/2019 6:50 AM EDT Ancillary Procedure Radiology Xray at [facility] [place] [address] Social History Tobacco Use Types Packs/Day Years [...] 8:45 AM EDT Office Visit Dermatology at [place] [address] [facility] [place] [address] rKistian Wiggins MD [address] [facility] [address], [place] [address] documented as of this encounter Procedures Procedure Name Priority Date/Time Associated Diagnosis Comments XR FLUORO NO RAD <1HR - OR USE Routine 06/02/2019 8:46 AM EDT documented in this encounter Results * XR Fluoro No Rad <1Hr - OR Use (06/02/2019 8:46 AM EDT) Narrative RAD - 06/02/2019 8:47 AM EDT This exam is auto-finalizing. No interpretation was done. Rick Hawk MD IMG FLUORO ORDERABLE S Performing Organization Address City/State/[facility] Co de Phone Number [place], [place] documented in this encounter Visit Diagnoses Not on filedocumented in this encounter Care Teams Inspector Floor Relationship Specialty Start Date End Date Fabricio Long DO [address] [facility] 1 [place] [address] PCP - General 02/07/10 07/03/21 documented as of this encounter
--- OUTSIDE RECORDS SUMMARY | 2024-01-17 02:00 | XMS_ITS | Encounter Summary ---
[place] [address] Care Team Providers Care Livestock Buyer Name Role Phone Fabricio Long DO Primary Care Provider [phone] Encounter Details Date Type Department Care Team (Late st Contact Info) Description 05/26/2019 2:15 PM EDT Telephone Pre-Admission Testing at [facility] [place] [phone] Social History Tobacco Use Types Packs/Day Years [...] 8:45 AM EDT Office Visit Dermatology at [place] [address] [facility] [place] [phone] Kristian Wiggins MD 580 [facility], [address] [place] [address] documented as of this encounter Visit Diagnoses Not on filedocumented in this encounter Care Teams Livestock Buyer Relationship Specialty Start Date End Date Fabricio Long DO [address] [place] [address] PCP - General 02/07/10 07/03/21 documented as of this encounter
--- OUTSIDE RECORDS SUMMARY | 2024-01-17 02:00 | XMS_ITS | Encounter Summary ---
[place] [address] Care Team Providers Care Calliope Player Name Role Phone Fabricio Long DO Primary Care Provider [phone] Reason for Visit * Reason Comments Follow-up Encounter Details Date Type Department Care Team (Late st Contact Info) Description 05/04/2021 9:30 AM EST Office Visit Dermatology at [address] [phone] Kristian Wiggins MD [address] [facility] [address] [place] (actinic keratosis); History of SCC (squamous [...] Progress Notes * Kristian Wiggins MD - 05/04/2021 9:30 AM EST PROBLEMS: 1. New skin lesion of concern. 2. 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 Allie follows up after last being seen in 2017. She is concerned about some spots on her face. She is now 75. I have treated actinic keratoses for her at her last visit. Physical examination reveals a pleasant 75-year-old woman who has erythematous patches on the central cheeks bilaterally and also 1 on the upper forehead. She has number of small solar lentigos on the lateral cheeks and her forehead. There is no evidence of recurrent SCC on the left nasal bridge. Assessment plan: Actinic keratoses facial, 3 sites 1. Begin use of imiquimod 5% cream applying once a day Wednesdays and Fridays in the evenings only, 3 times a week, for 4 weeks, then discontinue and return to clinic. 2. Dispense 3 g box/12 packets 3. Return to clinic in 2 months for repeat check. CC: Fabricio Long DO documented in this encounter Plan of Treatment Upcoming Encounters Date Type Department Care Team (Late st Contact Info) Description 07/14/2024 8:45 AM EDT Office Visit Dermatology at [place] [address] [facility] [place] [address] Kristian Wiggins MD [address] [facility] [address], [place] [address] documented as of this encounter Visit Diagnoses Diagnosis [place] (actinic keratosis) Actinic keratosis History of SCC (squamous cell carcinoma) of skin Personal history of other malignant neoplasm of skin documented in this encounter Care Teams Calliope Player Relationship Specialty Start Date End Date Fabricio Long DO [address] [place] [address] PCP - General 02/07/10 07/03/21 documented as of this encounter
--- OUTSIDE RECORDS SUMMARY | 2024-01-17 02:00 | XMS_ITS | Encounter Summary ---
[place] [address] Care Team Providers Care Warp Hauler Name Role Phone Ethan Fabricio DODD Primary Care Provider Encounter Details Date Type Department Care Team (Late st Contact Info) Description 01/20/2020 Ancillary Procedure Radiology at [facility] [address] [place] [phone] Rick Hawk MD [address] [place] [address] Social History Tobacco Use Types Packs/Day Years [...] 8:45 AM EDT Office Visit Dermatology at [place] [address] [facility] [place] [address] Kristian Wiggins MD 580 [facility], [place] [address] documented as of this encounter Procedures Procedure Name Priority Date/Time Associated Diagnosis Comments FILM LIBRARY STORAGE ONLY MR HEAD Routine 01/20/2020 12:00 AM EST documented in this encounter Results * Film Library- Storage Only MR Head (01/20/2020 12:00 AM EST) Narrative NILE - 01/25/2020 3:14 PM EST This exam is auto-finalizing. It's purpose is for storage only. Rick Hawk MD IMG FILM LIBRARY ORD ERABLES [place], [place] documented in this encounter Visit Diagnoses Not on filedocumented in this encounter Care Teams Warp Hauler Relationship Specialty Start Date End Date Fabricio Long DO [address] [place] [address] PCP - General 02/07/10 07/03/21 documented as of this encounter
--- OUTSIDE RECORDS SUMMARY | 2024-01-17 02:00 | XMS_ITS | Encounter Summary ---
[place] [address] Care Team Providers Care Recruitment And Outreach Assistant Name Role Phone Ethan, Fabricio DODD Primary Care Provider Encounter Details Date Type Department Care Team (Late st Contact Info) Description 03/19/2019 Ancillary Procedure Radiology at [facility] [address] [place] [phone] Rick Hawk MD [address] [place] [address] Social History Tobacco Use Types Packs/Day Years Used Date Smoking Tobacco: Never Sex and Gender Information Value Date Recorded Sex Assigned at Not on file Gender Identity Not on file Sexual Orientation Not on file documented as of this encounter Plan of Treatment Upcoming Encounters Date Type Department Care Team (Late st Contact Info) Description 07/14/2024 8:45 AM EDT Office Visit Dermatology at [place] 580 [place] [phone] Kristian Wiggins MD 580 [facility], [place] [address] documented as of this encounter Procedures Procedure Name Priority Date/Time Associated Diagnosis Comments FILM LIBRARY STORAGE ONLY MR SPINE Routine 03/19/2019 12:00 AM EST documented in this encounter Results * Film Library- Storage Only MR Spine (03/19/2019 12:00 AM EST) Narrative NILE - 04/24/2019 5:16 PM EST This exam is auto-finalizing. It's purpose is for storage only. Rick Hawk MD IMG FILM LIBRARY ORD ERABLES [place], [place] documented in this encounter Visit Diagnoses Not on filedocumented in this encounter Care Teams Recruitment And Outreach Assistant Relationship Specialty Start Date End Date Fabricio Long DO [address] [place] [address] PCP - General 02/07/10 07/03/21 documented as of this encounter
--- OUTSIDE RECORDS SUMMARY | 2024-01-17 02:00 | XMS_ITS | Encounter Summary ---
[place] [address] Care Team Providers Care Coat Hanger Shaper Machine Operator Name Role Phone Fabricio Long DO Primary Care Provider [phone] Reason for Visit * Reason Onset Date Comments TeleHealth 02/16/2021 Encounter Details Date Type Department Care Team (Late st Contact Info) Description 02/16/2021 [place] [address] Willie Fournier MD [facility] [address] NEUROLOGY [place] [address] TeleHealth Social History Tobacco Use Types Packs/Day Years [...] encounter Miscellaneous Notes * Telephone Encounter - Gala Gustafson RN - 02/16/2021 11:17 AM EST Spoke to this patient by phone to review their medications and allergies prior to their upcoming tele-appointment with the Neurology provider. Medications and allergies reviewed, verified and updatedas needed. documented in this encounter Plan of Treatment Upcoming Encounters Date Type Department Care Team (Late st Contact Info) Description 07/14/2024 8:45 AM EDT Office Visit Dermatology at [place] [address] [facility] [place] [address] Kristian Wiggins MD [address] [facility] [address], [address] [address] documented as of this encounter Visit Diagnoses Not on filedocumented in this encounter Care Teams Coat Hanger Shaper Machine Operator Relationship Specialty Start Date End Date Fabricio Long DO [address] [facility] 1 [place] [address] PCP - General 02/07/10 07/03/21 documented as of this encounter
--- OUTSIDE RECORDS SUMMARY | 2024-01-17 02:00 | XMS_ITS | Encounter Summary ---
Author Organization [facility] [address] Care Team Providers Care Software Client Architect Name Role Phone Unavailable Primary Care Provider Unavailabl e Encounter Details Date Type Department Care Team (Late st Contact Info) Description 10/28/2008 Ancillary Procedure Radiology at [facility] [address] [place] [address] Rick Hawk MD [address] [place] [address] Social History Tobacco Use Types Packs/Day Years [...] 8:45 AM EDT Office Visit Dermatology at [place] [address] [place] [phone] Kristian Wiggins MD [address] [facility], [place] [address] documented as of this encounter Procedures Procedure Name Priority Date/Time Associated Diagnosis Comments FILM LIBRARY STORAGE ONLY MR SPINE Routine 10/28/2008 12:00 AM EDT documented in this encounter Results * Film Library- Storage Only MR Spine (10/28/2008 12:00 AM EDT) Narrative NILE - 04/24/2019 5:22 PM EST This exam is auto-finalizing. It's purpose is for storage only. Rick Hawk MD [facility] FILM LIBRARY ORD ERABLES Performing Organization Address City/State/[facility] Co de Phone Number NILE [place], [place] documented in this encounter Visit Diagnoses Not on filedocumented in this encounter
--- OUTSIDE RECORDS SUMMARY | 2024-01-17 02:00 | XMS_ITS | Encounter Summary ---
[place] [address] Care Team Providers Care Mail Service Coordinator Name Role Phone Ethan Fabricio DODD Primary Care Provider Encounter Details Date Type Department Care Team (Late st Contact Info) Description 11/11/2019 Ancillary Procedure Radiology at [facility] [address] [place] [phone] Rick Hawk MD [address] [place] [address] Social History Tobacco Use Types Packs/Day Years [...] 8:45 AM EDT Office Visit Dermatology at [place] [address] [facility] [place] [address] Kristian Wiggins MD 580 [facility], [place] [address] documented as of this encounter Procedures Procedure Name Priority Date/Time Associated Diagnosis Comments FILM LIBRARY STORAGE ONLY MR SPINE Routine 11/11/2019 12:00 AM EDT documented in this encounter Results * Film Library- Storage Only MR Spine (11/11/2019 12:00 AM EDT) Narrative NILE - 11/16/2019 11:00 AM EDT This exam is auto-finalizing. It's purpose is for storage only. Rick Hawk MD IMG FILM LIBRARY ORD ERABLES [place], [place] documented in this encounter Visit Diagnoses Not on filedocumented in this encounter Care Teams Mail Service Coordinator Relationship Specialty Start Date End Date Fabricio Long DO [address] [place] [address] PCP - General 02/07/10 07/03/21 documented as of this encounter
--- OUTSIDE RECORDS SUMMARY | 2024-01-17 02:00 | XMS_ITS | Encounter Summary ---
[place] [address] Care Team Providers Care Automobile Salesman Name Role Phone Fabricio Long DO Primary Care Provider Encounter Details Date Type Department Care Team (Late st Contact Info) Description 05/28/2019 External Results Pre-Admission Testing at [facility] 10 [place] [phone] Social History Tobacco Use Types Packs/Day Years [...] 8:45 AM EDT Office Visit Dermatology at [place] 580 [place] [phone] Kristian Wiggins MD 580 [facility], [place] [address] documented as of this encounter Procedures Procedure Name Priority Date/Time Associated Diagnosis Comments LAB SCAN Routine 05/27/2019 ECG SCAN Routine 05/27/2019 documented in this encounter Results * Scan Doc: Lab (05/27/2019) Historical Provider MEDIA MGR SCAN EX T ORDR/RSLT * Scan Doc: ECG (05/27/2019) Historical Provider MEDIA MGR SCAN EX T ORDR/RSLT documented in this encounter Visit Diagnoses Not on filedocumented in this encounter Care Teams Automobile Salesman Relationship Specialty Start Date End Date Fabricio Long DO [address] [place] [address] [address] [place] [address] PCP - General 02/07/10 07/03/21 documented as of this encounter
[2024-01-17 10:36] LABS: Abs Immature Grans 0.02 10^3/uL (0.0-0.06); Absolute Basophil Count 0.06 10^3/uL (0.0-0.2); Absolute Eosinophil Count 0.03 10^3/uL (0.0-0.7); Absolute Lymphocyte Count 0.75 10^3/uL (1.2-3.4); Absolute Neutrophil Count 3.53 10^3/uL (1.2-6.7); Basophils % 1.2 %; Eosinophils % 0.6 %; HGB 13.3 g/dL (11.2-15.7); Immature Grans % 0.4 %; Lymphocytes % 15.3 %; MCH 32.4 pg (27.0-33.0); MCV 93 fL (80-95); MPV 9.6 fL (8.0-11.0); Monocytes % 10.2 %; Neutrophils % 72.3 %; Platelet Count 207 10^3/uL (130-400); RDW 12.8 % (11.7-14.6); RDW-SD 43.5 fL; WBC 4.89 10^3/uL (4.4-10.8)
[2024-01-17 10:52] LABS: ALT 19 U/L (14-59); AST 27 U/L (15-37); Albumin 3.9 g/dL (3.4-5.0); Alkaline Phosphatase 94 U/L (46-116); Anion Gap 9.6 mmol/L (3-11); BUN 14 mg/dL (7-18); Bilirubin, Total 0.81 mg/dL (0.2-1.0); CO2 27.4 mmol/L (21.0-32.0); CREATININE 0.8 mg/dL (0.55-1.02); Chloride 95 mmol/L (98-107); Estimated GFR 75.37 (mL/min/1.73m2); Glucose 90 mg/dL (74-106); Potassium 3.7 mmol/L (3.5-5.1); Sodium 132 mmol/L (136-145); Total Protein 7.2 g/dL (6.4-8.2)
[2024-01-17 10:53] LABS: C-Reactive Protein < 0.50 mg/dL (<or=0.5)
== END 2024-01-17 01:57 | disposition home or self-care (01) ==
PROVIDERS: PCP Family Medicine; Visit Provider Family Medicine
DX: R41.89 Other symptoms and signs involving cognitive functions and awareness (principal); R10.9 Unspecified abdominal pain; D64.9 Anemia, unspecified; M06.09 Rheumatoid arthritis without rheumatoid factor, multiple sites; Z79.899 Other long term (current) drug therapy
CPT/HCPCS: 36415; 80053; 85025; 86140

== ENCOUNTER → 2024-04-28 09:13 | Outpatient (BNVA) | payer MEDICARE, BC, SELFPAY | PROVIDERS: PCP Family Medicine; Referring Provider Family Medicine; Visit Provider Psychiatry & Neurology Neurology | DX: G20.C Parkinsonism, unspecified (principal); G43.109 Migraine with aura, not intractable, without status migrainosus; G25.0 Essential tremor; I67.1 Cerebral aneurysm, nonruptured | CPT/HCPCS: 99214 ==

== ENCOUNTER 2024-10-07 02:04 | Outpatient (CLI) | payer MEDICARE, BC, SELFPAY ==
--- NOTE | 2024-10-07 07:00 | DI.RAD_ITS ---
Exam(s) XR LUMBAR SPINE COMPLETE EXAM: XR LUMBAR SPINE COMPLETE CLINICAL HISTORY: left sciatica,back pain,m54.9. TECHNIQUE: 2D digital imaging was performed of the lumbar spine. Five images were obtained. AP, lateral, right oblique, left oblique and L5-S1 spot views were obtained. COMPARISON: CR XR LUMBAR SPINE AP, LAT from 03/05/2019 FINDINGS: BONES: No fracture or destructive lesion. There osteophytes seen throughout the lumbar spine at the endplates. The bones are osteopenic. Degenerative changes of the facets are seen at multiple levels of the lumbar spine. DISKS: There is disc space narrowing at all levels of the lumbar spine. ALIGNMENT: There is a right convex lumbar scoliosis. No spondylolysis or spondylolisthesis. SOFT TISSUE: Atherosclerotic calcification is present. There are surgical clips in the right upper quadrant of the abdomen. IMPRESSION: Marked degenerative changes seen in the lumbar spine. Right convex lumbar scoliosis. DATA REPOSITORY: RADIATION DOSE DELIVERED:
--- NOTE | 2024-10-07 07:00 | DI.RAD_ITS ---
Exam(s) XR SHOULDER RT COMPLETE 2+V EXAM: XR SHOULDER RT COMPLETE 2+V CLINICAL HISTORY: rt shoulder pain,m25.511. TECHNIQUE: 2D digital imaging was performed. Five views. COMPARISON: CR RIGHT SHOULDER COMPLETE from 06/08/2008 FINDINGS: BONES: No acute fracture is present. No bony destructive lesion is seen. Spurring at the greater tuberosity. JOINTS: No dislocation present. Mild narrowing of the glenohumeral joint. Mild spurring at the inferior margin of the humeral head and inferior glenoid. Minimal spurring at the AC joint. SOFT TISSUE: Soft tissue calcification which appears to be in the musculature. IMPRESSION: Llwm-iq-shmpjoqx degenerative changes. DATA REPOSITORY: RADIATION DOSE DELIVERED:
== END 2024-10-07 02:24 ==
LOC: DI 02:04
PROVIDERS: PCP Family Medicine; Visit Provider Family Medicine
DX: M51.360 Other intervertebral disc degeneration, lumbar region with discogenic back pain only (principal); M19.011 Primary osteoarthritis, right shoulder; M41.86 Other forms of scoliosis, lumbar region
CPT/HCPCS: 72110; 73030

== ENCOUNTER → 2024-11-11 11:15 | Outpatient (BNVA) | payer MEDICARE, BC, SELFPAY | PROVIDERS: PCP Family Medicine; Referring Provider Family Medicine; Visit Provider Psychiatry & Neurology Neurology | DX: G25.0 Essential tremor (principal); G20.C Parkinsonism, unspecified; G43.109 Migraine with aura, not intractable, without status migrainosus; I67.1 Cerebral aneurysm, nonruptured | CPT/HCPCS: 99213 ==

== ENCOUNTER 2025-02-17 01:34 | Outpatient (CLI) | payer MEDICARE, BC, SELFPAY ==
[2025-02-17 09:08] LABS: Abs Immature Grans 0.03 10^3/uL (0.0-0.06); HCT 38.9 % (36.0-46.0); HGB 13.1 g/dL (11.2-15.7); Immature Grans % 0.5 %; MCH 32.0 pg (27.0-33.0); MCHC 33.7 % (32.0-36.0); MCV 95 fL (80-95); MPV 10.5 fL (8.0-11.0); Platelet Count 204 10^3/uL (130-400); RBC 4.09 10^6/uL (3.93-5.22); RDW 12.3 % (11.7-14.6); RDW-SD 43.2 fL; WBC 6.05 10^3/uL (4.4-10.8)
[2025-02-17 09:50] LABS: ALT 19 U/L (10-49); AST 45 U/L (<34); Albumin 4.1 g/dL (3.2-5.0); Alkaline Phosphatase 120 U/L (46-116); Anion Gap 6.3 mmol/L (3-11); BUN 15 mg/dL (9-23); Bilirubin, Total 0.70 mg/dL (0.2-1.2); CO2 29.7 mmol/L (20.0-31.0); Calcium 9.2 mg/dL (8.3-10.6); Chloride 99 mmol/L (98-107); Glucose 98 mg/dL (74-106); Potassium 4.0 mmol/L (3.5-5.1); Sodium 135 mmol/L (136-145); Total Protein 7.0 g/dL (5.7-8.2)
== END 2025-02-17 01:35 | disposition home or self-care (01) ==
LOC: LBO 01:34
PROVIDERS: PCP Family Medicine; Visit Provider Internal Medicine Rheumatology
DX: M06.00 Rheumatoid arthritis without rheumatoid factor, unspecified site (principal)
CPT/HCPCS: 36415; 80053; 85025

== ENCOUNTER 2025-03-17 02:58 | Outpatient (CLI) | payer MEDICARE, BC, SELFPAY ==
[2025-03-17 16:09] LABS: ALT 8 U/L (10-49); AST 48 U/L (<34); Albumin 4.1 g/dL (3.2-5.0); Alkaline Phosphatase 98 U/L (46-116); Anion Gap 6.8 mmol/L (3-11); BUN 19 mg/dL (9-23); Bilirubin, Total 0.7 mg/dL (0.2-1.2); CO2 29.3 mmol/L (20.0-31.0); Calcium 8.8 mg/dL (8.3-10.6); Chloride 100 mmol/L (98-107); Glucose 87 mg/dL (74-106); Potassium 3.9 mmol/L (3.5-5.1); Sodium 136 mmol/L (136-145); Total Protein 6.7 g/dL (5.7-8.2)
== END 2025-03-17 02:59 | disposition home or self-care (01) ==
LOC: LBO 02:59
PROVIDERS: PCP Family Medicine; Visit Provider Internal Medicine Rheumatology
DX: M06.00 Rheumatoid arthritis without rheumatoid factor, unspecified site (principal)
CPT/HCPCS: 36415; 80053